=== PATIENT | female | born 1970 | race Caucasian/White ===

== ENCOUNTER 2016-09-02 13:52 | Inpatient (IN) | payer MEDICARE, MEDICAID ==
[~2016-09-02] VITALS: Ht 172.7 cm; Wt 122.4 kg
[2016-09-02] MEDS ORDERED: OMEP40CA2 PO (14:10)
[2016-09-02] MEDS ORDERED: VENL75CA47 PO (14:10)
[2016-09-02] MEDS ORDERED: RISP3TAB3 PO (14:10)
[2016-09-02] MEDS ORDERED: SLEE1TAB PO (14:10)
[2016-09-02] MEDS ORDERED: CLEM2.68 PO (14:10)
[2016-09-02] MEDS ORDERED: QUET1TAB10 PO (14:10)
[2016-09-02] MEDS ORDERED: TRAZ300T2 PO (14:10)
[2016-09-02] MEDS ORDERED: LEVO125T3 PO (14:10)
[2016-09-02] MEDS ORDERED: MIRT15TA3 PO (14:10)
[2016-09-02] MEDS ORDERED: NITR50CA2 PO (14:10)
[2016-09-02] MEDS ORDERED: NORC1TAB4 PO (14:12)
[2016-09-02] MEDS ORDERED: CLON1TAB (14:12)
[2016-09-02] MEDS ORDERED: NS 1,000 ML IV SCH (14:13)
[2016-09-02] MEDS ORDERED: LORazepam 2 MG/ML VIAL (J2060) IV STA ×4 (14:32→16:24)
[2016-09-02 14:53] LABS: ALBUMIN 3.9 GM/DL (3.2-5.2); ALBUMIN/GLOBULIN RATIO 0.91 (1.00-1.93); ALKALINE PHOSPHATASE 149 U/L (45-117); ALT/SGPT 26 U/L (12-78); ANION GAP 12 MEQ/L (8-16); AST/SGOT 37 U/L (15-37); BILIRUBIN,DIRECT 0.1 MG/DL (0.0-0.2); BILIRUBIN,TOTAL 0.4 MG/DL (0.2-1.0); BLOOD UREA NITROGEN 16 MG/DL (7-18); CALCIUM LEVEL 9.9 MG/DL (8.5-10.1); CARBON DIOXIDE LEVEL 26 MEQ/L (21-32); CHLORIDE LEVEL 99 MEQ/L (98-107); CREATININE FOR GFR 2.23 MG/DL (0.55-1.02); GLOMERULAR FILTRATION RATE 25.1 (>58); GLUCOSE, FASTING 158 MG/DL (70-105); POTASSIUM SERUM 4.1 MEQ/L (3.5-5.1); SODIUM LEVEL 137 MEQ/L (136-145); TOTAL PROTEIN 8.2 GM/DL (6.4-8.2)
[2016-09-02 14:55] LABS: MEAN CORPUSCULAR HEMOGLOBIN 30.3 pg (27.0-33.0); MEAN CORPUSCULAR HGB CONC 33.6 g/dl (32.0-36.5); PLATELET COUNT, AUTOMATED 466 k/mm3 (150-450); RED CELL DISTRIBUTION WIDTH 14.9 % (11.5-14.5); WHITE BLOOD COUNT 22.6 K/mm3 (4.0-10.0)
[2016-09-02] MEDS ORDERED: SYMB16INH INH (15:01)
[2016-09-02] MEDS ORDERED: CLON1TAB PO (15:01)
[2016-09-02] MEDS ORDERED: LEVOTAB10 PO (15:01)
[2016-09-02 15:25] LABS: BANDS 1 % (< 11); BASOPHILS 1 % (0-4); EOSINOPHILS 1 % (0-5)
[2016-09-02] MEDS ORDERED: SODIUM CHLORIDE 0.9% 1000 ML IV ONE (15:30)
[2016-09-02 17:05] LABS: MYOGLOBIN > 500 NG/ML (13-71)
[2016-09-02 17:09] LABS: CONTROL LINE HCG INT CTR LINE PRESENT
[2016-09-02 17:12] LABS: METHADONE URINE NEGATIVE (NEGATIVE)
[2016-09-02 17:23] LABS: OSMOLALITY SERUM 297 MOSM/KG (275-295)
[2016-09-02 17:31] LABS: MICROSCOPIC INDICATED? MAN YES (NO)
[2016-09-02 17:38] LABS: BACTERIA, URINE LARGE AMOUNT; RBC, URINE TNTC /hpf (0-3); SQUAMOUS EPITHELIAL CELL URINE SMALL AMOUNT /hpf (SMALL AMT); TRANSITIONAL EPI CELLS, URINE SMALL AMOUNT /hpf
[2016-09-02 17:42] LABS: WAXY CAST, URINE 0-1 /lpf
[2016-09-02 17:43] LABS: MICROSCOPIC EXAM PERFORMED
--- NOTE | 2016-09-02 17:56 | REP ---
CHEST, ONE VIEW: HISTORY: Altered mental status. COMPARISON: 09/25/2014 The technique utilized in obtaining the radiograph has magnified the cardiac silhouette and accentuated the interstitial markings. The patient is tilted and rotated to the right rather excessively. The lung murguia are clear and the heart is not enlarged. The osseous structures are within normal limits. IMPRESSION: No acute cardiopulmonary disease. Technique as described above. Signed by Wander Ramos DO 09/02/2016 06:04 P
[2016-09-02 18:01] LABS: VENOUS BASE EXCESS -1.3 (-2.0-2.0); VENOUS O2 SATURATION 82.4 % (60.0-80.0); VENOUS PARTIAL PRESSURE O2 50.5 mmHg (30.0-50.0); VENOUS TOTAL CO2 24.7 MEQ/L (24.0-28.0)
[2016-09-02] MEDS: NS 1,000 ML IV SCH ×2 (18:17→20:20)
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
[2016-09-02] MEDS: LORazepam 2 MG/ML VIAL (J2060) IV PRN ×2 (19:17→22:02)
[2016-09-02 20:00] VITALS: BP 139/82
[2016-09-02] MEDS: cefTRIAXone SOD 1 GM in D5W MINI-BAG PLUS 50 ML IV SCH (20:20)
--- NOTE | 2016-09-02 20:47 | ECGEPIP ---
Stationary ECG Study [facility] - ED Test Date: 2016-09-02 Pat Name: CAITLIN CONDE Department: Room: - Gender: F [employer]ate Of Chiropractic: jkaila : 1970 Requested By: Liudmila Razo Order Number: [id number] Reading MD: Vinny Camargo Measurements Intervals [place] Rate: 117 P: 52 DE: 123 QRS: 99 QRSD: 98 T: 82 QT: 361 QTc: 505 Interpretive Statements SINUS TACHYCARDIA BORDERLINE RIGHT AXIS DEVIATION POSSIBLE LAE SIMILAR TO 09/25/14 Electronically Signed On 09-02-2016 20:47:33 EDT by Vinny Camargo
[2016-09-02] MEDS: SYMBICORT 160/4.5MCG INHALER 6GM INH SCH (21:00)
[2016-09-02 21:03] VITALS: BP 110/58
[2016-09-02] MEDS: HEPARIN SOD (PORCINE) 5000 UNITS/ML VIAL SQ SCH (22:02)
[2016-09-02 23:18] VITALS: BP 112/70
[2016-09-03] VITALS (8 sets, daily range): BP systolic 95–138; BP diastolic 57–80
[2016-09-03] MEDS: LORazepam 2 MG/ML VIAL (J2060) IV PRN ×7 (00:38→23:06)
[2016-09-03] MEDS ORDERED: NS 1,000 ML IV ONE (01:30)
[2016-09-03] MEDS ORDERED: IPRATROPIUM 0.5MG/ALBUTEROL 2.5MG INH SOL UD 3ML (DUONEB)(J7620) NEB PRN (01:30)
[2016-09-03 02:59] LABS: BASO % 0.3 % (0.0-1.0); EOS # 0.1 K/mm3 (0.0-0.50); EOS % 0.4 % (0.0-3.0); LARGE UNSTAINED CELL # 0.3 K/mm3 (0.0-0.4); LARGE UNSTAINED CELL % 1.3 % (0.0-4.0); LYMPH # 2.6 K/mm3 (1.5-4.5); LYMPH % 12.6 % (24.0-44.0); MEAN CORPUSCULAR HEMOGLOBIN 29.4 pg (27.0-33.0); MEAN CORPUSCULAR HGB CONC 32.9 g/dl (32.0-36.5); MEAN CORPUSCULAR VOLUME 89.3 fl (80.0-96.0); MONO # 1.6 K/mm3 (0.0-0.8); MONO % 8.4 % (0.0-5.0); NEUTROPHILS # 14.5 K/mm3 (1.8-7.7); PLATELET COUNT, AUTOMATED 326 k/mm3 (150-450); RED CELL DISTRIBUTION WIDTH 15.2 % (11.5-14.5); WHITE BLOOD COUNT 18.8 K/mm3 (4.0-10.0)
[2016-09-03 03:25] LABS: ALBUMIN/GLOBULIN RATIO 0.79 (1.00-1.93); ALKALINE PHOSPHATASE 107 U/L (45-117); ALT/SGPT 25 U/L (12-78); ANION GAP 9 MEQ/L (8-16); AST/SGOT 60 U/L (15-37); BILIRUBIN,TOTAL 0.3 MG/DL (0.2-1.0); BLOOD UREA NITROGEN 17 MG/DL (7-18); CALCIUM LEVEL 8.5 MG/DL (8.5-10.1); CARBON DIOXIDE LEVEL 25 MEQ/L (21-32); CHLORIDE LEVEL 110 MEQ/L (98-107); CREATININE FOR GFR 1.57 MG/DL (0.55-1.02); GLOMERULAR FILTRATION RATE 37.6 (>58); GLUCOSE, FASTING 121 MG/DL (70-105); MAGNESIUM LEVEL 1.8 MG/DL (1.8-2.4); SODIUM LEVEL 144 MEQ/L (136-145)
[2016-09-03 04:20] LABS: ALBUMIN 3.1 GM/DL (3.2-5.2)
[2016-09-03] MEDS: NS 1,000 ML IV SCH ×2 (06:31→18:17)
[2016-09-03] MEDS: IPRATROPIUM 0.5MG/ALBUTEROL 2.5MG INH SOL UD 3ML (DUONEB)(J7620) NEB SCH ×4 (08:00→19:37)
[2016-09-03] MEDS: PANTOPRAZOLE 40MG INJ (PROTONIX) (C9113) IV SCH (08:13)
[2016-09-03] MEDS: LEVOTHYROXINE 100 MCG (0.1MG) VIAL IV SCH (08:13)
[2016-09-03] MEDS: HEPARIN SOD (PORCINE) 5000 UNITS/ML VIAL SQ SCH ×2 (08:14→20:53)
[2016-09-03] MEDS: NYSTATIN 100,000 UNITS/GM TOPICAL PWD 15 GM TOP SCH ×2 (08:14→20:54)
[2016-09-03] MEDS: SYMBICORT 160/4.5MCG INHALER 6GM INH SCH ×2 (09:00→21:00)
--- NOTE | 2016-09-03 10:33 | IPNPDOC ---
Subjective Date Seen The patient was seen on 09/03/16. Subjective Chief Complaint/HPI The patient is a 46-year-old female admitted with a reason for visit of Overdose. Events since last encounter patient remains confused and agitated, still encephalopathic, no fever or chills , no vomiting or diarrhea. Objective Physical Examination General Exam: Positive: No Acute Distress Eye Exam: Positive: PERRLA, Conjunctiva & lids normal ENT Exam: Positive: Atraumatic, Mucous membr. moist/pink, Pharynx Normal Neck Exam: Positive: Supple Chest Exam: Positive: Clear to auscultation, Normal air movement Heart Exam: Positive: Tachycardic, Regular Rhythm, Normal S1, Normal S2 Telemetry: Positive: No significant arrhythmia Abdomen Exam: Positive: Normal bowel sounds, Soft Extremity Exam: Positive: Normal pulses, Negative: Clubbing, Cyanosis, Edema Skin Exam: Positive: Other skin issue (tinea under the arms and groin and abdomnal folds. ) Assessment /Plan Problems (1) Toxic metabolic encephalopathy Problem Text: due to benadryl overdose. will give ativan prn as required to control agitation. (2) Traumatic rhabdomyolysis Problem Text: patient was down on floor for unknown duration continue IVF. (3) Acute renal failure Problem Text: due to acute rhabdomyolysis will continue with ivf. (4) Overdose Status: Acute Problem Text: with benadryl 50 tabs of 25 mg (5) Morbid obesity Problem Text: complicating treatment (6) Lactic acidosis Problem Text: continue ivf. (7) UTI (urinary tract infection) Problem Text: continue ceftriaxone. (8) Psychiatric disorder Problem Text: has h/o bipolar disorder, panic disorder in the medical records. (9) Hypothyroid (10) COPD (chronic obstructive pulmonary disease) Plan/VTE VTE Prophylaxis Ordered?: Yes Plan/Urinary Catheter Reason for insertion/continuin: Critical Pt monitoring VS, I&O, 24H, Fishbone Vital Signs/I&O Vital Signs Date Time Temp Pulse Resp B/P (MAP) Pulse Ox O2 Delivery O2 Flow Rate FiO2 09/03/16 08:00 Nasal Cannula 3.0 09/03/16 08:00 98.3 114 28 109/78 (88) 96 I&O- Last 24 Hours up to 6 AM 09/03/16 05:59 Intake Total 3800 ml Output Total 305 ml Balance 3495 ml Laboratory Data 24H LABS Laboratory Tests 2 09/02/16 14:10: Neutrophils 70, Band Neutrophils 1, Lymphocytes (Manual) 17, Monocytes (Manual) 9H, Eosinophils (Manual) 1, Basophils (Manual) 1, Atypical Lymphocytes 1, Platelet Estimate NORMAL, Anion Gap 12, Glomerular Filtration Rate 25.1L, Osmolality 297H, Calcium Level 9.9, Aspartate Amino Transf (AST/SGOT) 37, Alanine Aminotransferase (ALT/SGPT) 26, Alkaline Phosphatase 149H, Total Bilirubin 0.4, Direct Bilirubin 0.1, Total Creatine Kinase 1012H, Myoglobin > 500H, Total Protein 8.2, Albumin 3.9, Albumin/Globulin Ratio 0.91L, Thyroid Stimulating Hormone (TSH) 2.260, Human Chorionic Gonadotropin, Qual NEGATIVE, Salicylates Level 4.8L, Acetaminophen Level < 2.0L, Ethyl Alcohol Level < 0.003 09/02/16 16:22: Lactic Acid Level 8.3*H 09/02/16 16:43: Bedside Urine Color (LAB) DK YELLOW, Bedside Urine Appearance (LAB) CLOUDYH, Bedside Urine pH (LAB) 5.0, Bedside Urine Specific [place] (LAB 1.030, Bedside Urine Protein (LAB) 2+H, Bedside Urine Glucose (UA) T, Bedside Urine Ketones ( LAB) 1+H, Bedside Urine Blood POSITIVEH, Bedside Urine Nitrite (LAB) POSITIVEH, Bedside Urine Bilirubin (LAB) NEGATIVE, Bedside Urine Urobilinogen (LAB) NORMAL , Bedside Urine Leukocyte Esterase (L POSITIVEH, Urine WBC 10-15H, Urine RBC TNTCH, Urine Squamous Epithelial Cells SMALL AMOUNT, Urine Transitional Epithelial Cells SMALL AMOUNTH, Urine Bacteria LARGE AMOUNTH, Urine Hyaline Casts 7-10H, Urine Waxy Casts 0-1, Urine Mucus SMALL AMOUNTH, Urine Amorphous Sediment SMALL AMOUNTH, Urine Sediment Examination PERFORMED, Urine Granular Casts 5-7H, Urine Myoglobin POSITIVEH, Urine Amphetamines Screen NEGATIVE, Urine Benzodiazepines Screen POSITIVEH, Urine Opiates Screen NEGATIVE, Urine Methadone Screen NEGATIVE, Urine Barbiturates Screen NEGATIVE, Urine Phencyclidine Screen NEGATIVE, Urine Cocaine Metabolite Screen NEGATIVE, Urine Cannabinoids Screen NEGATIVE 09/02/16 17:46: Blood Gas Bicarbonate Standard 23.0, Venous Blood pH 7.387, Venous Blood Partial Pressure CO2 40.0, Venous Blood Partial Pressure O2 50.5H, Venous Blood Total Carbon Dioxide 24.7, Venous Blood HCO3 23.5, Venous Blood Oxygen Saturation 82.4H, Venous Blood Base Excess -1.3 09/02/16 22:05: Lactic Acid Level 3.6*H, Free Thyroxine 1.02 09/03/16 02:40: White Blood Count 18.8H, Red Blood Count 4.84, Hemoglobin 14.2#, Hematocrit 43.2 , Mean Corpuscular Volume 89.3, Mean Corpuscular Hemoglobin 29.4, Mean Corpuscular Hemoglobin Concent 32.9, Red Cell Distribution Width 15.2H, Platelet Count 326#, Neutrophils (%) (Auto) 77.0H, Lymphocytes (%) (Auto) 12.6L , Monocytes (%) (Auto) 8.4H, Eosinophils (%) (Auto) 0.4, Basophils (%) (Auto) 0.3, Neutrophils # (Auto) 14.5H, Lymphocytes # (Auto) 2.6, Monocytes # (Auto) 1.6H, Eosinophils # (Auto) 0.1, Basophils # (Auto) 0.0, Large Unclassified Cells % 1.3, Large Unclassified Cells # 0.3, Anion Gap 9, Glomerular Filtration Rate 37.6L, Lactic Acid Followup at 4 Hours 1.7, Blood Urea Nitrogen 17, Creatinine 1.57H, Sodium Level 144#, Potassium Level 4.0, Chloride Level 110H, Carbon Dioxide Level 25, Calcium Level 8.5, Aspartate Amino Transf (AST/SGOT) 60H, Alanine Aminotransferase (ALT/SGPT) 25, Total Creatine Kinase , Alkaline Phosphatase 107, Total Bilirubin 0.3, Total Protein 7.0, Albumin 3.1#L, Magnesium Level 1.8, Albumin/Globulin Ratio 0.79L 09/03/16 04:46: Total Creatine Kinase 5068#H 09/03/16 08:41: CBC/BMP Laboratory Tests 09/02/16 14:10 Red Blood Count 5.48 H, Mean Corpuscular Volume 90.0, Mean Corpuscular Hemoglobin 30.3, Mean Corpuscular Hemoglobin Concent 33.6, Red Cell Distribution Width 14.9 H 09/03/16 02:40 Red Blood Count 4.84, Mean Corpuscular Volume 89.3, Mean Corpuscular Hemoglobin 29.4, Mean Corpuscular Hemoglobin Concent 32.9, Red Cell Distribution Width 15.2 H, Neutrophils (%) (Auto) 77.0 H, Lymphocytes (%) (Auto) 12.6 L, Monocytes (%) (Auto) 8.4 H, Eosinophils (%) (Auto) 0.4, Basophils (%) (Auto) 0.3, Neutrophils # (Auto) 14.5 H, Lymphocytes # (Auto) 2.6, Monocytes # (Auto) 1.6 H , Eosinophils # (Auto) 0.1, Basophils # (Auto) 0.0, Calcium Level 8.5, Aspartate Amino Transf (AST/SGOT) 60 H, Alanine Aminotransferase (ALT/SGPT) 25, Total Creatine Kinase , Alkaline Phosphatase 107, Total Bilirubin 0.3, Total Protein 7.0, Albumin 3.1 #L Microbiology Microbiology 09/02/16 Blood Culture, Received Pending 09/02/16 Blood Culture, Received Pending 09/02/16 Urine Culture, Received Pending ELPIDIO DAMON MD September 03, 2016 10:33
[2016-09-03] MEDS ORDERED: HALOPERIDOL 5 MG/ML VIAL (J1630) IV STA (12:08)
[2016-09-03] MEDS ORDERED: HALOPERIDOL 5 MG/ML VIAL (J1630) As Ordered ONE (12:12)
[2016-09-03] MEDS ORDERED: ATROPINE SULF 1MG/10ML SYRINGE (J0461) IV PRN (12:45)
[2016-09-03] MEDS ORDERED: PHYSOSTIGMINE SALICYLATE 2 MG/2 ML AMP IV ONE ×2 (12:45→13:00)
[2016-09-03] MEDS ORDERED: [UNRECOGNIZED DRUG - OTHER] IV ONE (13:30)
[2016-09-03] MEDS ORDERED: SODIUM CHLORIDE IV ONE (13:30)
[2016-09-03 14:39] LABS: ABG BASE EXCESS -4.8 (-2.0-2.0); ABG HCO3 22.4 MEQ/L (22.0-26.0); ABG PARTIAL PRESSURE CO2 49.7 mmHg (35.0-45.0); ABG PARTIAL PRESSURE O2 335.4 mmHg (75.0-100.0); ABG STANDARD HCO3 20.6 MEQ/L (22.0-26.0); ABG TOTAL CO2 23.9 MEQ/L (22.0-29.0); ABG pH (ARTERIAL) 7.272 UNITS (7.350-7.450)
[2016-09-03] MEDS: cefTRIAXone SOD 1 GM in D5W MINI-BAG PLUS 50 ML IV SCH (20:12)
[2016-09-03 21:06] LABS: ABG BASE EXCESS -4.4 (-2.0-2.0); ABG HCO3 22.3 MEQ/L (22.0-26.0); ABG PARTIAL PRESSURE CO2 47.1 mmHg (35.0-45.0); ABG PARTIAL PRESSURE O2 103.7 mmHg (75.0-100.0); ABG STANDARD HCO3 20.9 MEQ/L (22.0-26.0); ABG TOTAL CO2 23.7 MEQ/L (22.0-29.0); ABG pH (ARTERIAL) 7.293 UNITS (7.350-7.450)
[2016-09-04] VITALS (7 sets, daily range): BP systolic 100–148; BP diastolic 48–84
[2016-09-04] MEDS: NS 1,000 ML IV SCH ×3 (02:29→18:30)
[2016-09-04 04:45] LABS: BASO % 0.3 % (0.0-1.0); EOS % 0.3 % (0.0-3.0); LARGE UNSTAINED CELL # 0.2 K/mm3 (0.0-0.4); LARGE UNSTAINED CELL % 1.6 % (0.0-4.0); LYMPH # 2.5 K/mm3 (1.5-4.5); LYMPH % 19.7 % (24.0-44.0); MEAN CORPUSCULAR HEMOGLOBIN 30.9 pg (27.0-33.0); MEAN CORPUSCULAR HGB CONC 33.4 g/dl (32.0-36.5); MEAN CORPUSCULAR VOLUME 92.4 fl (80.0-96.0); MONO # 0.9 K/mm3 (0.0-0.8); MONO % 7.2 % (0.0-5.0); NEUTROPHILS # 8.9 K/mm3 (1.8-7.7); NEUTROPHILS % 70.9 % (36.0-66.0); PLATELET COUNT, AUTOMATED 300 k/mm3 (150-450); RED CELL DISTRIBUTION WIDTH 14.9 % (11.5-14.5); WHITE BLOOD COUNT 12.6 K/mm3 (4.0-10.0)
[2016-09-04 05:24] LABS: ALBUMIN 2.9 GM/DL (3.2-5.2); ALBUMIN/GLOBULIN RATIO 0.76 (1.00-1.93); ALKALINE PHOSPHATASE 98 U/L (45-117); ALT/SGPT 43 U/L (12-78); ANION GAP 10 MEQ/L (8-16); AST/SGOT 173 U/L (15-37); BILIRUBIN,TOTAL 0.3 MG/DL (0.2-1.0); BLOOD UREA NITROGEN 11 MG/DL (7-18); CARBON DIOXIDE LEVEL 25 MEQ/L (21-32); CHLORIDE LEVEL 111 MEQ/L (98-107); CREATININE FOR GFR 0.82 MG/DL (0.55-1.02); GLOMERULAR FILTRATION RATE > 60.0 (>58); GLUCOSE, FASTING 101 MG/DL (70-105); POTASSIUM SERUM 3.9 MEQ/L (3.5-5.1); SODIUM LEVEL 146 MEQ/L (136-145); TOTAL PROTEIN 6.7 GM/DL (6.4-8.2)
[2016-09-04] MEDS: IPRATROPIUM 0.5MG/ALBUTEROL 2.5MG INH SOL UD 3ML (DUONEB)(J7620) NEB SCH ×4 (08:28→19:28)
[2016-09-04] MEDS: SYMBICORT 160/4.5MCG INHALER 6GM INH SCH ×2 (08:29→21:00)
[2016-09-04] MEDS: PANTOPRAZOLE 40MG INJ (PROTONIX) (C9113) IV SCH (08:46)
[2016-09-04] MEDS: HEPARIN SOD (PORCINE) 5000 UNITS/ML VIAL SQ SCH ×2 (08:47→21:09)
[2016-09-04] MEDS: LEVOTHYROXINE 100 MCG (0.1MG) VIAL IV SCH (08:47)
[2016-09-04] MEDS: NYSTATIN 100,000 UNITS/GM TOPICAL PWD 15 GM TOP SCH ×2 (08:49→21:10)
[2016-09-04] MEDS: ACETAMINOPHEN 650 MG SUPP PR PRN (08:57)
--- NOTE | 2016-09-04 11:55 | IPNPDOC ---
Subjective Date Seen The patient was seen on 09/04/16. Subjective Chief Complaint/HPI The patient is a 46-year-old female admitted with a reason for visit of Overdose. Events since last encounter still remains confused and easily getting agitated. patient having recurrent severe apneic episodes when ever she is falling asleep with sats dropping down to 70%. Seems to have undiagnosed SIRIA. Objective Physical Examination General Exam: Positive: No Acute Distress, Other (confused agitated.) Eye Exam: Positive: PERRLA, Conjunctiva & lids normal ENT Exam: Positive: Atraumatic, Mucous membr. moist/pink, Pharynx Normal Neck Exam: Positive: Supple Chest Exam: Positive: Clear to auscultation, Normal air movement Heart Exam: Positive: Tachycardic, Regular Rhythm, Normal S1, Normal S2 Telemetry: Positive: No significant arrhythmia Abdomen Exam: Positive: Normal bowel sounds, Soft Extremity Exam: Positive: Normal pulses, Negative: Clubbing, Cyanosis, Edema Skin Exam: Positive: Other skin issue (tinea under the arms and groin and abdomnal folds. ) Assessment /Plan Problems (1) Toxic metabolic encephalopathy Problem Text: due to benadryl overdose. will give ativan prn as required to control agitation. (2) Traumatic rhabdomyolysis Problem Text: cpk seems to be plateauing. patient was down on floor for unknown duration continue IVF. (3) Acute renal failure Status: Resolved Problem Text: due to acute rhabdomyolysis and dehydration will continue with ivf. (4) Overdose Status: Acute Problem Text: with benadryl 50 tabs of 25 mg (5) Morbid obesity Problem Text: complicating treatment (6) Lactic acidosis Problem Text: continue ivf. (7) UTI (urinary tract infection) Problem Text: continue ceftriaxone. (8) Psychiatric disorder Problem Text: has h/o bipolar disorder, panic disorder in the medical records. (9) Hypothyroid (10) COPD (chronic obstructive pulmonary disease) (11) Hypoxia Status: Acute Problem Text: recurrent apneic spells with hypoxic episodes . pateint has underlying SIRIA never diagnosed. will continue with oxygen supplementation. ABG reviewed. Plan/VTE VTE Prophylaxis Ordered?: Yes Plan/Urinary Catheter Reason for insertion/continuin: Critical Pt monitoring VS, I&O, 24H, Fishbone Vital Signs/I&O Vital Signs Date Time Temp Pulse Resp B/P (MAP) Pulse Ox O2 Delivery O2 Flow Rate FiO2 09/04/16 08:00 99.8 100 25 118/59 (78) 92 Nasal Cannula 3.0 I&O- Last 24 Hours up to 6 AM 09/04/16 06:00 Intake Total 1000 ml Output Total 1475 ml Balance -475 ml Laboratory Data 24H LABS Laboratory Tests 2 09/03/16 12:13: 09/03/16 12:23: Bedside Glucose (Misc Panel) 119H 09/03/16 12:51: Total Creatine Kinase 6961H 09/03/16 14:28: Blood Gas Bicarbonate Standard 20.6L, Arterial Blood pH 7.272L, Arterial Blood Partial Pressure CO2 49.7H, Arterial Blood Partial Pressure O2 335.4H, Arterial Blood Total CO2 23.9, Arterial Blood HCO3 22.4, Arterial Blood Base Excess -4.8L , Arterial Blood Oxygen Saturation 99.9H 09/03/16 18:06: Bedside Glucose (Misc Panel) 103 09/03/16 20:58: Blood Gas Bicarbonate Standard 20.9L, Arterial Blood pH 7.293L, Arterial Blood Partial Pressure CO2 47.1H, Arterial Blood Partial Pressure O2 103.7H, Arterial Blood Total CO2 23.7, Arterial Blood HCO3 22.3, Arterial Blood Base Excess -4.4L , Arterial Blood Oxygen Saturation 97.7 09/03/16 21:44: Total Creatine Kinase 9456H 09/04/16 04:18: Total Creatine Kinase 9408H, White Blood Count 12.6H, Red Blood Count 4.51, Hemoglobin 13.9, Hematocrit 41.6, Mean Corpuscular Volume 92.4, Mean Corpuscular Hemoglobin 30.9, Mean Corpuscular Hemoglobin Concent 33.4, Red Cell Distribution Width 14.9H, Platelet Count 300, Neutrophils (%) (Auto) 70.9H, Lymphocytes (%) (Auto) 19.7L, Monocytes (%) (Auto) 7.2H, Eosinophils (%) (Auto) 0.3, Basophils (%) (Auto) 0.3, Neutrophils # (Auto) 8.9H, Lymphocytes # (Auto) 2.5, Monocytes # (Auto) 0.9H, Eosinophils # (Auto) 0.0, Basophils # (Auto) 0.0, Large Unclassified Cells % 1.6, Large Unclassified Cells # 0.2, Anion Gap 10, Glomerular Filtration Rate > 60.0, Blood Urea Nitrogen 11, Creatinine 0.82, Sodium Level 146H, Potassium Level 3.9, Chloride Level 111H, Carbon Dioxide Level 25, Calcium Level 8.0L, Aspartate Amino Transf (AST/SGOT) 173H, Alanine Aminotransferase (ALT/SGPT) 43, Alkaline Phosphatase 98, Total Bilirubin 0.3, Total Protein 6.7, Albumin 2.9L, Magnesium Level 2.0, Albumin/Globulin Ratio 0.76L CBC/BMP Laboratory Tests 09/04/16 04:18 Red Blood Count 4.51, Mean Corpuscular Volume 92.4, Mean Corpuscular Hemoglobin 30.9, Mean Corpuscular Hemoglobin Concent 33.4, Red Cell Distribution Width 14.9 H, Neutrophils (%) (Auto) 70.9 H, Lymphocytes (%) (Auto) 19.7 L, Monocytes (%) (Auto) 7.2 H, Eosinophils (%) (Auto) 0.3, Basophils (%) (Auto) 0.3, Neutrophils # (Auto) 8.9 H, Lymphocytes # (Auto) 2.5, Monocytes # (Auto) 0.9 H, Eosinophils # (Auto) 0.0, Basophils # (Auto) 0.0, Calcium Level 8.0 L, Aspartate Amino Transf (AST/SGOT) 173 H, Alanine Aminotransferase (ALT/SGPT) 43 , Total Creatine Kinase 9408 H, Alkaline Phosphatase 98, Total Bilirubin 0.3, Total Protein 6.7, Albumin 2.9 L Microbiology Microbiology 09/02/16 Blood Culture - Preliminary, Resulted No growth after 24 hours . All specim... 09/02/16 Blood Culture - Preliminary, Resulted No growth after 24 hours . All specim... 09/02/16 Urine Culture - Final, Complete Serratia ELPIDIO Oseguera MD Sep 04, 2016 11:55
[2016-09-04] MEDS ORDERED: PHYSOSTIGMINE SALICYLATE 2 MG/2 ML AMP IV ONE ×2 (12:45→15:00)
[2016-09-04] MEDS ORDERED: SODIUM CHLORIDE IV ONE ×2 (14:00→15:30)
[2016-09-04] MEDS ORDERED: [UNRECOGNIZED DRUG - OTHER] IV ONE ×2 (14:00→15:30)
[2016-09-04] MEDS: NICOTINE 14 MG/24 HR TRANSDERMAL TD SCH (16:34)
--- NOTE | 2016-09-04 20:56 | ECGEPIP ---
Stationary ECG Study [facility] Test Date: 2016-09-04 Pat Name: CAITLIN CONDE Department: Room: [place] [address] Gender: F Firer Automatic Stoker: ASHLEY : 1970 Requested By: ELPIDIO DAMON Order Number: [id number] Reading MD: Myles Elaine Measurements Intervals [place] Rate: 102 P: 75 [place]: 129 QRS: 90 QRSD: 109 T: 69 QT: 366 QTc: 478 Interpretive Statements SINUS TACHYCARDIA ABNORMAL RHYTHM ECG INTERPRETATION BASED ON A DEFAULT AGE OF 40 YEARS Electronically Signed On 09-04-2016 20:56:12 EDT by Myles Elaine
[2016-09-04] MEDS: cefTRIAXone SOD 1 GM in D5W MINI-BAG PLUS 50 ML IV SCH (21:08)
[2016-09-05] VITALS (94 sets, daily range): BP systolic 69–173; BP diastolic 43–100; O2SAT 97
[2016-09-05] MEDS: NS 1,000 ML IV SCH ×2 (03:41→08:25)
[2016-09-05 05:13] LABS: BASO % 0.3 % (0.0-1.0); EOS # 0.1 K/mm3 (0.0-0.50); EOS % 0.9 % (0.0-3.0); LARGE UNSTAINED CELL # 0.3 K/mm3 (0.0-0.4); LARGE UNSTAINED CELL % 2.2 % (0.0-4.0); LYMPH % 23.4 % (24.0-44.0); MEAN CORPUSCULAR HEMOGLOBIN 30.1 pg (27.0-33.0); MEAN CORPUSCULAR HGB CONC 32.4 g/dl (32.0-36.5); MEAN CORPUSCULAR VOLUME 92.9 fl (80.0-96.0); MONO % 8.7 % (0.0-5.0); NEUTROPHILS # 7.6 K/mm3 (1.8-7.7); NEUTROPHILS % 64.4 % (36.0-66.0); PLATELET COUNT, AUTOMATED 304 k/mm3 (150-450); WHITE BLOOD COUNT 11.8 K/mm3 (4.0-10.0)
[2016-09-05 05:58] LABS: ALBUMIN 2.7 GM/DL (3.2-5.2); ALBUMIN/GLOBULIN RATIO 0.73 (1.00-1.93); ALKALINE PHOSPHATASE 82 U/L (45-117); ALT/SGPT 50 U/L (12-78); ANION GAP 8 MEQ/L (8-16); AST/SGOT 183 U/L (15-37); BILIRUBIN,TOTAL 0.3 MG/DL (0.2-1.0); BLOOD UREA NITROGEN 6 MG/DL (7-18); CALCIUM LEVEL 8.2 MG/DL (8.5-10.1); CARBON DIOXIDE LEVEL 28 MEQ/L (21-32); CHLORIDE LEVEL 110 MEQ/L (98-107); CREATININE FOR GFR 0.58 MG/DL (0.55-1.02); GLOMERULAR FILTRATION RATE > 60.0 (>58); GLUCOSE, FASTING 76 MG/DL (70-105); MAGNESIUM LEVEL 1.8 MG/DL (1.8-2.4); POTASSIUM SERUM 3.6 MEQ/L (3.5-5.1); SODIUM LEVEL 146 MEQ/L (136-145); TOTAL PROTEIN 6.4 GM/DL (6.4-8.2)
[2016-09-05 08:11] LABS: ABG BASE EXCESS -1.3 (-2.0-2.0); ABG HCO3 24.1 MEQ/L (22.0-26.0); ABG PARTIAL PRESSURE CO2 43.3 mmHg (35.0-45.0); ABG PARTIAL PRESSURE O2 278.8 mmHg (75.0-100.0); ABG STANDARD HCO3 23.4 MEQ/L (22.0-26.0); ABG TOTAL CO2 25.5 MEQ/L (22.0-29.0); ABG pH (ARTERIAL) 7.364 UNITS (7.350-7.450)
[2016-09-05] MEDS: HEPARIN SOD (PORCINE) 5000 UNITS/ML VIAL SQ SCH ×2 (08:24→20:17)
[2016-09-05] MEDS: PANTOPRAZOLE 40MG INJ (PROTONIX) (C9113) IV SCH (08:24)
[2016-09-05] MEDS: LEVOTHYROXINE 100 MCG (0.1MG) VIAL IV SCH (08:24)
[2016-09-05] MEDS: NYSTATIN 100,000 UNITS/GM TOPICAL PWD 15 GM TOP SCH ×2 (08:24→20:18)
[2016-09-05] MEDS: NICOTINE 14 MG/24 HR TRANSDERMAL TD SCH (08:25)
[2016-09-05] MEDS: SYMBICORT 160/4.5MCG INHALER 6GM INH SCH ×2 (08:57→20:10)
[2016-09-05] MEDS: IPRATROPIUM 0.5MG/ALBUTEROL 2.5MG INH SOL UD 3ML (DUONEB)(J7620) NEB SCH ×4 (08:57→20:00)
[2016-09-05] MEDS: CHLORHEXIDINE GLUCONATE 0.12 % 15ML UDC (PERIDEX ORAL RINSE) MT SCH ×2 (09:00→20:17)
[2016-09-05] MEDS ORDERED: SUCCINYLCHOLINE INJ 200 MG/10 ML VIAL (J0330) As Ordered ONE ×3 (10:06→23:08)
[2016-09-05] MEDS ORDERED: ETOMIDATE INJ 20MG/10ML VIAL As Ordered ONE (10:06)
[2016-09-05] MEDS ORDERED: MIDAZOLAM INJ 2 MG/2 ML VIAL (J2250) As Ordered ONE ×3 (10:13→10:32)
[2016-09-05] MEDS ORDERED: PROPOFOL 1,000 MG/100 ML VIAL As Ordered ONE (10:33)
[2016-09-05] MEDS ORDERED: ROCURONIUM BROMIDE 50 MG/5 ML VIAL As Ordered ONE (10:34)
--- NOTE | 2016-09-05 10:37 | IPNPDOC ---
Subjective Date Seen The patient was seen on 09/05/16. Subjective Chief Complaint/HPI The patient is a 46-year-old female admitted with a reason for visit of Overdose. Events since last encounter continues to be confused agitated , has been having frequent episodes of apneas with desaturation and bradycardia lasting up to a minute if not forcefully woken up sometimes requiring sternal rub even to wake her up. Objective Physical Examination General Exam: Positive: No Acute Distress, Other (confused agitated.) Eye Exam: Positive: PERRLA (4 mm reacting to light eqaul ), Conjunctiva & lids normal ENT Exam: Positive: Atraumatic, Mucous membr. moist/pink, Pharynx Normal Neck Exam: Positive: Supple Chest Exam: Positive: Clear to auscultation, Normal air movement Heart Exam: Positive: Tachycardic, Regular Rhythm, Normal S1, Normal S2 Telemetry: Positive: No significant arrhythmia Abdomen Exam: Positive: BS Hypoactive, Soft Extremity Exam: Positive: Normal pulses, Negative: Clubbing, Cyanosis, Edema Skin Exam: Positive: Lesion, Other skin issue (tinea under the arms and groin and abdomnal folds. ) Assessment /Plan Problems (1) Hypoxia Status: Acute Problem Text: recurrent apneic spells with hypoxic episodes with bradycardia. pateint has underlying SIRIA never diagnosed. will start BIPAP , consult technology advisor. . ABG reviewed. (2) Toxic metabolic encephalopathy Problem Text: due to benadryl overdose. will give ativan prn as required to control agitation. given physostigmine 2 doses of 1 mg each on 09/04/16 (3) Traumatic rhabdomyolysis Problem Text: cpk seems to be plateauing. patient was down on floor for unknown duration continue IVF. (4) Acute renal failure Status: Resolved Problem Text: due to acute rhabdomyolysis and dehydration will continue with ivf. (5) Overdose Status: Acute Problem Text: with benadryl 50 tabs of 25 mg (6) Morbid obesity Problem Text: complicating treatment (7) Lactic acidosis Problem Text: continue ivf. (8) UTI (urinary tract infection) Problem Text: continue ceftriaxone. (9) Psychiatric disorder Problem Text: has h/o bipolar disorder, panic disorder in the medical records. (10) Hypothyroid (11) COPD (chronic obstructive pulmonary disease) Status: Chronic Plan/VTE VTE Prophylaxis Ordered?: Yes Plan/Urinary Catheter Reason for insertion/continuin: Critical Pt monitoring VS, I&O, [facility] Vital Signs/I&O Vital Signs Date Time Temp Pulse Resp B/P (MAP) Pulse Ox O2 Delivery O2 Flow Rate FiO2 09/05/16 08:58 107 09/05/16 08:58 19 09/05/16 08:53 97 BIPAP/CPAP 30 09/05/16 06:19 134/62 (86) 3.0 09/05/16 04:30 97.9 I&O- Last 24 Hours up to 6 AM 09/05/16 06:00 Intake Total 2625 ml Output Total 1135 ml Balance 1490 ml Laboratory Data 24H LABS Laboratory Tests 2 09/05/16 04:54: White Blood Count 11.8H, Red Blood Count 4.09, Hemoglobin 12.3, Hematocrit 38.0 , Mean Corpuscular Volume 92.9, Mean Corpuscular Hemoglobin 30.1, Mean Corpuscular Hemoglobin Concent 32.4, Red Cell Distribution Width 15.0H, Platelet Count 304, Neutrophils (%) (Auto) 64.4, Lymphocytes (%) (Auto) 23.4L, Monocytes (%) (Auto) 8.7H, Eosinophils (%) (Auto) 0.9, Basophils (%) (Auto) 0.3 , Neutrophils # (Auto) 7.6, Lymphocytes # (Auto) 3.0, Monocytes # (Auto) 1.0H, Eosinophils # (Auto) 0.1, Basophils # (Auto) 0.0, Large Unclassified Cells % 2.2 , Large Unclassified Cells # 0.3, Anion Gap 8, Glomerular Filtration Rate > 60.0 , Blood Urea Nitrogen 6L, Creatinine 0.58, Sodium Level 146H, Potassium Level 3.6, Chloride Level 110H, Carbon Dioxide Level 28, Calcium Level 8.2L, Aspartate Amino Transf (AST/SGOT) 183H, Alanine Aminotransferase (ALT/SGPT) 50, Total Creatine Kinase 7525H, Alkaline Phosphatase 82, Total Bilirubin 0.3, Total Protein 6.4, Albumin 2.7L, Magnesium Level 1.8, Albumin/Globulin Ratio 0.73L 09/05/16 07:58: Blood Gas Bicarbonate Standard 23.4, Arterial Blood pH 7.364, Arterial Blood Partial Pressure CO2 43.3, Arterial Blood Partial Pressure O2 278.8H, Arterial Blood Total CO2 25.5, Arterial Blood HCO3 24.1, Arterial Blood Base Excess -1.3 , Arterial Blood Oxygen Saturation 99.7H, Arterial Blood Gas Puncture Site RT BRACHIAL CBC/BMP Laboratory Tests 09/05/16 04:54 Red Blood Count 4.09, Mean Corpuscular Volume 92.9, Mean Corpuscular Hemoglobin 30.1, Mean Corpuscular Hemoglobin Concent 32.4, Red Cell Distribution Width 15.0 H, Neutrophils (%) (Auto) 64.4, Lymphocytes (%) (Auto) 23.4 L, Monocytes (% ) (Auto) 8.7 H, Eosinophils (%) (Auto) 0.9, Basophils (%) (Auto) 0.3, Neutrophils # (Auto) 7.6, Lymphocytes # (Auto) 3.0, Monocytes # (Auto) 1.0 H, Eosinophils # (Auto) 0.1, Basophils # (Auto) 0.0, Calcium Level 8.2 L, Aspartate Amino Transf (AST/SGOT) 183 H, Alanine Aminotransferase (ALT/SGPT) 50 , Total Creatine Kinase 7525 H, Alkaline Phosphatase 82, Total Bilirubin 0.3, Total Protein 6.4, Albumin 2.7 L Microbiology Microbiology 09/02/16 Blood Culture - Preliminary, Resulted No Growth after 48 hours. All Specime... 09/02/16 Blood Culture - Preliminary, Resulted No Growth after 48 hours. All Specime... 09/02/16 Urine Culture - Final, Complete Serratia ELPIDIO Oseguera MD Sep 05, 2016 10:37
[2016-09-05] MEDS ORDERED: ETOMIDATE INJ 20MG/10ML VIAL IV STA (10:48)
[2016-09-05] MEDS ORDERED: SUCCINYLCHOLINE INJ 200 MG/10 ML VIAL (J0330) IV STA (10:48)
[2016-09-05] MEDS ORDERED: MIDAZOLAM INJ 2 MG/2 ML VIAL (J2250) IV ONE (11:15)
[2016-09-05] MEDS ORDERED: ROCURONIUM BROMIDE 50 MG/5 ML VIAL IV ONE (11:15)
--- NOTE | 2016-09-05 11:33 | REP ---
CHEST, PORTABLE: AP spine portable view of the chest is performed and compared to prior study of 09/02/2016. The cardiomediastinal silhouette appears magnified. There are scattered fibroatelectatic changes bilaterally. Somewhat confluent atelectasis or infiltrate is seen in the left lung base. Endotracheal tube is seen with the tip about 2.6 cm above the tanya. Nasogastric tube traverses into the stomach. Signed by Mt Berg MD 09/05/2016 01:41 P
--- NOTE | 2016-09-05 11:42 | RO ---
DATE OF PROCEDURE: 09/05/2016 PREPROCEDURE DIAGNOSIS: Hypoxia, apnea. POSTPROCEDURE DIAGNOSIS: Hypoxia, apnea. PROCEDURE: Intubation SURGEON: Dr. Pablito Villa MODELING TEACHER: None. ANESTHESIA: Sedation included Versed, etomidate and succinylcholine. DESCRIPTION OF PROCEDURE: The patient was placed in the supine position. Her head was elevated into the sniffing position. She was preoxygenated with 100% oxygen. It was deemed urgent intubation as she could not protect her airway and she was having significant apneic spells associated with bradycardia. She would become hypoxic and bradycardic. Although she did have periods of lucidity, there were other periods where she was completely unconscious and unable to breathe. It was determined best the safest route was to perform intubation with mechanical ventilation. She had no family members arriving to her the bedside during her hospitalization. After the patient was placed in the supine sniffing position and after preoxygenation, it was noted that she had a short de dios and small mouth opening. Rapid sequence induction was performed. She was easily bagged. She had a large amount of secretions in her posterior pharynx which were suctioned. On view with GlideScope initially, it was difficult to view the cords. I could not get the endotracheal tube in through her small mouth opening at the same time and therefore I removed the blade. I bagged the patient and had additional suctioning in her posterior pharynx. There was a grade 4 view. After bagging, the patient did have some return of sensorium and was no longer paralyzed. Oxygen saturation never got below 86%. The patient was oxygenated to 97%. I switched to an intubation bronch. I was unable to view any of the posterior pharynx with the bronch. Additional sedation paralysis was given. A nasal trumpet was placed in order to be able to bag and oxygenate the patient during intubation. I then switched to a Poon blade, again, having a very poor view. I did attempt an intubation at this point in time; however, quickly found that it was an esophageal intubation and removed the endotracheal tube. Again, oxygen saturations at this point in time did not fall below 95%. After this attempt, I repositioned the patient, added more towels under her head for increased sniffing position, and returned to the GlideScope as this was the best view I had obtained out of all the views. She was given Versed to help with sedation and then this was followed by rocuronium. After adequate sedation paralysis, I was able to view the posterior pharynx to a grade 3 view with repositioning. The endotracheal tube was switched from an 8.0 to a 7.5 endotracheal tube and this was advanced through the vocal cords with direct vision as it was passing through the vocal cords. The stylus was removed and tidal CO2 monitoring confirmed adequate placement along with auscultation. Chest x-ray confirms adequate placement of endotracheal tube. There were no observed complications other than some bleeding from where the nasopharyngeal airway was placed. The patient remained well oxygenated during the entire procedure. There were no arrhythmias. Will continue mechanical ventilation until her sensorium improves and she is able to protect her airways without periods of apnea. GENIE
[2016-09-05] MEDS: LORazepam 2 MG/ML VIAL (J2060) IV PRN (11:48)
[2016-09-05] MEDS: PROPOFOL 1,000 MG in APPROPRIATE DILUENT 1 EA IV SCH ×5 (11:50→21:09)
[2016-09-05] MEDS ORDERED: IPRATROPIUM 0.5MG/ALBUTEROL 2.5MG INH SOL UD 3ML (DUONEB)(J7620) NEB SCH (12:00)
[2016-09-05 12:05] LABS: ABG BASE EXCESS -3.7 (-2.0-2.0); ABG HCO3 21.3 MEQ/L (22.0-26.0); ABG PARTIAL PRESSURE CO2 38.7 mmHg (35.0-45.0); ABG PARTIAL PRESSURE O2 63.3 mmHg (75.0-100.0); ABG STANDARD HCO3 21.3 MEQ/L (22.0-26.0); ABG TOTAL CO2 22.5 MEQ/L (22.0-29.0); ABG pH (ARTERIAL) 7.359 UNITS (7.350-7.450)
[2016-09-05] MEDS: D5W/0.45% SODIUM CHLORIDE 1,000 ML IV SCH ×2 (12:20→20:19)
[2016-09-05] MEDS: MIDAZOLAM INJ 2 MG/2 ML VIAL (J2250) IV PRN ×16 (12:58→23:30)
[2016-09-05] MEDS ORDERED: MIDAZOLAM HCL 100 MG in D5W 80 ML IV SCH (13:00)
[2016-09-05] MEDS ORDERED: REFRIGERATOR IV KEYS XX PRN (13:00)
--- NOTE | 2016-09-05 13:02 | CCN ---
DATE: 09/05/2016 I was urgently called to the patient's bedside for apnea associated with bradycardia. The patient when aroused is combative and encephalopathic. She was initiated on bilevel this morning by her primary physician due to her persistent apneas. Apparently, she was admitted on 09/02/2016 for a drug overdose. She has a history of mental impairment, bipolar disease by record. There is no one available to give me any history other than what is obtained in the chart. There is a report that it is thought that maybe Benadryl is the culprit as far as her drug overdose. Her toxicology screen was positive for benzodiazepines. During her hospital stay, she remained encephalopathic, having periods of at least obstructive events. This morning and through the night she was having periods of apnea and bradycardia. On my arrival to the room, she is not responsive and hypoventilating despite the bilevel therapy. At that point in time, I urgently intubated the patient as it was deemed necessary due to her inability to protect her airway, recurrent apneic episodes associated with bradycardia, and concern for further respiratory failure. She was a very difficult intubation with initially a grade 4 view. She has a short thyromental distance, small mouth opening, with a large amount of tissue in the posterior pharynx. She did not have any episodes of hypoxia during the intubation however. PHYSICAL EXAMINATION: Temperature is 97.9, pulse is 107, respiratory rate is 20, blood pressure is 134/62, oxygen saturation is 97% on 0.30 FIO2. General: The patient is sedated on mechanical ventilation and occasionally will have purposeful movement. There is no evidence of seizure activity. HEENT: Sclerae clear, anicteric. Pupils equal and reactive to light. Mucous membranes are moist, without lesions. Tongue is midline. Neck is supple. No tracheal deviation, thick circumference, short thyromental distance. Lymph Nodes: No cervical, supraclavicular or axillary adenopathy. Pulmonary: Clear to auscultation without rales, rhonchi or wheezes. No dullness to percussion. Cardiac: Regular. S1, S2. Without audible murmur or gallop. No elevated jugular venous pulse (JVP). No systemic edema. Abdomen is obese, soft, nontender, nondistended. No hepatosplenomegaly. No masses or hernia. Extremities: Some small ulcerated lesions on her left upper arm. No other rash, jaundice or bruising. Skin is pale. Neurologic: No unilateral weakness. No evidence of seizure activity. Pupils are reactive to light. Musculoskeletal: Normal muscle tone for stated age. No evidence of joint effusion or recent fracture. LABORATORY EVALUATION: Shows sodium of 146, potassium of 3.6, chloride of 110, bicarb of 28, anion gap of 8, BUN of 6, creatinine of 0.58, calcium 8.2. No ALT is 183, but ALT is down to 50. Tylenol level on admission was unremarkable. CK is down to 7.25. Albumin is 2.7. Arterial blood gas this morning shows a pH of 7.36, pCO2 43, and a pAO2 of 278. White blood cell count is 11.8 which is down from 22.6. The patient has been on ceftriaxone. There is no significant neutrophilia or bandemia. Hemoglobin is 12.3, hematocrit of 38.0 and platelet count is 304. Chest x-ray shows some right upper lobe infiltrate; however, I believe this is likely secondary to the intubation process. Will repeat a chest x-ray to ensure resolution. Endotracheal tube is in good position approximately 3 cm above the tanya. No other significant abnormalities. No evidence of pneumothorax. IMPRESSION: 1. Acute hypoxic respiratory failure with associated bradycardia in the setting of drug overdose and encephalopathy. It is now day four since her large consumption of medications. If she does not have any improvement in her mentation, would recommend imaging of her brain. It is quite possible she had an initial anoxic injury that we are not aware. 2. Obesity with likelihood of obstructive sleep apnea. Will require treatment as an outpatient. The patient remains critically ill, especially due to the severity of her encephalopathy and periods of apnea associated with bradycardia. She will remain on mechanical ventilation until encephalopathy improves and she is able to protect her airway without periods of apnea. Critical care time was 1 hour, this excludes all procedures.
--- NOTE | 2016-09-05 15:00 | REP ---
CT Head without contrast HISTORY: Encephalopathy COMPARISON: 04/24/2015 There is no intraparenchymal hemorrhage, acute infarct, mass or midline shift. The ventricular system is normal in appearance. There is no extra cerebral collection. There is no fracture. Mucosal thickening is present in the ethmoid , maxillary and sphenoid sinuses. IMPRESSION: There is no intracranial lesion. Signed by Thierno Paul MD 09/05/2016 02:52 P
[2016-09-05] MEDS: MORPHINE 2 MG/ML 1ML SYRINGE IV PRN ×2 (17:36→21:23)
[2016-09-05] MEDS: cefTRIAXone SOD 1 GM in D5W MINI-BAG PLUS 50 ML IV SCH (20:17)
[2016-09-05] MEDS ORDERED: SUCCINYLCHOLINE INJ 200 MG/10 ML VIAL (J0330) IV ONE ×3 (22:55→23:08)
[2016-09-05] MEDS ORDERED: AMIODARONE HCL 360 MG in APPROPRIATE DILUENT 1 EA IV SCH (23:30)
[2016-09-06] VITALS (70 sets, daily range): BP systolic 77–145; BP diastolic 38–77; O2SAT 94–95
[2016-09-06] MEDS: MIDAZOLAM INJ 2 MG/2 ML VIAL (J2250) IV PRN ×14 (00:11→23:20)
[2016-09-06] MEDS: PROPOFOL 1,000 MG in APPROPRIATE DILUENT 1 EA IV SCH ×9 (00:12→22:48)
[2016-09-06 05:55] LABS: BASO # 0.1 K/mm3 (0.0-0.2); BASO % 0.5 % (0.0-1.0); EOS # 0.6 K/mm3 (0.0-0.50); EOS % 3.6 % (0.0-3.0); LARGE UNSTAINED CELL # 0.2 K/mm3 (0.0-0.4); LARGE UNSTAINED CELL % 1.4 % (0.0-4.0); LYMPH # 2.9 K/mm3 (1.5-4.5); LYMPH % 16.3 % (24.0-44.0); MEAN CORPUSCULAR HGB CONC 33.2 g/dl (32.0-36.5); MEAN CORPUSCULAR VOLUME 90.4 fl (80.0-96.0); MONO # 1.2 K/mm3 (0.0-0.8); MONO % 7.6 % (0.0-5.0); NEUTROPHILS # 11.5 K/mm3 (1.8-7.7); NEUTROPHILS % 70.6 % (36.0-66.0); PLATELET COUNT, AUTOMATED 330 k/mm3 (150-450); WHITE BLOOD COUNT 16.3 K/mm3 (4.0-10.0)
[2016-09-06 06:00] LABS: ABG BASE EXCESS 1.7 (-2.0-2.0); ABG HCO3 25.3 MEQ/L (22.0-26.0); ABG PARTIAL PRESSURE CO2 36.4 mmHg (35.0-45.0); ABG PARTIAL PRESSURE O2 70.6 mmHg (75.0-100.0); ABG TOTAL CO2 26.4 MEQ/L (22.0-29.0)
[2016-09-06 07:03] LABS: ALBUMIN 2.8 GM/DL (3.2-5.2); ALBUMIN/GLOBULIN RATIO 0.93 (1.00-1.93); ALKALINE PHOSPHATASE 79 U/L (45-117); ALT/SGPT 44 U/L (12-78); AST/SGOT 98 U/L (15-37); BILIRUBIN,TOTAL 0.3 MG/DL (0.2-1.0); BLOOD UREA NITROGEN 5 MG/DL (7-18); CALCIUM LEVEL 8.5 MG/DL (8.5-10.1); CARBON DIOXIDE LEVEL 28 MEQ/L (21-32); CHLORIDE LEVEL 108 MEQ/L (98-107); CREATININE FOR GFR 0.55 MG/DL (0.55-1.02); GLOMERULAR FILTRATION RATE > 60.0 (>58); GLUCOSE, FASTING 115 MG/DL (70-105); MAGNESIUM LEVEL 1.5 MG/DL (1.8-2.4); TOTAL PROTEIN 5.8 GM/DL (6.4-8.2)
[2016-09-06 07:11] LABS: ANION GAP 8 MEQ/L (8-16); SODIUM LEVEL 144 MEQ/L (136-145)
[2016-09-06 07:25] LABS: POTASSIUM SERUM 2.8 MEQ/L (3.5-5.1)
[2016-09-06] MEDS ORDERED: POTASSIUM CHLORIDE 10% LIQ 20 MEQ/15 ML UDC PO ONE ×3 (08:00→18:00)
[2016-09-06] MEDS: KCL 40MEQ IN D5/0.45NS 1000ML 1,000 ML IV SCH ×2 (08:10→21:35)
[2016-09-06] MEDS: MAG SULF 1GM/100ML (MAG RUN) 1 GM in APPROPRIATE DILUENT 1 EA IV SCH ×2 (08:10→09:30)
[2016-09-06] MEDS: IPRATROPIUM 0.5MG/ALBUTEROL 2.5MG INH SOL UD 3ML (DUONEB)(J7620) NEB SCH ×4 (08:14→20:52)
[2016-09-06] MEDS: SYMBICORT 160/4.5MCG INHALER 6GM INH SCH ×2 (08:14→21:00)
--- NOTE | 2016-09-06 08:17 | REP ---
PORTABLE CHEST, ONE VIEW: HISTORY: Line placement. COMPARISON: 09/05/2016 Patchy density is present in the left lower lobe, consistent with atelectasis or infiltrate. The right lung is clear. The heart is upper limits of normal in size. The pulmonary vasculature is normal in appearance. An ET tube, NG tube, and central line are present. The central line is present in the right atrium. There is no pneumothorax. IMPRESSION: 1. Left lower lobe atelectasis or infiltrate. 2. The patient is status post central line placement. There is no pneumothorax. Signed by Thierno Paul MD 09/06/2016 09:02 A
--- NOTE | 2016-09-06 08:26 | REP ---
PORTABLE CHEST, ONE VIEW: HISTORY: Respiratory failure. COMPARISON: 09/05/2016 Patchy density is present in the left lower lobe consistent with atelectasis or infiltrate that appears slightly decreased compared to the previous study. The right lung is clear. The heart is normal in size. The pulmonary vasculature is normal in appearance. An ET tube, NG tube, and central line are present. IMPRESSION: Left lower lobe atelectasis or infiltrate, decreased compared to the previous study. Signed by Thierno Paul MD 09/06/2016 09:02 A
[2016-09-06] MEDS: HEPARIN SOD (PORCINE) 5000 UNITS/ML VIAL SQ SCH ×2 (08:36→21:36)
[2016-09-06] MEDS: CHLORHEXIDINE GLUCONATE 0.12 % 15ML UDC (PERIDEX ORAL RINSE) MT SCH ×2 (08:36→21:36)
[2016-09-06] MEDS: LEVOTHYROXINE 100 MCG (0.1MG) VIAL IV SCH (08:37)
[2016-09-06] MEDS: PANTOPRAZOLE 40MG INJ (PROTONIX) (C9113) IV SCH (08:37)
[2016-09-06] MEDS: NICOTINE 14 MG/24 HR TRANSDERMAL TD SCH (08:38)
[2016-09-06] MEDS: NYSTATIN 100,000 UNITS/GM TOPICAL PWD 15 GM TOP SCH ×2 (08:39→21:36)
--- NOTE | 2016-09-06 10:51 | IPNPDOC ---
Subjective Date Seen The patient was seen on 09/06/16. Subjective Chief Complaint/HPI The patient is a 46-year-old female admitted with a reason for visit of Overdose. Events since last encounter patient had to be intubated yesterday as she could not maintain her airway becoming frequently apneic, hypoxic and bradycardic. It was an extremely difficult intubation. pateint continues to be encephalopathic , agitated requiring high doses of sedation. Nurses have also noticed some tremulousness on the right upper extremity and right leg after sedation. Objective Physical Examination General Exam: Positive: No Acute Distress, Other (confused agitated. Now intubated and sedated. ) Eye Exam: Positive: PERRLA (4 mm reacting to light eqaul ), Conjunctiva & lids normal ENT Exam: Positive: Atraumatic, Mucous membr. moist/pink, Pharynx Normal Neck Exam: Positive: Supple Chest Exam: Positive: Clear to auscultation, Normal air movement Heart Exam: Positive: Rate Normal, Regular Rhythm, Normal S1, Normal S2 Telemetry: Positive: No significant arrhythmia Abdomen Exam: Positive: BS Hypoactive, Soft Extremity Exam: Positive: Normal pulses, Negative: Clubbing, Cyanosis, Edema Skin Exam: Positive: Lesion, Other skin issue (tinea under the arms and groin and abdomnal folds. ) Assessment /Plan Problems (1) Respiratory arrest Status: Acute Problem Text: patient was having recurrent prolonged apneic spells with severe hypoxia to 40s and bradycardia and was unable to maintain her airway due to her mental status and possible underlying SIRIA so was intubated for acute respiratory failure. Patient has a very small oral opening and high up airway and lots of tissues in the hypopharynx . It was a very difficult intubation. (2) Toxic metabolic encephalopathy Problem Text: Benadryl overdose. Unknown if there was other substance intake or not. Possible anoxic brain injury Patient was found down on the floor in her house for unknown duration . In view of her recurrent prolonged apneic episodes noted in the hospital patient may have suffered unwitnessed prolonged apneic event also at home which may have caused anoxic brain injury which will be able to explain the prolonged encephalopathic state that the patient is still in CT head negative will consult neurology (3) Traumatic rhabdomyolysis Problem Text: cpk improving patient was down on floor for unknown duration continue IVF. (4) Acute renal failure Status: Resolved Problem Text: due to acute rhabdomyolysis and dehydration will continue with ivf. (5) Overdose Status: Acute Problem Text: with benadryl 50 tabs of 25 mg urine tox negative except for benzo. (6) Morbid obesity Problem Text: Also has underlying undiagnosed SIRIA. complicating treatment (7) Lactic acidosis Status: Resolved Problem Text: continue ivf. (8) UTI (urinary tract infection) Status: Acute Problem Text: continue ceftriaxone. (9) Psychiatric disorder Status: Chronic Problem Text: has h/o bipolar disorder, panic disorder in the medical records. (10) Hypothyroid Status: Chronic (11) COPD (chronic obstructive pulmonary disease) Status: Chronic Plan/VTE VTE Prophylaxis Ordered?: Yes Plan/Urinary Catheter Reason for insertion/continuin: Critical Pt monitoring VS, I&O, 24H, Fishbone Vital Signs/I&O Vital Signs Date Time Temp Pulse Resp B/P (MAP) Pulse Ox O2 Delivery O2 Flow Rate FiO2 09/06/16 08:17 77 09/06/16 08:17 94 Ventilator 35 09/06/16 08:17 20 09/06/16 08:11 99/57 09/06/16 04:08 97.9 09/05/16 08:00 3.0 I&O- Last 24 Hours up to 6 AM 09/06/16 06:00 Intake Total 2449.9 ml Output Total 1100 ml Balance 1349.9 ml Laboratory Data 24H LABS Laboratory Tests 2 09/05/16 11:59: Blood Gas Bicarbonate Standard 21.3L, Arterial Blood pH 7.359, Arterial Blood Partial Pressure CO2 38.7, Arterial Blood Partial Pressure O2 63.3L, Arterial Blood Total CO2 22.5, Arterial Blood HCO3 21.3L, Arterial Blood Base Excess - 3.7L, Arterial Blood Oxygen Saturation 92.6L 09/06/16 05:36: White Blood Count 16.3H, Red Blood Count 4.26, Hemoglobin 12.8, Hematocrit 38.5 , Mean Corpuscular Volume 90.4, Mean Corpuscular Hemoglobin 30.0, Mean Corpuscular Hemoglobin Concent 33.2, Red Cell Distribution Width 15.0H, Platelet Count 330, Neutrophils (%) (Auto) 70.6H, Lymphocytes (%) (Auto) 16.3L, Monocytes (%) (Auto) 7.6H, Eosinophils (%) (Auto) 3.6H, Basophils (%) (Auto) 0.5 , Neutrophils # (Auto) 11.5H, Lymphocytes # (Auto) 2.9, Monocytes # (Auto) 1.2H , Eosinophils # (Auto) 0.6H, Basophils # (Auto) 0.1, Large Unclassified Cells % 1.4, Large Unclassified Cells # 0.2, Anion Gap 8, Glomerular Filtration Rate > 60.0, Blood Urea Nitrogen 5L, Creatinine 0.55, Sodium Level 144, Potassium Level 2.8#*L, Chloride Level 108H, Carbon Dioxide Level 28, Calcium Level 8.5, Aspartate Amino Transf (AST/SGOT) 98H, Alanine Aminotransferase (ALT/SGPT) 44, Total Creatine Kinase 3288H, Alkaline Phosphatase 79, Total Bilirubin 0.3, Total Protein 5.8L, Albumin 2.8L, Magnesium Level 1.5L, Albumin/Globulin Ratio 0.93L 09/06/16 06:00: Blood Gas Bicarbonate Standard 26.0, Arterial Blood pH 7.460H, Arterial Blood Partial Pressure CO2 36.4, Arterial Blood Partial Pressure O2 70.6L, Arterial Blood Total CO2 26.4, Arterial Blood HCO3 25.3, Arterial Blood Base Excess 1.7, Arterial Blood Oxygen Saturation 95.5 CBC/BMP Laboratory Tests 09/06/16 05:36 Red Blood Count 4.26, Mean Corpuscular Volume 90.4, Mean Corpuscular Hemoglobin 30.0, Mean Corpuscular Hemoglobin Concent 33.2, Red Cell Distribution Width 15.0 H, Neutrophils (%) (Auto) 70.6 H, Lymphocytes (%) (Auto) 16.3 L, Monocytes (%) (Auto) 7.6 H, Eosinophils (%) (Auto) 3.6 H, Basophils (%) (Auto) 0.5, Neutrophils # (Auto) 11.5 H, Lymphocytes # (Auto) 2.9, Monocytes # (Auto) 1.2 H , Eosinophils # (Auto) 0.6 H, Basophils # (Auto) 0.1, Calcium Level 8.5, Aspartate Amino Transf (AST/SGOT) 98 H, Alanine Aminotransferase (ALT/SGPT) 44, Total Creatine Kinase 3288 H, Alkaline Phosphatase 79, Total Bilirubin 0.3, Total Protein 5.8 L, Albumin 2.8 L Microbiology Microbiology 5/30/17 Blood Culture - Preliminary, Resulted No Growth after 72 hours. All specime... 09/02/16 Blood Culture - Preliminary, Resulted No Growth after 72 hours. All specime... 09/02/16 Urine Culture - Final, Complete ELPIDIO Pereira MD Sep 06, 2016 10:51
--- NOTE | 2016-09-06 11:03 | CCN ---
DATE: 09/06/2016 START TIME: 0854 hours STOP TIME: 0936 hours I attended Luis Hooper here in the intensive care unit (ICU) this morning. The patient has been examined. Available records and radiograph studies have been reviewed. I have spoken at length with Dr. Gonzalez regarding her status this morning. Maximum temperature (t-max) overnight 97.9, blood pressure 90 to 130s. Heart rate 70 to 90s in general with a sinus mechanism. Respiratory rate 19 to 30 without obvious accessory muscle use. Input and output from midnight to midnight: 2374 mL in with 750 mL out. Most recent laboratories show a white blood cell count of 16.3, hemoglobin 12.8, platelet count of 330,000. 70% segmented neutrophils. No bands. Sodium 144, potassium 2.8, chloride 182, CO2 of 28, BUN 5, creatinine 0.55, glucose 115. Magnesium a little low at 1.5. CPK continues to decline at 3288 mL today. Arterial blood gas done on assist control, rate of 20, tidal volume of 360, PEEP of 5, FiO2 of 35% has a pH of 7.460, PCO2 of 36.4, PO2 of 70.6, saturation 95.5%. Chest x-ray shows lines and tubes in good position. PHYSICAL EXAMINATION Currently she is in the midst of a sedation vacation. She is markedly agitated. Eyes are open but there is no significant meaningful interaction. Sedation was then immediately reinstituted. Reportedly, she is a difficult intubation. Pupils do react, sclerae clear. Trachea is in the midline. Chest is quite clear anteriorly. There are minimal crackles at the bases posteriorly. Expansion is symmetric. Oroendotracheal, nasogastric, as well as a right subclavian line are noted. Cardiac examination is regular to mildly tachycardic, without any gallop or murmur. Peripheral pulses are palpable. No edema. Abdomen is obese, soft, and nontender with active bowel sounds. No convincing organomegaly or masses. Extremities show no cyanosis or clubbing. Neurologically, as outlined above. She does move all extremities, but does not follow commands or having meaningful interaction. The most pressing problems requiring my presence at the bedside are: 1. Respiratory failure requiring mechanical ventilation. 2. Intermittent apneic spells with associated bradycardia and hypoxemia. 3. Drug overdose, reportedly as Benadryl. 4. Preexisting mental illness. At this point, my concern is that she may have had a significant anoxic injury prior to her presentation. Just the Benadryl alone would not, at least at this point in my opinion, be giving us the picture that we are currently seeing. We will continue current level of ventilator support. Ulcer and deep vein thrombosis (DVT) prophylaxis are per the primary service. I would begin enteral feeds today. I have suggested a formal neurology evaluation with consideration of electroencephalogram (EEG) to make sure that we are not missing subclinical seizures. At this point, we will proceed as outlined above. She remains critically ill. I left the bedside at 0936 hours. 42 minutes of critical care time delivered at the bedside, not including procedures.
--- NOTE | 2016-09-06 12:13 | RO ---
DATE OF PROCEDURE: 09/05/2016 PREPROCEDURE DIAGNOSES: Hypotension, need for vascular access and possible pressor therapy. POSTPROCEDURE DIAGNOSES: Hypotension, need for vascular access and possible pressor therapy. SURGEON: Jas Sal MD CEMENT TRUCK DRIVER: ANESTHESIA: PROCEDURE: Insertion of right subclavian central line. FINDING: The left subclavian vein was first attempted to be wired. Excellent blood flow was obtained but I could not pass the wire. Therefore, I changed the site to the right side. DESCRIPTION OF PROCEDURE: The patient is intubated and sedated and no consent could be obtained. This is an urgent procedure. The patient's left infraclavicular fossa was prepped and draped in the usual sterile fashion. The fossa was infiltrated with 1% Xylocaine. Because the patient was continuing to move and she is ventilated, she was given 100 mg of succinylcholine. I could find the vein on the first pass with excellent blood return; however, I could not wire it after multiple attempts and repositioning the needle. Therefore, the site was abandoned and the right infraclavicular fossa was prepped and draped in the usual sterile fashion. The subclavian vein was found on the second pass, and the wire was placed without difficulty with production of PVCs. Tract was dilated and the triple lumen catheter was placed by Seldinger technique. The ports were aspirated and flushed without difficulty. The catheter was secured to the chest wall with two #3-0 silk sutures. The patient tolerated the procedure well. Chest x-ray is pending.
[2016-09-06] MEDS: SODIUM CHLORIDE 0.9% INJ 10 ML SYR IV SCH ×2 (14:00→21:37)
[2016-09-06] MEDS: SLF 3 ML SYR IV SCH ×2 (14:00→21:36)
[2016-09-06] MEDS ORDERED: SLF 3 ML SYR IV PRN (14:30)
[2016-09-06] MEDS ORDERED: SODIUM CHLORIDE 0.9% INJ 10 ML SYR IV PRN (14:30)
[2016-09-06 15:25] LABS: ANION GAP 6 MEQ/L (8-16); BLOOD UREA NITROGEN 4 MG/DL (7-18); CALCIUM LEVEL 8.4 MG/DL (8.5-10.1); CARBON DIOXIDE LEVEL 29 MEQ/L (21-32); CHLORIDE LEVEL 107 MEQ/L (98-107); CREATININE FOR GFR 0.62 MG/DL (0.55-1.02); GLOMERULAR FILTRATION RATE > 60.0 (>58); GLUCOSE, FASTING 134 MG/DL (70-105); SODIUM LEVEL 142 MEQ/L (136-145)
[2016-09-06] MEDS: KCL 10MEQ IN 100ML SWI (KRUN) 10 MEQ in APPROPRIATE DILUENT 1 EA IV SCH ×8 (17:51→22:20)
[2016-09-06] MEDS: cefTRIAXone SOD 1 GM in D5W MINI-BAG PLUS 50 ML IV SCH (21:35)
[2016-09-07] VITALS (28 sets, daily range): BP systolic 89–109; BP diastolic 50–70; O2SAT 94–99
[2016-09-07] MEDS: PROPOFOL 1,000 MG in APPROPRIATE DILUENT 1 EA IV SCH ×9 (00:57→23:21)
[2016-09-07 05:19] LABS: BASO % 0.3 % (0.0-1.0); EOS # 0.8 K/mm3 (0.0-0.50); EOS % 4.7 % (0.0-3.0); LARGE UNSTAINED CELL # 0.2 K/mm3 (0.0-0.4); LARGE UNSTAINED CELL % 1.3 % (0.0-4.0); LYMPH # 2.7 K/mm3 (1.5-4.5); MEAN CORPUSCULAR HEMOGLOBIN 30.5 pg (27.0-33.0); MEAN CORPUSCULAR VOLUME 89.8 fl (80.0-96.0); MONO # 0.9 K/mm3 (0.0-0.8); MONO % 5.8 % (0.0-5.0); NEUTROPHILS # 11.4 K/mm3 (1.8-7.7); NEUTROPHILS % 71.9 % (36.0-66.0); PLATELET COUNT, AUTOMATED 332 k/mm3 (150-450); RED CELL DISTRIBUTION WIDTH 15.3 % (11.5-14.5); WHITE BLOOD COUNT 15.9 K/mm3 (4.0-10.0)
[2016-09-07] MEDS: SODIUM CHLORIDE 0.9% INJ 10 ML SYR IV SCH ×3 (05:29→21:08)
[2016-09-07] MEDS: SLF 3 ML SYR IV SCH ×3 (05:29→21:08)
[2016-09-07 05:33] LABS: ALBUMIN 2.4 GM/DL (3.2-5.2); ALBUMIN/GLOBULIN RATIO 0.63 (1.00-1.93); ALKALINE PHOSPHATASE 81 U/L (45-117); ALT/SGPT 33 U/L (12-78); ANION GAP 6 MEQ/L (8-16); AST/SGOT 42 U/L (15-37); BILIRUBIN,TOTAL 0.3 MG/DL (0.2-1.0); BLOOD UREA NITROGEN 2 MG/DL (7-18); CALCIUM LEVEL 8.1 MG/DL (8.5-10.1); CARBON DIOXIDE LEVEL 29 MEQ/L (21-32); CHLORIDE LEVEL 108 MEQ/L (98-107); CREATININE FOR GFR 0.52 MG/DL (0.55-1.02); GLOMERULAR FILTRATION RATE > 60.0 (>58); GLUCOSE, FASTING 139 MG/DL (70-105); MAGNESIUM LEVEL 1.7 MG/DL (1.8-2.4); POTASSIUM SERUM 3.3 MEQ/L (3.5-5.1); SODIUM LEVEL 143 MEQ/L (136-145); TOTAL PROTEIN 6.2 GM/DL (6.4-8.2)
[2016-09-07 06:23] LABS: ABG HCO3 21.7 MEQ/L (22.0-26.0); ABG PARTIAL PRESSURE CO2 33.9 mmHg (35.0-45.0); ABG STANDARD HCO3 22.8 MEQ/L (22.0-26.0); ABG TOTAL CO2 22.7 MEQ/L (22.0-29.0); ABG pH (ARTERIAL) 7.424 UNITS (7.350-7.450)
[2016-09-07] MEDS ORDERED: POTASSIUM CHLORIDE 10% LIQ 20 MEQ/15 ML UDC PO ONE (07:15)
[2016-09-07] MEDS: MAG SULF 1GM/100ML (MAG RUN) 1 GM in APPROPRIATE DILUENT 1 EA IV SCH ×2 (07:49→09:16)
[2016-09-07] MEDS: IPRATROPIUM 0.5MG/ALBUTEROL 2.5MG INH SOL UD 3ML (DUONEB)(J7620) NEB SCH ×4 (08:00→20:38)
[2016-09-07] MEDS: SYMBICORT 160/4.5MCG INHALER 6GM INH SCH ×2 (08:31→20:40)
[2016-09-07] MEDS: CHLORHEXIDINE GLUCONATE 0.12 % 15ML UDC (PERIDEX ORAL RINSE) MT SCH ×2 (09:05→21:07)
[2016-09-07] MEDS: POTASSIUM CHLORIDE 10% LIQ 20 MEQ/15 ML UDC PO SCH ×2 (09:05→21:07)
[2016-09-07] MEDS: PANTOPRAZOLE 40MG INJ (PROTONIX) (C9113) IV SCH (09:05)
[2016-09-07] MEDS: LEVOTHYROXINE 100 MCG (0.1MG) VIAL IV SCH (09:11)
[2016-09-07] MEDS: HEPARIN SOD (PORCINE) 5000 UNITS/ML VIAL SQ SCH ×2 (09:15→21:08)
[2016-09-07] MEDS: NYSTATIN 100,000 UNITS/GM TOPICAL PWD 15 GM TOP SCH ×2 (09:18→21:08)
[2016-09-07] MEDS: NICOTINE 14 MG/24 HR TRANSDERMAL TD SCH (09:18)
[2016-09-07] MEDS: KCL 40MEQ IN D5/0.45NS 1000ML 1,000 ML IV SCH (09:18)
--- NOTE | 2016-09-07 09:18 | CR ---
DATE OF CONSULTATION: 09/07/2016 REFERRING PHYSICIAN: Dr. Emily Gonzalez REASON FOR CONSULTATION: Altered mental status. HISTORY OF PRESENT ILLNESS: Luis Hooper is a 46-year-old woman with extensive psychiatric history who was admitted at [facility] due to possible drug overdose with Benadryl. She was found by her family and she was combative, confused. When they counted her pills, she was significantly short on Benadryl. It was presumed that she overdosed on Benadryl and probably on something else that they did not know about. Poison Control was contacted and recommended monitoring her QRS and giving her benzodiazepine. Patient remains confused. During her drowsy states, she was found to have oxygen saturations as low as in 40s. She was intubated, which was a difficult intubation. It is also thought that she may have severe obstructive sleep apnea syndrome and obesity hypoventilation. Patient is currently intubated and on mechanical ventilator. Whenever her sedation in decreased, she becomes agitated and moves around in bed. The nurses noted one or two episodes of right arm and leg fine tremor like movement, which lasted for 5 minutes. PAST MEDICAL HISTORY: Hypothyroidism, mood disorder, possible psychosis or bipolar disorder. CURRENT MEDICATIONS. At home: - Klonopin 1 mg by mouth three times a day - levocetirizine 5 mg by mouth daily - levothyroxine 125 mcg by mouth daily - Remeron 15 mg by mouth nightly - Prilosec 40 mg by mouth daily - quetiapine 3 mg by mouth twice a day - trazodone 300 mg by mouth nightly - Effexor 75 mg by mouth daily - risperidone 6 mg by mouth twice a day In hospital, she is on: - Versed - propofol - morphine - nicotine patch - albuterol and Atrovent nebulization every 4-6 hours as needed - ceftriaxone FAMILY HISTORY AND SOCIAL HISTORY: Are unknown. ALLERGIES: NO KNOWN DRUG ALLERGIES. REVIEW OF SYSTEMS: Review of systems could not be obtained. PHYSICAL EXAMINATION: Blood pressure 86/54, pulse 78, respiratory rate 20. Heart: Regular rate and rhythm. Lungs: Clear to auscultation. Abdomen: Soft, nontender, nondistended. No pedal edema. No gross musculoskeletal abnormalities. Ear, nose, throat examination is within normal limits. Pupils are 6 mm bilaterally, reactive to light. She is intubated on mechanical ventilator. When her sedation is decreased, she responds to painful stimuli. She moves all four extremities. On further decrease on her sedation she becomes restless, agitated and moves around in bed. She has pulled out her Mcdaniel catheter a few times. She moves all four extremities equally. Plantars are mute. Gait, sensory and cerebellar exams could not be performed. DIAGNOSTIC STUDIES: CT scan of her head was within normal limits. X-ray chest showed possible left lobe lower lobe of lung infiltrate. ASSESSMENT: 1. Delirium and encephalopathy, possibly due to drug overdose. 2. There is concern for hypoxic encephalopathy. 3. Right arm and leg possible focal motor seizure, although tremor is in differential diagnosis. PLAN: 1. MRI brain. 2. EEG. 3. Dilantin 100 mg IV four times a day or oral four times a day if she had a recurrence of her right arm and leg tremor and shaking. 4. Consider restarting her psychiatric medications to decrease agitation. They can be given through nasogastric (NG) tube. 5. Continue supportive care and it is likely that her delirium will improve with more time.
--- NOTE | 2016-09-07 09:41 | CCN ---
DATE OF VISIT: 09/07/2016 START TIME: 0836 hours. STOP TIME: 0913 hours. I again attended Luis Hooper here in the intensive care unit. She intubated, sedated and mechanically ventilated. With an increase in propofol, we have been able to achieve reasonable level of sedation. Maximum temperature (Tmax) overnight 98.2. Blood pressure 90-107 sytolic, heart rate 70-80s with a sinus mechanism. Currently, she does not over breathe the ventilator unless agitated. Intake and output midnight to midnight: 3600 mL in with 1480 mL out. Most recent laboratories show a white blood cell count of 15.9, hemoglobin 13.3, platelet count 332,000. Differential with 71.9% segmented neutrophils, no bands. Sodium 143, potassium of 3.3, chloride 108, CO2 of 29, BUN 2, creatinine 0.52, glucose 139. Magnesium mildly low at 1.7. Phosphorus is pending. CK markedly diminished from yesterday, this morning at 862. Albumin 2.4. Blood gas done this morning on an assist control of 20, tidal volume 360, PEEP of 5, FiO2 of 40% has a pH 7.424, pCO2 33.9 and pO2 of 85, saturation 97%. Chest x-ray is quite clear. Lines and tubes in good position. No new findings. On exam, currently she is sedate. She does move extremities when stimulated. Pupils are small. Sclerae are clear. Trachea is in the midline. Membranes are moist. Lungs are clear to both auscultation and percussion, expansion symmetric and no significant focal adventitious breath sounds are identified currently. Cardiac examination is regular with no murmur or gallop. Peripheral pulses palpable. No obvious edema. Abdomen obese, soft, with active bowel sounds. No convincing organomegaly or masses. Extremities: No cyanosis or clubbing. Neurologically, as outlined above. The most pressing problems requiring my presence at the bedside: 1. Respiratory failure requiring mechanical ventilatory support secondary to altered mental status and drug overdose. 2. Drug overdose. At this point, we await the formal neurology evaluation. She was seen yesterday. Family now reports to the nursing staff that the patient chronically uses large amounts of sleep aids on a daily basis and by their report often wanders around the house confused. Certainly this hampers her respiratory status and the main impediment to weaning will be her altered mental status and ability to protect her airway. It is strongly felt that she underlying obstructive sleep apnea syndrome given her airway and difficulties with intubation. At this point, we will increase her tube feeds to goal. Electrolytes are being addressed by the primary service. She is on ulcerative and deep venous thrombosis (DVT) prophylaxis. Hopefully in the next 24-48 hours we can re-attempt a weaning process, but again, her mental status presents a significant issue. Overall, she remains critically ill. I left the bedside at 0913 hours. 37 minutes of critical care time delivered at the bedside, not including procedures.
[2016-09-07 09:56] LABS: PHOSPHORUS LEVEL 2.3 MG/DL (2.5-4.9)
--- NOTE | 2016-09-07 10:35 | REP ---
PORTABLE CHEST, ONE VIEW: HISTORY: Respiratory failure. COMPARISON: 09/06/2016 Left lower lobe atelectasis or infiltrate is present, unchanged compared to the previous study. The right lung is clear. The heart is normal in size. The pulmonary vasculature is normal in appearance. An ET tube, NG tube, and central line are present. IMPRESSION: Left lower lobe atelectasis or infiltrate, unchanged compared to the previous study. Signed by Thierno Paul MD 09/07/2016 10:40 A
--- NOTE | 2016-09-07 11:14 | IPNPDOC ---
Subjective Date Seen The patient was seen on 09/07/16. Subjective Chief Complaint/HPI The patient is a 46-year-old female admitted with a reason for visit of Overdose. Events since last encounter remains intubated and sedated, no tremors have been noted overnight or this am . Family now reports to the nursing staff that the patient chronically uses large amounts of sleep aids on a daily basis and by their report often wanders around the house confused. Often does not know the day or time forgets her meds some days and may tke double or tripple dosage a day as cannot remember if she took it or not. So her baseline mental status is abnormal. Objective Physical Examination General Exam: Positive: No Acute Distress, Other ( Now intubated and sedated. ) Eye Exam: Positive: PERRLA (3 mm reacting to light eqaul ), Conjunctiva & lids normal ENT Exam: Positive: Atraumatic, Mucous membr. moist/pink, Pharynx Normal Neck Exam: Positive: Supple Chest Exam: Positive: Clear to auscultation, Normal air movement Heart Exam: Positive: Rate Normal, Regular Rhythm, Normal S1, Normal S2 Telemetry: Positive: No significant arrhythmia Abdomen Exam: Positive: Normal bowel sounds, Soft Extremity Exam: Positive: Normal pulses, Negative: Clubbing, Cyanosis, Edema Skin Exam: Positive: Lesion, Other skin issue (tinea under the arms and groin and abdomnal folds. ) Neuro Exam: Positive: Strength at 5/5 X4 ext, Normal Tone Assessment /Plan Problems (1) Acute respiratory failure Status: Acute Problem Text: due to drug overdose and altered mental status. patient was having recurrent prolonged apneic spells with severe hypoxia to 40s and bradycardia and was unable to maintain her airway due to her mental status and possible underlying SIRIA so was intubated for acute respiratory failure. Patient has a very small oral opening and high up airway and lots of tissues in the hypopharynx . It was a very difficult intubation. (2) Toxic metabolic encephalopathy Problem Text: Benadryl overdose. Unknown if there was other substance intake or not. Pateint does take lots of over the counter sleep aids. Possible anoxic brain injury Patient was found down on the floor in her house for unknown duration . In view of her recurrent prolonged apneic episodes noted in the hospital patient may have suffered unwitnessed prolonged apneic event also at home which may have caused anoxic brain injury which will be able to explain the prolonged encephalopathic state that the patient is still in CT head negative neurology recommended EEG and MRi , Will hold off MRI at present as patient intubated and often wakes up even being on sedation and thrashes around which may displace the ET tube . Patient was a very difficult intubation. (3) Traumatic rhabdomyolysis Problem Text: cpk improving patient was down on floor for unknown duration continue IVF. (4) Acute renal failure Status: Resolved Problem Text: due to acute rhabdomyolysis and dehydration will continue with ivf. (5) Overdose Status: Acute Problem Text: with benadryl 50 tabs of 25 mg urine tox negative except for benzo. (6) Morbid obesity Problem Text: Also has underlying undiagnosed SIRIA. complicating treatment (7) Lactic acidosis Status: Resolved Problem Text: continue ivf. (8) UTI (urinary tract infection) Status: Acute Problem Text: continue ceftriaxone. (9) Psychiatric disorder Status: Chronic Problem Text: has h/o bipolar disorder, panic disorder in the medical records. will consider restarting her psych meds when being weaned from sedation. (10) Hypothyroid Status: Chronic (11) COPD (chronic obstructive pulmonary disease) Status: Chronic Plan/VTE VTE Prophylaxis Ordered?: Yes Plan/Urinary Catheter Reason for insertion/continuin: Critical Pt monitoring VS, I&O, 24H, Fishbone Vital Signs/I&O Vital Signs Date Time Temp Pulse Resp B/P (MAP) Pulse Ox O2 Delivery O2 Flow Rate FiO2 09/07/16 10:13 101/63 09/07/16 08:32 20 94 35 09/07/16 06:06 75 Ventilator 09/07/16 04:06 97.6 09/05/16 08:00 3.0 I&O- Last 24 Hours up to 6 AM 09/07/16 06:00 Intake Total 3936 ml Output Total 1655 ml Balance 2281 ml Laboratory Data 24H LABS Laboratory Tests 2 09/06/16 14:59: Anion Gap 6L, Glomerular Filtration Rate > 60.0, Blood Urea Nitrogen 4L, Creatinine 0.62, Sodium Level 142, Potassium Level 3.0L, Chloride Level 107, Carbon Dioxide Level 29, Calcium Level 8.4L 09/07/16 05:00: Anion Gap 6L, Glomerular Filtration Rate > 60.0, Blood Urea Nitrogen 2L, Creatinine 0.52L, Sodium Level 143, Potassium Level 3.3L, Chloride Level 108H, Carbon Dioxide Level 29, Calcium Level 8.1L, White Blood Count 15.9H, Red Blood Count 4.37, Hemoglobin 13.3, Hematocrit 39.3, Mean Corpuscular Volume 89.8, Mean Corpuscular Hemoglobin 30.5, Mean Corpuscular Hemoglobin Concent 34.0, Red Cell Distribution Width 15.3H, Platelet Count 332, Neutrophils (%) (Auto) 71.9H , Lymphocytes (%) (Auto) 16.0L, Monocytes (%) (Auto) 5.8H, Eosinophils (%) (Auto ) 4.7H, Basophils (%) (Auto) 0.3, Neutrophils # (Auto) 11.4H, Lymphocytes # ( Auto) 2.7, Monocytes # (Auto) 0.9H, Eosinophils # (Auto) 0.8H, Basophils # (Auto ) 0.0, Large Unclassified Cells % 1.3, Large Unclassified Cells # 0.2, Phosphorus Level 2.3L, Aspartate Amino Transf (AST/SGOT) 42H, Alanine Aminotransferase (ALT/SGPT) 33, Total Creatine Kinase 862H, Alkaline Phosphatase 81, Total Bilirubin 0.3, Total Protein 6.2L, Albumin 2.4L, Magnesium Level 1.7L, Albumin/Globulin Ratio 0.63L 09/07/16 05:52: Blood Gas Bicarbonate Standard 22.8, Arterial Blood pH 7.424, Arterial Blood Partial Pressure CO2 33.9L, Arterial Blood Partial Pressure O2 85.0, Arterial Blood Total CO2 22.7, Arterial Blood HCO3 21.7L, Arterial Blood Base Excess -2.0 , Arterial Blood Oxygen Saturation 97.1 CBC/BMP Laboratory Tests 09/06/16 14:59 Calcium Level 8.4 L 09/07/16 05:00 Calcium Level 8.1 L, Red Blood Count 4.37, Mean Corpuscular Volume 89.8, Mean Corpuscular Hemoglobin 30.5, Mean Corpuscular Hemoglobin Concent 34.0, Red Cell Distribution Width 15.3 H, Neutrophils (%) (Auto) 71.9 H, Lymphocytes (%) (Auto ) 16.0 L, Monocytes (%) (Auto) 5.8 H, Eosinophils (%) (Auto) 4.7 H, Basophils (% ) (Auto) 0.3, Neutrophils # (Auto) 11.4 H, Lymphocytes # (Auto) 2.7, Monocytes # (Auto) 0.9 H, Eosinophils # (Auto) 0.8 H, Basophils # (Auto) 0.0, Phosphorus Level 2.3 L, Aspartate Amino Transf (AST/SGOT) 42 H, Alanine Aminotransferase ( ALT/SGPT) 33, Total Creatine Kinase 862 H, Alkaline Phosphatase 81, Total Bilirubin 0.3, Total Protein 6.2 L, Albumin 2.4 L Microbiology Microbiology 09/02/16 Blood Culture - Preliminary, Resulted No Growth after 72 hours. All specime... 09/02/16 Blood Culture - Preliminary, Resulted No Growth after 72 hours. All specime... 09/02/16 Urine Culture - Final, Complete ELPIDIO Pereira MD Sep 07, 2016 11:14
[2016-09-07] MEDS: MIDAZOLAM INJ 2 MG/2 ML VIAL (J2250) IV PRN (19:16)
[2016-09-07] MEDS: cefTRIAXone SOD 1 GM in D5W MINI-BAG PLUS 50 ML IV SCH (20:05)
[2016-09-08] VITALS (35 sets, daily range): BP systolic 92–126; BP diastolic 50–84; O2SAT 96–98
[2016-09-08] MEDS: MIDAZOLAM INJ 2 MG/2 ML VIAL (J2250) IV PRN ×7 (01:12→17:12)
[2016-09-08] MEDS: PROPOFOL 1,000 MG in APPROPRIATE DILUENT 1 EA IV SCH ×11 (03:32→22:10)
[2016-09-08 05:09] LABS: BASO # 0.1 K/mm3 (0.0-0.2); BASO % 0.6 % (0.0-1.0); EOS # 0.8 K/mm3 (0.0-0.50); EOS % 6.5 % (0.0-3.0); LARGE UNSTAINED CELL # 0.2 K/mm3 (0.0-0.4); LARGE UNSTAINED CELL % 1.4 % (0.0-4.0); LYMPH # 2.6 K/mm3 (1.5-4.5); LYMPH % 18.7 % (24.0-44.0); MEAN CORPUSCULAR HEMOGLOBIN 29.6 pg (27.0-33.0); MEAN CORPUSCULAR HGB CONC 32.8 g/dl (32.0-36.5); MEAN CORPUSCULAR VOLUME 90.3 fl (80.0-96.0); MONO # 0.9 K/mm3 (0.0-0.8); MONO % 6.5 % (0.0-5.0); NEUTROPHILS # 8.6 K/mm3 (1.8-7.7); NEUTROPHILS % 66.3 % (36.0-66.0); PLATELET COUNT, AUTOMATED 330 k/mm3 (150-450); RED CELL DISTRIBUTION WIDTH 15.5 % (11.5-14.5)
[2016-09-08 05:31] LABS: ALBUMIN 2.4 GM/DL (3.2-5.2); ALBUMIN/GLOBULIN RATIO 0.63 (1.00-1.93); ALKALINE PHOSPHATASE 83 U/L (45-117); ALT/SGPT 32 U/L (12-78); ANION GAP 5 MEQ/L (8-16); AST/SGOT 32 U/L (15-37); BILIRUBIN,TOTAL 0.2 MG/DL (0.2-1.0); BLOOD UREA NITROGEN 3 MG/DL (7-18); CALCIUM LEVEL 8.1 MG/DL (8.5-10.1); CARBON DIOXIDE LEVEL 29 MEQ/L (21-32); CHLORIDE LEVEL 109 MEQ/L (98-107); CREATININE FOR GFR 0.59 MG/DL (0.55-1.02); GLOMERULAR FILTRATION RATE > 60.0 (>58); GLUCOSE, FASTING 134 MG/DL (70-105); MAGNESIUM LEVEL 1.8 MG/DL (1.8-2.4); SODIUM LEVEL 143 MEQ/L (136-145); TOTAL PROTEIN 6.2 GM/DL (6.4-8.2)
[2016-09-08] MEDS: SODIUM CHLORIDE 0.9% INJ 10 ML SYR IV SCH ×3 (05:36→19:49)
[2016-09-08] MEDS: SLF 3 ML SYR IV SCH ×3 (05:36→19:49)
[2016-09-08 06:15] LABS: ABG BASE EXCESS 0.5 (-2.0-2.0); ABG HCO3 24.5 MEQ/L (22.0-26.0); ABG PARTIAL PRESSURE CO2 37.2 mmHg (35.0-45.0); ABG PARTIAL PRESSURE O2 69.3 mmHg (75.0-100.0); ABG STANDARD HCO3 24.9 MEQ/L (22.0-26.0); ABG TOTAL CO2 25.6 MEQ/L (22.0-29.0); ABG pH (ARTERIAL) 7.436 UNITS (7.350-7.450)
[2016-09-08] MEDS: IPRATROPIUM 0.5MG/ALBUTEROL 2.5MG INH SOL UD 3ML (DUONEB)(J7620) NEB SCH ×4 (07:56→20:00)
--- NOTE | 2016-09-08 08:28 | REP ---
Portable chest, 09/08/2016, single, 06:00 a.m., single AP view, the patient semi upright: Comparison 09/07/2016. The endotracheal tube and nasogastric tube remain in satisfactory locations, unchanged. The left lower lobe infiltrate is unchanged. Right lung remains clear, unchanged. Cardiac size is borderline, unchanged. There is a right subclavian central venous catheter with the tip in the right atrium, unchanged. Impression: No interval change. Signed by Mt Waggoner MD 09/08/2016 08:19 A
[2016-09-08] MEDS: NYSTATIN 100,000 UNITS/GM TOPICAL PWD 15 GM TOP SCH ×2 (08:40→19:48)
[2016-09-08] MEDS: CHLORHEXIDINE GLUCONATE 0.12 % 15ML UDC (PERIDEX ORAL RINSE) MT SCH ×2 (08:41→19:47)
[2016-09-08] MEDS: POTASSIUM CHLORIDE 10% LIQ 20 MEQ/15 ML UDC PO SCH ×2 (08:41→19:47)
[2016-09-08] MEDS: PANTOPRAZOLE 40MG INJ (PROTONIX) (C9113) IV SCH (08:41)
[2016-09-08] MEDS: NICOTINE 14 MG/24 HR TRANSDERMAL TD SCH (08:42)
[2016-09-08] MEDS: HEPARIN SOD (PORCINE) 5000 UNITS/ML VIAL SQ SCH ×2 (08:42→19:47)
[2016-09-08] MEDS: LEVOTHYROXINE 100 MCG (0.1MG) VIAL IV SCH (08:59)
--- NOTE | 2016-09-08 11:16 | CCN ---
DATE: 09/08/216 Critical care time was 1 hour. This excludes all procedures. I was called to the patient's bedside during sedation vacation on morning rounds. The patient moves extremities, has no purposeful movement. Her eyes are continuously rolling back and continuously rolling in a vertical movement. She is unresponsive to voice. She is passing flatus and has been on tube feeds. EEG is scheduled for today. I have elected to perform the MRI even though there is some risk with her difficult airway and moving. I believe this information is necessary to help make clinical decisions as I highly suspicious of anoxic brain injury. There has been no significant fluctuations in blood pressure. Urine output is adequate. She is on ceftriaxone day seven however, has a mild leukocytosis. PHYSICAL EXAMINATION: Temperature is 97.8, pulse is 84, respiratory rate is 26, blood pressure is 108/74, oxygen saturations 95% on 0.35 FiO2, 3645 in and 1925 out, positive 1.72 liters. GENERAL: Patient is unable to follow commands. No evidence of focal seizure activity on sedation vacation currently. She does have continuous rolling my movements but is moving extremities. HEENT: Pupils are approximately 4 mm but reactive to light and accommodation. Sclera is clear. Mucous membranes are moist. Endotracheal tube is in place. NECK: Circumference is large no tracheal deviation. No mass. LYMPH: No cervical supraclavicular or axillary adenopathy. CARDIAC: Distant S1-S2 without audible murmur, rub or gallop. No elevated JVP. No significant edema. PULMONARY: Clear to auscultation without rales, rhonchi, wheezes. No dullness to percussion. ABDOMEN: Obese, soft, nontender with hypoactive bowel sounds. EXTREMITIES: No cyanosis, clubbing or edema. No evidence of myoclonus. NEUROLOGIC EXAMINATION: Slow rolling eye movements. Pupils as mentioned above. Moving extremities without purposes. No evidence of posturing. No tremor at this point in time. Fairly good strength in the upper extremities. Laboratory evaluation shows a sodium 143, potassium 4.0, chloride 109, bicarb of 29, BUN of 3, creatinine 0.59 with a calcium of 8.1, albumin of 2.4, glucose 134, hemoglobin full 12.8, hematocrit of 39.1 with a platelet count of 330. White blood cell count is 13 with 66% neutrophilia. Head CT from 09/05/2016 is unremarkable. Awaiting EEG and MRI to be performed. Chest x-ray this morning shows adequate endotracheal tube placement, subclavian line in place with the tip in the superior vena cava (SVC). There is some persistent left sided infiltrate which is not increased. No evidence of pneumothorax. IMPRESSION 1. Respiratory failure secondary to severe encephalopathy. I believe that the patient has significant anoxic brain injury. Will discuss with family today and obtain additional information from with MRI and EEG. 2. Encephalopathy as mentioned above believe there is significant anoxic brain injury. However, there could still be some residual drug effect as it is not entirely known what the patient was actually consuming. My overall concern is that of severe anoxic injury. 3. Leukocytosis. Will continue to monitor for infection. I have obtained sputum cultures and blood cultures. The patient has been on 7 days of ceftriaxone, which should be more than adequate just treat the serratia that was found in her urine. 4. Deep vein thrombosis (DVT) prophylaxis. The patient is on heparin twice a day. 5. Gastrointestinal (GI) prophylaxis. The patient is on Protonix. Critical care time, as mentioned above. Overall poor prognosis.
--- NOTE | 2016-09-08 12:52 | IPNPDOC ---
Subjective Date Seen The patient was seen on 09/08/16. Subjective Chief Complaint/HPI The patient is a 46-year-old female admitted with a reason for visit of Overdose. General: Reports: ROS Unobtainable Objective Physical Examination General Exam: Positive: No Acute Distress, Other ( Now intubated and sedated. ) Eye Exam: Positive: PERRLA (3 mm reacting to light eqaul ), Conjunctiva & lids normal ENT Exam: Positive: Atraumatic, Mucous membr. moist/pink, Pharynx Normal Neck Exam: Positive: Supple Chest Exam: Positive: Clear to auscultation, Normal air movement Heart Exam: Positive: Rate Normal, Regular Rhythm, Normal S1, Normal S2 Telemetry: Positive: No significant arrhythmia Abdomen Exam: Positive: Normal bowel sounds, Soft Extremity Exam: Negative: Clubbing, Cyanosis, Edema Skin Exam: Positive: Lesion, Other skin issue (tinea under the arms and groin and abdomnal folds. ) Assessment /Plan Problems (1) Acute respiratory failure Status: Acute Problem Text: due to drug overdose and altered mental status. patient was having recurrent prolonged apneic spells with severe hypoxia to 40s and bradycardia and was unable to maintain her airway due to her mental status and possible underlying SIRIA so was intubated for acute respiratory failure. Patient has a very small oral opening and high up airway and lots of tissues in the hypopharynx . It was a very difficult intubation. Pt is still on the ventilator, managed by Dr Villa there are concerns about anoxic brain injury poor prognosis (2) Toxic metabolic encephalopathy Problem Text: Benadryl overdose. Unknown if there was other substance intake or not. Pateint does take lots of over the counter sleep aids. Possible anoxic brain injury Patient was found down on the floor in her house for unknown duration . In view of her recurrent prolonged apneic episodes noted in the hospital patient may have suffered unwitnessed prolonged apneic event also at home which may have caused anoxic brain injury which will be able to explain the prolonged encephalopathic state that the patient is still in CT head negative neurology recommended EEG and MRi (3) Traumatic rhabdomyolysis Response to Treatment: Improving Problem Text: cpk improving patient was down on floor for unknown duration (4) Acute renal failure Status: Resolved Problem Text: due to acute rhabdomyolysis and dehydration (5) Overdose Status: Acute Problem Text: with benadryl 50 tabs of 25 mg urine tox negative except for benzo. (6) Morbid obesity Problem Text: Also has underlying undiagnosed SIRIA. complicating treatment (7) Lactic acidosis Status: Resolved (8) UTI (urinary tract infection) Status: Acute Problem Text: continue ceftriaxone. (9) Psychiatric disorder Status: Chronic Problem Text: has h/o bipolar disorder, panic disorder in the medical records. (10) Hypothyroid Status: Chronic (11) COPD (chronic obstructive pulmonary disease) Status: Chronic Plan/VTE VTE Prophylaxis Ordered?: Yes Plan/Urinary Catheter Reason for insertion/continuin: Critical Pt monitoring VS, I&O, 24H, Fishbone Vital Signs/I&O Vital Signs Date Time Temp Pulse Resp B/P (MAP) Pulse Ox O2 Delivery O2 Flow Rate FiO2 09/08/16 11:15 92 26 92 09/08/16 11:00 122/83 (96) 09/08/16 10:00 35 09/08/16 08:00 Ventilator 09/08/16 08:00 97.8 09/05/16 08:00 3.0 I&O- Last 24 Hours up to 6 AM 09/08/16 06:00 Intake Total 3079 ml Output Total 2050 ml Balance 1029 ml Laboratory Data 24H LABS Laboratory Tests 2 09/08/16 04:56: White Blood Count 13.0H, Red Blood Count 4.33, Hemoglobin 12.8, Hematocrit 39.1 , Mean Corpuscular Volume 90.3, Mean Corpuscular Hemoglobin 29.6, Mean Corpuscular Hemoglobin Concent 32.8, Red Cell Distribution Width 15.5H, Platelet Count 330, Neutrophils (%) (Auto) 66.3H, Lymphocytes (%) (Auto) 18.7L, Monocytes (%) (Auto) 6.5H, Eosinophils (%) (Auto) 6.5H, Basophils (%) (Auto) 0.6 , Neutrophils # (Auto) 8.6H, Lymphocytes # (Auto) 2.6, Monocytes # (Auto) 0.9H, Eosinophils # (Auto) 0.8H, Basophils # (Auto) 0.1, Large Unclassified Cells % 1.4, Large Unclassified Cells # 0.2, Anion Gap 5L, Glomerular Filtration Rate > 60.0, Blood Urea Nitrogen 3L, Creatinine 0.59, Sodium Level 143, Potassium Level 4.0#, Chloride Level 109H, Carbon Dioxide Level 29, Calcium Level 8.1L, Aspartate Amino Transf (AST/SGOT) 32, Alanine Aminotransferase (ALT/SGPT) 32, Total Creatine Kinase 290H, Alkaline Phosphatase 83, Total Bilirubin 0.2, Total Protein 6.2L, Albumin 2.4L, Magnesium Level 1.8, Albumin/Globulin Ratio 0.63L 09/08/16 05:59: Blood Gas Bicarbonate Standard 24.9, Arterial Blood pH 7.436, Arterial Blood Partial Pressure CO2 37.2, Arterial Blood Partial Pressure O2 69.3L, Arterial Blood Total CO2 25.6, Arterial Blood HCO3 24.5, Arterial Blood Base Excess 0.5, Arterial Blood Oxygen Saturation 94.4L CBC/BMP Laboratory Tests 09/08/16 04:56 Red Blood Count 4.33, Mean Corpuscular Volume 90.3, Mean Corpuscular Hemoglobin 29.6, Mean Corpuscular Hemoglobin Concent 32.8, Red Cell Distribution Width 15.5 H, Neutrophils (%) (Auto) 66.3 H, Lymphocytes (%) (Auto) 18.7 L, Monocytes (%) (Auto) 6.5 H, Eosinophils (%) (Auto) 6.5 H, Basophils (%) (Auto) 0.6, Neutrophils # (Auto) 8.6 H, Lymphocytes # (Auto) 2.6, Monocytes # (Auto) 0.9 H, Eosinophils # (Auto) 0.8 H, Basophils # (Auto) 0.1, Calcium Level 8.1 L, Aspartate Amino Transf (AST/SGOT) 32, Alanine Aminotransferase (ALT/SGPT) 32, Total Creatine Kinase 290 H, Alkaline Phosphatase 83, Total Bilirubin 0.2, Total Protein 6.2 L, Albumin 2.4 L Microbiology Microbiology 09/08/16 Blood Culture, Received Pending 09/02/16 Blood Culture - Final, Complete NO GROWTH AFTER 5 DAYS 09/02/16 Blood Culture - Final, Complete NO GROWTH AFTER 5 DAYS 09/02/16 Urine Culture - Final, Complete KAYLA Macario DO Sep 08, 2016 12:52
[2016-09-08 14:11] LABS: Phencyclidine Negative (Cutoff=20)
--- NOTE | 2016-09-08 14:20 | REP ---
MR BRAIN WITHOUT CONTRAST: HISTORY: Encephalomyopathy. COMPARISON: CT 09/05/2016. The examination is incomplete as only diffusion , FLAIR and T2-weighted images were obtained. The examination is limited secondary to motion. There are no areas of abnormal signal intensity in the brain. There is intraparenchymal hemorrhage, infarct, mass, or midline shift. The ventricular system is normal in appearance. There is no extracerebral collection. Mucosal thickening is present in the ethmoid, maxillary, and sphenoid sinuses and mastoid air cells. IMPRESSION: Limited examination demonstrating no intracranial lesion. Signed by Thierno Paul MD 09/08/2016 02:24 P
[2016-09-08] MEDS: cefTRIAXone SOD 1 GM in D5W MINI-BAG PLUS 50 ML IV SCH (19:48)
[2016-09-09] VITALS (27 sets, daily range): BP systolic 92–161; BP diastolic 55–100
[2016-09-09] MEDS: PROPOFOL 1,000 MG in APPROPRIATE DILUENT 1 EA IV SCH ×14 (00:10→23:10)
[2016-09-09] MEDS: SLF 3 ML SYR IV SCH ×3 (05:27→20:54)
[2016-09-09] MEDS: SODIUM CHLORIDE 0.9% INJ 10 ML SYR IV SCH ×3 (05:28→20:54)
[2016-09-09 05:46] LABS: BASO # 0.1 K/mm3 (0.0-0.2); BASO % 0.5 % (0.0-1.0); EOS # 0.7 K/mm3 (0.0-0.50); EOS % 5.3 % (0.0-3.0); LARGE UNSTAINED CELL # 0.3 K/mm3 (0.0-0.4); LARGE UNSTAINED CELL % 1.9 % (0.0-4.0); LYMPH # 2.7 K/mm3 (1.5-4.5); LYMPH % 18.1 % (24.0-44.0); MEAN CORPUSCULAR HEMOGLOBIN 30.1 pg (27.0-33.0); MEAN CORPUSCULAR HGB CONC 32.9 g/dl (32.0-36.5); MEAN CORPUSCULAR VOLUME 91.3 fl (80.0-96.0); MONO # 1.1 K/mm3 (0.0-0.8); MONO % 8.1 % (0.0-5.0); PLATELET COUNT, AUTOMATED 335 k/mm3 (150-450); RED CELL DISTRIBUTION WIDTH 15.7 % (11.5-14.5); WHITE BLOOD COUNT 13.6 K/mm3 (4.0-10.0)
[2016-09-09 06:05] LABS: ALBUMIN 2.5 GM/DL (3.2-5.2); ALBUMIN/GLOBULIN RATIO 0.83 (1.00-1.93); ALKALINE PHOSPHATASE 85 U/L (45-117); ALT/SGPT 37 U/L (12-78); ANION GAP 3 MEQ/L (8-16); AST/SGOT 39 U/L (15-37); BILIRUBIN,TOTAL 0.2 MG/DL (0.2-1.0); BLOOD UREA NITROGEN 7 MG/DL (7-18); CALCIUM LEVEL 8.7 MG/DL (8.5-10.1); CARBON DIOXIDE LEVEL 32 MEQ/L (21-32); CHLORIDE LEVEL 106 MEQ/L (98-107); CREATININE FOR GFR 0.55 MG/DL (0.55-1.02); GLOMERULAR FILTRATION RATE > 60.0 (>58); GLUCOSE, FASTING 129 MG/DL (70-105); MAGNESIUM LEVEL 1.8 MG/DL (1.8-2.4); SODIUM LEVEL 141 MEQ/L (136-145); TOTAL PROTEIN 5.5 GM/DL (6.4-8.2)
[2016-09-09 06:07] LABS: ABG BASE EXCESS 3.8 (-2.0-2.0); ABG PARTIAL PRESSURE CO2 45.8 mmHg (35.0-45.0); ABG PARTIAL PRESSURE O2 68.8 mmHg (75.0-100.0); ABG STANDARD HCO3 27.8 MEQ/L (22.0-26.0); ABG TOTAL CO2 30.4 MEQ/L (22.0-29.0); ABG pH (ARTERIAL) 7.419 UNITS (7.350-7.450)
[2016-09-09] MEDS: PANTOPRAZOLE 40MG INJ (PROTONIX) (C9113) IV SCH (07:57)
[2016-09-09] MEDS: LEVOTHYROXINE 100 MCG (0.1MG) VIAL IV SCH (07:58)
[2016-09-09] MEDS: POTASSIUM CHLORIDE 10% LIQ 20 MEQ/15 ML UDC PO SCH ×2 (07:58→20:54)
[2016-09-09] MEDS: HEPARIN SOD (PORCINE) 5000 UNITS/ML VIAL SQ SCH ×2 (07:58→20:54)
[2016-09-09] MEDS: CHLORHEXIDINE GLUCONATE 0.12 % 15ML UDC (PERIDEX ORAL RINSE) MT SCH ×2 (07:58→20:53)
[2016-09-09] MEDS: NYSTATIN 100,000 UNITS/GM TOPICAL PWD 15 GM TOP SCH ×2 (07:59→21:00)
[2016-09-09] MEDS: IPRATROPIUM 0.5MG/ALBUTEROL 2.5MG INH SOL UD 3ML (DUONEB)(J7620) NEB SCH ×4 (08:04→19:43)
--- NOTE | 2016-09-09 08:47 | REP ---
PORTABLE CHEST X-RAY: Single view. HISTORY: Respiratory failure. Comparison chest x-ray September 08, 2016. FINDINGS: Endotracheal tube remains in good position at the level of proximal clavicles. Nasogastric tube is seen entering the left upper quadrant. EKG monitoring electrodes are noted. A right subclavian catheter is seen in the expected location of the superior vena cava. There is plate-like atelectasis and some increased density in the left lower lobe as on the earlier film. The right lung remains clear. No new infiltrate is seen. Signed by Ozzie Crawford MD 09/09/2016 02:49 P
[2016-09-09] MEDS: MIDAZOLAM INJ 2 MG/2 ML VIAL (J2250) IV PRN ×6 (10:03→23:44)
[2016-09-09] MEDS ORDERED: VECURONIUM BROMIDE 10 MG VIAL IV ONE (10:15)
--- NOTE | 2016-09-09 11:32 | CCN ---
DATE: 09/09/2016 The patient remains uncooperative on mechanical ventilation, rolling eye movements and nonpurposeful arm and extremity movements, and no obvious seizure activity. EEG read is pending. MRI was full of motion artifact and not very diagnostic yesterday. No contrast was able to be administered. We will paralyze the patient to obtain a good MRI today. The patient has been on tube feeds. Has normal bowel movements. Mild leukocytosis of 13.6 this morning with a chronic left pleural effusion. She is on ceftriaxone for the possibility of urinary tract infection; however, this will likely cover any pulmonary pathogens. PHYSICAL EXAMINATION: Temperature is 97.3, pulse is 88, respiratory rate is 29, blood pressure is 112/69 with a mean arterial pressure of 83, oxygen saturations 91% on 0.35 FIO2. GENERAL: The patient is a moving extremities, opening eyes and is not tracking. Has no purposeful eye contact. Is unable to follow commands. Has rolling eye movements. HEENT: Pupils are approximately 4 mm but reactive to light. Again, rolling eye movements without any fast nystagmus. Sclerae clear. Mucous membranes are moist. Tongue is midline. Endotracheal tube is in place. Neck is supple. No tracheal deviation. No mass. LYMPHATICS: No supraclavicular, cervical, or axillary adenopathy. CARDIAC: Regular S1, S2 without audible murmur, rub or gallop. No elevated jugular venous pressure. Minimal systemic edema. PULMONARY: Clear to auscultation without rales, rhonchi or wheezes. No dullness to percussion. No accessory muscle use. Abdomen is obese, soft, nontender, nondistended. No hepatosplenomegaly. No masses or hernia. EXTREMITIES: No cyanosis, clubbing or edema. TEDs are in place. SKIN: No rashes, jaundice or bruising. MUSCULOSKELETAL: Normal development without a joint effusion. Laboratory evaluation shows a sodium 141, potassium 4.0, chloride 106, bicarbonate of 32, BUN of 7, creatinine 0.55 with a glucose of 129. Arterial blood gas shows a pH 7.42, pCO2 of 46, pO2 of 69. Chest x-ray shows adequate position of the endotracheal tube with a small left pleural effusion. Albumin is 2.5. White blood cell count is 13.6. Glucose is 129, hemoglobin is 12.9, hematocrit of 39.1 with a platelet count of 325. IMPRESSION: 1. Respiratory failure secondary to encephalopathy. We will continue mechanical ventilation. I did discuss at length the need for tracheostomy if we are going to proceed with aggressive care. This was reviewed with the son today. He states he would like to review the results of the EEG and MRI prior to making this decision. I felt this was reasonable, therefore we will wait this testing results. 2. Encephalopathy, possibly drug induced; however, it has been quite some time since her "ingestion," I highly suspect anoxic brain injury. 3. Leukocytosis, mild. We will continue to monitor for signs and symptoms of infection. No evidence of hypotension or septic shock at this point in time. She remains on ceftriaxone. 4. Neuro prophylaxis. MPO boots 5. Gastrointestinal prophylaxis. Protonix. 6. Deep vein thrombosis (DVT) prophylaxis. Aspirin, TEDs and sequential compression device (SCD). Critical care time as mentioned above. I also spent approximately 30 minutes discussing her prognosis and potential therapies with her son. We will continue family discussions. GENIE
--- NOTE | 2016-09-09 12:07 | IPNPDOC ---
Subjective Date Seen The patient was seen on 09/09/16. Subjective Chief Complaint/HPI The patient is a 46-year-old female admitted with a reason for visit of Overdose. Events since last encounter pt seen and examined, still on the vent General: Reports: ROS Unobtainable Objective Physical Examination General Exam: Positive: No Acute Distress, Other ( Now intubated and sedated. ) Eye Exam: Positive: PERRLA (3 mm reacting to light eqaul ), Conjunctiva & lids normal ENT Exam: Positive: Atraumatic, Mucous membr. moist/pink, Pharynx Normal Neck Exam: Positive: Supple Chest Exam: Positive: Clear to auscultation, Normal air movement Heart Exam: Positive: Rate Normal, Regular Rhythm, Normal S1, Normal S2 Telemetry: Positive: No significant arrhythmia Abdomen Exam: Positive: Normal bowel sounds, Soft Extremity Exam: Negative: Clubbing, Cyanosis, Edema Skin Exam: Positive: Lesion, Other skin issue (tinea under the arms and groin and abdomnal folds. ) Assessment /Plan Problems (1) Acute respiratory failure Status: Acute Problem Text: due to drug overdose and altered mental status. patient was having recurrent prolonged apneic spells with severe hypoxia to 40s and bradycardia and was unable to maintain her airway due to her mental status and possible underlying SIRIA so was intubated for acute respiratory failure. Patient has a very small oral opening and high up airway and lots of tissues in the hypopharynx . It was a very difficult intubation. Pt is still on the ventilator, managed by Dr Villa there are concerns about anoxic brain injury poor prognosis (2) Toxic metabolic encephalopathy Problem Text: Benadryl overdose. Unknown if there was other substance intake or not. Pateint does take lots of over the counter sleep aids. Possible anoxic brain injury Patient was found down on the floor in her house for unknown duration . In view of her recurrent prolonged apneic episodes noted in the hospital patient may have suffered unwitnessed prolonged apneic event also at home which may have caused anoxic brain injury which will be able to explain the prolonged encephalopathic state that the patient is still in CT head negative neurology recommended EEG and MRi, MRI showed limited pictures with no obvious lesions, EEG results pending (3) Traumatic rhabdomyolysis Response to Treatment: Improving Problem Text: cpk improving patient was down on floor for unknown duration (4) Acute renal failure Status: Resolved Problem Text: due to acute rhabdomyolysis and dehydration (5) Overdose Status: Acute Problem Text: with benadryl 50 tabs of 25 mg urine tox negative except for benzo. (6) Morbid obesity Problem Text: Also has underlying undiagnosed SIRIA. complicating treatment (7) Lactic acidosis Status: Resolved (8) UTI (urinary tract infection) Status: Acute Problem Text: continue ceftriaxone today is day 8 will d/c today (9) Psychiatric disorder Status: Chronic Problem Text: has h/o bipolar disorder, panic disorder in the medical records. (10) Hypothyroid Status: Chronic (11) COPD (chronic obstructive pulmonary disease) Status: Chronic Plan/VTE VTE Prophylaxis Ordered?: Yes Plan/Urinary Catheter Reason for insertion/continuin: Critical Pt monitoring VS, I&O, 24H, Fishbone Vital Signs/I&O Vital Signs Date Time Temp Pulse Resp B/P (MAP) Pulse Ox O2 Delivery O2 Flow Rate FiO2 09/09/16 10:00 26 35 09/09/16 09:46 88 92 09/09/16 08:00 Ventilator 09/09/16 08:00 97.3 112/69 (83) 09/05/16 08:00 3.0 I&O- Last 24 Hours up to 6 AM 09/09/16 06:00 Intake Total 3349.9 ml Output Total 1790 ml Balance 1559.9 ml Laboratory Data 24H LABS Laboratory Tests 2 09/09/16 05:37: White Blood Count 13.6H, Red Blood Count 4.28, Hemoglobin 12.9, Hematocrit 39.1 , Mean Corpuscular Volume 91.3, Mean Corpuscular Hemoglobin 30.1, Mean Corpuscular Hemoglobin Concent 32.9, Red Cell Distribution Width 15.7H, Platelet Count 335, Neutrophils (%) (Auto) 66.0, Lymphocytes (%) (Auto) 18.1L, Monocytes (%) (Auto) 8.1H, Eosinophils (%) (Auto) 5.3H, Basophils (%) (Auto) 0.5 , Neutrophils # (Auto) 9.0H, Lymphocytes # (Auto) 2.7, Monocytes # (Auto) 1.1H, Eosinophils # (Auto) 0.7H, Basophils # (Auto) 0.1, Large Unclassified Cells % 1.9, Large Unclassified Cells # 0.3, Anion Gap 3L, Glomerular Filtration Rate > 60.0, Blood Urea Nitrogen 7#, Creatinine 0.55, Sodium Level 141, Potassium Level 4.0, Chloride Level 106, Carbon Dioxide Level 32, Calcium Level 8.7, Aspartate Amino Transf (AST/SGOT) 39H, Alanine Aminotransferase (ALT/SGPT) 37, Total Creatine Kinase 374H, Alkaline Phosphatase 85, Total Bilirubin 0.2, Total Protein 5.5L, Albumin 2.5L, Magnesium Level 1.8, Albumin/Globulin Ratio 0.83L 09/09/16 05:48: Blood Gas Bicarbonate Standard 27.8H, Arterial Blood pH 7.419, Arterial Blood Partial Pressure CO2 45.8H, Arterial Blood Partial Pressure O2 68.8L, Arterial Blood Total CO2 30.4H, Arterial Blood HCO3 29.0H, Arterial Blood Base Excess 3.8H, Arterial Blood Oxygen Saturation 93.8L CBC/BMP Laboratory Tests 09/09/16 05:37 Red Blood Count 4.28, Mean Corpuscular Volume 91.3, Mean Corpuscular Hemoglobin 30.1, Mean Corpuscular Hemoglobin Concent 32.9, Red Cell Distribution Width 15.7 H, Neutrophils (%) (Auto) 66.0, Lymphocytes (%) (Auto) 18.1 L, Monocytes (% ) (Auto) 8.1 H, Eosinophils (%) (Auto) 5.3 H, Basophils (%) (Auto) 0.5, Neutrophils # (Auto) 9.0 H, Lymphocytes # (Auto) 2.7, Monocytes # (Auto) 1.1 H, Eosinophils # (Auto) 0.7 H, Basophils # (Auto) 0.1, Calcium Level 8.7, Aspartate Amino Transf (AST/SGOT) 39 H, Alanine Aminotransferase (ALT/SGPT) 37, Total Creatine Kinase 374 H, Alkaline Phosphatase 85, Total Bilirubin 0.2, Total Protein 5.5 L, Albumin 2.5 L Microbiology Microbiology 09/08/16 Blood Culture, Received Pending 09/02/16 Blood Culture - Final, Complete NO GROWTH AFTER 5 DAYS 09/02/16 Blood Culture - Final, Complete NO GROWTH AFTER 5 DAYS 09/02/16 Urine Culture - Final, Complete KAYLA Macario DO Sep 09, 2016 12:07
--- NOTE | 2016-09-09 13:33 | REP ---
MR BRAIN WITHOUT AND WITH CONTRAST: HISTORY: Encephalopathy. CONTRAST: ProHance 24 mL. COMPARISON: 09/08/2016. A single punctate focus of increased signal intensity on T2-weighted images is present in the subcortical white matter of the right parietal lobe. There is no intraparenchymal hemorrhage, infarct, mass, or midline shift. The sella turcica is partially empty. The ventricular system is normal in appearance. There is no extracerebral collection. Mucosal thickening is present in the ethmoid, maxillary, and sphenoid sinuses. IMPRESSION: There is a single punctate focus of increased signal intensity in the subcortical white matter of the right parietal lobe. This is a nonspecific finding. Signed by Thierno Paul MD 09/09/2016 01:38 P
--- NOTE | 2016-09-09 20:34 | EEG ---
DATE OF PROCEDURE: 09/08/2016 REFERRING PHYSICIAN: Emily Gonzalez MD DIAGNOSIS: Seizures. [id number] CLINICAL HISTORY: The patient is a 46-year-old woman who was admitted at [facility] due to altered mental status. She is intubated and sedated. She becomes combative and agitated whenever her sedation is decreased. This EEG was done to rule out epileptic potential and assess degree of encephalopathy. She is currently on ceftriaxone, levothyroxine, Protonix, Ativan, etc. Her propofol was withheld for short period of time before her EEG. TECHNICAL DESCRIPTION: This digital EEG was recorded by 21 scalp, ear and two EKG electrodes and was reviewed in bipolar and referential montages following reformatting in 10-20 international electrode placement system. INTERPRETATION: The patient is intubated on mechanical ventilation during this EEG. Background rhythm consisted of 3 - 4 Hz delta activity measuring 15 - 50 microvolts in amplitude. Hyperventilation could not be performed. No sleep was recorded. Photic stimulation remained unremarkable. Intermittent bilateral frontal triphasic waves were noted with anterior/posterior gradient. EKG revealed normal sinus rhythm. No focal, lateralizing or epileptiform abnormalities were seen. No clinical or electrographic seizures were recorded. CONCLUSION: This EEG in a mechanically ventilated, intubated patient is abnormal due to presence of generalized slowing and disorganization of background with bilateral frontally predominant triphasic waves consistent with nonspecific diffuse cerebral dysfunction such as seen in encephalopathy due to multiple potential causes including toxic, metabolic, medication related, infectious, autoimmune, or multifocal structural abnormalities of brain. No epileptiform abnormalities were seen. Clinical correlation is recommended.
[2016-09-09] MEDS: ACETAMINOPHEN 650 MG SUPP PR PRN (21:32)
[2016-09-10] VITALS (22 sets, daily range): BP systolic 92–152; BP diastolic 52–93; O2SAT 94
[2016-09-10] MEDS: MIDAZOLAM INJ 2 MG/2 ML VIAL (J2250) IV PRN ×3 (00:28→04:24)
[2016-09-10] MEDS: PROPOFOL 1,000 MG in APPROPRIATE DILUENT 1 EA IV SCH ×5 (00:54→07:28)
[2016-09-10 05:30] LABS: ABG BASE EXCESS 3.8 (-2.0-2.0); ABG HCO3 28.9 MEQ/L (22.0-26.0); ABG PARTIAL PRESSURE CO2 45.5 mmHg (35.0-45.0); ABG PARTIAL PRESSURE O2 77.2 mmHg (75.0-100.0); ABG STANDARD HCO3 27.8 MEQ/L (22.0-26.0); ABG TOTAL CO2 30.3 MEQ/L (22.0-29.0); ABG pH (ARTERIAL) 7.421 UNITS (7.350-7.450)
[2016-09-10] MEDS: SLF 3 ML SYR IV SCH ×3 (05:52→22:00)
[2016-09-10] MEDS: SODIUM CHLORIDE 0.9% INJ 10 ML SYR IV SCH ×3 (05:52→22:00)
[2016-09-10 06:21] LABS: MEAN CORPUSCULAR HGB CONC 33.1 g/dl (32.0-36.5); MEAN CORPUSCULAR VOLUME 90.8 fl (80.0-96.0); RED CELL DISTRIBUTION WIDTH 15.5 % (11.5-14.5); WHITE BLOOD COUNT 16.6 K/mm3 (4.0-10.0)
[2016-09-10 06:48] LABS: ALBUMIN 2.5 GM/DL (3.2-5.2); ALBUMIN/GLOBULIN RATIO 0.78 (1.00-1.93); ALKALINE PHOSPHATASE 87 U/L (45-117); ALT/SGPT 36 U/L (12-78); ANION GAP 7 MEQ/L (8-16); AST/SGOT 34 U/L (15-37); BILIRUBIN,TOTAL 0.3 MG/DL (0.2-1.0); BLOOD UREA NITROGEN 9 MG/DL (7-18); CALCIUM LEVEL 8.5 MG/DL (8.5-10.1); CARBON DIOXIDE LEVEL 31 MEQ/L (21-32); CHLORIDE LEVEL 103 MEQ/L (98-107); CREATININE FOR GFR 0.52 MG/DL (0.55-1.02); GLOMERULAR FILTRATION RATE > 60.0 (>58); GLUCOSE, FASTING 109 MG/DL (70-105); POTASSIUM SERUM 4.1 MEQ/L (3.5-5.1); SODIUM LEVEL 141 MEQ/L (136-145); TOTAL PROTEIN 5.7 GM/DL (6.4-8.2)
[2016-09-10] MEDS: IPRATROPIUM 0.5MG/ALBUTEROL 2.5MG INH SOL UD 3ML (DUONEB)(J7620) NEB SCH ×4 (07:26→20:05)
[2016-09-10] MEDS: POTASSIUM CHLORIDE 10% LIQ 20 MEQ/15 ML UDC PO SCH ×3 (08:29→21:59)
[2016-09-10] MEDS: PANTOPRAZOLE 40MG INJ (PROTONIX) (C9113) IV SCH (08:29)
[2016-09-10] MEDS: CHLORHEXIDINE GLUCONATE 0.12 % 15ML UDC (PERIDEX ORAL RINSE) MT SCH ×2 (08:29→21:00)
[2016-09-10] MEDS: LEVOTHYROXINE 100 MCG (0.1MG) VIAL IV SCH (08:29)
[2016-09-10] MEDS: NYSTATIN 100,000 UNITS/GM TOPICAL PWD 15 GM TOP SCH ×2 (08:30→22:00)
[2016-09-10] MEDS: HEPARIN SOD (PORCINE) 5000 UNITS/ML VIAL SQ SCH ×2 (08:30→22:00)
--- NOTE | 2016-09-10 09:41 | IPNPDOC ---
Subjective Date Seen The patient was seen on 09/10/16. Subjective Chief Complaint/HPI The patient is a 46-year-old female admitted with a reason for visit of Overdose. Events since last encounter pt seen and examined, still on the vent, will start to wean sedation for sedation vacation Objective Physical Examination General Exam: Positive: No Acute Distress, Other ( Now intubated and sedated. ) Eye Exam: Positive: PERRLA (3 mm reacting to light eqaul ), Conjunctiva & lids normal ENT Exam: Positive: Atraumatic, Mucous membr. moist/pink, Pharynx Normal Neck Exam: Positive: Supple Chest Exam: Positive: Clear to auscultation, Normal air movement Heart Exam: Positive: Rate Normal, Regular Rhythm, Normal S1, Normal S2 Telemetry: Positive: No significant arrhythmia Abdomen Exam: Positive: Normal bowel sounds, Soft Extremity Exam: Negative: Clubbing, Cyanosis, Edema Skin Exam: Positive: Lesion, Other skin issue (tinea under the arms and groin and abdomnal folds. ) Assessment /Plan Problems (1) Acute respiratory failure Status: Acute Problem Text: * due to drug overdose and altered mental status, and likely some anoxic brain injury * patient was having recurrent prolonged apneic spells with severe hypoxia to 40s and bradycardia and was unable to maintain her airway due to her mental status and possible underlying SIRIA so was intubated for acute respiratory failure. * Patient has a very small oral opening and high up airway and lots of tissues in the hypopharynx . It was a very difficult intubation. * Pt is still on the ventilator, managed by Dr Villa, will attempt sedation vacation today * there are concerns about anoxic brain injury, EEG showed diffuse slowing * guarded prognosis * Spoke with pt's sister yesterday and arranged for a family meeting today to discuss possible options at this point, options include trach if we were unable to extubate pt vs [employer] (2) Toxic metabolic encephalopathy Problem Text: Benadryl overdose. Unknown if there was other substance intake or not. Pateint does take lots of over the counter sleep aids. Possible anoxic brain injury Patient was found down on the floor in her house for unknown duration . In view of her recurrent prolonged apneic episodes noted in the hospital patient may have suffered unwitnessed prolonged apneic event also at home which may have caused anoxic brain injury which will be able to explain the prolonged encephalopathic state that the patient is still in CT head negative neurology recommended EEG and MRi, MRI showed limited pictures with no obvious lesions, EEG results pending (3) Traumatic rhabdomyolysis Status: Acute Problem Text: * patient was down on floor for unknown duration (4) Acute renal failure Status: Resolved Problem Text: due to acute rhabdomyolysis and dehydration (5) Overdose Status: Acute Problem Text: with benadryl 50 tabs of 25 mg urine tox negative except for benzo. (6) Morbid obesity Problem Text: Also has underlying undiagnosed SIRIA. complicating treatment (7) Lactic acidosis Status: Resolved (8) UTI (urinary tract infection) Status: Acute Problem Text: continue ceftriaxone today is day 8 will d/c today (9) Psychiatric disorder Status: Chronic Problem Text: has h/o bipolar disorder, panic disorder in the medical records. (10) Hypothyroid Status: Chronic (11) COPD (chronic obstructive pulmonary disease) Status: Chronic Plan/VTE VTE Prophylaxis Ordered?: Yes Plan/Urinary Catheter Reason for insertion/continuin: Critical Pt monitoring VS, I&O, 24H, [facility] Vital Signs/I&O Vital Signs Date Time Temp Pulse Resp B/P (MAP) Pulse Ox O2 Delivery O2 Flow Rate FiO2 09/10/16 08:43 36 09/10/16 08:00 97.4 89 126/69 (88) 93 09/10/16 08:00 35 09/10/16 08:00 Ventilator 09/05/16 08:00 3.0 I&O- Last 24 Hours up to 6 AM 09/10/16 06:00 Intake Total 2996.6 ml Output Total 2635 ml Balance 361.6 ml Laboratory Data 24H LABS Laboratory Tests 2 09/10/16 05:14: Blood Gas Bicarbonate Standard 27.8H, Arterial Blood pH 7.421, Arterial Blood Partial Pressure CO2 45.5H, Arterial Blood Partial Pressure O2 77.2, Arterial Blood Total CO2 30.3H, Arterial Blood HCO3 28.9H, Arterial Blood Base Excess 3.8H, Arterial Blood Oxygen Saturation 95.5 09/10/16 06:14: Anion Gap 7L, Glomerular Filtration Rate > 60.0, Blood Urea Nitrogen 9, Creatinine 0.52L, Sodium Level 141, Potassium Level 4.1, Chloride Level 103, Carbon Dioxide Level 31, Calcium Level 8.5, Aspartate Amino Transf (AST/SGOT) 34 , Alanine Aminotransferase (ALT/SGPT) 36, Alkaline Phosphatase 87, Total Bilirubin 0.3, Total Protein 5.7L, Albumin 2.5L, Albumin/Globulin Ratio 0.78L CBC/BMP Laboratory Tests 09/10/16 06:14 Red Blood Count 4.17, Mean Corpuscular Volume 90.8, Mean Corpuscular Hemoglobin 30.0, Mean Corpuscular Hemoglobin Concent 33.1, Red Cell Distribution Width 15.5 H, Calcium Level 8.5, Aspartate Amino Transf (AST/SGOT) 34, Alanine Aminotransferase (ALT/SGPT) 36, Alkaline Phosphatase 87, Total Bilirubin 0.3, Total Protein 5.7 L, Albumin 2.5 L Microbiology Microbiology 09/08/16 Blood Culture - Preliminary, Resulted No growth after 24 hours . All specim... 09/02/16 Blood Culture - Final, Complete NO GROWTH AFTER 5 DAYS 09/02/16 Blood Culture - Final, Complete NO GROWTH AFTER 5 DAYS 09/09/16 Gram Stain - Final, Resulted 09/09/16 Sputum Culture, Resulted Pending 09/02/16 Urine Culture - Final, Complete Serratia Kaea KAYLA JANSEN DO Sep 10, 2016 09:41
--- NOTE | 2016-09-10 09:58 | REP ---
Portable chest x-ray: Single AP view. History: Respiratory failure. Comparison study September 09, 2016. Findings: EKG monitoring electrodes overlie the chest. Endotracheal tube is again seen in good position at the level of proximal clavicles. An NG tube enters the left upper quadrant. A right subclavian line is again seen with its tip in the expected location of the superior vena cava. There are air bronchograms in the left lower lobe again noted. No new infiltrate is seen. Signed by Ozzie Crawford MD 09/10/2016 01:32 P
--- NOTE | 2016-09-10 11:10 | CCN ---
DATE OF SERVICE: 09/10/2016 This morning at bedside during sedation vacation, the patient now is opening eyes to her name being called. She is starting to track. She has movement of her upper extremities. She is attempting to pull out her tube. She still cannot follow commands. However, she has had some improvement since yesterday. Electroencephalogram (EEG) shows generalized slowing with diffuse cerebral dysfunction. MRI showed a single punctate lesion in the right parietal lobe. Otherwise, no significant changes. A family meeting is being conducted this morning with the primary physician as to what options they have as far as cover measures and progression to tracheostomy for a safer airway. The nurse did report thick blevins sputum being suctioned from her endotracheal tube. PHYSICAL EXAMINATION: Temperature is 98.8, pulse is 78, blood pressure is 101/65 with mean arterial pressure of 77, oxygen saturation 95% on 0.[address] the patient on pressure support this morning. General: Not yet responding to commands. She does open her eyes when calling her name. She will change the direction of her vision. She is starting to track. She is having less rolling eye movements. No evidence of seizure activity or tremor. HEENT: Sclerae clear and anicteric. Pupils equal and reactive to light. Mucous membranes are moist without lesions. Tongue is midline. Mallampati 4 with small mouth opening and short thyromental distance. Lymphatics: No cervical, supraclavicular, or axillary adenopathy. Cardiac: Regular S1, S2 without audible murmur, rub, or gallop. No elevated jugular venous distention (JVD). Pulmonary: Clear to auscultation without rales, rhonchi, or wheezes. No dullness to percussion. Abdomen: Soft, nontender, nondistended. No hepatosplenomegaly. No masses or hernia. Extremities: No cyanosis, clubbing, or edema. Skin: No rashes, jaundice, or bruising. Chest x-ray shows adequate position of the endotracheal tube, adequate position of the right subclavian line, some nonspecific increased interstitial markings without dense infiltrate, some blunting of the left costophrenic angle which has been present since admission. LABORATORY EVALUATION: Shows sodium 141, potassium 4.1, chloride of 103, bicarbonate of 31, BUN of 9, creatinine of 0.52, with a glucose of 109. CBC shows a white blood cell count of 16.6, hemoglobin 12.5, hematocrit of 37.9, platelet count of 353. Arterial blood gas shows a pH of 7.42, pCO2 of 46, pAO2 of 77. MRI and EEG are reviewed, as mentioned above. IMPRESSION: 1. Respiratory failure secondary to encephalopathy. The patient has a crowded airway. Recommend continuing mechanical ventilation until the patient is neurologically aware enough to maintain her airway. 2. Encephalopathy with recent drug overdose and a question of anoxic brain injury with some minimal improvement this morning. Will continue to watch for neurologic response. I have asked that she remain off sedation today despite her agitation so that we can closely monitor for neurologic recovery. 3. Leukocytosis. I will start meropenem today due to the change in her sputum and the increase in white blood cell count. At this point in time, I have no other sources of infection. Family disposition. A family meeting this morning with primary care. Will touch base with the primary care to see what was discussed and what decisions were made at this point in time. Critical care time, as mentioned above. This excludes all procedures.
[2016-09-10] MEDS: PIPERACILLIN/TAZOBACTAM SOD 4.5 GM in D5W MINI-BAG PLUS 100 ML IV SCH ×3 (13:42→23:47)
[2016-09-10] MEDS: QUEtiapine FUMARATE 200 MG TAB PO SCH (22:00)
[2016-09-10] MEDS: risperiDONE 2 MG TAB PO SCH (22:00)
[2016-09-11] VITALS (7 sets, daily range): BP systolic 110–123; BP diastolic 64–76
[2016-09-11] MEDS: SODIUM CHLORIDE 0.9% INJ 10 ML SYR IV SCH ×3 (05:36→23:37)
[2016-09-11] MEDS: PIPERACILLIN/TAZOBACTAM SOD 4.5 GM in D5W MINI-BAG PLUS 100 ML IV SCH ×4 (05:36→23:37)
[2016-09-11 05:50] LABS: MEAN CORPUSCULAR HGB CONC 33.4 g/dl (32.0-36.5); MEAN CORPUSCULAR VOLUME 90.1 fl (80.0-96.0); RED CELL DISTRIBUTION WIDTH 15.4 % (11.5-14.5); WHITE BLOOD COUNT 14.8 K/mm3 (4.0-10.0)
[2016-09-11 06:12] LABS: ANION GAP 9 MEQ/L (8-16); BLOOD UREA NITROGEN 9 MG/DL (7-18); CALCIUM LEVEL 8.5 MG/DL (8.5-10.1); CARBON DIOXIDE LEVEL 30 MEQ/L (21-32); CHLORIDE LEVEL 103 MEQ/L (98-107); CREATININE FOR GFR 0.59 MG/DL (0.55-1.02); GLOMERULAR FILTRATION RATE > 60.0 (>58); GLUCOSE, FASTING 114 MG/DL (70-105); POTASSIUM SERUM 3.5 MEQ/L (3.5-5.1); SODIUM LEVEL 142 MEQ/L (136-145)
[2016-09-11 06:16] LABS: ABG BASE EXCESS 2.7 (-2.0-2.0); ABG HCO3 27.1 MEQ/L (22.0-26.0); ABG PARTIAL PRESSURE O2 66.3 mmHg (75.0-100.0); ABG STANDARD HCO3 26.8 MEQ/L (22.0-26.0); ABG TOTAL CO2 28.4 MEQ/L (22.0-29.0); ABG pH (ARTERIAL) 7.438 UNITS (7.350-7.450)
[2016-09-11] MEDS: IPRATROPIUM 0.5MG/ALBUTEROL 2.5MG INH SOL UD 3ML (DUONEB)(J7620) NEB SCH ×4 (07:53→19:44)
[2016-09-11] MEDS: LEVOTHYROXINE 100 MCG (0.1MG) VIAL IV SCH (08:38)
[2016-09-11] MEDS: CHLORHEXIDINE GLUCONATE 0.12 % 15ML UDC (PERIDEX ORAL RINSE) MT SCH ×2 (08:38→20:11)
[2016-09-11] MEDS: HEPARIN SOD (PORCINE) 5000 UNITS/ML VIAL SQ SCH ×2 (08:39→20:11)
[2016-09-11] MEDS: PANTOPRAZOLE 40MG INJ (PROTONIX) (C9113) IV SCH (08:39)
[2016-09-11] MEDS: POTASSIUM CHLORIDE 10% LIQ 20 MEQ/15 ML UDC PO SCH ×2 (08:39→20:10)
[2016-09-11] MEDS: NYSTATIN 100,000 UNITS/GM TOPICAL PWD 15 GM TOP SCH ×2 (08:40→20:11)
[2016-09-11] MEDS: risperiDONE 2 MG TAB PO SCH ×2 (08:40→20:11)
[2016-09-11] MEDS: QUEtiapine FUMARATE 200 MG TAB PO SCH ×2 (08:40→20:11)
--- NOTE | 2016-09-11 09:08 | REP ---
Portable chest x-ray: Single view. History: Respiratory failure. Comparison study: September 10, 2016. Findings: EKG monitoring electrodes are seen. There is a right subclavian line with its catheter tip in the expected location of the superior vena cava. There is discoid atelectasis in the left lung base. Cardiomediastinal silhouette is unremarkable. Pulmonary vasculature is cephalized unchanged. Impression: Plate-like atelectasis left base. Cephalization of the pulmonary vasculature. Signed by Ozzie Crawford MD 09/11/2016 10:18 A
--- NOTE | 2016-09-11 09:34 | IPNPDOC ---
Subjective Date Seen The patient was seen on 09/11/16. Subjective Chief Complaint/HPI The patient is a 46-year-old female admitted with a reason for visit of Overdose. Events since last encounter pt is awake and oriented, she denies any chest pain or shortness of breath, she only complains of cough worse with diet Eyes: Denies: Pain, Vision change Pulmonary: Reports: Cough, Denies: Dyspnea, Pleuritic Chest Pain, Other Symptoms Cardiovascular: Denies: Chest Pain, Palpitations, Orthopnea, Paroxysmal Noc. Dyspnea, Lt Headedness Objective Physical Examination General Exam: Positive: Alert, No Acute Distress, Other ( Now intubated and sedated. ) Eye Exam: Positive: PERRLA (3 mm reacting to light eqaul ), Conjunctiva & lids normal ENT Exam: Positive: Atraumatic, Mucous membr. moist/pink, Pharynx Normal Neck Exam: Positive: Supple Chest Exam: Positive: Clear to auscultation, Normal air movement Heart Exam: Positive: Rate Normal, Regular Rhythm, Normal S1, Normal S2 Telemetry: Positive: No significant arrhythmia Abdomen Exam: Positive: Normal bowel sounds, Soft Extremity Exam: Negative: Clubbing, Cyanosis, Edema Skin Exam: Positive: Lesion, Other skin issue (tinea under the arms and groin and abdomnal folds. ) Assessment /Plan Problems (1) Acute respiratory failure Status: Resolved Problem Text: * due to drug overdose and altered mental status, and likely some anoxic brain injury * patient was having recurrent prolonged apneic spells with severe hypoxia to 40s and bradycardia and was unable to maintain her airway due to her mental status and possible underlying SIRIA so was intubated for acute respiratory failure. * Patient has a very small oral opening and high up airway and lots of tissues in the hypopharynx . It was a very difficult intubation. * pt was successfully extubated on 09/09 (2) Toxic metabolic encephalopathy Status: Resolved Problem Text: Benadryl overdose. Unknown if there was other substance intake or not. Pateint does take lots of over the counter sleep aids. CT head negative (3) Traumatic rhabdomyolysis Status: Acute Problem Text: * patient was down on floor for unknown duration (4) Acute renal failure Status: Resolved Problem Text: due to acute rhabdomyolysis and dehydration (5) Overdose Status: Acute Problem Text: with benadryl 50 tabs of 25 mg urine tox negative except for benzo. (6) Morbid obesity Problem Text: Also has underlying undiagnosed SIRIA. complicating treatment (7) Lactic acidosis Status: Resolved (8) UTI (urinary tract infection) Status: Acute Problem Text: completed a course of ceftriaxone (9) Psychiatric disorder Status: Chronic Problem Text: has h/o bipolar disorder, panic disorder in the medical records. (10) Hypothyroid Status: Chronic (11) COPD (chronic obstructive pulmonary disease) Status: Chronic Plan/VTE VTE Prophylaxis Ordered?: Yes Plan/Urinary Catheter Reason for insertion/continuin: Critical Pt monitoring VS, I&O, 24H, Fishbone Vital Signs/I&O Vital Signs Date Time Temp Pulse Resp B/P (MAP) Pulse Ox O2 Delivery O2 Flow Rate FiO2 09/11/16 07:50 98.0 82 18 118/76 (90) 98 Nasal Cannula 2.0 09/10/16 16:00 35 I&O- Last 24 Hours up to 6 AM 09/11/16 06:00 Intake Total 492 ml Output Total 475 ml Balance 17 ml Laboratory Data 24H LABS Laboratory Tests 2 09/11/16 05:36: Blood Gas Bicarbonate Standard 26.8H, Arterial Blood pH 7.438, Arterial Blood Partial Pressure CO2 41.0, Arterial Blood Partial Pressure O2 66.3L, Arterial Blood Total CO2 28.4, Arterial Blood HCO3 27.1H, Arterial Blood Base Excess 2.7H , Arterial Blood Oxygen Saturation 93.2L, Anion Gap 9, Glomerular Filtration Rate > 60.0, Blood Urea Nitrogen 9, Creatinine 0.59, Sodium Level 142, Potassium Level 3.5, Chloride Level 103, Carbon Dioxide Level 30, Calcium Level 8.5 CBC/BMP Laboratory Tests 09/11/16 05:36 Red Blood Count 4.03, Mean Corpuscular Volume 90.1, Mean Corpuscular Hemoglobin 30.0, Mean Corpuscular Hemoglobin Concent 33.4, Red Cell Distribution Width 15.4 H, Calcium Level 8.5 Microbiology Microbiology 09/08/16 Blood Culture - Preliminary, Resulted No Growth after 48 hours. All Specime... 09/02/16 Blood Culture - Final, Complete NO GROWTH AFTER 5 DAYS 09/02/16 Blood Culture - Final, Complete NO GROWTH AFTER 5 DAYS 09/09/16 Gram Stain - Final, Resulted 09/09/16 Sputum Culture, Resulted Pending 09/02/16 Urine Culture - Final, Complete KAYLA Macario DO Sep 11, 2016 09:34
[2016-09-12] MEDS: PIPERACILLIN/TAZOBACTAM SOD 4.5 GM in D5W MINI-BAG PLUS 100 ML IV SCH ×3 (05:24→18:23)
[2016-09-12 06:00] VITALS: BP 135/64
[2016-09-12 07:06] LABS: MEAN CORPUSCULAR HEMOGLOBIN 30.1 pg (27.0-33.0); MEAN CORPUSCULAR VOLUME 91.4 fl (80.0-96.0); RED CELL DISTRIBUTION WIDTH 15.1 % (11.5-14.5); WHITE BLOOD COUNT 14.5 K/mm3 (4.0-10.0)
[2016-09-12 07:14] LABS: ANION GAP 8 MEQ/L (8-16); BLOOD UREA NITROGEN 5 MG/DL (7-18); CALCIUM LEVEL 8.7 MG/DL (8.5-10.1); CARBON DIOXIDE LEVEL 26 MEQ/L (21-32); CHLORIDE LEVEL 105 MEQ/L (98-107); CREATININE FOR GFR 0.67 MG/DL (0.55-1.02); GLOMERULAR FILTRATION RATE > 60.0 (>58); GLUCOSE, FASTING 116 MG/DL (70-105); POTASSIUM SERUM 4.1 MEQ/L (3.5-5.1); SODIUM LEVEL 139 MEQ/L (136-145)
[2016-09-12] MEDS: IPRATROPIUM 0.5MG/ALBUTEROL 2.5MG INH SOL UD 3ML (DUONEB)(J7620) NEB SCH ×4 (07:18→20:00)
--- NOTE | 2016-09-12 07:57 | IPNPDOC ---
Subjective Date Seen The patient was seen on 09/12/16. Subjective Chief Complaint/HPI The patient is a 46-year-old female admitted with a reason for visit of Overdose. Events since last encounter pt seen and examined doing well, no overnight events, she states she is still coughing worse with food, no fevers or chills, no shortness of breath or chest pain Objective Physical Examination General Exam: Positive: Alert, No Acute Distress, Other ( Now intubated and sedated. ) Eye Exam: Positive: PERRLA (3 mm reacting to light eqaul ), Conjunctiva & lids normal ENT Exam: Positive: Atraumatic, Mucous membr. moist/pink, Pharynx Normal Neck Exam: Positive: Supple Chest Exam: Positive: Clear to auscultation, Normal air movement Heart Exam: Positive: Rate Normal, Regular Rhythm, Normal S1, Normal S2 Telemetry: Positive: No significant arrhythmia Abdomen Exam: Positive: Normal bowel sounds, Soft Extremity Exam: Negative: Clubbing, Cyanosis, Edema Skin Exam: Positive: Lesion, Other skin issue (tinea under the arms and groin and abdomnal folds. ) Assessment /Plan Problems (1) Impaired vocal quality Status: Acute Problem Text: * s/p extubation, pt was on the vent since 09/02 till 09/09 for a total of 7 days * she was extubated on 09/09 and was started on a clear liquid diet but she started coughing with diet * Speech therapy evaluated pt and recommended pureed diet with pudding thick liquids as well as an ENT consult for vocal quality impairment post extubation * will speak to ENT today regarding consult (2) Overdose Status: Acute Problem Text: * with benadryl 50 tabs of 25 mg * urine tox negative except for benzo. * we will consult Psych today * pt denied any thoughts of hurting herself, she states she doesn't remember taking the pills or the events leading up to her hospitalization * she states she follows up with outpt psychiatrist (3) Gait instability Status: Acute Problem Text: * post extubation, PT/OT worked with pt and recommended further therapy to return to her baseline * home with services vs rehab (4) Acute respiratory failure Status: Resolved Problem Text: * due to drug overdose and altered mental status, and likely some anoxic brain injury * patient was having recurrent prolonged apneic spells with severe hypoxia to 40s and bradycardia and was unable to maintain her airway due to her mental status and possible underlying SIRIA so was intubated for acute respiratory failure. * Patient has a very small oral opening and high up airway and lots of tissues in the hypopharynx . It was a very difficult intubation. * pt was successfully extubated on 09/09 afternoon * currently she has good oxygen saturation on nasal canula (5) Toxic metabolic encephalopathy Status: Resolved Problem Text: * Benadryl overdose. Unknown if there was other substance intake or not. Patient does take lots of over the counter sleep aids. * Patient was found down on the floor in her house for unknown duration . (6) Traumatic rhabdomyolysis Status: Acute Response to Treatment: Improving Problem Text: * patient was down on floor for unknown duration (7) Acute renal failure Status: Resolved Problem Text: due to acute rhabdomyolysis and dehydration (8) Morbid obesity Problem Text: Also has underlying undiagnosed SIRIA. complicating treatment (9) Lactic acidosis Status: Resolved (10) UTI (urinary tract infection) Status: Acute Problem Text: * pt finished 8 day course of ceftriaxone (11) Psychiatric disorder Status: Chronic Problem Text: has h/o bipolar disorder, panic disorder in the medical records. (12) Hypothyroid Status: Chronic (13) COPD (chronic obstructive pulmonary disease) Status: Chronic Plan/VTE VTE Prophylaxis Ordered?: Yes Plan/Urinary Catheter Reason for insertion/continuin: Critical Pt monitoring VS, I&O, 24H, Fishbone Vital Signs/I&O Vital Signs Date Time Temp Pulse Resp B/P (MAP) Pulse Ox O2 Delivery O2 Flow Rate FiO2 09/12/16 06:00 98.1 97 14 135/64 (87) 94 Nasal Cannula 2.0 09/10/16 16:00 35 I&O- Last 24 Hours up to 6 AM 09/12/16 06:00 Intake Total 2320 ml Output Total 850 ml Balance 1470 ml Laboratory Data 24H LABS Laboratory Tests 2 09/12/16 06:45: Anion Gap 8, Glomerular Filtration Rate > 60.0, Blood Urea Nitrogen 5L, Creatinine 0.67, Sodium Level 139, Potassium Level 4.1, Chloride Level 105, Carbon Dioxide Level 26, Calcium Level 8.7 CBC/BMP Laboratory Tests 09/12/16 06:45 Red Blood Count 4.29, Mean Corpuscular Volume 91.4, Mean Corpuscular Hemoglobin 30.1, Mean Corpuscular Hemoglobin Concent 33.0, Red Cell Distribution Width 15.1 H, Calcium Level 8.7 Microbiology Microbiology 09/08/16 Blood Culture - Preliminary, Resulted No Growth after 72 hours. All specime... 09/02/16 Blood Culture - Final, Complete NO GROWTH AFTER 5 DAYS 09/02/16 Blood Culture - Final, Complete NO GROWTH AFTER 5 DAYS 09/09/16 Gram Stain - Final, Complete 09/09/16 Sputum Culture - Final, Complete 09/02/16 Urine Culture - Final, Complete SerrKAYLA Mir DO Sep 12, 2016 07:57
[2016-09-12] MEDS: POTASSIUM CHLORIDE 10% LIQ 20 MEQ/15 ML UDC PO SCH ×2 (10:06→21:25)
[2016-09-12] MEDS: CHLORHEXIDINE GLUCONATE 0.12 % 15ML UDC (PERIDEX ORAL RINSE) MT SCH ×2 (10:06→22:46)
[2016-09-12] MEDS: SODIUM CHLORIDE 0.9% INJ 10 ML SYR IV SCH ×3 (10:06→21:27)
[2016-09-12] MEDS: LEVOTHYROXINE 100 MCG (0.1MG) VIAL IV SCH (10:07)
[2016-09-12] MEDS: PANTOPRAZOLE 40MG INJ (PROTONIX) (C9113) IV SCH (10:07)
[2016-09-12] MEDS: NYSTATIN 100,000 UNITS/GM TOPICAL PWD 15 GM TOP SCH ×2 (10:07→21:27)
[2016-09-12] MEDS: HEPARIN SOD (PORCINE) 5000 UNITS/ML VIAL SQ SCH ×2 (10:08→21:25)
[2016-09-12] MEDS: risperiDONE 2 MG TAB PO SCH ×2 (10:08→21:26)
[2016-09-12] MEDS: QUEtiapine FUMARATE 200 MG TAB PO SCH ×2 (10:08→21:25)
--- NOTE | 2016-09-12 11:44 | REP ---
PORTABLE CHEST: AP portable view of the chest is performed. COMPARISON: 09/11/2016 There is linear bibasilar fibroatelectatic change. There is no infiltrate identified. The heart is normal in size. The mediastinal silhouette is unchanged. Right central venous catheter is seen with the tip in the right atrium. Signed by Mt Berg MD 09/12/2016 04:51 P
[2016-09-12 16:00] VITALS: BP 128/75
[2016-09-12 22:00] VITALS: BP 126/70
[2016-09-13] MEDS: PIPERACILLIN/TAZOBACTAM SOD 4.5 GM in D5W MINI-BAG PLUS 100 ML IV SCH ×3 (00:17→13:04)
[2016-09-13] MEDS: SODIUM CHLORIDE 0.9% INJ 10 ML SYR IV SCH ×3 (05:18→22:14)
[2016-09-13 06:00] VITALS: BP 130/85
[2016-09-13 07:02] LABS: MEAN CORPUSCULAR HEMOGLOBIN 30.1 pg (27.0-33.0); MEAN CORPUSCULAR HGB CONC 32.8 g/dl (32.0-36.5); MEAN CORPUSCULAR VOLUME 91.9 fl (80.0-96.0); RED CELL DISTRIBUTION WIDTH 15.2 % (11.5-14.5); WHITE BLOOD COUNT 14.5 K/mm3 (4.0-10.0)
[2016-09-13 07:08] LABS: ANION GAP 7 MEQ/L (8-16); BLOOD UREA NITROGEN 5 MG/DL (7-18); CALCIUM LEVEL 9.2 MG/DL (8.5-10.1); CARBON DIOXIDE LEVEL 30 MEQ/L (21-32); CHLORIDE LEVEL 103 MEQ/L (98-107); CREATININE FOR GFR 0.75 MG/DL (0.55-1.02); GLOMERULAR FILTRATION RATE > 60.0 (>58); GLUCOSE, FASTING 119 MG/DL (70-105); SODIUM LEVEL 140 MEQ/L (136-145)
[2016-09-13] MEDS: IPRATROPIUM 0.5MG/ALBUTEROL 2.5MG INH SOL UD 3ML (DUONEB)(J7620) NEB SCH ×4 (08:00→20:33)
[2016-09-13] MEDS: risperiDONE 2 MG TAB PO SCH ×2 (08:39→22:15)
[2016-09-13] MEDS: PANTOPRAZOLE 40MG INJ (PROTONIX) (C9113) IV SCH (08:39)
[2016-09-13] MEDS: HEPARIN SOD (PORCINE) 5000 UNITS/ML VIAL SQ SCH ×2 (08:39→22:14)
[2016-09-13] MEDS: POTASSIUM CHLORIDE 10% LIQ 20 MEQ/15 ML UDC PO SCH ×2 (08:39→22:13)
[2016-09-13] MEDS: LEVOTHYROXINE 100 MCG (0.1MG) VIAL IV SCH (08:39)
[2016-09-13] MEDS: CHLORHEXIDINE GLUCONATE 0.12 % 15ML UDC (PERIDEX ORAL RINSE) MT SCH ×2 (08:40→21:00)
[2016-09-13] MEDS: QUEtiapine FUMARATE 200 MG TAB PO SCH ×2 (08:40→22:15)
[2016-09-13] MEDS: NYSTATIN 100,000 UNITS/GM TOPICAL PWD 15 GM TOP SCH ×2 (08:40→22:15)
--- NOTE | 2016-09-13 09:23 | REP ---
Portable chest, 09/13/2016, 09:18 a.m., single AP view the patient semi upright: Comparison is 09/12/2016. The patient is rotated. Lung murguia are clear. Cardiac size is normal. There is a right subclavian central venous catheter with the tip in the right atrium in satisfactory location, unchanged. No significant interval change. Signed by Mt Waggoner MD 09/13/2016 09:15 A
--- NOTE | 2016-09-13 13:52 | IPNPDOC ---
Subjective Date Seen The patient was seen on 09/13/16. Subjective Chief Complaint/HPI The patient is a 46-year-old female admitted with a reason for visit of Overdose. Objective Physical Examination General Exam: Positive: Alert, No Acute Distress, Other ( Now intubated and sedated. ) Eye Exam: Positive: PERRLA (3 mm reacting to light eqaul ), Conjunctiva & lids normal ENT Exam: Positive: Atraumatic, Mucous membr. moist/pink, Pharynx Normal Neck Exam: Positive: Supple Chest Exam: Positive: Clear to auscultation, Normal air movement Heart Exam: Positive: Rate Normal, Regular Rhythm, Normal S1, Normal S2 Telemetry: Positive: No significant arrhythmia Abdomen Exam: Positive: Normal bowel sounds, Soft Extremity Exam: Negative: Clubbing, Cyanosis, Edema Skin Exam: Positive: Lesion, Other skin issue (tinea under the arms and groin and abdomnal folds. ) Assessment /Plan Problems (1) Acute respiratory failure Status: Resolved Problem Text: * due to drug overdose and altered mental status, and likely some anoxic brain injury * patient was having recurrent prolonged apneic spells with severe hypoxia to 40s and bradycardia and was unable to maintain her airway due to her mental status and possible underlying SIRIA so was intubated for acute respiratory failure. * Patient has a very small oral opening and high up airway and lots of tissues in the hypopharynx . It was a very difficult intubation. * pt was successfully extubated on 09/09 (2) Toxic metabolic encephalopathy Status: Resolved Problem Text: Benadryl overdose. Unknown if there was other substance intake or not. Pateint does take lots of over the counter sleep aids. CT head negative (3) Traumatic rhabdomyolysis Status: Acute Problem Text: * patient was down on floor for unknown duration (4) Acute renal failure Status: Resolved Problem Text: due to acute rhabdomyolysis and dehydration (5) Overdose Status: Acute Problem Text: with benadryl 50 tabs of 25 mg urine tox negative except for benzo. (6) Morbid obesity Problem Text: Also has underlying undiagnosed SIRIA. complicating treatment (7) Lactic acidosis Status: Resolved (8) UTI (urinary tract infection) Status: Acute Problem Text: completed a course of ceftriaxone (9) Psychiatric disorder Status: Chronic Problem Text: has h/o bipolar disorder, panic disorder in the medical records. (10) Hypothyroid Status: Chronic (11) COPD (chronic obstructive pulmonary disease) Status: Chronic Plan/VTE VTE Prophylaxis Ordered?: Yes Plan/Urinary Catheter Reason for insertion/continuin: Critical Pt monitoring VS, I&O, 24H, Fishbone Vital Signs/I&O Vital Signs Date Time Temp Pulse Resp B/P (MAP) Pulse Ox O2 Delivery O2 Flow Rate FiO2 09/13/16 06:00 98.0 106 22 130/85 (100) 96 Nasal Cannula 2.0 09/10/16 16:00 35 I&O- Last 24 Hours up to 6 AM 09/13/16 06:00 Intake Total 1000 ml Output Total 0 ml Balance 1000 ml Laboratory Data 24H LABS Laboratory Tests 2 09/13/16 06:37: Anion Gap 7L, Glomerular Filtration Rate > 60.0, Blood Urea Nitrogen 5L, Creatinine 0.75, Sodium Level 140, Potassium Level 4.0, Chloride Level 103, Carbon Dioxide Level 30, Calcium Level 9.2 CBC/BMP Laboratory Tests 09/13/16 06:37 Red Blood Count 4.57, Mean Corpuscular Volume 91.9, Mean Corpuscular Hemoglobin 30.1, Mean Corpuscular Hemoglobin Concent 32.8, Red Cell Distribution Width 15.2 H, Calcium Level 9.2 Microbiology Microbiology 09/08/16 Blood Culture - Final, Complete NO GROWTH AFTER 5 DAYS 09/09/16 Gram Stain - Final, Complete 09/09/16 Sputum Culture - Final, Complete KAYLA JANSEN DO Sep 13, 2016 13:52
[2016-09-13 14:00] VITALS: BP 109/62
[2016-09-13] MEDS: NICOTINE 14 MG/24 HR TRANSDERMAL TD SCH (14:30)
--- NOTE | 2016-09-13 20:17 | CR ---
DATE OF CONSULTATION: 09/13/2016 CHIEF COMPLAINT: She says she feels better. SUBJECTIVE: She is 46 years old. She is , has three children, one of the daughters, Rohini, was at the bedside. I saw the patient alone, and then obtained collateral information from her daughter, with the patient's permission, separately. The chart is reviewed as well. I have been asked to see this patient by the hospitalist, Dr. Gant, as she is recovering after an overdose, she almost , has been stabilized in the intensive care unit (ICU), was intubated, and one point was apparently not expected to survive, has been extubated, and is conscious and is recovering now. She has a longstanding history of bipolar disorder apparently, and has been seen by psychiatry as an outpatient for the last 20 years or so. Says used to attend [facility] and now attends the [facility], says sees Dr. Liang there, once every couple of months or so, and a therapist about once a month. She says she goes regularly, but I am not quite sure how accurate that is. She stays on her own in [place], [place], has family in the same town who see her periodically, but the impression is they do not see her that regularly. She had been found obtunded by a friend who had just happened to come in, and she says the door is generally unlocked, he had come in "for some cigarettes" and found her, the ambulance was called, she was brought here, and was treated in the ICU, was intubated, was seen by Dr. Diggs and Dr. Villa, and at one point neurology, Dr. Chicas, had also seen, this was about six days ago, and there were concerns that she may have hypoxic encephalopathy. CT scan of the head was done, which was within normal limits, and electroencephalogram (EEG) was done that was in keeping with the possibility of metabolic encephalopathy or at least encephalopathy which may have been multifactorial. Family have been involved, and I understand from the hospitalist that there were grave concerns for the patient. She was extubated two days ago and has been transferred to [address] [place] [address], where I saw her. She says she remembers being home, going to bed. The next she remembers is waking up in the ICU. Says has been feeling depressed, possibly for the last few weeks, possibly longer, and that sleep was erratic, and that she tends to take medicines to help with sleep, and it is thought that she had overdosed on Benadryl, she was apparently significantly short on Benadryl on pill count. Poison control was contacted, they had recommended treating her with benzodiazepine in addition to the mechanical ventilator. There is some concern that she has severe obstructive sleep apnea. She has not been diagnosed with that, however. Medications she uses at home include: - Klonopin 1 mg three times a day - levocetirizine 5 mg daily - levothyroxine 125 mcg daily - Remeron 15 mg at night - quetiapine 300 mg twice a day - trazodone 300 mg at night - Effexor 75 mg daily - risperidone 6 mg twice a day Since extubation, she has been resumed on Seroquel 200 twice a day, risperidone 4 mg twice a day. There have been times when she has had periods of what appears to be hypomania with an elated mood, increased energy, increased desire to do things, for example clean, diminished need for sleep, these tend to last for 3-4 days, possibly a little longer, followed by a crash when she sleeps more, feels depressed, is more tired, only for the cycle to repeat itself. She says she does not remember the last time she had a hypomanic or manic episode. Does say when she is depressed, she also hears her sister's voice on occasion, but that she cannot make out what she says. Denies any command hallucinations. Says this only happens when depressed and not when elated in mood, no perceptual disturbances in that time. Suggests that she takes [id number]-[id number] sleeping pills, including NyQuil, when she is unable to sleep, and she uses them excessively. She acknowledges that, says in an attempt to go to sleep. Denies that she had felt suicidal, or that this was a suicide attempt. She also indicates she has never attempted taking her life. She has a history of misusing, overly using, sedatives and hypnotics, and was seen in the emergency room a couple of years ago for similar reasons. Collateral information from the daughter indicated those periods when she overused the medications are frequent, including recently, to the point where attempts have been made to monitor her, without much success. Daughter suggests that this has led to difficulties with her relationship with her children, who have tended to keep their distance. The daughter says she anticipates things will change now, and that her mother with come to live with her. She is quite ready for that. Says her mother has tended to use medications, which she is prescribed regularly, but that in addition to them will use [id number] pills. She does not think that her mother's psychiatrist or clinicians are aware of this, says she has asked to speak with them, but that her mother has declined permission for her to do so. Daughter says mother has friends in the area, some of whom come to see her. Further complication is the fact that the patient's had left the patient for her sister a couple of years ago. Says she feels that they get along well. PAST PSYCHIATRIC HISTORY: As indicated above. No known periods of inpatient hospitalization. No suicide attempts. FAMILY PSYCHIATRIC HISTORY: The patient suggests her father had difficulties with moods, and that he used to medicate them with alcohol. Says both her parents had troubles with alcohol. ALLERGIES: No known drug allergies. PAST MEDICAL HISTORY: Hypothyroidism. SOCIAL HISTORY: She is local, suggests a reasonable childhood, though acknowledges had difficulties as parents misused alcohol. She has a younger sister, older brother, says she generally gets along with them. Has three children, says gets along with them for the lost part, but that they do not tend to see her with any regularity, particularly latterly. SUBSTANCE ABUSE HISTORY: None significantly. MENTAL STATUS EXAMINATION: She is in hospital clothes. She is fairly neat. She is obese. She is sitting up in bed. She is cooperative. There is some latency of response. No agitation. Good eye contact. No abnormal movement noted. Answers questions logically, coherently. No formal thought disorder, however. Affect is restricted in range, but shows reactivity. She denies any suicidal thoughts or intents. No evidence of any homicidal ideas or intents, and does not appear to be internally preoccupied. Denies any auditory or visual hallucinations. No delusional ideations are elicited. She is alert, but at times has a bit of difficulty maintaining attention, generally is able to do so, however. She is oriented to time, place and person, can spell the house forwards but not backwards. Could to three-digit span forward but not backwards. Can recall two out of three objects after five minutes, and three out of three objects after 10 minutes, with prompting. Intellect is average. Judgment is quite questionable, as is insight. VITAL SIGNS: Blood pressure 109/62, pulse 101, temperature 97.6. INVESTIGATIONS: Complete blood count shows white cell count of 14.5 today. The rest of the parameters are essentially within normal limits. Metabolic profile done today showed a BUN of 5. The rest all within normal limits. Toxicology when she had come in was positive for benzodiazepines. ASSESSMENT: 1. Delirium, secondary to overdose, multifactorial. 2. Bipolar disorder, most recent episode depressed, possibly with psychotic features. 3. Status post overdose. 4. Sedative hypnotic use disorder. She has been depressed, the last several months, with possibly some perceptual disturbances, and has been attempting to go to sleep, over-using sedatives, including yyli-hsv-ljqfbud ones, and has taken a very significant overdose, she almost . She denies it was a suicide attempt. She has had a history of overly using sedatives, with a cycle of confusion, which then tends to exacerbate further use of sedatives, coupled with the psychotropics she takes. The rather high doses of the psychotropics, including the clonazepam, the risperidone, the Seroquel, in addition to the pwet-eza-hrhmxyc hypnotics, may well contribute to the periods of confusion. RECOMMENDATIONS: 1. Decrease Seroquel to 200 mg at night. 2. Decrease risperidone to 2 mg at night. Would suggest reintroducing the antipsychotics, use as mood stabilizers, more slowly, particularly given the recent events and the overdose. Avoid using benzodiazepines. Optimize medical and rehabilitative care. When she is fully stabilized medically and ready to go home from medicine standpoint, with optimized care through physical therapy, occupational therapy as well as needed, we will need to consider inpatient psychiatric hospitalization for further stabilization. The patient is aware of this. Thank you for the consult. If there are any questions, please call. We will follow with you. The assessment took 60 minutes.
[2016-09-13 22:00] VITALS: BP 127/82
[2016-09-14 06:00] VITALS: BP 132/83
[2016-09-14] MEDS: LEVOTHYROXINE 125MCG TABLET (0.125MG) PO SCH (06:01)
[2016-09-14] MEDS: SODIUM CHLORIDE 0.9% INJ 10 ML SYR IV SCH ×3 (06:01→20:36)
[2016-09-14] MEDS: IPRATROPIUM 0.5MG/ALBUTEROL 2.5MG INH SOL UD 3ML (DUONEB)(J7620) NEB SCH ×3 (06:08→22:20)
[2016-09-14 07:08] LABS: ANION GAP 7 MEQ/L (8-16); BLOOD UREA NITROGEN 7 MG/DL (7-18); CALCIUM LEVEL 8.6 MG/DL (8.5-10.1); CARBON DIOXIDE LEVEL 29 MEQ/L (21-32); CHLORIDE LEVEL 104 MEQ/L (98-107); CREATININE FOR GFR 0.72 MG/DL (0.55-1.02); GLOMERULAR FILTRATION RATE > 60.0 (>58); GLUCOSE, FASTING 116 MG/DL (70-105); SODIUM LEVEL 140 MEQ/L (136-145)
[2016-09-14 07:16] LABS: MEAN CORPUSCULAR HEMOGLOBIN 30.6 pg (27.0-33.0); MEAN CORPUSCULAR HGB CONC 33.8 g/dl (32.0-36.5); MEAN CORPUSCULAR VOLUME 90.6 fl (80.0-96.0); RED CELL DISTRIBUTION WIDTH 15.1 % (11.5-14.5); WHITE BLOOD COUNT 14.8 K/mm3 (4.0-10.0)
[2016-09-14] MEDS: CHLORHEXIDINE GLUCONATE 0.12 % 15ML UDC (PERIDEX ORAL RINSE) MT SCH ×2 (09:00→21:25)
[2016-09-14] MEDS: NICOTINE 14 MG/24 HR TRANSDERMAL TD SCH (09:27)
[2016-09-14] MEDS: HEPARIN SOD (PORCINE) 5000 UNITS/ML VIAL SQ SCH ×2 (09:27→20:35)
[2016-09-14] MEDS: PANTOPRAZOLE 40MG TAB (PROTONIX) PO SCH (09:27)
[2016-09-14] MEDS: NYSTATIN 100,000 UNITS/GM TOPICAL PWD 15 GM TOP SCH ×2 (09:28→20:36)
[2016-09-14] MEDS: POTASSIUM CHLORIDE 10% LIQ 20 MEQ/15 ML UDC PO SCH ×2 (09:28→20:36)
[2016-09-14] MEDS: risperiDONE 2 MG TAB PO SCH (20:35)
[2016-09-14] MEDS: QUEtiapine FUMARATE 200 MG TAB PO SCH (20:35)
--- NOTE | 2016-09-14 20:35 | IPNPDOC ---
Subjective Date Seen The patient was seen on 09/14/16. Subjective Chief Complaint/HPI The patient is a 46-year-old female admitted with a reason for visit of Overdose. Events since last encounter pt seen and examined, doing well, no overnight events Objective Physical Examination General Exam: Positive: Alert, No Acute Distress, Other ( Now intubated and sedated. ) Eye Exam: Positive: PERRLA (3 mm reacting to light eqaul ), Conjunctiva & lids normal ENT Exam: Positive: Atraumatic, Mucous membr. moist/pink, Pharynx Normal Neck Exam: Positive: Supple Chest Exam: Positive: Clear to auscultation, Normal air movement Heart Exam: Positive: Rate Normal, Regular Rhythm, Normal S1, Normal S2 Telemetry: Positive: No significant arrhythmia Abdomen Exam: Positive: Normal bowel sounds, Soft Extremity Exam: Negative: Clubbing, Cyanosis, Edema Skin Exam: Positive: Lesion, Other skin issue (tinea under the arms and groin and abdomnal folds. ) Assessment /Plan Problems (1) Overdose Status: Acute Problem Text: with benadryl 50 tabs of 25 mg urine tox negative except for benzo. pt was evaluated by dr charleen logan and he feels pt would benefit from IMHU once medically cleared and cleared by PT (2) Vocal cord dysfunction Problem Text: * secondary to intubation * spoke with ENT on thursday who recommend to wait till thursday since it was only 48 hours post extubation * will repeat speech eval in am * pt has been feeling better * continue pureed diet and pudding thick liquids (3) Acute respiratory failure Status: Resolved Problem Text: * due to drug overdose and altered mental status, and likely some anoxic brain injury * patient was having recurrent prolonged apneic spells with severe hypoxia to 40s and bradycardia and was unable to maintain her airway due to her mental status and possible underlying SIRIA so was intubated for acute respiratory failure. * Patient has a very small oral opening and high up airway and lots of tissues in the hypopharynx . It was a very difficult intubation. * pt was successfully extubated on 09/09 (4) Toxic metabolic encephalopathy Status: Resolved Problem Text: Benadryl overdose. Unknown if there was other substance intake or not. Pateint does take lots of over the counter sleep aids. CT head negative (5) Traumatic rhabdomyolysis Status: Acute Problem Text: * patient was down on floor for unknown duration (6) Acute renal failure Status: Resolved Problem Text: due to acute rhabdomyolysis and dehydration (7) Morbid obesity Problem Text: Also has underlying undiagnosed SIRIA. complicating treatment (8) Lactic acidosis Status: Resolved (9) UTI (urinary tract infection) Status: Acute Problem Text: completed a course of ceftriaxone (10) Psychiatric disorder Status: Chronic Problem Text: has h/o bipolar disorder, panic disorder in the medical records. (11) Hypothyroid Status: Chronic (12) COPD (chronic obstructive pulmonary disease) Status: Chronic Plan/VTE VTE Prophylaxis Ordered?: Yes Plan/Urinary Catheter Reason for insertion/continuin: Critical Pt monitoring VS, I&O, 24H, Fishbone Vital Signs/I&O Vital Signs Date Time Temp Pulse Resp B/P (MAP) Pulse Ox O2 Delivery O2 Flow Rate FiO2 09/14/16 11:44 Room Air 09/14/16 06:00 97.0 114 20 132/83 (99) 96 09/13/16 06:00 2.0 09/10/16 16:00 35 I&O- Last 24 Hours up to 6 AM 09/14/16 06:00 Intake Total 2740 ml Output Total 2750 ml Balance -10 ml Laboratory Data 24H LABS Laboratory Tests 2 09/14/16 06:37: Anion Gap 7L, Glomerular Filtration Rate > 60.0, Blood Urea Nitrogen 7, Creatinine 0.72, Sodium Level 140, Potassium Level 4.0, Chloride Level 104, Carbon Dioxide Level 29, Calcium Level 8.6 CBC/BMP Laboratory Tests 09/14/16 06:37 Red Blood Count 4.37, Mean Corpuscular Volume 90.6, Mean Corpuscular Hemoglobin 30.6, Mean Corpuscular Hemoglobin Concent 33.8, Red Cell Distribution Width 15.1 H, Calcium Level 8.6 Microbiology Microbiology 09/08/16 Blood Culture - Final, Complete NO GROWTH AFTER 5 DAYS 09/09/16 Gram Stain - Final, Complete 09/09/16 Sputum Culture - Final, Complete KAYLA JANSEN DO Sep 14, 2016 20:35
[2016-09-14 22:00] VITALS: BP 132/83
[2016-09-14] MEDS ORDERED: diphenhydrAMINE INJ 50MG/ML VIAL (J1200) IV PRN (22:45)
[2016-09-15] MEDS: SODIUM CHLORIDE 0.9% INJ 10 ML SYR IV SCH ×3 (05:29→22:00)
[2016-09-15] MEDS: LEVOTHYROXINE 125MCG TABLET (0.125MG) PO SCH (05:29)
[2016-09-15 06:00] VITALS: BP 115/84
[2016-09-15 06:35] LABS: MEAN CORPUSCULAR HGB CONC 33.5 g/dl (32.0-36.5); MEAN CORPUSCULAR VOLUME 89.5 fl (80.0-96.0); RED CELL DISTRIBUTION WIDTH 15.1 % (11.5-14.5); WHITE BLOOD COUNT 12.8 K/mm3 (4.0-10.0)
[2016-09-15] MEDS ORDERED: diphenhydrAMINE 25 MG CAP PO PRN (06:45)
[2016-09-15 06:51] LABS: ANION GAP 9 MEQ/L (8-16); BLOOD UREA NITROGEN 6 MG/DL (7-18); CALCIUM LEVEL 9.2 MG/DL (8.5-10.1); CARBON DIOXIDE LEVEL 26 MEQ/L (21-32); CHLORIDE LEVEL 104 MEQ/L (98-107); CREATININE FOR GFR 0.72 MG/DL (0.55-1.02); GLOMERULAR FILTRATION RATE > 60.0 (>58); GLUCOSE, FASTING 112 MG/DL (70-105); POTASSIUM SERUM 3.8 MEQ/L (3.5-5.1); SODIUM LEVEL 139 MEQ/L (136-145)
[2016-09-15] MEDS: IPRATROPIUM 0.5MG/ALBUTEROL 2.5MG INH SOL UD 3ML (DUONEB)(J7620) NEB SCH ×4 (07:10→21:58)
[2016-09-15] MEDS: NICOTINE 14 MG/24 HR TRANSDERMAL TD SCH (08:34)
[2016-09-15] MEDS: POTASSIUM CHLORIDE 10% LIQ 20 MEQ/15 ML UDC PO SCH ×2 (08:34→20:20)
[2016-09-15] MEDS: CHLORHEXIDINE GLUCONATE 0.12 % 15ML UDC (PERIDEX ORAL RINSE) MT SCH ×2 (08:35→21:00)
[2016-09-15] MEDS: PANTOPRAZOLE 40MG TAB (PROTONIX) PO SCH (08:35)
[2016-09-15] MEDS: HEPARIN SOD (PORCINE) 5000 UNITS/ML VIAL SQ SCH ×2 (08:35→20:17)
[2016-09-15] MEDS: NYSTATIN 100,000 UNITS/GM TOPICAL PWD 15 GM TOP SCH ×2 (08:36→20:20)
--- NOTE | 2016-09-15 13:53 | IPN ---
DATE OF EXAMINATION: 09/15/2016 SUBJECTIVE: The patient tells me she is feeling better. She wants to eat more regular food. She denies chest pain, shortness of breath, fevers, chills, nausea, vomiting, diarrhea. She tells me that she feels strong and would like to go home. OBJECTIVE: VITAL SIGNS: Temperature 97.8. Pulse 111. Respiratory rate 16. Blood pressure (BP) 115/84. Oxygen (O2) saturation 93% on room air. GENERAL: She is an obese, middle-aged female, with a relatively strange affect, up ambulating around her room with a walker. She does not appear to be in acute distress. HEENT: No elevation in central venous pressure (CVP). She has moist mucous membranes. Cranial nerve II-XII are grossly intact. CARDIOVASCULAR EXAMINATION: S1, S2. She is regular and not tachycardic on my examination. RESPIRATORY EXAMINATION: Is clear. ABDOMINAL EXAMINATION: Is grossly obese. Bowel sounds are present. The abdomen is soft. EXTREMITIES: There is no clubbing, cyanosis, or edema. LABORATORY STUDIES: WBC of 12.8 trending down, hemoglobin 12.8, platelet count 326. Chemistry panel: Sodium 139, potassium 3.8, chloride 104, bicarbonate 26, BUN is 6, creatinine 0.7. MICROBIOLOGY: Urine culture was positive for Serratia plymuthica on 09/02/2016. No new imaging. ASSESSMENT AND PLAN: This is a 46-year-old female, status post acute respiratory failure secondary to toxic metabolic encephalopathy related to drug overdose. PROBLEMS: 1. Drug overdose. The patient reportedly took fifty tablets of 25 mg of Benadryl and was intubated for 7 days. She has subsequently been extubated and appears to be doing quite well. She is being evaluated by Dr. Zelaya for suicidal ideation, who feels as though she may benefit from inpatient mental health and reevaluate her once medically cleared. 2. Vocal cord dysfunction. Dr. Gant did speak with ears, nose, and throat (ENT), who recommended rechecking speech evaluation today. The patient does appear to be feeling better. She is tolerating her pureed diet and pudding thick liquids quite well. I suspect she could likely be advanced. 3. Acute respiratory failure is related to drug overdose. She was intubated for 7 days. She has likely some underlying obstructive sleep apnea (SIRIA) that she would benefit from outpatient followup with pulmonary. She appears to be doing quite well and not requiring any oxygen at this time. The patient was extubated on 09/09/2016. 4. Toxic metabolic encephalopathy, resolved, secondary to Benadryl overdose. 5. Traumatic rhabdomyolysis, resolved with fluid resuscitation. 6. Acute renal failure secondary to rhabdomyolysis and dehydration, resolved with intravenous (IV) fluids. 7. Morbid obesity and also likely undiagnosed obstructive sleep apnea (SIRIA), complicating care. 8. Lactic acidosis, resolved. 9. Urinary tract infection. She completed a course of ceftriaxone during her stay. 10. Bipolar disorder and panic disorder. Dr. Zelaya's (of psychiatry) help is greatly appreciated. She may benefit from inpatient mental health services when medically stable. This may be as early as the next 24-48 hours. The patient is on Seroquel, Risperdal. 11. Hypothyroidism, chronic. She is continued on Synthroid. 12. Chronic obstructive pulmonary disease (COPD). The patient is on DuoNebs. 13. Gastrointestinal (GI) prophylaxis. The patient was critically ill. She has been on Protonix. 14. Deep venous thrombosis (DVT) prophylaxis. The patient has been on heparin. 15. Tobacco use. Cessation counseling offered. She is continued on nicotine patch. DISPOSITION: The patient would likely be medically stable for discharge to inpatient mental health within the next 24-48 hours.
[2016-09-15 14:00] VITALS: BP 121/58
[2016-09-15] MEDS ORDERED: SODIUM CHLORIDE 0.9% INJ 10 ML SYR IV PRN (18:30)
[2016-09-15] MEDS: QUEtiapine FUMARATE 200 MG TAB PO SCH (20:17)
[2016-09-15] MEDS: risperiDONE 2 MG TAB PO SCH (20:17)
[2016-09-15 22:00] VITALS: BP 114/62
[2016-09-15] MEDS ORDERED: SODIUM CHLORIDE 0.9% INJ 10 ML SYR IV SCH (22:00)
[2016-09-16] MEDS: LEVOTHYROXINE 125MCG TABLET (0.125MG) PO SCH (05:51)
[2016-09-16] MEDS: SODIUM CHLORIDE 0.9% INJ 10 ML SYR IV SCH ×2 (05:53→14:00)
[2016-09-16 06:00] VITALS: BP 114/68
[2016-09-16] MEDS: IPRATROPIUM 0.5MG/ALBUTEROL 2.5MG INH SOL UD 3ML (DUONEB)(J7620) NEB SCH (07:11)
[2016-09-16 07:12] LABS: MEAN CORPUSCULAR HEMOGLOBIN 30.4 pg (27.0-33.0); MEAN CORPUSCULAR HGB CONC 33.3 g/dl (32.0-36.5); MEAN CORPUSCULAR VOLUME 91.3 fl (80.0-96.0); RED CELL DISTRIBUTION WIDTH 14.8 % (11.5-14.5); WHITE BLOOD COUNT 13.9 K/mm3 (4.0-10.0)
[2016-09-16 07:27] LABS: ANION GAP 7 MEQ/L (8-16); BLOOD UREA NITROGEN 7 MG/DL (7-18); CALCIUM LEVEL 9.4 MG/DL (8.5-10.1); CARBON DIOXIDE LEVEL 29 MEQ/L (21-32); CHLORIDE LEVEL 100 MEQ/L (98-107); CREATININE FOR GFR 0.73 MG/DL (0.55-1.02); GLOMERULAR FILTRATION RATE > 60.0 (>58); GLUCOSE, FASTING 124 MG/DL (70-105); SODIUM LEVEL 136 MEQ/L (136-145)
[2016-09-16] MEDS ORDERED: CHLORHEXIDINE GLUCONATE 0.12 % 15ML UDC (PERIDEX ORAL RINSE) MT SCH (09:00)
[2016-09-16] MEDS: CHLORHEXIDINE GLUCONATE 0.12 % 15ML UDC (PERIDEX ORAL RINSE) MT SCH (09:00)
[2016-09-16] MEDS: PANTOPRAZOLE 40MG TAB (PROTONIX) PO SCH (11:02)
[2016-09-16] MEDS: POTASSIUM CHLORIDE 10% LIQ 20 MEQ/15 ML UDC PO SCH (11:02)
[2016-09-16] MEDS: NICOTINE 14 MG/24 HR TRANSDERMAL TD SCH (11:03)
[2016-09-16] MEDS: HEPARIN SOD (PORCINE) 5000 UNITS/ML VIAL SQ SCH (11:03)
[2016-09-16] MEDS: NYSTATIN 100,000 UNITS/GM TOPICAL PWD 15 GM TOP SCH (11:04)
[2016-09-16] MEDS ORDERED: QUET1TAB9 PO (11:36)
[2016-09-16] MEDS ORDERED: NICO14PA TD (11:36)
[2016-09-16] MEDS ORDERED: RISP2TAB3 PO (11:36)
[2016-09-16 14:00] VITALS: BP 130/78
[2016-09-16] MEDS ORDERED: SODIUM CHLORIDE 0.9% INJ 10 ML SYR IV PRN (16:00)
[2016-09-16] MEDS ORDERED: SODIUM CHLORIDE 0.9% INJ 10 ML SYR IV SCH (22:00)
--- NOTE | 2016-09-17 05:51 | ECGEPIP ---
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
--- NOTE | 2016-09-22 04:10 | DSES ---
DATE OF ADMISSION: 09/02/2016 DATE OF DISCHARGE: 09/16/2016 CONSULTS: Dr. Chicas, neurology; , psychiatry. PROCEDURES: Intubation 09/05/2016, Dr. Villa, right subclavian central line for hypotension and possible pressor therapy 09/05/2016. DISCHARGE DIAGNOSIS: Acute respiratory failure. SECONDARY DIAGNOSES: 1. Drug overdose. 2. Vocal cord dysfunction. 3. Toxic metabolic encephalopathy. 4. Traumatic rhabdomyolysis. 5. Acute renal failure. 6. Morbid obesity. 7. Lactic acidosis. 8. Urinary tract infection. 9. Bipolar disorder. 10. Hypothyroidism. 11. Chronic obstructive pulmonary disease (COPD). 12. Tobacco abuse. HOSPITAL COURSE: The patient is a 46-year-old female who was admitted on the night of 09/02/2016 with a strong suspicion of a Benadryl overdose. An empty bottle was found nearby her. It was unclear if there were other substances involved or not. She was intubated and remained so for 7 days. Her prognosis was felt to be quite grim and as she was being prepared for tracheostomy the patient did gradually improve to the point that she was extubated. From there the patient did have quite a miraculous quick recovery in terms of her functional status and respiratory status. The patient remained intubated and sedated. She did have acute renal failure that resolved with intravenous (IV) fluids. She did have traumatic rhabdomyolysis, which was also resolved with fluids. She did have toxic metabolic encephalopathy related to Benadryl overdose, which did gradually resolve as well. Following extubation, the patient did have difficulties with swallowing felt to be related to vocal cord dysfunction. It did improve with time. Her diet was advanced as tolerated. There was concern that she did have desaturations at night and that she likely has undiagnosed obstructive sleep apnea and also even possibly obesity hypoventilation syndrome. SUBJECTIVE: At the present time, the patient reports she is feeling well. She has no complaints. She is breathing well. OBJECTIVE: VITAL SIGNS: Temperature 98.1, pulse 97, respiratory rate 14, blood pressure 114/62, oxygen saturation 91% on room air. GENERAL: She is a morbidly obese female up ambulating around her room. She does not appear to be in any acute distress. She has a flat affect. HEENT: Cranial nerves II-XII are grossly intact. She has moist mucous membranes. No elevation of central venous pressure (CVP). CARDIOVASCULAR EXAMINATION: S1, S2. She is mildly tachycardic. RESPIRATORY EXAMINATION: Clear. ABDOMINAL EXAMINATION: Obese. EXTREMITIES: No clubbing, cyanosis or edema. LABORATORY STUDIES: WBC 13.9, hemoglobin 13.8, platelet count 353. Chemistry panel: Sodium 136, potassium 4.0, chloride 100, bicarbonate 29, BUN 7, creatinine 0.7. During her stay she had a TSH within the normal limits. Microbiology: She had a urine catheter culture positive Serratia plymuthica for which she completed a course of antibiotics. She had negative blood cultures from the and the and negative sputum cultures from the . IMAGING: The patient did have a MRI of the brain on the , which revealed a single punctate focus of increased signal intensity, nonspecific finding. ASSESSMENT AND PLAN: This is a 46-year-old female status post acute respiratory failure secondary to toxic metabolic encephalopathy related to Benadryl overdose. 1. Benadryl overdose. The patient reportedly took 50 tablets of 25 mg Benadryl and was intubated for 7 days and was ultimately extubated. She did have vocal cord dysfunction, which resolved. There is concern for suicidal ideation. Dr. Zelaya has informed me that he would like her to be admitted to the inpatient mental health unit, which I strongly agree with. She had been on a one-to-one sitter. At this point, she is medically cleared. 2. Vocal cord dysfunction. Resolved, she is tolerating an advanced diet. 3. Desaturations at night likely related to undiagnosed obstructive sleep apnea. She would benefit from outpatient polysomnography testing. 4. Toxic metabolic encephalopathy, resolved. 5. Traumatic rhabdomyolysis, resolved. 6. Acute renal failure secondary to rhabdomyolysis and dehydration, resolved. 7. Morbid obesity, likely undiagnosed obstructive sleep apnea (SIRIA) and possibly even obesity hypoventilation syndrome (OHS) complicating care. 8. Lactic acidosis, resolved. 9. Urinary tract infection, resolved. She completed a course of ceftriaxone during her stay. 10. Bipolar disorder, panic disorder. As mentioned above, she will be discharged to inpatient mental health. She was continued on Seroquel and risperidone. 11. Hypothyroidism, chronic. She was continued on Synthroid. 12. Chronic obstructive pulmonary disease (COPD). She was on DuoNebs while in the hospital. At this time, she is at her baseline respiratory status and requires no oxygen or steroid therapy. 13. Tobacco use. Cessation counseling was offered. DISPOSITION: The patient is being discharged to [facility]. An EKG today reveals a simple sinus tachycardia, which is likely related to nebulizer treatments. She is to followup with Dr. Zelaya in inpatient mental health unit ([facility]). Her diet and activity are as prior to admission. She should followup with her primary care provider (PCP) in 7 days. MEDICATIONS: At the time of discharge: - Nicoderm 14 mg per 24 hour patch daily - Seroquel 200 mg nightly - Risperdal 2 mg nightly - Symbicort 160/4.5 two puffs twice a day - clemastine 2.68 mg daily - Benadryl 25 mg as needed for sleep - levocetirizine 5 mg daily - Synthroid 125 mcg daily - omeprazole 40 mg daily Greater than 45 minutes spent organizing safe disposition.
== END 2016-09-16 20:40 | DRG 917 ==
LOC: M ED 15:29 → M ED INP 18:17 → M ICU 19:53 → M MS5PR 09-11 14:09
PROVIDERS: ADMIT Hospitalist; ATTEND Internal Medicine
PROC: 5A1955Z Respiratory Ventilation, Greater than 96 Consecutive Hours (ICD-10-PCS; principal; 2016-09-02)
PROC: 05H533Z Insertion of Infusion Device into Right Subclavian Vein, Percutaneous Approach (ICD-10-PCS; 2016-09-05)
DX: T45.0X2A Poisoning by antiallergic and antiemetic drugs, intentional self-harm, initial encounter (principal); G92 Toxic encephalopathy; J96.01 Acute respiratory failure with hypoxia; N39.0 Urinary tract infection, site not specified; N17.9 Acute kidney failure, unspecified; G93.1 Anoxic brain damage, not elsewhere classified; E87.2 Acidosis; T79.6XXA Traumatic ischemia of muscle, initial encounter; E66.01 Morbid (severe) obesity due to excess calories; J44.9 Chronic obstructive pulmonary disease, unspecified; E03.9 Hypothyroidism, unspecified; F17.200 Nicotine dependence, unspecified, uncomplicated; F31.9 Bipolar disorder, unspecified; J38.3 Other diseases of vocal cords; Z79.899 Other long term (current) drug therapy

== ENCOUNTER 2016-09-16 20:01 | Inpatient (IN) | payer MEDICARE, MEDICAID ==
[~2016-09-16] VITALS: Ht 170.2 cm; Wt 116.8 kg
[~2016-09-16 20:01] MED LIST: CLEM2.68 PO; CLON1TAB; CLON1TAB PO; LEVO125T3 PO; LEVOTAB10 PO; MIRT15TA3 PO; NICO14PA TD; NITR50CA2 PO; NORC1TAB4 PO; OMEP40CA2 PO; QUET1TAB10 PO; QUET1TAB9 PO; RISP2TAB3 PO; RISP3TAB3 PO; SLEE1TAB PO; SYMB16INH INH; TRAZ300T2 PO; VENL75CA47 PO
[2016-09-16 20:55] VITALS: BP 141/79
[2016-09-16] MEDS ORDERED: ACETAMINOPHEN TAB 650MG DOSE (2X325MG) PO PRN (23:00)
[2016-09-16] MEDS ORDERED: MAALOX 30 ML SUSP *UDC PO PRN (23:00)
[2016-09-16] MEDS ORDERED: MOM 30ML SUSPENSION UDC PO PRN (23:00)
--- NOTE | 2016-09-16 23:07 | IPN ---
DATE: 09/16/2016 CHIEF COMPLAINT: Feels better. SUBJECTIVE: I had seen her on consultation three days ago. She thinks it was about a weeks ago. Said she feels better, that she is less tired, somewhat more energetic. Sleep remains problematic. Moods are somewhat better. When I had seen her, I had recommended that the patient be hospitalized for inpatient psychiatry once she was medically fully stable. I am told by Dr. Garrett today that she is now stable from their standpoint and ready to be transferred. She is cooperative, coherent. No agitation. Affect is restricted, but a bit more reactive. Denies active suicidal thoughts. No homicidal ideas. No current evidence of psychosis. No fluctuation of consciousness. She is alert, oriented to place and person, not fully to time, but was able to reorient herself. Judgment and insight remain compromised. ASSESSMENT: 1. Delirium secondary to overdose, multifactorial. This is actually resolved. 2. Bipolar disorder, current episode depressed, possibly with psychotic features. 3. Status post overdose. 4. Sedative hypnotic use disorder. She is currently medically cleared and needs inpatient psychiatric hospitalization given the intensity of depressed mood and recent overdose, which has indicated quite poor judgment. There is the issue of misusing sedatives and hypnotics. She almost . I have made the application for involuntary hospitalization, DCS papers. MTDD
[2016-09-16] MEDS: POTASSIUM CHLORIDE 10 MEQ SR TABLET PO SCH (23:45)
[2016-09-16] MEDS: risperiDONE 2 MG TAB PO SCH (23:45)
[2016-09-16] MEDS: NYSTATIN 100,000 UNITS/GM TOPICAL PWD 15 GM TOP SCH (23:45)
[2016-09-16] MEDS: QUEtiapine FUMARATE 200 MG TAB PO SCH (23:45)
[2016-09-16] MEDS: traZODone 50 MG TAB PO PRN (23:46)
[2016-09-17] MEDS: LEVOTHYROXINE 125MCG TABLET (0.125MG) PO SCH (05:55)
[2016-09-17 06:25] VITALS: BP 111/66
[2016-09-17] MEDS: NICOTINE 21MG/24HR 1 EA TRANSDERMAL TD SCH (08:56)
[2016-09-17] MEDS: PANTOPRAZOLE 40MG TAB (PROTONIX) PO SCH (08:56)
[2016-09-17] MEDS: POTASSIUM CHLORIDE 10 MEQ SR TABLET PO SCH ×2 (08:57→20:40)
[2016-09-17] MEDS: NYSTATIN 100,000 UNITS/GM TOPICAL PWD 15 GM TOP SCH ×2 (08:58→20:40)
--- NOTE | 2016-09-17 10:27 | MHHPEPDOC ---
[facility] History & Physical History and Physical DATE OF ADMISSION: Sep 16, 2016 at 20:01 LEGAL STATUS AT ADMISSION: .DCS CHIEF COMPLAINT: "I was having trouble sleeping". HISTORY OF THE PRESENT ILLNESS: Patient is a 46-year-old female, who has a 20 year history of Bipolar disorder. Pt is seen regularly at the [facility], Dr. Liang, and prescribed Klonopin 1 mg tid. She was admitted to a medical floor following a very serious overdose of Benadryl. It nearly cost her her life. In meeting with the pt today she states she wanted to sleep all day and kept taking more and more Benadryl to achieve this. She denies she was trying to kill herself. Pt has no daily activities. Lives alone. She sees her family about once a month. She is bored and likes to sleep. She is taking a look at this after our discussion and knows how important it will be for her to keep busy and awake rather than sleep all day long. Pts of 23 years left her several years ago, and is living with her sister. Pt has 3 children from that marriage and will be living with her daughter upon discharge. Pt states she has increasing depression due to her 's leaving but also she states her mother in April of 2015 and then her father in November. She misses them both. Pt presents as a person with low intellectual functioning. She quit school in the 9th grade but was able to obtain a GED. 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 Pt admits it is hard for her to be on time for appointments. She endorses rapid thoughts and much distraction by her thoughts as the reason for this. On the other hand, she states her medications have been working well for her. Pt was on the following medication regime, per Dr. Barnes's consultation when she was on the medical floor. (09/13/16) : Klonopin 1 mg tid, Remeron 15 mg at hs, quetiapine 300 mg bid, trazodone 300 mg at hs, Effexor 75 mg daily, risperidone 6 mg bid. Since extubation, pt has been taking quetiapine 200 mg bid and risperidone 4 mg bid. Pt reports increasing depression over the last few weeks or longer, erratic sleep, isolating, sometimes she hears her sister's voice. Daughter reported to Dr. Barnes that pt will overuse her medications and when she runs out she will take anything that is available. Mother has not given daughter permission to speak with her outpatient providers about this. PSYCHIATRIC REVIEW OF SYSTEMS: Affective: engaged. Anxiety: mild Trauma: denies Psychosis: likely Personally: cooperative. PAST PSYCHIATRIC HISTORY: Prior Psychiatric Disorder: Bipolar disorder, most recent episode depressed, possibly with psychotic features. Outpatient Treatment: [facility] Suicidal/Self injurious: denies Psychotropic Medication History: quetiapine, risperidone, effexor, mirtazapine ALLERGIES: Please see below. FAMILY PSYCHIATRIC HISTORY: both mother and father had problems with alcohol. She reports erratic moods in her father. No known diagnosis of Mental illness in the family. No family h/o suicide. SOCIAL HISTORY: Early Relations/development: parents were alcoholic Sibling order: she is the middle child of 3. 1 older brother and 1 younger sister. they get along well. Paternal relationships: both abused alcohol Education: GED. 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 Legal: denies. Martial: Economic: SSDI. Supports: children, outpatient providers, friends Abuse/trauma: denies SUBSTANCE ABUSE HISTORY: toxicology + for benzodiazepines for which she has a prescription. Pt abuses sedatives, adding OTC medications to her medication regime without outpatient providers awareness. PAST MEDICAL/SURGICAL HISTORY: 1. hypothyroidism 2. obesity VITAL SIGNS: Temperature , pulse , respiratory rate , blood pressure , pulse oximetry % on room air. MENTAL STATUS EXAMINATION: General appearance: Patient is a 46-year old female, who has long straight dark hair, glasses, medium frame, good eye contact. Speech: spontaneous Thought processes: linear Thought content: poverty of thought. Abstract reasoning and computation: concrete. Description of associations: loose. Description of abnormal or psychotic thoughts: denies suicidal ideation, intent or plan. Judgment: limited Insight: limited. Orientation: oriented x 3 Recent and remote memory: adequate. Attention span and concentration: fair. Fund of knowledge: less than average. Mood: depressed Affect: blunted DIAGNOSES: bipolar II disorder, current episode depressed treatment non-compliance ASSESSMENT: Met with pt for completion of H & P. Pt states she is surprised by what happened to her. She had no insight that if she kept taking Benadryl it would endanger her health. She wanted to sleep around the clock and did not realize that her body requires awake time as well as sleep time. She says that when she is discharge she will not live alone. Her daughter has offered for her to live at her house. She has 3 children. Pt talked about going out for walks "with the grandbabies". Pt also stated that her son removed all excess medication from her house. She says her children and her siblings all live in the town of [place] or the surrounding area. She admits to keeping to herself and realizes now that she needs to get out and see people regularly to help with depression. PROBLEM LIST: 1. depressed mood 2. overuse of OTC medication 3. ineffective coping skills. INITIAL TREATMENT PLAN: 1. Patient was admitted on a DCS. 2. Complete history was obtained. 3. With patients permission, family will be contacted and database will be expanded. 4. Patients medication regimen will be reviewed and changed accordingly. 5. Patient will be provided with protected environment. 6. Patient will be treated with individual, group, and milieu therapies. 7. Patient will receive supportive psych-education. 8. Discharge planning will commence immediately. 9. Outpatient follow-up treatment will be strongly recommended. 10. The initial treatment plan will focus initially on: see problem list. ESTIMATED LENGTH OF STAY: 7-10 DAYS. TIME SPENT COUNSELING AND COORDINATING INITIAL CARE: 50 minutes. Medications Scheduled (Risperidone) 2 Mg Tab, 2 MG PO QHS Budesonide/Formoterol (Symbicort 160-4.5 Mcg/Act) 60 Puff/Inhaler Aers, 2 PUFF INH BID, (Reported) Clemastine Fumarate (Clemastine Fumarate) 2.68 Mg Tab, 2.68 MG PO DAILY, ( Reported) Levocetirizine Hydrochloride (Levocetirizine Dihydrochl) 5 Mg Tab, 5 MG PO DAILY , (Reported) Levothyroxine Sodium (Synthroid) 125 Mcg Tab, 125 MCG PO DAILY, (Reported) Nicotine (Nicotine Transdermal Syst) 14 Mg/24 Hr Dis, 1 PATCH TD DAILY Omeprazole (Omeprazole) 40 Mg Cap, 40 MG PO DAILY, (Reported) Quetiapine Fumerate (Quetiapine Fumarate) 200 Mg Tab, 200 MG PO QHS Scheduled PRN Diphenhydramine HCl (Sleep Aid) 25 Mg Tab, 25 MG PO for SLEEP, (Reported) Allergies Coded Allergies: No Known Drug Allergy (Unverified Allergy, Unknown, 07/12/12) Marisa Gardner Sep 17, 2016 10:27
--- NOTE | 2016-09-17 12:05 | HPEPDOC ---
Medical History and Physical Date of Admission Sep 16, 2016 at 20:01 History and Physical PCP: Marcos HERNANDEZ ATTENDING: Dr. Myles Rodriguez HPI: 46yoF admitted to [facility] for depressive disorder, being medically examined today. Patient was admitted to [facility] from 09/02/16 until related to presumed Benadryl overdose with acute respiratory failure and intubation 7 days. Patient was felt stable to transfer to [facility] 09/16/16. The patient is a limited historian. No acute medical complaints today. Denies any fevers, chills, weakness, fatigue, ELIZABETH, CP, SOB, cough, palpitations, abdominal pain, N/V/D or changes in bowel or bladder habits. PMHx: Anxiety Depression Hypothyroid GERD COPD allergic rhinitis PSHX: Hysterectomy SOCHX: Resides in: [facility]. Patient states she lives with her daughter Marital Status: Kids: 3 Employment: Unemployed Tobacco use: 2 packs per day ETOH: Denies Illicit Drugs: Denies IV Drug Use: Denies Tattoos done unprofessionally: Denies FAMHX: Mother: , cancer Father: , heart disease Siblings: Alive, unknown Children: Alive, well Unexpected deaths due to medical reasons: None. ROS: As noted in HPI, otherwise 11pt ROS of systems reviewed and unremarkable. PE: GEN: 46yoF, appears stated age. Well-nourished, well developed. No acute distress. Alert and oriented x 3. Flat affect. HEENT: Normocephalic, atraumatic. Pupils are equal, round, and reactive to light. Extraocular movements are intact. No nystagmus appreciated. Sclera are nonicteric. Conjunctiva without injection. Nose midline. Nasal turbinates without bogginess. EACs both patent BL. TMs both visualized and evans with good cone of light, no bulging or erythema. No facial asymmetry. Moist mucous membranes. Dentition fair. Pharynx pink and moist, no cobblestoning. Neck supple , trachea midline. No lymphadenopathy or thyromegaly appreciated. CHEST: Regular rate and rhythm, +S1, +S2 LUNGS: Clear to auscultation bilaterally. No wheezes, rales, or rhonchi. Breathing appears symmetric and easy. Patient is speaking in full sentences. No accessory muscle use. ABD: Round, soft, non-tender, non-distended. +Bowel sounds throughout. No rebound or guarding. No costovertebral angle tenderness. EXT: Pulses 2+ bilaterally dorsalis pedis and radial. No lower extremity edema appreciated. SKIN: [place], dry, warm. Capillary refill <2sec. No rashes. NEURO: Alert and oriented x 3. Cranial nerves III-XII are intact. No focal deficits appreciated. EK09/16/16 Sinuus tachycardia Nonspecific T-wave abnormality No significant change since prior tracing of 09/04/2016. CXR 09/13/16 Lung murguia are clear. Cardiac size is normal TSH 2.260 09/02/16. A&P: 46yoF admitted to [facility] for depressive disorder 1. Psych. Plan per Psychiatry. EKG on file. 2. Nicotine dependence. Patch available. 3. Borderline EKG. No cardiac signs or symptoms appreciated on exam, follow with PCP. 4. Follow up with PCP on discharge. 5. GERD. Continue Protonix 40 mg daily. 6. Hypothyroid. Continue supplement. TSH noted within normal limits. 7. Vocal cord dysfunction. ST evaluation as recommended by ENT completed . Recommendation for mechanical soft and regular liquids. 8. Acute respiratory failure secondary to drug overdose with intubation 7 days , extubated 09/09/16. Plan for follow-up with pulmonary as outpatient to assess for possible SIRIA. Oxygen saturation stable on room air. 9. Obesity. BMI noted to be 40.4. Complicates Care. 10. Leukocytosis. Patient is afebrile. Asymptomatic. Recheck CBC in a.m. 11. Hypokalemia. Continue supplementation. Recheck CMP in a.m. 12. COPD. Symbicort BID. Albuterol as needed. 13. Mar PARKS present throughout exam. Vital Signs Vital Signs Date Time Temp Pulse Resp B/P (MAP) Pulse Ox O2 Delivery O2 Flow Rate FiO2 09/17/16 06:25 98.4 96 20 111/66 (81) 09/16/16 20:55 Room Air Laboratory Data Labs 24H Item Value Date Time Salicylates Level 4.8 MG/DL L 09/02/16 1410 Urine Opiates Screen NEGATIVE 09/02/16 1643 Urine Methadone Screen NEGATIVE 09/02/16 1643 Acetaminophen Level < 2.0 UG/ML L 09/02/16 1410 Urine Barbiturates Screen NEGATIVE 09/02/16 1643 Urine Phencyclidine Screen NEGATIVE 09/02/16 1643 Urine Phencyclidine (PCP) Level Negative 09/03/16 1213 Urine Amphetamines Screen NEGATIVE 09/02/16 1643 Urine Benzodiazepines Screen POSITIVE H 09/02/16 1643 Urine Cocaine Metabolite Screen NEGATIVE 09/02/16 1643 Urine Cannabinoids Screen NEGATIVE 09/02/16 1643 Ethyl Alcohol Level < 0.003 % 09/02/16 1410 Item Value Date Time White Blood Count 13.9 K/mm3 H 09/16/16 0701 Red Blood Count 4.54 M/mm3 09/16/16 0701 Hemoglobin 13.8 g/dl 09/16/16 0701 Hematocrit 41.5 % 09/16/16 07 Mean Corpuscular Volume 91.3 fl 09/16/16 07 Mean Corpuscular Hemoglobin 30.4 pg 09/16/16 07 Mean Corpuscular Hemoglobin Concent 33.3 g/dl 09/16/16 0701 Red Cell Distribution Width 14.8 % H 09/16/16 0701 Platelet Count 363 k/mm3 09/16/16 0701 Sodium Level 136 MEQ/L 09/16/16 0701 Potassium Level 4.0 MEQ/L 09/16/16 0701 Chloride Level 100 MEQ/L 09/16/16 0701 Carbon Dioxide Level 29 MEQ/L 09/16/16 0701 Anion Gap 7 MEQ/L L 09/16/16 0701 Blood Urea Nitrogen 7 MG/DL 09/16/16 0701 Creatinine 0.73 MG/DL 09/16/16 0701 Glomerular Filtration Rate > 60.0 09/16/16 0701 Fasting Glucose 124 MG/DL H 09/16/16 0701 Calcium Level 9.4 MG/DL 09/16/16 0701 Home Medications Scheduled (Risperidone) 2 Mg Tab, 2 MG PO QHS Budesonide/Formoterol (Symbicort 160-4.5 Mcg/Act) 60 Puff/Inhaler Aers, 2 PUFF INH BID Clemastine Fumarate (Clemastine Fumarate) 2.68 Mg Tab, 2.68 MG PO DAILY Levocetirizine Hydrochloride (Levocetirizine Dihydrochl) 5 Mg Tab, 5 MG PO DAILY Levothyroxine Sodium (Synthroid) 125 Mcg Tab, 125 MCG PO DAILY Nicotine (Nicotine Transdermal Syst) 14 Mg/24 Hr Dis, 1 PATCH TD DAILY Omeprazole (Omeprazole) 40 Mg Cap, 40 MG PO DAILY Quetiapine Fumerate (Quetiapine Fumarate) 200 Mg Tab, 200 MG PO QHS Scheduled PRN Diphenhydramine HCl (Sleep Aid) 25 Mg Tab, 25 MG PO for SLEEP Allergies Coded Allergies: No Known Drug Allergy (Unverified Allergy, Unknown, 07/12/12) Brenda Mckay Sep 17, 2016 12:05
[2016-09-17] MEDS ORDERED: ALBUTEROL 90 MCG/ACT 8GM HFA INHALER INH PRN (12:15)
[2016-09-17 12:34] VITALS: BP 128/59
[2016-09-17] MEDS: SYMBICORT 160/4.5MCG INHALER 6GM INH SCH ×2 (13:15→20:39)
[2016-09-17] MEDS: VENLAFAXINE **XR** 75MG CAPSULE PO SCH (14:31)
[2016-09-17 18:14] VITALS: BP 129/70
[2016-09-17] MEDS: QUEtiapine FUMARATE 200 MG TAB PO SCH (20:39)
[2016-09-17] MEDS: risperiDONE 2 MG TAB PO SCH (20:40)
[2016-09-17] MEDS: traZODone 50 MG TAB PO PRN (20:40)
[2016-09-17 21:00] VITALS: BP 130/74
[2016-09-18] MEDS: LEVOTHYROXINE 125MCG TABLET (0.125MG) PO SCH (06:06)
[2016-09-18 06:49] VITALS: BP 100/68
[2016-09-18 08:25] LABS: MEAN CORPUSCULAR HEMOGLOBIN 30.1 pg (27.0-33.0); MEAN CORPUSCULAR HGB CONC 33.4 g/dl (32.0-36.5); MEAN CORPUSCULAR VOLUME 90.3 fl (80.0-96.0); RED CELL DISTRIBUTION WIDTH 15.1 % (11.5-14.5); WHITE BLOOD COUNT 10.8 K/mm3 (4.0-10.0)
[2016-09-18 08:50] LABS: ALBUMIN 3.3 GM/DL (3.2-5.2); ALBUMIN/GLOBULIN RATIO 0.89 (1.00-1.93); ALKALINE PHOSPHATASE 80 U/L (45-117); ALT/SGPT 33 U/L (12-78); ANION GAP 7 MEQ/L (8-16); AST/SGOT 26 U/L (15-37); BILIRUBIN,TOTAL 0.3 MG/DL (0.2-1.0); BLOOD UREA NITROGEN 9 MG/DL (7-18); CALCIUM LEVEL 9.1 MG/DL (8.5-10.1); CARBON DIOXIDE LEVEL 28 MEQ/L (21-32); CHLORIDE LEVEL 102 MEQ/L (98-107); CREATININE FOR GFR 0.72 MG/DL (0.55-1.02); GLOMERULAR FILTRATION RATE > 60.0 (>58); GLUCOSE, FASTING 119 MG/DL (70-105); SODIUM LEVEL 137 MEQ/L (136-145)
[2016-09-18] MEDS: PANTOPRAZOLE 40MG TAB (PROTONIX) PO SCH (08:55)
[2016-09-18] MEDS: POTASSIUM CHLORIDE 10 MEQ SR TABLET PO SCH ×2 (08:56→20:36)
[2016-09-18] MEDS: SYMBICORT 160/4.5MCG INHALER 6GM INH SCH ×2 (08:56→20:37)
[2016-09-18] MEDS: VENLAFAXINE **XR** 75MG CAPSULE PO SCH (08:56)
[2016-09-18] MEDS: NICOTINE 21MG/24HR 1 EA TRANSDERMAL TD SCH (08:57)
[2016-09-18] MEDS: NYSTATIN 100,000 UNITS/GM TOPICAL PWD 15 GM TOP SCH ×2 (08:57→20:37)
--- NOTE | 2016-09-18 14:38 | MHIPNPDOC ---
[facility] Progress Note Progress Note DATE OF SERVICE: 09/18/16 HISTORY: day 3 of admission following near lethal overdose of Benadryl. ( unintentional) VITAL SIGNS: See below. NEW TEST RESULTS: na CURRENT MEDICATIONS: See below. MENTAL STATUS EXAMINATION: Patient is a 46-year old female, who appears older than given age, wearing hospital garb, long hair, unkempt, fair eye contact, mostly cooperative. Speech: Is spontaneous with slight delay Language skills are intact Thought processes including:a bit delayed Thought content: discharge. Abstract reasoning, and computation: concrete. Description of associations: fair. Description of abnormal or psychotic thoughts: I never wanted to kill myself. I just wanted to sleep, I have not heard voices since I have been on risperidone. Judgment: poor Insight: limited. Orientation: oriented to person, place, time and situation Recent and remote memory: unreliable Attention span and concentration: poor Fund of knowledge: limited, impaired Mood: euthymic. Affect: blunted. DIAGNOSES: bipolar II disorder, current episode depressed treatment non-compliance ASSESSMENT:pt keeps to room much of the day she feels uncomfortable around other people. she says she does not like to be around strangers. She is attending a few groups and praise given for this. Pt reports sleeping much of the day but denies that her meds are causing her to feel tired. States she is feeling much better than she was on admission. Asking about discharge. Pt is showering and attending to hygiene needs, Po intake is adequate. Pt denies depression today. using phone to contact family. MANAGEMENT PLAN: We will try to plan a family meeting on Thursday next week. Discharge to follow if plans are completed and treatment goals are met. TIME SPENT: 15 minutes. Vital Signs Vital Signs Date Time Temp Pulse Resp B/P (MAP) Pulse Ox O2 Delivery O2 Flow Rate FiO2 09/18/16 06:49 98.8 120 18 100/68 (79) 09/16/16 20:55 Room Air Laboratory Data 24H Labs Laboratory Tests 2 09/18/16 07:57: Anion Gap 7L, Glomerular Filtration Rate > 60.0, Blood Urea Nitrogen 9, Creatinine 0.72, Sodium Level 137, Potassium Level 4.0, Chloride Level 102, Carbon Dioxide Level 28, Calcium Level 9.1, Aspartate Amino Transf (AST/SGOT) 26 , Alanine Aminotransferase (ALT/SGPT) 33, Alkaline Phosphatase 80, Total Bilirubin 0.3, Total Protein 7.0, Albumin 3.3, Albumin/Globulin Ratio 0.89L CBC/BMP Laboratory Tests 09/18/16 07:57 Red Blood Count 4.52, Mean Corpuscular Volume 90.3, Mean Corpuscular Hemoglobin 30.1, Mean Corpuscular Hemoglobin Concent 33.4, Red Cell Distribution Width 15.1 H, Calcium Level 9.1, Aspartate Amino Transf (AST/SGOT) 26, Alanine Aminotransferase (ALT/SGPT) 33, Alkaline Phosphatase 80, Total Bilirubin 0.3, Total Protein 7.0, Albumin 3.3 Current Medications Current Medications Acetaminophen (Tylenol Tab) 650 mg Q6HP PRN PO HEADACHE or DISCOMFORT; Start at 23:00; Stop 10/16/16 at 22:59 Al Hydrox/Mg Hydrox/Simethicone (Mylanta) 30 ml Q4HP PRN PO HEARTBURN/ INDIGESTION; Start 09/16/16 at 23:00; Stop 10/16/16 at 22:59 Albuterol Sulfate (Proventil, Ventolin Hfa) 2 puff Q4HP PRN INH SHORTNESS OF BREATH; Start 09/17/16 at 12:15; Stop 10/17/16 at 12:14 Budesonide/ Formoterol Fumarate (Symbicort 160/ 4.5mcg) 2 puff BID INH Last administered on 09/18/16 08:56; Start 09/17/16 at 09:00; Stop 10/17/16 at 08:59 Levothyroxine Sodium (Synthroid) 125 mcg DAILY@06 PO Last administered on 06:06; Start 09/17/16 at 06:00; Stop 10/17/16 at 05:59 Magnesium Hydroxide (Milk Of Magnesia) 30 ml DAILYPRN PRN PO CONSTIPATION; Start 09/16/16 at 23:00; Stop 10/16/16 at 22:59 Nicotine (Nicoderm Cq 21mg) 1 patch DAILY TD Last administered on 09/18/16 08: 57; Start 09/17/16 at 09:00; Stop 10/17/16 at 08:59 Nystatin (Mycostatin Powder, Nystop) apply under bilate... BID TOP Last administered on 09/18/16 08:57; Start 09/16/16 at 21:00; Stop 10/16/16 at 20:59 Pantoprazole Sodium (Protonix) 40 mg DAILY PO Last administered on 09/18/16 08 :55; Start 09/17/16 at 09:00; Stop 10/17/16 at 08:59 Potassium Chloride (Micro-K Extencaps) 40 meq BID PO Last administered on 08:56; Start 09/16/16 at 21:00; Stop 10/16/16 at 20:59 Quetiapine Fumarate (SEROquel) 200 mg QHS PO Last administered on 09/17/16 20: 39; Start 09/16/16 at 21:00; Stop 10/16/16 at 20:59 Risperidone (RisperDAL) 2 mg QHS PO Last administered on 09/17/16 20:40; Start 09/16/16 at 21:00; Stop 10/16/16 at 20:59 Trazodone HCl (Desyrel) 50 mg QHSP PRN PO INSOMNIA Last administered on 20:40; Start 09/16/16 at 23:00; Stop 10/16/16 at 22:59 Venlafaxine HCl (Effexor Xr) 75 mg QAM PO Last administered on 09/18/16 08 :56; Start 09/17/16 at 09:00; Stop 10/17/16 at 08:59 Allergies Coded Allergies: No Known Drug Allergy (Unverified Allergy, Unknown, 07/12/12) Marisa Gardner Sep 18, 2016 14:38
[2016-09-18 18:00] VITALS: BP 116/62
[2016-09-18] MEDS: QUEtiapine FUMARATE 200 MG TAB PO SCH (20:36)
[2016-09-18] MEDS: risperiDONE 2 MG TAB PO SCH (20:36)
[2016-09-19] MEDS: LEVOTHYROXINE 125MCG TABLET (0.125MG) PO SCH (05:58)
[2016-09-19 06:43] VITALS: BP 115/56
[2016-09-19] MEDS: NYSTATIN 100,000 UNITS/GM TOPICAL PWD 15 GM TOP SCH ×2 (09:00→20:03)
[2016-09-19] MEDS: PANTOPRAZOLE 40MG TAB (PROTONIX) PO SCH (09:32)
[2016-09-19] MEDS: VENLAFAXINE **XR** 75MG CAPSULE PO SCH (09:32)
[2016-09-19] MEDS: SYMBICORT 160/4.5MCG INHALER 6GM INH SCH ×2 (09:32→20:05)
[2016-09-19] MEDS: POTASSIUM CHLORIDE 10 MEQ SR TABLET PO SCH ×2 (09:32→20:05)
[2016-09-19] MEDS: NICOTINE 21MG/24HR 1 EA TRANSDERMAL TD SCH (09:33)
--- NOTE | 2016-09-19 11:47 | MHIPNPDOC ---
[facility] Progress Note Progress Note DATE OF SERVICE: 09/19/16 HISTORY: day 4 of ADMISSION. Pt transferred after she stabilized from a nearly lethal overdose (not intentional) VITAL SIGNS: See below. NEW TEST RESULTS: na. CURRENT MEDICATIONS: See below. MENTAL STATUS EXAMINATION: Patient is a 46-year old female, who is lying in bed, wearing glasses, long dark hair, dressed in hospital attire, good eye contact, pleasant. Speech: Is minimal, spontaneous Language skills are adequate, does not talk much or offer much information Thought processes including: appears goal directed Thought content: appropriate Abstract reasoning, and computation: concrete. Description of associations: loose. Description of abnormal or psychotic thoughts: denies suicidal thoughts or intent, denies psychosis since on Risperidone, no delusions or psychotic symptoms illicited. Judgment: limited Insight: limited. Orientation: oriented to place, person and situation, can reorient self to time. Recent and remote memory: impaired. Attention span and concentration: limited. Fund of knowledge: limited. Mood:dysphoric. Affect: blunted. DIAGNOSES: bipolar II disorder, current episode depressed psychosis by history treatment non-compliance ASSESSMENT: letter from Dr. Liang received. he recommends beginning pt on a PATRICK. Reports pt has appeared "emotionally flat, often tired, poorly groomed and disinterested and doing mostly nothing for 4.5 years. Mood worsened in relation to stressors ( of parents) last year. Addition of Remeron did little to help with sleep or mood. We will begin Invega sustenna as a way to consolidate antipsychotics with the hope it will have less emotional dulling than the use of seroquel and risperidone. Dr. Liang has also been trying to get pt more socially involved without much success. MANAGEMENT PLAN: bid writer talked to Luis at length about the benefits of PATRICK as a way to minimize reliance on po meds. Explained benefits and risks and answered all pts questions but she did not have many. Offered her as much information as possible about the process of getting on Invega and then changing to Trinza in the 4th month. Pt was agreeable to the med change. Will lower risperidone to 1 mg at hs and reduce seroquel 50 mg a day initially ( going from 200 mg to 100 mg). Pt will receive second injection on 09/23 of 156 mg. She would be due for the 3rd injection on Invega Sustenna 156 mg on 10/22/16 at [facility]. facilities planner spoke with cristian who knows a lot about the family history. It appears pts son has been diverting her medication. This may have been the reason she overdosed on benadryl as she tried to get some sleep. By eliminating po medications the risk of this happening again is less. It seems that patient' s daughter will take advantage of [place] food stamps and money using them for her own purposes and payee does not think daughter's home would be a healthy environment for Luis. Apparently the daughter's boyfriend is an active drug abuser. The patient has a reliable sister but she is also the woman that Luis' s former now lives with and they have a young child together. Luis can return to her own apartment and she has agreed to Case Managment services. This would help in getting [facility]. We will also refer her to [facility] for recreation and socialization 2-3 times a week. Discharge meetings to be scheduled next week but will be separate. One for payee and one for family. TIME SPENT: 30 minutes. Vital Signs Vital Signs Date Time Temp Pulse Resp B/P (MAP) Pulse Ox O2 Delivery O2 Flow Rate FiO2 09/19/16 06:43 98.8 95 16 115/56 (75) 09/16/16 20:55 Room Air Current Medications Current Medications Acetaminophen (Tylenol Tab) 650 mg Q6HP PRN PO HEADACHE or DISCOMFORT; Start at 23:00; Stop 10/16/16 at 22:59 Al Hydrox/Mg Hydrox/Simethicone (Mylanta) 30 ml Q4HP PRN PO HEARTBURN/ INDIGESTION; Start 09/16/16 at 23:00; Stop 10/16/16 at 22:59 Albuterol Sulfate (Proventil, Ventolin Hfa) 2 puff Q4HP PRN INH SHORTNESS OF BREATH; Start 09/17/16 at 12:15; Stop 10/17/16 at 12:14 Budesonide/ Formoterol Fumarate (Symbicort 160/ 4.5mcg) 2 puff BID INH Last administered on 09/19/16t 09:32; Start 09/17/16 at 09:00; Stop 10/17/16 at 08:59 Levothyroxine Sodium (Synthroid) 125 mcg DAILY@06 PO Last administered on 05:58; Start 09/17/16 at 06:00; Stop 10/17/16 at 05:59 Magnesium Hydroxide (Milk Of Magnesia) 30 ml DAILYPRN PRN PO CONSTIPATION; Start 09/16/16 at 23:00; Stop 10/16/16 at 22:59 Nicotine (Nicoderm Cq 21mg) 1 patch DAILY TD Last administered on 09/19/16 09: 33; Start 09/17/16 at 09:00; Stop 10/17/16 at 08:59 Nystatin (Mycostatin Powder, Nystop) apply under bilate... BID TOP Last administered on 09/18/16 20:37; Start 09/16/16 at 21:00; Stop 10/16/16 at 20:59 Pantoprazole Sodium (Protonix) 40 mg DAILY PO Last administered on 09/19/16 09 :32; Start 09/17/16 at 09:00; Stop 10/17/16 at 08:59 Potassium Chloride (Micro-K Extencaps) 40 meq BID PO Last administered on 09:32; Start 09/16/16 at 21:00; Stop 10/16/16 at 20:59 Quetiapine Fumarate (SEROquel) 100 mg QHS PO ; Start 09/20/16 at 21:00; Stop at 20:59; Status UNV Quetiapine Fumarate (SEROquel) 150 mg QHS PO ; Start 09/19/16 at 21:00; Stop at 22:00; Status UNV Quetiapine Fumarate (SEROquel) 200 mg QHS PO Last administered on 09/18/16 20: 36; Start 09/16/16 at 21:00; Stop 09/19/16 at 11:38; Status DC Risperidone (RisperDAL) 1 mg QHS PO ; Start 09/19/16 at 21:00; Stop 10/19/16 at 20:59; Status UNV Risperidone (RisperDAL) 2 mg QHS PO Last administered on 09/18/16 20:36; Start 09/16/16 at 21:00; Stop 09/19/16 at 11:38; Status DC Trazodone HCl (Desyrel) 50 mg QHSP PRN PO INSOMNIA Last administered on 20:40; Start 09/16/16 at 23:00; Stop 10/16/16 at 22:59 Venlafaxine HCl (Effexor Xr) 75 mg QAM PO Last administered on 09/19/16 09 :32; Start 09/17/16 at 09:00; Stop 10/17/16 at 08:59 Allergies Coded Allergies: No Known Drug Allergy (Unverified Allergy, Unknown, 07/12/12) Marisa Gardner Sep 19, 2016 11:47
[2016-09-19] MEDS ORDERED: PALIPERIDONE PALMITATE 234 MG/1.5 ML INJ (INVEGA SUSTENNA)(J2426) IM ONE (13:00)
[2016-09-19 18:00] VITALS: BP 115/64
[2016-09-19] MEDS: risperiDONE 1 MG TAB PO SCH (20:05)
[2016-09-19] MEDS ORDERED: QUEtiapine FUMARATE 50 MG TAB PO SCH (21:00)
[2016-09-20] MEDS: LEVOTHYROXINE 125MCG TABLET (0.125MG) PO SCH (06:23)
[2016-09-20] MEDS ORDERED: PROPRANOLOL 20 MG TAB PO PRN (08:00)
[2016-09-20] MEDS: NYSTATIN 100,000 UNITS/GM TOPICAL PWD 15 GM TOP SCH ×2 (09:00→20:11)
[2016-09-20] MEDS: NICOTINE 21MG/24HR 1 EA TRANSDERMAL TD SCH (09:15)
[2016-09-20] MEDS: SYMBICORT 160/4.5MCG INHALER 6GM INH SCH ×2 (09:15→20:09)
[2016-09-20] MEDS: POTASSIUM CHLORIDE 10 MEQ SR TABLET PO SCH ×2 (09:15→20:10)
[2016-09-20] MEDS: PANTOPRAZOLE 40MG TAB (PROTONIX) PO SCH (09:16)
[2016-09-20] MEDS: VENLAFAXINE **XR** 75MG CAPSULE PO SCH (09:16)
[2016-09-20 18:14] VITALS: BP 110/56
[2016-09-20] MEDS: QUEtiapine FUMARATE 100 MG TAB PO SCH (20:09)
[2016-09-20] MEDS: risperiDONE 1 MG TAB PO SCH (20:10)
[2016-09-21] MEDS: LEVOTHYROXINE 125MCG TABLET (0.125MG) PO SCH (06:09)
[2016-09-21 06:15] VITALS: BP 100/52
--- NOTE | 2016-09-21 07:38 | IPN ---
DATE OF SERVICE: 09/20/2016 SUBJECTIVE: "I'm feeling better." OBJECTIVE: Patient is improving slowly. Report some degree of sedation but feels is tolerable since is improving. Patient appears to be motivated for treatment. Patient denies other side effects from the medication. No evidence of psychotic symptoms. No auditory or visual hallucinations. MENTAL STATUS EXAMINATION: Patient is dressed in [facility]. Patient is calm and cooperative. Patient has fair eye contact. Speech is normal in rate, volume and articulation. Mood is depressed and anxious but improving. Affect is restricted. No delusions or hallucinations. Memory, attention and concentration are fair. Patient is able to contract for safety during the hospitalization. Insight and judgment is fair. ASSESSMENT: 1. Depression. 2. Suicidal ideation/overdose. 3. Bipolar II disorder. PLAN: 1. Continue with Invega Sustenna 156 mg intramuscular every 4 weeks. 2. Continue with Seroquel 100 mg by mouth nightly. 3. Continue with Risperdal 1 mg by mouth nightly. 4. Continue with propranolol 20 mg by mouth twice a day. 5. Continue with Effexor XR 75 mg by mouth every morning. 6. Continue with trazodone 50 mg nightly as needed for insomnia. 7. Continue medication management, individual and group therapy.
[2016-09-21] MEDS: NYSTATIN 100,000 UNITS/GM TOPICAL PWD 15 GM TOP SCH ×2 (09:00→20:08)
[2016-09-21] MEDS: SYMBICORT 160/4.5MCG INHALER 6GM INH SCH ×2 (09:24→20:08)
[2016-09-21] MEDS: NICOTINE 21MG/24HR 1 EA TRANSDERMAL TD SCH (09:25)
[2016-09-21] MEDS: VENLAFAXINE **XR** 75MG CAPSULE PO SCH (09:25)
[2016-09-21] MEDS: POTASSIUM CHLORIDE 10 MEQ SR TABLET PO SCH ×2 (09:25→20:08)
[2016-09-21] MEDS: PANTOPRAZOLE 40MG TAB (PROTONIX) PO SCH (09:25)
[2016-09-21 18:00] VITALS: BP 138/70
[2016-09-21] MEDS: QUEtiapine FUMARATE 100 MG TAB PO SCH (20:07)
[2016-09-21] MEDS: risperiDONE 1 MG TAB PO SCH (20:07)
[2016-09-21] MEDS: traZODone 50 MG TAB PO PRN (20:08)
[2016-09-22] MEDS: LEVOTHYROXINE 125MCG TABLET (0.125MG) PO SCH (06:37)
[2016-09-22 07:12] VITALS: BP 166/68
--- NOTE | 2016-09-22 09:41 | IPNPDOC ---
Subjective Date Seen The patient was seen on 09/22/16. Subjective Chief Complaint/HPI The patient is a 46-year-old female admitted with a reason for visit of Bipolar Depression. Events since last encounter Pt reporting erythema at previous Rt subclavian central line site. This was removed [facility]. No fevers/chills. Objective Physical Examination General Exam: Positive: Alert, Other (flat affect. ) ENT Exam: Positive: Atraumatic Chest Exam: Positive: Clear to auscultation Heart Exam: Positive: Rate Normal, Regular Rhythm, Normal S1, Normal S2, Negative: Murmurs, Rubs Skin Exam: Positive: Other skin issue (dressing removed from Rt subclavian site. Yellowish drainage noted. Minimal erythema surrounding, No TTP. No fluctuance. Culture obtained. ) Assessment /Plan Problems (1) IV site infection Problem Text: * Pt with no fever/chills. Tmax 98.8 * Update CBC/CMP. * Culture obtained and pending. * Apply bactroban BID. * PO Clindamycin 300 Q6. * Add Bacid po BID. * Monitor. (2) Elevated blood pressure reading Problem Text: * BP this AM 166/68. * BP trend 100/52-138/70. * Goal <140/90. * Monitor need for antihypertensive. Plan/VTE VTE Prophylaxis Ordered?: No (ambulatory) VS, I&O, 24H, Fishbone Vital Signs/I&O Vital Signs Date Time Temp Pulse Resp B/P (MAP) Pulse Ox O2 Delivery O2 Flow Rate FiO2 09/22/16 07:12 97.2 91 16 166/68 (100) 09/16/16 20:55 Room Air Brenda Mckay Sep 22, 2016 09:41
[2016-09-22 09:48] LABS: MEAN CORPUSCULAR HEMOGLOBIN 30.1 pg (27.0-33.0); MEAN CORPUSCULAR HGB CONC 33.3 g/dl (32.0-36.5); MEAN CORPUSCULAR VOLUME 90.4 fl (80.0-96.0); RED CELL DISTRIBUTION WIDTH 14.8 % (11.5-14.5); WHITE BLOOD COUNT 11.9 K/mm3 (4.0-10.0)
[2016-09-22] MEDS: SYMBICORT 160/4.5MCG INHALER 6GM INH SCH ×2 (09:57→20:11)
[2016-09-22] MEDS: NYSTATIN 100,000 UNITS/GM TOPICAL PWD 15 GM TOP SCH ×2 (09:57→20:11)
[2016-09-22] MEDS: VENLAFAXINE **XR** 75MG CAPSULE PO SCH (09:57)
[2016-09-22] MEDS: PANTOPRAZOLE 40MG TAB (PROTONIX) PO SCH (09:58)
[2016-09-22] MEDS: NICOTINE 21MG/24HR 1 EA TRANSDERMAL TD SCH (09:58)
[2016-09-22] MEDS: CLINDAMYCIN 150 MG CAP PO SCH ×4 (09:58→20:12)
[2016-09-22] MEDS: POTASSIUM CHLORIDE 10 MEQ SR TABLET PO SCH ×2 (09:58→20:13)
[2016-09-22 10:49] LABS: ALBUMIN 3.4 GM/DL (3.2-5.2); ALBUMIN/GLOBULIN RATIO 0.94 (1.00-1.93); ALKALINE PHOSPHATASE 88 U/L (45-117); ALT/SGPT 34 U/L (12-78); ANION GAP 10 MEQ/L (8-16); AST/SGOT 18 U/L (15-37); BILIRUBIN,TOTAL 0.2 MG/DL (0.2-1.0); BLOOD UREA NITROGEN 11 MG/DL (7-18); CALCIUM LEVEL 9.5 MG/DL (8.5-10.1); CARBON DIOXIDE LEVEL 25 MEQ/L (21-32); CHLORIDE LEVEL 105 MEQ/L (98-107); CREATININE FOR GFR 0.83 MG/DL (0.55-1.02); GLOMERULAR FILTRATION RATE > 60.0 (>58); GLUCOSE, FASTING 151 MG/DL (70-105); POTASSIUM SERUM 3.7 MEQ/L (3.5-5.1); SODIUM LEVEL 140 MEQ/L (136-145)
[2016-09-22] MEDS: MUPIROCIN 2% OINT 22 GM TUBE TOP SCH ×3 (11:32→20:12)
[2016-09-22] MEDS: LACTOBACILLUS ACIDOPHILUS CAP (BACID) PO SCH ×2 (11:32→20:12)
--- NOTE | 2016-09-22 13:18 | MHIPNPDOC ---
[facility] Progress Note Progress Note DATE OF SERVICE: 09/22/16 HISTORY: Day 7 of admission/Meeting with Payee VITAL SIGNS: See below. NEW TEST RESULTS: na CURRENT MEDICATIONS: See below. MENTAL STATUS EXAMINATION: Patient is a 46-year old female, who is tall, large frame, long hair, large eyes and wearing glasses with hospital clothing. Speech: Is spontaneous, monosyllables, hesitant. Language skills are brief Thought processes including: pt admits to feeling confused some of the time since her overdose. appears to be listening and following the conversation. Thought content: "I want a cigarette". Abstract reasoning, and computation: concrete. Description of associations: good. Description of abnormal or psychotic thoughts: denies SI, denies voices since starting risperidone, denies voices today, no visions.. Judgment: limited Insight: limited. Orientation: well oriented to date, day, year, place, person and location. Recent and remote memory: admits to confusion with some things. Attention span and concentration: limited- facial expression looks blank during conversation. Fund of knowledge: limited Mood: euthymic. Affect: congruent.. DIAGNOSES: bipolar II disorder, current episode depressed psychosis by history treatment non-compliance nicotine dependence ASSESSMENT:pt admits to preferring to be by herself rather than with a group of people. She attended the meeting today and participated well. She seems comfortable with Beto, her payee. She states she has some anxiety about moving to daughters house as she likes to sleep in in the morning and there they have small children leaving for school. The payee believes the daughter (Luis's daughter) may have a boyfriend who has been stealing pts meds. He says there are surveillance videos from her Apartment bldg showing this. Explained to payee that we have changed pts meds and perhaps she won't need to take po meds after discharge. pt claims she is sleeping well and tolerating the Invega injection well. She is due for shot 2 tomorrow. Pt is requesting discharge and is really craving nicotine. She has no intent to quit despite our efforts to the contrary. Pt denies aud or visual disturbance on Invega Sustenna. Pt was not aware that she still has her apartment and has not been evicted. When we discussed some of the concerns (additional cost, 3 small children, more stress and noise) with pt she thought perhaps she mat be better off returning to her own apartment. There are people her own age there and she is well established at that location. Once she gives up her housing she would be stuck and if daughter moves then what would pt do if she did not want to move with daughter or could not move to the new location? We are concerned for her safety and well-being and want her to make the best possible decision for herself. She has very affordable rent and moving in with daughter will cost her $107 more per month. On an $800 monthly income, that is a large increase. Also the payee has been able to save some money for pt in a savings account and that is the first time in years she has had savings. MANAGEMENT PLAN:pt to receive injection #2 of Invega Sustenna tomorrow. We will try to schedule a meeting between pt and her family and several treatment providers for tomorrow or Thursday to get her discharged. She will follow up for monthly injection at [facility]. It is hoped that in Month 4 she can receive the Trinza. She will follow up at [facility] with Dr. Liang. TIME SPENT: 35 minutes. Vital Signs Vital Signs Date Time Temp Pulse Resp B/P (MAP) Pulse Ox O2 Delivery O2 Flow Rate FiO2 09/22/16 07:12 97.2 91 16 166/68 (100) 09/16/16 20:55 Room Air Laboratory Data 24H Labs Laboratory Tests 2 09/22/16 09:35: Anion Gap 10, Glomerular Filtration Rate > 60.0, Blood Urea Nitrogen 11, Creatinine 0.83, Sodium Level 140, Potassium Level 3.7, Chloride Level 105, Carbon Dioxide Level 25, Calcium Level 9.5, Aspartate Amino Transf (AST/SGOT) 18 , Alanine Aminotransferase (ALT/SGPT) 34, Alkaline Phosphatase 88, Total Bilirubin 0.2, Total Protein 7.0, Albumin 3.4, Albumin/Globulin Ratio 0.94L CBC/BMP Laboratory Tests 09/22/16 09:35 Red Blood Count 4.60, Mean Corpuscular Volume 90.4, Mean Corpuscular Hemoglobin 30.1, Mean Corpuscular Hemoglobin Concent 33.3, Red Cell Distribution Width 14.8 H, Calcium Level 9.5, Aspartate Amino Transf (AST/SGOT) 18, Alanine Aminotransferase (ALT/SGPT) 34, Alkaline Phosphatase 88, Total Bilirubin 0.2, Total Protein 7.0, Albumin 3.4 Current Medications Current Medications Acetaminophen (Tylenol Tab) 650 mg Q6HP PRN PO HEADACHE or DISCOMFORT; Start at 23:00; Stop 10/16/16 at 22:59 Al Hydrox/Mg Hydrox/Simethicone (Mylanta) 30 ml Q4HP PRN PO HEARTBURN/ INDIGESTION; Start 09/16/16 at 23:00; Stop 10/16/16 at 22:59 Albuterol Sulfate (Proventil, Ventolin Hfa) 2 puff Q4HP PRN INH SHORTNESS OF BREATH; Start 09/17/16 at 12:15; Stop 10/17/16 at 12:14 Budesonide/ Formoterol Fumarate (Symbicort 160/ 4.5mcg) 2 puff BID INH Last administered on 09/22/16 09:57; Start 09/17/16 at 09:00; Stop 10/17/16 at 08:59 Clindamycin HCl (Cleocin) 300 mg QID PO Last administered on 09/22/16 09:58; Start 09/22/16 at 09:00; Stop 09/29/16 at 08:59 Lactobacillus Acidophilus (Bacid) 1 ea BID PO Last administered on 09/22/16 11 :32; Start 09/22/16 at 09:00; Stop 10/22/16 at 08:59 Levothyroxine Sodium (Synthroid) 125 mcg DAILY@06 PO Last administered on 06:37; Start 09/17/16 at 06:00; Stop 10/17/16 at 05:59 Magnesium Hydroxide (Milk Of Magnesia) 30 ml DAILYPRN PRN PO CONSTIPATION; Start 09/16/16 at 23:00; Stop 10/16/16 at 22:59 Mupirocin (Bactroban 2% Ointment) 1 dose TID TOP Last administered on 11:32; Start 09/22/16 at 09:00; Stop 10/22/16 at 08:59 Nicotine (Nicoderm Cq 21mg) 1 patch DAILY TD Last administered on 09/22/16 09: 58; Start 09/17/16 at 09:00; Stop 10/17/16 at 08:59 Nystatin (Mycostatin Powder, Nystop) apply under bilate... BID TOP Last administered on 09/22/16 09:57; Start 09/16/16 at 21:00; Stop 10/16/16 at 20:59 Pantoprazole Sodium (Protonix) 40 mg DAILY PO Last administered on 09/22/16 09 :58; Start 09/17/16 at 09:00; Stop 10/17/16 at 08:59 Potassium Chloride (Micro-K Extencaps) 40 meq BID PO Last administered on 09:58; Start 09/16/16 at 21:00; Stop 10/16/16 at 20:59 Propranolol HCl (Inderal) 20 mg BID PRN PO akathesia; Start 09/20/16 at 08:00; Stop 10/20/16 at 07:59 Quetiapine Fumarate (SEROquel) 100 mg QHS PO Last administered on 09/21/16 20: 07; Start 09/20/16 at 21:00; Stop 10/20/16 at 20:59 Quetiapine Fumarate (SEROquel) 150 mg QHS PO Last administered on 09/19/16 20: 05; Start 09/19/16 at 21:00; Stop 09/19/16 at 23:59; Status DC Quetiapine Fumarate (SEROquel) 200 mg QHS PO Last administered on 09/18/16 20: 36; Start 09/16/16 at 21:00; Stop 09/19/16 at 11:38; Status DC Risperidone (RisperDAL) 1 mg QHS PO Last administered on 09/21/16 20:07; Start 09/19/16 at 21:00; Stop 10/19/16 at 20:59 Risperidone (RisperDAL) 2 mg QHS PO Last administered on 09/18/16 20:36; Start 09/16/16 at 21:00; Stop 09/19/16 at 11:38; Status DC Trazodone HCl (Desyrel) 50 mg QHSP PRN PO INSOMNIA Last administered on 20:08; Start 09/16/16 at 23:00; Stop 10/16/16 at 22:59 Venlafaxine HCl (Effexor Xr) 75 mg QAM PO Last administered on 09/22/16t 09 :57; Start 09/17/16 at 09:00; Stop 10/17/16 at 08:59 Allergies Coded Allergies: No Known Drug Allergy (Unverified Allergy, Unknown, 07/12/12) Marisa Gardner Sep 22, 2016 13:18
[2016-09-22 18:00] VITALS: BP 140/60
[2016-09-22] MEDS: QUEtiapine FUMARATE 100 MG TAB PO SCH (20:12)
[2016-09-22] MEDS: risperiDONE 1 MG TAB PO SCH (20:12)
[2016-09-23] MEDS: LEVOTHYROXINE 125MCG TABLET (0.125MG) PO SCH (05:48)
[2016-09-23 06:00] VITALS: BP 118/61
[2016-09-23] MEDS ORDERED: BENZTROPINE 1 MG TAB PO SCH (09:00)
[2016-09-23] MEDS: LACTOBACILLUS ACIDOPHILUS CAP (BACID) PO SCH (09:35)
[2016-09-23] MEDS: MUPIROCIN 2% OINT 22 GM TUBE TOP SCH (09:35)
[2016-09-23] MEDS: NICOTINE 21MG/24HR 1 EA TRANSDERMAL TD SCH (09:35)
[2016-09-23] MEDS: CLINDAMYCIN 150 MG CAP PO SCH ×2 (09:35→12:31)
[2016-09-23] MEDS: SYMBICORT 160/4.5MCG INHALER 6GM INH SCH (09:35)
[2016-09-23] MEDS: NYSTATIN 100,000 UNITS/GM TOPICAL PWD 15 GM TOP SCH (09:36)
[2016-09-23] MEDS: PANTOPRAZOLE 40MG TAB (PROTONIX) PO SCH (09:37)
[2016-09-23] MEDS: VENLAFAXINE **XR** 75MG CAPSULE PO SCH (09:37)
[2016-09-23] MEDS: POTASSIUM CHLORIDE 10 MEQ SR TABLET PO SCH (09:38)
[2016-09-23] MEDS ORDERED: RISP1TAB41 PO (10:51)
[2016-09-23] MEDS ORDERED: INVE156I IM (10:51)
[2016-09-23] MEDS ORDERED: PALIPERIDONE PALMITATE 156 MG/1ML INJ(INVEGA SUSTENNA)(J2426) IM ONE (12:00)
--- NOTE | 2016-09-23 12:55 | MHDSPDOC ---
[facility] Discharge Summary Discharge Summary DATE OF ADMISSION: Sep 16, 2016 at 20:01 DATE OF DISCHARGE: September 23, 2016 DISCHARGE DIAGNOSES: bipolar II disorder, current episode depressed psychosis by history treatment non-compliance nicotine dependence REASON FOR ADMISSION: Patient unintentionally took too many Benadryl tabs in order to get to sleep and overdosed. It was a very serious overdose and she almost did not survive it. It is unclear if there is any residual damage as a result of this incident. CONSULTANTS INVOLVED: na TREATMENT AND PROGRESS ON THE UNIT : pt was ordered the same medications her outpatient provider, Dr. Liang at [facility], had her on. She claimed hte meds worked well. She states she just could not sleep and took too many Benadryl but by no means did she intend to kill herself. After contact was made with Dr. Liang he requested pt be started on a PATRICK which Luis did consent to. We started treatment with Invega Sustenna with the idea if she likes it she can remain on monthly injections or she can try the Trinza injection at month 4. She was maintained on low dose Risperdone and tapered off the Seroquel. The continues to c/o sleep difficulty. She will be discharged on po Risperidone and she will receive the 2nd Sustenna Injection today. Hopefully she will have more success with sleep going forward. HOSPITAL COURSE: Pt tolerated medications without side effects. Denies EPS or akathesia symptoms. Does have a mouth twitch and will be given cogentin 1 mg bid to help with this. Pt finds it very difficult to attend groups and be around people. She did attend programming on occasion but mostly stayed to her room. Dr. Liang's letter points out that Luis has not shown any interest in things over the past 4.5 years. We offered to connect her with Case management services as well as Adult Day Programming through [facility]. Luis refused both referrals. She says she will spend time exercising, walking with the grandchildren and getting outdoors more. She has a sister in the area and a brother. She also has a son and a daughter with grand children. At one point she was going to live at the daughters but there is reason to be concerned that Luis may be in a vulnerable situation there and have her money diverted for purposes other than Luis's care. She has to pay $100 dollars more in rent at the daughters. While she was in the hospital Luis's food stamp card was used and only $28 is left on it. We suspect the family knows what happened to the benefits. Also we talked with the payee who has done very well by Luis and he suspects that the daughter's boyfriend may be diverting Juliet medication which is why Luis is not sleeping. He did not say that but it is typewriters functional tester's conclusion that he has been observed leaving her apartment with medications. Apparently carolina have footage on the surveillance camera's in her apartment complex. We have no proof of this and the BF was not confronted as we did not want to cause an issue between the payee and the daughter. We did strongly recommend that Luis return to her own apartment as it is still available to her and she has a lease. DISCHARGE ASSESSMENT: Bipolar II disorder, current episode mixed, severe with insomnia. MENTAL STATUS EXAMINATION ON DISCHARGE: Patient is a 46 year old female, who is large in size, long straight hair, glasses with good eye contact. Language skills are intact Thought processes including: goal directed Thought content: appropriate Abstract reasoning, and computation: concrete Description of associations: fair Description of abnormal or psychotic thoughts: pt denies SI, HI and psychotic symptoms. states risperidone helped the voice go away and has worked well for years for her. Judgment: limited Insight: limited Orientation to person, place, time and situation. Recent and remote memory: seems intact Attention span and concentration: limited, pt admits to being confused at times when conversing. Fund of knowledge: fair Mood: euthymic Affect: flat, blunted. MEDICATIONS ON DISCHARGE: - Invega Systenna 156 mg IM - for mood- organized thinking due on 10/13/16 - effexor for mood -cogentin for EPS - risperidone for mood PLAN/FOLLOWUP ARRANGEMENTS: [facility] for injection on 10/13/16 of Invega Sustenna 156 mg . Continue Therapy at [facility]. The amount of time spent in the coordination of care for this patient was approximately 30 minutes. Vital Signs/I&Os Vital Signs Date Time Temp Pulse Resp B/P (MAP) Pulse Ox O2 Delivery O2 Flow Rate FiO2 09/23/16 06:00 98.9 85 18 118/61 (80) Laboratory Data Microbiology Microbiology 09/22/16 Wound Culture, Received Pending Medications Scheduled Benztropine Mesylate (Benztropine Mesylate) 1 Mg Tab, 1 MG PO BID for MUSCLE SPASMS for 7 Days, #14 take twice daily for lip movements/EPS Budesonide/Formoterol (Symbicort 160-4.5 Mcg/Act) 60 Puff/Inhaler Aers, 2 PUFF INH BID, (Reported) Clemastine Fumarate (Clemastine Fumarate) 2.68 Mg Tab, 2.68 MG PO DAILY, ( Reported) Levocetirizine Hydrochloride (Levocetirizine Dihydrochl) 5 Mg Tab, 5 MG PO DAILY , (Reported) Levothyroxine Sodium (Synthroid) 125 Mcg Tab, 125 MCG PO DAILY, (Reported) Nicotine (Nicotine Transdermal Syst) 14 Mg/24 Hr Dis, 1 PATCH TD DAILY, #30 Omeprazole (Omeprazole) 40 Mg Cap, 40 MG PO DAILY, (Reported) Paliperidone Palmitate (Invega Sustenna) 156 Mg/Ml Inj, 156 MG IM ONCE for MOOD for 30 Days, #1 Risperidone (Risperdal) 1 Mg Tab, 1 MG PO QHS for MOOD for 7 Days, #7 Allergies Coded Allergies: No Known Drug Allergy (Unverified Allergy, Unknown, 07/12/12) Marisa Gardner Sep 23, 2016 12:55
[2016-09-23] MEDS ORDERED: BENZ1TA PO (13:28)
== END 2016-09-23 13:30 | disposition home or self-care (01) | DRG 885 ==
LOC: M ED INP 20:01 → M PSY 20:55
PROVIDERS: ADMIT Psychiatry & Neurology Psychiatry; ATTEND Psychiatry & Neurology Psychiatry
DX: F31.81 Bipolar II disorder (principal); Z68.41 Body mass index [BMI] 40.0-44.9, adult; Z91.19 Patient's noncompliance with other medical treatment and regimen; F17.200 Nicotine dependence, unspecified, uncomplicated; Z79.899 Other long term (current) drug therapy; K21.9 Gastro-esophageal reflux disease without esophagitis; J44.9 Chronic obstructive pulmonary disease, unspecified; E03.9 Hypothyroidism, unspecified; E66.9 Obesity, unspecified; E87.6 Hypokalemia; G47.33 Obstructive sleep apnea (adult) (pediatric); R03.0 Elevated blood-pressure reading, without diagnosis of hypertension

== ENCOUNTER 2016-10-06 14:56 | Inpatient (IN) | payer MEDICARE, MEDICAID ==
[~2016-10-06] VITALS: Ht 170.2 cm; Wt 117.8 kg
[~2016-10-06 14:56] MED LIST changes: +BENZ-52 PO; +INVE156I IM; -LEVO125T3 PO; +LEVO125T4 PO; +RISP1TAB42 PO
[2016-10-06 16:54] LABS: MEAN CORPUSCULAR HGB CONC 33.2 g/dl (32.0-36.5); MEAN CORPUSCULAR VOLUME 90.3 fl (80.0-96.0); RED CELL DISTRIBUTION WIDTH 14.7 % (11.5-14.5); WHITE BLOOD COUNT 16.8 K/mm3 (4.0-10.0)
[2016-10-06 17:14] LABS: ALBUMIN 3.4 GM/DL (3.2-5.2); ALBUMIN/GLOBULIN RATIO 0.81 (1.00-1.93); ALKALINE PHOSPHATASE 133 U/L (45-117); ALT/SGPT 20 U/L (12-78); ANION GAP 8 MEQ/L (8-16); AST/SGOT 14 U/L (15-37); BILIRUBIN,DIRECT < 0.1 MG/DL (0.0-0.2); BILIRUBIN,TOTAL 0.2 MG/DL (0.2-1.0); BLOOD UREA NITROGEN 5 MG/DL (7-18); CALCIUM LEVEL 9.3 MG/DL (8.5-10.1); CARBON DIOXIDE LEVEL 29 MEQ/L (21-32); CHLORIDE LEVEL 98 MEQ/L (98-107); CREATININE FOR GFR 0.79 MG/DL (0.55-1.02); GLOMERULAR FILTRATION RATE > 60.0 (>58); GLUCOSE, FASTING 100 MG/DL (70-105); POTASSIUM SERUM 3.4 MEQ/L (3.5-5.1); SODIUM LEVEL 135 MEQ/L (136-145); TOTAL PROTEIN 7.6 GM/DL (6.4-8.2)
[2016-10-06 17:23] LABS: METHADONE URINE NEGATIVE (NEGATIVE)
[2016-10-06] MEDS ORDERED: LORazepam 1 MG TAB PO ONE (18:15)
[2016-10-06] MEDS ORDERED: TRAZ300T2 PO (19:16)
[2016-10-06] MEDS ORDERED: RISP3TAB3 PO (19:16)
[2016-10-06] MEDS ORDERED: NORC1TAB4 PO (19:16)
[2016-10-06] MEDS ORDERED: CLON1TAB PO (19:16)
[2016-10-06] MEDS ORDERED: INVE156I IM (19:16)
[2016-10-06] MEDS ORDERED: SERO1TAB2 PO (19:16)
[2016-10-06] MEDS ORDERED: VENL150C43 PO (19:16)
[2016-10-06] MEDS ORDERED: MIRT15TA3 PO (19:16)
[2016-10-06 20:00] VITALS: BP 142/75
[2016-10-06] MEDS ORDERED: clonazePAM 1 MG TAB PO SCH (21:00)
[2016-10-06] MEDS ORDERED: MAALOX 30 ML SUSP *UDC PO PRN (22:30)
[2016-10-06] MEDS ORDERED: MOM 30ML SUSPENSION UDC PO PRN (22:30)
[2016-10-06] MEDS ORDERED: ACETAMINOPHEN TAB 650MG DOSE (2X325MG) PO PRN (22:30)
[2016-10-06] MEDS ORDERED: traZODone 50 MG TAB PO PRN (22:30)
[2016-10-06] MEDS ORDERED: QUEtiapine FUMARATE 100 MG TAB PO ONE (22:45)
[2016-10-06] MEDS: MIRTAZAPINE 15 MG TAB PO SCH (22:55)
[2016-10-06] MEDS: IBUPROFEN 800 MG TAB PO PRN (22:58)
[2016-10-07] MEDS: LEVOTHYROXINE 125MCG TABLET (0.125MG) PO SCH (06:17)
[2016-10-07 06:25] VITALS: BP 114/66
[2016-10-07 07:11] LABS: BASO # 0.2 K/mm3 (0.0-0.2); EOS # 0.4 K/mm3 (0.0-0.50); EOS % 2.5 % (0.0-3.0); LARGE UNSTAINED CELL # 0.6 K/mm3 (0.0-0.4); LARGE UNSTAINED CELL % 3.5 % (0.0-4.0); LYMPH % 23.4 % (24.0-44.0); MEAN CORPUSCULAR HEMOGLOBIN 29.7 pg (27.0-33.0); MEAN CORPUSCULAR HGB CONC 33.2 g/dl (32.0-36.5); MEAN CORPUSCULAR VOLUME 89.6 fl (80.0-96.0); MONO % 5.9 % (0.0-5.0); NEUTROPHILS % 63.7 % (36.0-66.0); PLATELET COUNT, AUTOMATED 403 k/mm3 (150-450); RED CELL DISTRIBUTION WIDTH 14.5 % (11.5-14.5); WHITE BLOOD COUNT 17.2 K/mm3 (4.0-10.0)
[2016-10-07 07:28] LABS: ALBUMIN 3.3 GM/DL (3.2-5.2); ALBUMIN/GLOBULIN RATIO 0.89 (1.00-1.93); ALKALINE PHOSPHATASE 118 U/L (45-117); ALT/SGPT 18 U/L (12-78); ANION GAP 8 MEQ/L (8-16); AST/SGOT 10 U/L (15-37); BILIRUBIN,TOTAL 0.3 MG/DL (0.2-1.0); BLOOD UREA NITROGEN 5 MG/DL (7-18); CALCIUM LEVEL 9.1 MG/DL (8.5-10.1); CARBON DIOXIDE LEVEL 29 MEQ/L (21-32); CHLORIDE LEVEL 95 MEQ/L (98-107); CREATININE FOR GFR 0.81 MG/DL (0.55-1.02); GLOMERULAR FILTRATION RATE > 60.0 (>58); GLUCOSE, FASTING 148 MG/DL (70-105); POTASSIUM SERUM 3.8 MEQ/L (3.5-5.1); SODIUM LEVEL 132 MEQ/L (136-145)
--- NOTE | 2016-10-07 08:15 | MHHPEPDOC ---
[facility] History & Physical History and Physical DATE OF ADMISSION: Oct 06, 2016 at 17:59 LEGAL STATUS AT ADMISSION: 9.39 CHIEF COMPLAINT: "I can't sleep". HISTORY OF THE PRESENT ILLNESS: Patient is a 46-year-old female, who returns with the same complaint she had when she left last month. Pt denies hearing voices but her admission information states she is having command hallucinations that tell her to kill a neighbor. It seems she was trying to sleep one day while he was mowing the lawn. Differential Specialist's concern is that patient is once again sleeping the day away and not spending time out of bed, out of the house and involved with things as we discussed an dpt agreed to do. Pt also states she is sleeping in "Juan Manuel's bed" as her room is being painted. We were told on discharge her room at her daughter's was all ready for her. She has a bed at her apartment in a room that does not require painting for her to use it. Also pt states that she will fall asleep easily but then the noise from the TV wakes her up. We will have to discuss this with Rohini, the patient's daughter who is providing Luis with a home. During admission last month physician underwriter was able to discuss case with the outpatient psychiatrist who has treated Luis for many years. He states she lacks interest in most things and prefers to sleep the day away. He is not aware of any mental incapacities but states she has always presented pretty much as someone would with a low IQ. PSYCHIATRIC REVIEW OF SYSTEMS: Affective: constricted, blunted Anxiety: mild Trauma: denies Psychosis: daily auditory hallucinations, more than once a day, command hallucination telling her to kill the neighbor. Confirmed by patient. Personally: easy to engage PAST PSYCHIATRIC HISTORY:PAST PSYCHIATRIC HISTORY: Prior Psychiatric Disorder: Bipolar disorder, most recent episode depressed, possibly with psychotic features. Outpatient Treatment: Dr. Azul Biswas Suicidal/Self injurious: denies Psychotropic Medication History: quetiapine, risperidone, Effexor, mirtazapine ALLERGIES: Please see below. FAMILY PSYCHIATRIC HISTORY: both mother and father had problems with alcohol. She reports erratic moods in her father. No known diagnosis of Mental illness in the family. No family h/o suicide. SOCIAL HISTORY: Early Relations/development: parents were alcoholic Sibling order: she is the middle child of 3. 1 older brother and 1 younger sister. they get along well. Paternal relationships: both abused alcohol Education: GED. 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 Legal: denies. Martial: Economic: SSDI. Supports: children, outpatient providers, friends Abuse/trauma: denies SUBSTANCE ABUSE HISTORY: toxicology - for benzodiazepines. Pt abuses sedatives , adding OTC medications to her medication regime without outpatient providers awareness. PAST MEDICAL/SURGICAL HISTORY: 1. hypothyroidism 2. obesity PT C/O COUGH WITH GREEN TINGED SPUTUM. WBC'S ELEVATED call placed to hospitalist Dr. Marquez who says he will come and evaluate her. ALLERGIES: NKDA VITAL SIGNS: Temperature 97.7, pulse 116, respiratory rate 18, blood pressure 114/66 pulse oximetry 91% on room air. MENTAL STATUS EXAMINATION: General appearance: Patient is a 46-year old female, who is wearing hospital clothing, long dark straight hair, eye glasses, appears confused and dazed, cooperative and easy to engage. Speech: spontaneous, a bit garbled at times. Thought processes: logical, concrete Thought content: appropriate. Abstract reasoning and computation: concrete. Description of associations: loose. Description of abnormal or psychotic thoughts: one command hallucination to kill neighbor who was mowing when she was trying to sleep. Judgment: very limited Insight: poor. Orientation: oriented to person, place and situation, easily oriented to day of week and time. Recent and remote memory: sparse Attention span and concentration: poor Fund of knowledge:poor. Mood: "I've not had any sleep". Affect: blunted , flat, constricted. DIAGNOSES: bipolar II disorder, current episode depressed, with psychotic features. treatment non-compliance by history. ASSESSMENT: Pt engages easily and is focused on her lack of sleep. She previously had a very serious overdose on Benadryl and was not expected to survive. She has recovered well enough to resume her lifestyle but her life lacks purpose and structure. The daughter she is living with has asked her to pay 1/2 the rent on the house they live in which increased Luis's rent by $ 100. Also, during Juliana's last admission someone used all but $25 of [employer] food stamp benefits, barely leaving her enough food until the end of the month. Pts Payee is very concerned about Luis's finances since she has chosen to live with the daughter who has 3 young children. There is suspicion that the daughter 's BF may be involved with drugs in one form or another. Misappropriating Luis' s medications may have been instrumental in her overdosing on Benadryl if she did not have her Risperidone and Seroquel. PROBLEM LIST: altered perceptions cognitive impairment self-care deficit INITIAL TREATMENT PLAN: 1. Patient was admitted on a 9.39 2. Complete history was obtained. 3. With patients permission, family will be contacted and database will be expanded. 4. Patients medication regimen will be reviewed and changed accordingly. 5. Patient will be provided with protected environment. 6. Patient will be treated with individual, group, and milieu therapies. 7. Patient will receive supportive psych-education. 8. Discharge planning will commence immediately. 9. Outpatient follow-up treatment will be strongly recommended. 10. The initial treatment plan will focus initially on: * see problem list ESTIMATED LENGTH OF STAY: 4-7 DAYS. Call placed and message left for [facility]. No return call. Risperidone 1.5 mg at hs will be started and Seroquel 150 mg will be increased. She was discharged on 100 mg of seroquel and were hoping to stop this medication as an outpatient. . It is possible 156 mg of Sustenna is not holding her. TIME SPENT COUNSELING AND COORDINATING INITIAL CARE: 60 minutes. Laboratory Data 24H Labs Laboratory Tests 2 10/06/16 16:07: Anion Gap 8, Glomerular Filtration Rate > 60.0, Calcium Level 9.3, Aspartate Amino Transf (AST/SGOT) 14L, Alanine Aminotransferase (ALT/SGPT) 20, Alkaline Phosphatase 133H, Total Bilirubin 0.2, Direct Bilirubin < 0.1, Total Protein 7.6 , Albumin 3.4, Albumin/Globulin Ratio 0.81L, Thyroid Stimulating Hormone (TSH) 3.710, Salicylates Level 4.3L, Urine Amphetamines Screen NEGATIVE, Urine Benzodiazepines Screen NEGATIVE, Urine Opiates Screen NEGATIVE, Urine Methadone Screen NEGATIVE, Acetaminophen Level < 2.0L, Urine Barbiturates Screen NEGATIVE , Urine Phencyclidine Screen NEGATIVE, Urine Cocaine Metabolite Screen NEGATIVE , Urine Cannabinoids Screen NEGATIVE, Ethyl Alcohol Level < 0.003 10/06/16 16:30: Bedside Glucose (Misc Panel) 115H 10/07/16 06:43: Anion Gap 8, Glomerular Filtration Rate > 60.0, Calcium Level 9.1, Aspartate Amino Transf (AST/SGOT) 10L, Alanine Aminotransferase (ALT/SGPT) 18, Alkaline Phosphatase 118H, Total Bilirubin 0.3, Total Protein 7.0, Albumin 3.3, Albumin/ Globulin Ratio 0.89L, White Blood Count 17.2H, Red Blood Count 4.43, Hemoglobin 13.2, Hematocrit 39.7, Mean Corpuscular Volume 89.6, Mean Corpuscular Hemoglobin 29.7, Mean Corpuscular Hemoglobin Concent 33.2, Red Cell Distribution Width 14.5, Platelet Count 403, Neutrophils (%) (Auto) 63.7, Lymphocytes (%) (Auto) 23.4L, Monocytes (%) (Auto) 5.9H, Eosinophils (%) (Auto) 2.5, Basophils (%) (Auto) 1.0, Neutrophils # (Auto) 11.0H, Lymphocytes # (Auto) 4.0, Monocytes # (Auto) 1.0H, Eosinophils # (Auto) 0.4, Basophils # (Auto) 0.2, Large Unclassified Cells % 3.5, Large Unclassified Cells # 0.6H, Blood Urea Nitrogen 5L, Creatinine 0.81, Sodium Level 132L, Potassium Level 3.8, Chloride Level 95L, Carbon Dioxide Level 29 CBC/BMP Laboratory Tests 10/06/16 16:07 Red Blood Count 4.81, Mean Corpuscular Volume 90.3, Mean Corpuscular Hemoglobin 30.0, Mean Corpuscular Hemoglobin Concent 33.2, Red Cell Distribution Width 14.7 H 10/07/16 06:43 Red Blood Count 4.43, Mean Corpuscular Volume 89.6, Mean Corpuscular Hemoglobin 29.7, Mean Corpuscular Hemoglobin Concent 33.2, Red Cell Distribution Width 14.5 , Neutrophils (%) (Auto) 63.7, Lymphocytes (%) (Auto) 23.4 L, Monocytes (%) ( Auto) 5.9 H, Eosinophils (%) (Auto) 2.5, Basophils (%) (Auto) 1.0, Neutrophils # (Auto) 11.0 H, Lymphocytes # (Auto) 4.0, Monocytes # (Auto) 1.0 H, Eosinophils # (Auto) 0.4, Basophils # (Auto) 0.2, Calcium Level 9.1, Aspartate Amino Transf (AST/SGOT) 10 L, Alanine Aminotransferase (ALT/SGPT) 18, Alkaline Phosphatase 118 H, Total Bilirubin 0.3, Total Protein 7.0, Albumin 3.3 FSBS Laboratory Tests Test 10/06/16 16:30 Range/Units Bedside Glucose (Misc Panel) 115 70-105 MG/DL Medications Scheduled (Risperidone) 3 Mg Tab, 3 MG PO QID, (Reported) PT DIDNT KNOW MEDS NEXT OF KIN NO ANSWER OBTAINED FROM EXTERNAL MED HISTORY Budesonide/Formoterol (Symbicort 160-4.5 Mcg/Act) 60 Puff/Inhaler Aers, 2 PUFF INH BID, (Reported) PT DIDNT KNOW MEDS NEXT OF KIN NO ANSWER OBTAINED FROM EXTERNAL MED HISTORY Clemastine Fumarate (Clemastine Fumarate) 2.68 Mg Tab, 2.68 MG PO DAILY, ( Reported) Clonazepam (Clonazepam) 1 Mg Tab, 1 MG PO TID, (Reported) PT DIDNT KNOW MEDS NEXT OF KIN NO ANSWER OBTAINED FROM EXTERNAL MED HISTORY Levothyroxine Sodium (Synthroid) 125 Mcg Tab, 125 MCG PO DAILY, (Reported) Mirtazapine (Mirtazapine) 15 Mg Tab, 15 MG PO QHS, (Reported) PT DIDNT KNOW MEDS NEXT OF KIN NO ANSWER OBTAINED FROM EXTERNAL MED HISTORY Omeprazole (Omeprazole) 40 Mg Cap, 40 MG PO DAILY, (Reported) Paliperidone Palmitate (Invega Sustenna) 156 Mg/Ml Inj, 156 MG IM QMONTH, ( Reported) PT DIDNT KNOW MEDS NEXT OF KIN NO ANSWER OBTAINED FROM EXTERNAL MED HISTORY Quetiapine Fumarate (Seroquel) 300 Mg Tab, 300 MG PO BID, (Reported) PT DIDNT KNOW MEDS NEXT OF KIN NO ANSWER OBTAINED FROM EXTERNAL MED HISTORY Trazodone HCl (Trazodone HCl) 300 Mg Tab, 300 MG PO QHS, (Reported) PT DIDNT KNOW MEDS NEXT OF KIN NO ANSWER OBTAINED FROM EXTERNAL MED HISTORY Venlafaxine Hydrochloride (Venlafaxine HCl ER) 150 Mg Cap, 150 MG PO DAILY, ( Reported) PT DIDNT KNOW MEDS NEXT OF KIN NO ANSWER OBTAINED FROM EXTERNAL MED HISTORY Scheduled PRN Acetaminophen/Hydrocodone (Round O 5-325 mg) 1 Tab Tab, 1 TAB PO Q6H PRN for PAIN, (Reported) PT DIDNT KNOW MEDS NEXT OF KIN NO ANSWER OBTAINED FROM EXTERNAL MED HISTORY Allergies Coded Allergies: No Known Drug Allergy (Unverified Allergy, Unknown, 07/12/12) Marisa Gardner Oct 07, 2016 08:14
--- NOTE | 2016-10-07 08:22 | HPE ---
DATE OF ADMISSION: 10/06/2016 HISTORY OF THE PRESENT ILLNESS: Please refer to psychiatric history and evaluation for further details on this admission. This examination and history is intended for medical issues history, which may need treatment, followup or consultation of this 46-year-old female. PRIMARY CARE PROVIDER: MARY Sawyer, [facility]. ALLERGIES: No known drug allergies. SOCIAL HISTORY: She is . She resides in [place], [place]. She states she lives with her daughter. Smokes 1-2 packs of cigarettes per day. FAMILY HISTORY: Mother with cancer. Father heart disease. LABORATORY STUDIES: WBC 16.8, hemoglobin 14.4, hematocrit 43.4, platelets 499, sodium 135, potassium 3.4, chloride 98, CO2 29, BUN and creatinine 5 and 0.79. Toxicology screen negative. TSH 3.71. EKG on file. HOME MEDICATIONS: - Tylenol with hydrocodone one by mouth every 6 hours as needed for pain - Symbicort 160/4.5 two puffs by mouth twice a day - clonazepam 1 mg by mouth three times a day - levothyroxine 125 mcg by mouth daily - mirtazapine 15 mg by mouth at bedtime - omeprazole 40 mg by mouth daily - paliperidone palmitate, which is Invega Sustenna, 156 mg/mL, 156 mg IM every month - Seroquel 300 mg by mouth twice a day - risperidone 3 mg by mouth four times a day - trazodone 300 mg by mouth at bedtime - venlafaxine 150 mg by mouth daily - clemastine fumarate 2.6 mg by mouth daily REVIEW OF SYSTEMS: 10-systems review was done. The patient had no complaints of headaches, no blurred or double vision, no fever, no chills, no tinnitus, no hoarseness, no difficulty swallowing, no lightheadedness, no vertigo. BREASTS: No masses. CARDIOVASCULAR: No complaints of chest pain, shortness of breath, palpitations or edema. RESPIRATORY: No chronic cough. No sputum production. No hemoptysis. No orthopnea. No wheeze. GI: No nausea or vomiting. No hematochezia. No melena. No rectal bleeding. States that she will have a normal stool and then 3-4 watery stools. This has been ongoing for over a year. No constipation. Will do a stool GI panel. No abdominal pain. : She has frequency. Will order a urine for culture and sensitivity. MUSCULOSKELETAL: No joint redness or swelling. ENDOCRINE: History of hypothyroidism. TSH is therapeutic. HEMATOLOGIC: No history of anemia. NEUROLOGIC: History of migraines. No paresthesias or paralysis. No history of seizures. PSYCHOLOGIC: History of depression. Has had suicide attempts in the past. See psychiatric history and physical. Complaint of index finger left being swollen since she slammed it in the door earlier. She has full range of motion. Capillary refill less than 2 seconds. Hand grasps equal. IMPRESSION/PLAN: 1. Psychiatric plan per psychiatry. 2. Swollen left finger. Ice. Motrin 400 mg by mouth every 6 hours as needed for pain or swelling. Get an x-ray. 3. Frequent urination. Get urine for culture and sensitivity. 4. Repeat CBC and CMP in the morning. 5. No other acute medical issues.
[2016-10-07] MEDS: NICOTINE 21MG/24HR 1 EA TRANSDERMAL TD SCH (08:29)
[2016-10-07] MEDS: SYMBICORT 160/4.5MCG INHALER 6GM INH SCH ×2 (08:29→20:16)
[2016-10-07] MEDS: OMEPRAZOLE 20 MG CAP PO SCH (08:30)
[2016-10-07] MEDS: clonazePAM 0.5 MG TAB PO SCH ×2 (08:30→20:20)
[2016-10-07] MEDS: VENLAFAXINE **XR** 75MG CAPSULE PO SCH (08:30)
[2016-10-07] MEDS ORDERED: NON-FORMULARY 1 EA EA PO SCH (09:00)
[2016-10-07] MEDS: AUGMENTIN 875 MG TAB PO SCH ×2 (09:21→20:15)
--- NOTE | 2016-10-07 10:29 | REP ---
Clinical: Chest pain. Rule out infiltrate . Comparison: 09/13/2016 . Technique: PA. Findings: The mediastinum and cardiac silhouette are normal. The lung murguia are clear and without acute consolidation, effusion, or pneumothorax. The skeletal structures are intact and normal. Impression: 1. No acute cardiopulmonary process. Signed by Lacho Batista MD 10/07/2016 10:21 A
--- NOTE | 2016-10-07 10:30 | REP ---
Clinical: Trauma. Technique: AP, lateral, bilateral oblique views left second digit . Findings: The osseous structures and joint spaces are intact and normal. There is no evidence for acute fracture or dislocation. Surrounding soft tissues are unremarkable. No subcutaneous emphysema or radiodense foreign body. Impression: Age appropriate examination. No acute fracture or dislocation. Signed by Lacho Batista MD 10/07/2016 10:21 A
--- NOTE | 2016-10-07 15:34 | ECGEPIP ---
Stationary ECG Study [facility] Test Date: 2016-10-07 Pat Name: CAITLIN CONDE Department: Room: [place] [address] Gender: F Bleach Analyst: : 1970 Requested By: KAE ELIAS Order Number: [id number] Reading MD: Gloria Lorenz Measurements Intervals Aragon Rate: 107 P: 57 VA: 140 QRS: 78 QRSD: 103 T: 65 QT: 360 QTc: 481 Interpretive Statements SINUS TACHYCARDIA ABNORMAL RHYTHM ECG similar TO 09/16/16 Electronically Signed On 10-07-2016 15:34:22 EDT by Gloria Lorenz
[2016-10-07 18:00] VITALS: BP 125/64
[2016-10-07] MEDS: MIRTAZAPINE 15 MG TAB PO SCH (20:16)
[2016-10-07] MEDS: risperiDONE 1 MG M-TAB PO SCH (20:19)
[2016-10-07] MEDS: traZODone 100 MG TAB PO SCH (20:19)
[2016-10-07] MEDS: QUEtiapine FUMARATE 50 MG TAB PO SCH (20:19)
[2016-10-07] MEDS: IBUPROFEN 800 MG TAB PO PRN (20:21)
[2016-10-08] MEDS: LEVOTHYROXINE 125MCG TABLET (0.125MG) PO SCH (06:13)
[2016-10-08 07:03] VITALS: BP 129/70
[2016-10-08 07:32] LABS: BASO # 0.1 K/mm3 (0.0-0.2); BASO % 0.8 % (0.0-1.0); EOS # 0.3 K/mm3 (0.0-0.50); EOS % 2.4 % (0.0-3.0); LARGE UNSTAINED CELL # 0.5 K/mm3 (0.0-0.4); LARGE UNSTAINED CELL % 4.2 % (0.0-4.0); LYMPH # 2.8 K/mm3 (1.5-4.5); LYMPH % 23.7 % (24.0-44.0); MEAN CORPUSCULAR HEMOGLOBIN 29.8 pg (27.0-33.0); MEAN CORPUSCULAR VOLUME 90.4 fl (80.0-96.0); MONO # 0.8 K/mm3 (0.0-0.8); MONO % 6.9 % (0.0-5.0); NEUTROPHILS # 7.5 K/mm3 (1.8-7.7); NEUTROPHILS % 62.1 % (36.0-66.0); PLATELET COUNT, AUTOMATED 438 k/mm3 (150-450); RED CELL DISTRIBUTION WIDTH 14.7 % (11.5-14.5)
[2016-10-08] MEDS: OMEPRAZOLE 20 MG CAP PO SCH (08:59)
[2016-10-08] MEDS: AUGMENTIN 875 MG TAB PO SCH ×2 (08:59→20:55)
[2016-10-08] MEDS: VENLAFAXINE **XR** 75MG CAPSULE PO SCH (08:59)
[2016-10-08] MEDS: clonazePAM 0.5 MG TAB PO SCH (08:59)
[2016-10-08] MEDS: SYMBICORT 160/4.5MCG INHALER 6GM INH SCH ×2 (08:59→20:54)
[2016-10-08] MEDS: NICOTINE 21MG/24HR 1 EA TRANSDERMAL TD SCH (09:00)
[2016-10-08] MEDS ORDERED: clonazePAM 0.5 MG TAB PO PRN (11:30)
--- NOTE | 2016-10-08 14:21 | MHIPNPDOC ---
[facility] Progress Note Progress Note DATE OF SERVICE: 10/08/16 HISTORY: day 3 of admission for HI and auditory hallucinations. VITAL SIGNS: See below. NEW TEST RESULTS: CURRENT MEDICATIONS: See below. MENTAL STATUS EXAMINATION: Patient is a 46-year old female, who is dressed in hospital attire, wearing glasses, long hair, large size, fair eye contact and pleasant.. Speech: Is spontaneous and clear Language skills are intact Thought processes including: goal directed Thought content: appropriate. Abstract reasoning, and computation: concrete. Description of associations:good. Description of abnormal or psychotic thoughts: denies having auditory hallucinations since medication changes last night, Denies SI and HI.. Judgment: limited Insight: poor. Orientation: well oriented to person, place, situation and date. Recent and remote memory: impaired following overdose last month. Attention span and concentration: varies. Fund of knowledge: limited. Mood: euthymic. Affect: blunted. DIAGNOSES: bipolar II disorder, current episode depressed, with psychotic features. treatment non-compliance by history. ASSESSMENT: met with Luis for 1:1. She says she slept very well last night with the addition of Risperdol 1.5 mg and Seroquel 150 mg. She also denies hearing voices at all today. She is asking for discharge. She states she and her daughter have been exercising and walking and she feels comfortable in her home. She says she has her medications available to her without any problems. MANAGEMENT PLAN: maintain current meds, contact daughter to confirm things are going well having Luis in her home. maintain observation. Prepare for discharge by end of week if possible. TIME SPENT: 15 minutes. Vital Signs Vital Signs Date Time Temp Pulse Resp B/P (MAP) Pulse Ox O2 Delivery O2 Flow Rate FiO2 10/08/16 07:03 97.4 100 18 129/70 (89) Room Air 10/07/16 06:25 91 Laboratory Data 24H Labs Laboratory Tests 2 10/08/16 07:04: White Blood Count 12.0H, Red Blood Count 4.51, Hemoglobin 13.4, Hematocrit 40.8 , Mean Corpuscular Volume 90.4, Mean Corpuscular Hemoglobin 29.8, Mean Corpuscular Hemoglobin Concent 33.0, Red Cell Distribution Width 14.7H, Platelet Count 438, Neutrophils (%) (Auto) 62.1, Lymphocytes (%) (Auto) 23.7L, Monocytes (%) (Auto) 6.9H, Eosinophils (%) (Auto) 2.4, Basophils (%) (Auto) 0.8 , Neutrophils # (Auto) 7.5, Lymphocytes # (Auto) 2.8, Monocytes # (Auto) 0.8, Eosinophils # (Auto) 0.3, Basophils # (Auto) 0.1, Large Unclassified Cells % 4.2H, Large Unclassified Cells # 0.5H, C-Reactive Protein, Quantitative 1.24H CBC/BMP Laboratory Tests 10/08/16 07:04 Red Blood Count 4.51, Mean Corpuscular Volume 90.4, Mean Corpuscular Hemoglobin 29.8, Mean Corpuscular Hemoglobin Concent 33.0, Red Cell Distribution Width 14.7 H, Neutrophils (%) (Auto) 62.1, Lymphocytes (%) (Auto) 23.7 L, Monocytes (% ) (Auto) 6.9 H, Eosinophils (%) (Auto) 2.4, Basophils (%) (Auto) 0.8, Neutrophils # (Auto) 7.5, Lymphocytes # (Auto) 2.8, Monocytes # (Auto) 0.8, Eosinophils # (Auto) 0.3, Basophils # (Auto) 0.1 Current Medications Current Medications Acetaminophen (Tylenol Tab) 650 mg Q6HP PRN PO HEADACHE or DISCOMFORT; Start at 22:30; Stop 11/05/16 at 22:29 Al Hydrox/Mg Hydrox/Simethicone (Mylanta) 30 ml Q4HP PRN PO HEARTBURN/ INDIGESTION; Start 10/06/16 at 22:30; Stop 11/05/16 at 22:29 Amoxicillin/ Clavulanate Potassium (Augmentin) 875 mg BID PO Last administered on 10/08/16 08:59; Start 10/07/16 at 09:00; Stop 10/14/16 at 08:59 Budesonide/ Formoterol Fumarate (Symbicort 160/ 4.5mcg) 2 puff BID INH Last administered on 10/08/16 08:59; Start 10/07/16 at 09:00; Stop 11/06/16 at 08:59 Clonazepam (KlonoPIN) 0.5 mg BID PO Last administered on 10/08/16 08:59; Start 10/07/16 at 09:00; Stop 10/08/16 at 11:25; Status DC Clonazepam (KlonoPIN) 0.5 mg QAMP PRN PO ANXIETY; Start 10/08/16 at 11:30; Stop 10/15/16 at 11:29 Clonazepam (KlonoPIN) 1 mg TID PO Last administered on 10/06/16 22:55; Start at 21:00; Stop 10/07/16 at 08:03; Status DC Home Med (Med Rec Complete!) ASDIRECTED XX ; Start 10/06/16 at 19:30; Stop at 19:30; Status DC Ibuprofen (Advil) 800 mg Q8H PRN PO PAIN SCALE 1-5 Last administered on 20:21; Start 10/06/16 at 23:00; Stop 11/05/16 at 22:59 Levothyroxine Sodium (Synthroid) 125 mcg DAILY@0600 PO Last administered on 10/08 06:13; Start 10/07/16 at 06:00; Stop 11/06/16 at 05:59 Magnesium Hydroxide (Milk Of Magnesia) 30 ml DAILYPRN PRN PO CONSTIPATION; Start 10/06/16 at 22:30; Stop 11/05/16 at 22:29 Mirtazapine (Remeron) 15 mg QHS PO Last administered on 10/07/16 20:16; Start 10/06/16 at 21:00; Stop 11/05/16 at 20:59 Miscellaneous (Unresolved Patient Own Med Order) SEE LABEL COMMENTS UNRESOLVED XX ; Start 10/08/16 at 00:01; Stop 11/07/16 at 00:00 Nicotine (Nicoderm Cq 21mg) 1 patch DAILY TD Last administered on 10/08/16 09: 00; Start 10/07/16 at 09:00; Stop 11/06/16 at 08:59 Non-Formulary Medication 1 ea DAILY PO ; Start 10/07/16 at 09:00; Stop 11/06/16 at 08:59; Status UNV Omeprazole (PriLOSEC) 40 mg DAILY PO Last administered on 10/08/16 08:59; Start 10/07/16 at 09:00; Stop 11/06/16 at 08:59 Quetiapine Fumarate (SEROquel) 150 mg QHS PO Last administered on 10/07/16 20: 19; Start 10/07/16 at 21:00; Stop 11/06/16 at 20:59 Risperidone (RisperDAL M-TAB) 1.5 mg QHS PO Last administered on 10/07/16 20:19 ; Start 10/07/16 at 21:00; Stop 11/06/16 at 20:59 Trazodone HCl (Desyrel) 300 mg QHS PO Last administered on 10/07/16 20:19; Start 10/07/16 at 21:00; Stop 11/06/16 at 20:59 Trazodone HCl (Desyrel) 300 mg QHSP PRN PO INSOMNIA; Start 10/06/16 at 22:30; Stop 10/06/16 at 22:57; Status DC Venlafaxine HCl (Effexor Xr) 150 mg DAILY PO Last administered on 10/08/16 08:59; Start 10/07/16 at 09:00; Stop 11/06/16 at 08:59 Allergies Coded Allergies: No Known Drug Allergy (Unverified Allergy, Unknown, 07/12/12) Marisa Gardner Oct 08, 2016 14:21
[2016-10-08 18:00] VITALS: BP 101/52
[2016-10-08] MEDS: QUEtiapine FUMARATE 50 MG TAB PO SCH (20:54)
[2016-10-08] MEDS: traZODone 100 MG TAB PO SCH (20:54)
[2016-10-08] MEDS: MIRTAZAPINE 15 MG TAB PO SCH (20:54)
[2016-10-08] MEDS: risperiDONE 1 MG M-TAB PO SCH (20:54)
[2016-10-09] MEDS: LEVOTHYROXINE 125MCG TABLET (0.125MG) PO SCH (06:19)
[2016-10-09 06:29] VITALS: BP 90/55
[2016-10-09] MEDS: SYMBICORT 160/4.5MCG INHALER 6GM INH SCH (09:11)
[2016-10-09] MEDS: OMEPRAZOLE 20 MG CAP PO SCH (09:11)
[2016-10-09] MEDS: VENLAFAXINE **XR** 75MG CAPSULE PO SCH (09:11)
[2016-10-09] MEDS: NICOTINE 21MG/24HR 1 EA TRANSDERMAL TD SCH (09:11)
[2016-10-09] MEDS: AUGMENTIN 875 MG TAB PO SCH (09:11)
[2016-10-09] MEDS ORDERED: RISP-4 PO (09:43)
[2016-10-09] MEDS ORDERED: MIRT15TA3 PO (09:43)
[2016-10-09] MEDS ORDERED: TRAZ10TA PO (09:43)
[2016-10-09] MEDS ORDERED: QUET5TAB PO ×2 (09:43→11:04)
[2016-10-09] MEDS ORDERED: VENL75CA2 PO (09:43)
[2016-10-09] MEDS ORDERED: QUET1TAB8 PO (10:19)
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
[2017-01-29] MEDS ORDERED: SERO1TAB2 PO (14:14)
[2017-01-29] MEDS ORDERED: REME15TA PO (14:14)
[2017-01-29] MEDS ORDERED: EFFE75CA75 PO (14:14)
[2017-01-29] MEDS ORDERED: METF500T13 PO (19:21)
[2017-02-09] MEDS ORDERED: ARIP10TAB PO (12:09)
[2017-02-09] MEDS ORDERED: SULF1TAB23 PO (12:09)
[2017-02-09] MEDS ORDERED: INVE234I IM (12:09)
[2017-02-09] MEDS ORDERED: QUET1TAB9 PO (12:09)
[2017-02-09] MEDS ORDERED: VENL37TA PO (12:09)
[2017-02-09] MEDS ORDERED: NICO21PAT TD (12:09)
== END 2016-10-09 14:05 | disposition home or self-care (01) | DRG 885 ==
LOC: M ED 14:56 → M ED INP 17:59 → M PSY 20:00
PROVIDERS: ADMIT Psychiatry & Neurology Psychiatry; ATTEND Psychiatry & Neurology Psychiatry
DX: F31.81 Bipolar II disorder (principal); F31.5 Bipolar disorder, current episode depressed, severe, with psychotic features; Z91.19 Patient's noncompliance with other medical treatment and regimen; R45.850 Homicidal ideations; F17.210 Nicotine dependence, cigarettes, uncomplicated; Z80.9 Family history of malignant neoplasm, unspecified; Z82.49 Family history of ischemic heart disease and other diseases of the circulatory system; Z79.899 Other long term (current) drug therapy; R35.0 Frequency of micturition; M79.89 Other specified soft tissue disorders

== ENCOUNTER 2016-12-18 16:42 | Inpatient (IN) | payer MEDICARE, MEDICAID ==
[~2016-12-18] VITALS: Ht 170.2 cm; Wt 123.6 kg
[~2016-12-18 16:42] MED LIST changes: +QUET1TAB8 PO; +QUET5TAB PO; +RISP-4 PO; +SERO1TAB2 PO; +TRAZ10TA PO; +VENL150C43 PO; +VENL75CA2 PO
[2016-12-18 17:57] LABS: MEAN CORPUSCULAR HEMOGLOBIN 26.3 pg (27.0-33.0); MEAN CORPUSCULAR HGB CONC 33.1 g/dl (32.0-36.5); MEAN CORPUSCULAR VOLUME 79.4 fl (80.0-96.0); WHITE BLOOD COUNT 21.4 K/mm3 (4.0-10.0)
[2016-12-18 18:24] LABS: ALBUMIN 2.7 GM/DL (3.2-5.2); ALBUMIN/GLOBULIN RATIO 0.75 (1.00-1.93); ALKALINE PHOSPHATASE 116 U/L (45-117); ALT/SGPT 14 U/L (12-78); ANION GAP 11 MEQ/L (8-16); AST/SGOT 10 U/L (15-37); BILIRUBIN,DIRECT < 0.1 MG/DL (0.0-0.2); BILIRUBIN,TOTAL 0.3 MG/DL (0.2-1.0); BLOOD UREA NITROGEN 4 MG/DL (7-18); CALCIUM LEVEL 8.2 MG/DL (8.5-10.1); CARBON DIOXIDE LEVEL 28 MEQ/L (21-32); CHLORIDE LEVEL 88 MEQ/L (98-107); CREATININE FOR GFR 0.54 MG/DL (0.55-1.02); GLOMERULAR FILTRATION RATE > 60.0 (>58); GLUCOSE, FASTING 179 MG/DL (70-105); POTASSIUM SERUM 3.6 MEQ/L (3.5-5.1); SODIUM LEVEL 127 MEQ/L (136-145); TOTAL PROTEIN 6.3 GM/DL (6.4-8.2)
[2016-12-18] MEDS ORDERED: VENL75CA2 PO (18:30)
[2016-12-18] MEDS ORDERED: QUET5TAB PO (18:30)
[2016-12-18] MEDS ORDERED: SYMB16INH INH (18:30)
[2016-12-18] MEDS ORDERED: TRAZ-136 PO (18:30)
[2016-12-18] MEDS ORDERED: OMEP40CA2 PO (18:30)
[2016-12-18] MEDS ORDERED: LEVO125T4 PO (18:30)
[2016-12-18] MEDS ORDERED: MIRT15TA3 PO (18:30)
[2016-12-18] MEDS ORDERED: CLEM2.68 PO (18:30)
[2016-12-18] MEDS ORDERED: INVE234I IM (18:30)
--- NOTE | 2016-12-18 19:09 | REP ---
Clinical: Dyspnea. Findings: Moderate bronchitis and right middle lobe atelectasis is appreciated along with trace lingular atelectasis. No further consolidation, effusion, or pneumothorax. Tracheobronchial tree is patent. Mediastinum demonstrates normal thoracic aorta and heart/pericardium. Mild reactive adenopathy cannot be excluded. No axillary adenopathy. Surrounding musculoskeletal structures are intact. Limited upper abdomen demonstrates normal bilateral adrenal glands and evidence for prior cholecystectomy. Impression: Moderate bronchitis with right middle lobe and minimal lingular atelectasis. Signed by Lacho Batista MD 12/18/2016 06:59 P
[2016-12-18] MEDS ORDERED: NS 1,000 ML IV ONE (19:15)
[2016-12-18] MEDS ORDERED: MOXIFLOXACIN HCL 400 MG in APPROPRIATE DILUENT 1 EA IV ONE (19:15)
--- NOTE | 2016-12-18 19:30 | REP ---
Clinical: Shortness of breath. Comparison: 10/07/2016. Technique: PA and lateral. Findings: Mediastinum and cardiac silhouette are normal. Increased perihilar and lower lobe markings suggest the possibility of pulmonary vascular congestion/interstitial edema versus bronchitis and possible medial right lower lobe atelectasis. Impression: Findings suggest pulmonary vascular congestion/interstitial edema versus bronchitis and basilar atelectasis. Signed by Lacho Batista MD 12/18/2016 07:19 P
[2016-12-18] MEDS ORDERED: ACETAMINOPHEN TAB 650MG DOSE (2X325MG) PO PRN (19:45)
[2016-12-18] MEDS ORDERED: NICOTINE 21MG/24HR 1 EA TRANSDERMAL TD ONE (20:00)
[2016-12-18] MEDS ORDERED: ALBUTEROL SULFATE 2.5 MG/0.5 ML INH NEB SOLN NEB PRN (20:00)
[2016-12-18 20:14] LABS: METHADONE URINE NEGATIVE (NEGATIVE)
--- NOTE | 2016-12-18 20:44 | HPE ---
DATE OF ADMISSION: 12/18/2016 PRIMARY CARE PROVIDER: Carla. HISTORY OF PRESENT ILLNESS: Patient is a 46-year-old female with a medical history significant for multiple psychiatric conditions, chronic obstructive pulmonary disease (COPD), hypothyroidism, reflux disease who presented to [facility] on 12/18/2016 for generalized discomfort. Per patient, patient stated she was "not feeling well" for the past 7 days. Patient complained about increased fatigue, complained of subjective fever. Patient does have baseline COPD. She has noticed she has a cough with whitish sputum. This is not unusual for her. Denies any chest pain. Denied any associated symptoms. ALLERGIES: No known drug allergies. HOME MEDICATIONS: - Symbicort two puff inhalation twice a day - Synthroid 125 mcg by mouth daily - mirtazapine 15 mg by mouth at bedtime - omeprazole 40 mg by mouth daily - quetiapine 150 mg by mouth at bedtime - trazodone 100 mg by mouth at bedtime - venlafaxine 150 mg by mouth daily - Invega Sustenna 234 mg intramuscular (IM) monthly PAST MEDICAL HISTORY: 1. Anxiety/depression. 2. Hypothyroidism. 3. Gastroesophageal reflux disease (GERD). 4. COPD. 5. Allergic rhinitis. PAST SURGICAL HISTORY: Hysterectomy. SOCIAL HISTORY: Patient recently . Smoked three packs of cigarettes daily for more than 7 years. Denied alcohol use. Denied recreational drug use. REVIEW OF SYSTEMS: GENERAL: Subjective fever. No chills. HEENT: No vision change. No auditory changes. CARDIOVASCULAR: No chest pain. No palpitations. RESPIRATORY: Complained of a cough with whitish sputum. Patient has history of COPD. Not on home oxygen. GASTROINTESTINAL: No nausea. No vomiting. No abdominal pain. No diarrhea. MUSCULOSKELETAL: Denies any muscle pain or joint pain. NEUROLOGIC: Denied any numbness or tingling. OBJECTIVE: VITAL SIGNS: Temperature is 97.3, pulse is 18, respirations 117, blood pressure is 142/64, pulse oximetry 92% in room air. GENERAL: Fatigued. No sign of acute distress. Alert and oriented times three. HEENT: Normocephalic, atraumatic. Extraocular motor grossly intact. CARDIOVASCULAR: Sinus tachycardia. Positive S1, S2. LUNGS: Positive wheezes throughout. Minor mendy crackles. ABDOMEN: Morbidly obese, soft, nontender, nondistended. Bowel sounds present. EXTREMITIES: No edema. No sign of cyanosis. NEUROLOGIC: Sensation to fine touch grossly intact. Muscle strength 5/5. IMAGING STUDY: CT of the chest without contrast showed moderate bronchitis in right middle lobe and minimal lingular atelectasis. LABORATORY DATA: WBC 21.4, hemoglobin 12.6, hematocrit 38.1, platelet count is 478. Sodium is 127, potassium 3.6, chloride 88, carbon dioxide 28, BUN 4, creatinine 0.54, GFR greater than 60, fasting glucose 179, lactic acid 1.7, calcium 8.2. Total bilirubin 0.3, direct bilirubin less than 0.1, AST 10, ALT 14, alkaline phosphatase is 116. Total CK 151. Troponin I is less than 0.02. BNP is 66.3. Total protein 6.3, albumin 2.7. TSH is 2.13. ASSESSMENT AND PLAN: 1. Bronchitis. Followup with respiratory panel to rule out any viral causes. Empirically patient is placed on Levaquin. Will follow with cultures. 2. Chronic obstructive pulmonary disease (COPD). Patient will continue on her Symbicort. Patient has nebulizer as needed twice a day scheduled. 3. Psychiatric conditions. As per record, patient has anxiety and depression. Continue patient's home medication. Patient does have a history of frequent inpatient mental health unit admissions this year. 4. Tobacco abuse. Patient has been smoking three packs on a daily basis. Patient will be on nicotine patch. 5. History of esophageal reflux disease. Patient will be on Protonix. 6. Hypothyroidism. Normal thyroid-stimulating hormone (TSH). Continue Synthroid. 7. History of drug overdose. Patient was admitted recently for Benadryl overdose. 8. Deep vein thrombosis (DVT) prophylaxis. Patient is on heparin.
[2016-12-18 21:50] VITALS: BP 108/61
[2016-12-18] MEDS: traZODone 100 MG TAB PO SCH (22:22)
[2016-12-18] MEDS: HEPARIN SOD (PORCINE) 5000 UNITS/ML VIAL SC SCH (22:22)
[2016-12-18] MEDS: QUEtiapine FUMARATE 50 MG TAB PO SCH (22:22)
[2016-12-18] MEDS: MIRTAZAPINE 15 MG TAB PO SCH (22:22)
[2016-12-19] MEDS: ALBUTEROL SULFATE 2.5 MG/0.5 ML INH NEB SOLN NEB SCH ×3 (02:28→20:00)
[2016-12-19] MEDS: SYMBICORT 160/4.5MCG INHALER 6GM INH SCH ×3 (02:28→20:56)
[2016-12-19 03:50] VITALS: O2SAT 87
[2016-12-19] MEDS: LEVOTHYROXINE 125MCG TABLET (0.125MG) PO SCH (05:33)
[2016-12-19] MEDS: HEPARIN SOD (PORCINE) 5000 UNITS/ML VIAL SC SCH (05:33)
[2016-12-19 05:34] LABS: ABG BASE EXCESS 7.5 (-2.0-2.0); ABG HCO3 32.1 MEQ/L (22.0-26.0); ABG PARTIAL PRESSURE CO2 44.9 mmHg (35.0-45.0); ABG PARTIAL PRESSURE O2 52.2 mmHg (75.0-100.0); ABG STANDARD HCO3 31.2 MEQ/L (22.0-26.0); ABG TOTAL CO2 33.5 MEQ/L (22.0-29.0); ABG pH (ARTERIAL) 7.472 UNITS (7.350-7.450)
[2016-12-19 06:00] VITALS: BP 102/55
[2016-12-19 07:07] LABS: MEAN CORPUSCULAR HEMOGLOBIN 26.3 pg (27.0-33.0); MEAN CORPUSCULAR HGB CONC 32.5 g/dl (32.0-36.5); MEAN CORPUSCULAR VOLUME 80.9 fl (80.0-96.0); RED CELL DISTRIBUTION WIDTH 15.9 % (11.5-14.5)
[2016-12-19 07:22] LABS: ANION GAP 8 MEQ/L (8-16); BLOOD UREA NITROGEN 4 MG/DL (7-18); CALCIUM LEVEL 8.1 MG/DL (8.5-10.1); CARBON DIOXIDE LEVEL 32 MEQ/L (21-32); CHLORIDE LEVEL 97 MEQ/L (98-107); GLOMERULAR FILTRATION RATE > 60.0 (>58); GLUCOSE, FASTING 154 MG/DL (70-105); MAGNESIUM LEVEL 1.9 MG/DL (1.8-2.4); POTASSIUM SERUM 3.1 MEQ/L (3.5-5.1); SODIUM LEVEL 137 MEQ/L (136-145)
[2016-12-19] MEDS ORDERED: NICOTINE 21MG/24HR 1 EA TRANSDERMAL TD SCH (09:00)
[2016-12-19] MEDS ORDERED: PANTOPRAZOLE 40MG TAB (PROTONIX) PO SCH (09:00)
[2016-12-19] MEDS ORDERED: ISOVUE-370 76% 100ML VIAL (Q9967) As Ordered ONE (09:14)
[2016-12-19] MEDS: POTASSIUM CHLORIDE 10 MEQ SR TABLET PO SCH ×2 (10:04→20:37)
[2016-12-19] MEDS: OMEPRAZOLE 20 MG CAP PO SCH (10:05)
[2016-12-19] MEDS: VENLAFAXINE **XR** 75MG CAPSULE PO SCH (10:05)
--- NOTE | 2016-12-19 10:20 | REP ---
Clinical: Dyspnea . Technique: Axial contrast enhanced images from the thoracic inlet to the upper abdomen using 100 ml Isovue 370 intravenous contrast material with multiplanar re-formations. Findings: Satisfactory enhancement of the pulmonary vasculature is achieved and no filling defects are identified to suggest pulmonary embolus. Further evaluation of the mediastinum demonstrates normal thoracic aorta, heart and pericardium. The bilateral lung murguia demonstrate minimal scattered atelectasis in the right middle lobe and right lower lobe as well as mild bilateral peribronchial thickening suggesting associated bronchitis. No effusion. No pneumothorax. Tracheobronchial tree is patent. No nodule or mass lesion is identified. No adenopathy noted. Surrounding musculoskeletal structures intact Impression: No evidence for pulmonary embolus. Findings suggest bronchitis and minimal scattered atelectasis (right greater than left). Signed by Lacho Batista MD 12/19/2016 10:11 A
--- NOTE | 2016-12-19 11:06 | IPNPDOC ---
Text Note Date of Service The patient was seen on 12/19/16. NOTE Subjective: Patient is a 46 year old female with a PMHx of COPD, Hypothyroidism, Allergic Rhinitis, Anxiety / Depression and GERD who presented to the ER with complaints of generalized malaise, fatigue and subjective fever. She notes that she is a cough, but appears to be at baseline. Upon arrival patient was found to have an elevated WBC count and imaging consistent with bronchitis. She was admitted to the hospitalist service. Patient was seen and examined at the bedside. She notes that she is generally felling better. She denies any acute problems. Nursing staff has reported that she has been agitated at night, removed her IV line access and nasal canula for oxygen. Objective: Vitals (See below) General: Lying in bed, no acute distress, comfortable, flat affect, AAOx3 HEENT: NC, AT CVS: RRR, +S1S2 Lungs: Poor inspiratory effort, no definitive wheezing appreciated Abdomen: Soft, ND, NT Extremities: - Edema, - Calf tenderness Assessment and plan: Fatigue / Malaise - possibly 2/2 bronchitis - Presented with subjective fevers - Physical reveals poor inspiratory effort; saturation has been low - Elevated WBC, trending down; No lactic acidosis - Respiratory panel: negative - Blood and urine cultures pending - CTA Chest: negative for pulmonary embolism, bronchitis and minimal scattered atelectasis - c/w Levaquin (Day #2) - Will check noctural pulse oximetry - Will start Solumedrol and Incentive spirometry s/p Hyponatremia Hypokalemia - will supplement COPD - c/w Symbicort - c/w inhaled therapy Tobacco / Nicotine dependence - c/w nicotine patch Hypothyroidism - c/w Levothyroxine Anxiety / Depression - History of frequent inpatient mental health admissions - History of overdose with Benadryl GERD - c/w pantoprazole DVT prophylaxis - d/c heparin - will start lovenox VS,Fishbone, I+O VS, Fishbone, I+O Laboratory Tests 12/18/16 17:26 Red Blood Count 4.80, Mean Corpuscular Volume 79.4 L, Mean Corpuscular Hemoglobin 26.3 L, Mean Corpuscular Hemoglobin Concent 33.1, Red Cell Distribution Width 16.0 H 12/19/16 06:34 Red Blood Count 4.70, Mean Corpuscular Volume 80.9, Mean Corpuscular Hemoglobin 26.3 L, Mean Corpuscular Hemoglobin Concent 32.5, Red Cell Distribution Width 15.9 H, Calcium Level 8.1 L Vital Signs Date Time Temp Pulse Resp B/P (MAP) Pulse Ox O2 Delivery O2 Flow Rate FiO2 12/19/16 06:00 98.0 111 18 102/55 (71) 96 Venturi Mask 15.0 40 I&O- Last 24 Hours up to 6 AM 12/19/16 06:00 Intake Total 1260 ml Output Total 1100 ml Balance 160 ml KAE ELIAS MD Dec 19, 2016 11:06
[2016-12-19] MEDS: methylPREDNISolone INJ 125 MG/2 ML VIAL (J2930) IV SCH ×2 (11:41→18:17)
[2016-12-19 14:00] VITALS: BP 101/56
[2016-12-19] MEDS: LevoFLOXacin IV 750 MG in APPROPRIATE DILUENT 1 EA IV SCH (18:17)
[2016-12-19] MEDS: QUEtiapine FUMARATE 50 MG TAB PO SCH (20:37)
[2016-12-19] MEDS: ENOXAPARIN 40 MG/0.4 ML SYRINGE (J1650) SC SCH (20:38)
[2016-12-19] MEDS: MIRTAZAPINE 15 MG TAB PO SCH (20:38)
[2016-12-19] MEDS: traZODone 100 MG TAB PO SCH (20:38)
[2016-12-19] MEDS: NICOTINE 21MG/24HR 1 EA TRANSDERMAL TD SCH (20:38)
[2016-12-19 22:00] VITALS: BP 139/63
[2016-12-20] MEDS: methylPREDNISolone INJ 125 MG/2 ML VIAL (J2930) IV SCH ×3 (03:06→18:33)
[2016-12-20] MEDS: LEVOTHYROXINE 125MCG TABLET (0.125MG) PO SCH (05:41)
[2016-12-20 06:00] VITALS: BP 103/59
[2016-12-20 06:32] LABS: MEAN CORPUSCULAR HEMOGLOBIN 26.6 pg (27.0-33.0); MEAN CORPUSCULAR HGB CONC 32.3 g/dl (32.0-36.5); MEAN CORPUSCULAR VOLUME 82.5 fl (80.0-96.0); WHITE BLOOD COUNT 16.9 K/mm3 (4.0-10.0)
[2016-12-20 06:46] LABS: ANION GAP 8 MEQ/L (8-16); BLOOD UREA NITROGEN 8 MG/DL (7-18); CALCIUM LEVEL 7.9 MG/DL (8.5-10.1); CARBON DIOXIDE LEVEL 31 MEQ/L (21-32); CHLORIDE LEVEL 98 MEQ/L (98-107); CREATININE FOR GFR 0.47 MG/DL (0.55-1.02); GLOMERULAR FILTRATION RATE > 60.0 (>58); GLUCOSE, FASTING 195 MG/DL (70-105); MAGNESIUM LEVEL 2.2 MG/DL (1.8-2.4); POTASSIUM SERUM 4.1 MEQ/L (3.5-5.1); SODIUM LEVEL 137 MEQ/L (136-145)
[2016-12-20] MEDS: SYMBICORT 160/4.5MCG INHALER 6GM INH SCH ×2 (07:57→21:18)
[2016-12-20] MEDS: ALBUTEROL SULFATE 2.5 MG/0.5 ML INH NEB SOLN NEB SCH ×2 (08:00→20:00)
[2016-12-20] MEDS: VENLAFAXINE **XR** 75MG CAPSULE PO SCH (09:00)
[2016-12-20] MEDS ORDERED: INFLUENZA QUADRIVALENT PF VACCINE 0.5ML SYRINGE (90686) IM ONE (09:00)
[2016-12-20] MEDS: OMEPRAZOLE 20 MG CAP PO SCH (09:00)
--- NOTE | 2016-12-20 09:12 | NOCOX ---
DATE OF PROCEDURE: 12/20/2016 The test was initially performed on room air. Within 20 minutes of the test, the patient was placed on 40% FIO2. The patient's heart rate ranged from 71-129. Resting heart rate while awake was 110. Oxygen saturation ranged from 75%-100%. The longest continuous time with an oxygen saturation less than 88% was 15 minutes. The total time with an oxygen saturation less than 88% was 2 hours and 22 minutes. There were variable desaturations with prolonged periods of hypoxia throughout the night despite being on 40% Venturi mask. IMPRESSION: Variable desaturations with prolonged hypoxia and heart rate variability. Recommend in-lab sleep study due to severity of hypoxia despite 40% Venturi mask.
--- NOTE | 2016-12-20 12:31 | IPNPDOC ---
Text Note Date of Service The patient was seen on 12/20/16. NOTE Subjective: Patient is a 46 year old female with a PMHx of COPD, Hypothyroidism, Allergic Rhinitis, Anxiety / Depression and GERD who presented to the ER with complaints of generalized malaise, fatigue and subjective fever. She notes that she is a cough, but appears to be at baseline. Upon arrival patient was found to have an elevated WBC count and imaging consistent with bronchitis. She was admitted to the hospitalist service. Patient was seen and examined at the bedside. She appears to be drowsy and lethargic this morning. She is able to respond to her name and light stimulus. She appears to be oriented to person and place. She is aware of the year and season, but not month. Objective: Vitals (See below) General: Lying in bed, no acute distress, comfortable, flat affect, AAOx2 HEENT: NC, AT CVS: RRR, +S1S2 Lungs: Poor inspiratory effort, no definitive wheezing appreciated Abdomen: Soft, ND, NT Extremities: - Edema, - Calf tenderness Assessment and plan: Fatigue / Malaise - possibly 2/2 bronchitis and COPD exacerbation - Presented with subjective fevers - Physical reveals poor inspiratory effort; saturation has been low - Elevated WBC, trending down; No lactic acidosis - Respiratory panel: negative - Urine cultures negative; Blood cultures negative at 24 hours - CTA Chest: negative for pulmonary embolism, bronchitis and minimal scattered atelectasis - c/w Levaquin (Day #3) - c/w Solumedrol; will begin to taper dose - c/w Incentive spirometry Acute metabolic encephalopathy - likely 2/2 CO2 retention compounded by excessive sedative type medications (Seroquel and Trazodone) - Found to be more lethargic this morning - Oriented x2, able to respond - Saturation is able to be maintained with nasal cannula oxygen - Discussed with Dr. Zelaya (Psychiatry) will evaluate and adjust dose of psychiatric medications Hypoxia - likely 2/2 obstructive sleep apnea - Positive nocturnal pulse oximetry study - Failed to follow up as an outpatient with Dr. Villa for a sleep study - Will need to have home oxygen established for night time desaturation prior to departure s/p Hyponatremia s/p Hypokalemia COPD - c/w Symbicort - c/w inhaled therapy Tobacco / Nicotine dependence - c/w nicotine patch Hypothyroidism - c/w Levothyroxine Anxiety / Depression - History of frequent inpatient mental health admissions - History of overdose with Benadryl - Currently on Mirtazapine, Quetiapine, Trazodone and Venlafaxine - Will be evaluate by Psychiatry; dosing of medications to be adjusted GERD - c/w pantoprazole DVT prophylaxis - c/w Lovenox VS,Fishbone, I+O VS, Fishbone, I+O Laboratory Tests 12/20/16 06:15 Red Blood Count 4.69, Mean Corpuscular Volume 82.5, Mean Corpuscular Hemoglobin 26.6 L, Mean Corpuscular Hemoglobin Concent 32.3, Red Cell Distribution Width 16.0 H, Calcium Level 7.9 L Vital Signs Date Time Temp Pulse Resp B/P (MAP) Pulse Ox O2 Delivery O2 Flow Rate FiO2 12/20/16 06:00 96.2 101 24 103/59 (74) 93 Nasal Cannula 4.0 12/20/16 03:26 40 I&O- Last 24 Hours up to 6 AM 12/20/16 05:59 Intake Total 3480 ml Output Total 1275 ml Balance 2205 ml KAE ELIAS MD Dec 20, 2016 12:31
[2016-12-20 14:00] VITALS: BP 109/67
[2016-12-20 15:54] LABS: ABG BASE EXCESS 6.2 (-2.0-2.0); ABG HCO3 31.6 MEQ/L (22.0-26.0); ABG PARTIAL PRESSURE CO2 48.6 mmHg (35.0-45.0); ABG TOTAL CO2 33.1 MEQ/L (22.0-29.0); ABG pH (ARTERIAL) 7.431 UNITS (7.350-7.450)
[2016-12-20] MEDS: LevoFLOXacin IV 750 MG in APPROPRIATE DILUENT 1 EA IV SCH (17:01)
[2016-12-20] MEDS: ENOXAPARIN 40 MG/0.4 ML SYRINGE (J1650) SC SCH (20:33)
[2016-12-20] MEDS: NICOTINE 21MG/24HR 1 EA TRANSDERMAL TD SCH (20:34)
--- NOTE | 2016-12-20 21:05 | CR ---
DATE OF CONSULTATION: 12/20/2016 CHIEF COMPLAINT: Feels tired. SUBJECTIVE: She is 46 years old. She has a long history of psychiatric difficulties, has diagnosis of bipolar disorder, has had several inpatient hospitalizations, most recently early in the summer, in October, and this was after the one in September, when I had seen her on consultation, 10/13/2016. Please refer to that note for details related to the reasons for the consultation at that time. I have been asked to see her now by the hospitalist, Dr. Marquez, as the patient has been noted to be lethargic, tired, groggy, and it thought the psychotropic medication she is on may contribute to this. Chart is reviewed. The patient is interviewed. She was admitted as she had felt generally unwell, she came in two days ago, and had not been well for about seven days or so prior to admission. [place] increasingly fatigued, felt feverish. She has baseline chronic obstructive pulmonary disease (COPD), and had apparently recently noticed a cough with whitish sputum. Has been seen by Dr. Villa, has been treated by the hospitalist as well, and they noticed she was lethargic, sedated, and there have been intermittent periods of confusion as well. The patient says she has felt tired, but does not say much in addition to that. Says lives at home, it is not quite clear if there is anybody else there or not. Says is in an apartment complex, does not know the name of the complex in [place]. She initially thought she was in [place] here, then indicated was [place], did not know the name of the hospital, but knew she was in one. She did not know the date, thought it was February, and that it was 1996. Denied any thoughts of hurting herself. Denies hearing any voices. MEDICATIONS: These include: - Symbicort - Synthroid - mirtazapine 15 mg at bedtime - omeprazole 40 mg daily - quetiapine 150 mg at bedtime - trazodone 100 mg at bedtime - venlafaxine 150 mg daily She is also on Invega Sustenna 234 mg intramuscular every month. PAST PSYCHIATRIC HISTORY: Please refer to previous summaries. Has had inpatient hospitalizations, most recent one was a couple this summer. She was last here in October. She attends the psychiatric clinic at [facility] sees Dr. Liang. PAST MEDICAL HISTORY: Has COPD, currently bronchitis. Has a history of hypothyroidism, as well as esophageal reflux disease. MENTAL STATUS EXAMINATION: She is lying in bed. She is neat. She is cooperative, displays no agitation. Has delayed responses of sort or latency in responding, mostly gives one-word answers, and often shakes her head implying "no" when asked various things. Affect is of restricted range. She denies any suicidal thoughts or intents. Does not appear to be internally preoccupied. She tends to have a stare. She at times has difficulty maintaining attention. She is oriented to person, not to time, and not fully to place. She knew it was a hospital in [place]. Does not appear to be internally preoccupied. No delusional ideations are elicited. Cognition at this point is somewhat compromised. Judgment and insight are poor. INVESTIGATIONS: These show urine toxicology essentially negative. Chemistries today, metabolic profile essentially within normal limits except for creatinine slightly below normal at 0.47. Fasting glucose is 195. Calcium is 7.9 (8.5 - 10.1). Complete blood count shows white cell count of 16.9. VITAL SIGNS: Blood pressure 109/67, temperature 97.4, pulse 96. ASSESSMENT: 1. Delirium. It is quite possibly multifactorial, but she is at risk given the various ailments. 2. Bipolar disorder by history. It is quite possible that the psychotropics contribute to her lethargy, the trazodone and the Seroquel, and she has been drowsy, in addition to other factors. She answers questions very briefly, has a poverty of speech, a flat affect with little range, and is not oriented to time, knows it is a hospital in [place], but cannot name it. Appears some drowsy at times as well. RECOMMENDATIONS: 1. Discontinue trazodone. 2. Decrease Seroquel to 50 mg at night, and hold if the patient is sedated. 3. Decrease mirtazapine to 7.5 mg at night. 4. The decreases in the medication may help assist with the drowsiness. Optimize the rest of her care. Thank you for the consult. If any questions, please call. The assessment took 30 minutes.
[2016-12-20 22:00] VITALS: BP_SYST 105; BP_SYST 116; BP_DIAS 60; BP_DIAS 64
[2016-12-21] MEDS: methylPREDNISolone INJ 125 MG/2 ML VIAL (J2930) IV SCH ×2 (03:00→15:20)
[2016-12-21] MEDS: LEVOTHYROXINE 125MCG TABLET (0.125MG) PO SCH (05:22)
[2016-12-21 06:00] VITALS: BP 120/52
[2016-12-21 06:20] LABS: MEAN CORPUSCULAR HEMOGLOBIN 26.5 pg (27.0-33.0); MEAN CORPUSCULAR HGB CONC 33.3 g/dl (32.0-36.5); MEAN CORPUSCULAR VOLUME 79.7 fl (80.0-96.0); RED CELL DISTRIBUTION WIDTH 15.9 % (11.5-14.5); WHITE BLOOD COUNT 16.6 K/mm3 (4.0-10.0)
[2016-12-21 06:33] LABS: ANION GAP 7 MEQ/L (8-16); BLOOD UREA NITROGEN 14 MG/DL (7-18); CALCIUM LEVEL 8.4 MG/DL (8.5-10.1); CARBON DIOXIDE LEVEL 28 MEQ/L (21-32); CHLORIDE LEVEL 100 MEQ/L (98-107); CREATININE FOR GFR 0.52 MG/DL (0.55-1.02); GLOMERULAR FILTRATION RATE > 60.0 (>58); GLUCOSE, FASTING 183 MG/DL (70-105); MAGNESIUM LEVEL 2.1 MG/DL (1.8-2.4); POTASSIUM SERUM 3.7 MEQ/L (3.5-5.1); SODIUM LEVEL 135 MEQ/L (136-145)
[2016-12-21] MEDS ORDERED: NYSTATIN 100,000 UNITS/GM TOPICAL PWD 15 GM TOP PRN (06:45)
[2016-12-21] MEDS: ALBUTEROL SULFATE 2.5 MG/0.5 ML INH NEB SOLN NEB SCH ×2 (08:00→20:00)
[2016-12-21] MEDS ORDERED: VENLAFAXINE **XR** 75MG CAPSULE PO SCH (09:00)
[2016-12-21] MEDS: SYMBICORT 160/4.5MCG INHALER 6GM INH SCH ×2 (09:00→20:02)
[2016-12-21] MEDS: OMEPRAZOLE 20 MG CAP PO SCH (10:13)
[2016-12-21] MEDS: VENLAFAXINE **XR** 75MG CAPSULE PO SCH (10:13)
--- NOTE | 2016-12-21 11:43 | IPNPDOC ---
Text Note Date of Service The patient was seen on 12/21/16. NOTE Subjective: Patient is a 46 year old female with a PMHx of COPD, Hypothyroidism, Allergic Rhinitis, Anxiety / Depression and GERD who presented to the ER with complaints of generalized malaise, fatigue and subjective fever. She notes that she is a cough, but appears to be at baseline. Upon arrival patient was found to have an elevated WBC count and imaging consistent with bronchitis. She was admitted to the hospitalist service. Patient was seen and examined at the bedside. Patient is no longer lethargic this morning. She is awake and oriented and appears a little disheveled and agitated. She reports her breathing is unchanged, however her saturations have improved significantly. She denies cough or chest pain. Objective: Vitals (See below) General: Lying in bed, no acute distress, comfortable, flat affect, AAOx3 HEENT: NC, AT CVS: RRR, +S1S2 Lungs: Poor inspiratory effort, no wheezing / rales / rhonchi Abdomen: Soft, ND, NT Extremities: - Edema, - Calf tenderness Assessment and plan: Fatigue / Malaise - possibly 2/2 bronchitis and possible acute COPD exacerbation - Presented with subjective fevers - Physical without wheezing, improvement in saturation noted - WBC remains elevated, No lactic acidosis, CRP trending down - Respiratory panel: negative; Sputum Cx: pending - Urine cultures negative; Blood cultures negative at 48 hours - CTA Chest: negative for pulmonary embolism, bronchitis and minimal scattered atelectasis - c/w Levaquin (Day #4) - c/w Solumedrol; reduced dose today - c/w Incentive spirometry Acute metabolic encephalopathy - likely 2/2 excessive sedative type medications (Seroquel and Trazodone) - Resolution of lethargy after holding sedative medications last night - Oriented x3, able to respond - Saturation improved, currently on NC at 2 liters - Dr. Zelaya (Psychiatry) has evaluated patient and adjustments to medications have been made Hypoxia - likely 2/2 obstructive sleep apnea - Positive nocturnal pulse oximetry study - Failed to follow up as an outpatient with Dr. Villa for a sleep study - Will need to have home oxygen established for night time desaturation prior to departure s/p Hyponatremia s/p Hypokalemia COPD - c/w Symbicort - c/w inhaled therapy Tobacco / Nicotine dependence - c/w nicotine patch Hypothyroidism - c/w Levothyroxine Anxiety / Depression - History of frequent inpatient mental health admissions - History of overdose with Benadryl - Currently on Mirtazapine, Quetiapine, Trazodone and Venlafaxine - c/w Adjusted Mirtazapine, Quetiapine, Same dose of Venlafaxine and Discontinue Trazodone GERD - c/w pantoprazole DVT prophylaxis - c/w Lovenox VS,Fishbone, I+O VS, Fishbone, I+O Laboratory Tests 12/21/16 06:03 Red Blood Count 4.59, Mean Corpuscular Volume 79.7 L, Mean Corpuscular Hemoglobin 26.5 L, Mean Corpuscular Hemoglobin Concent 33.3, Red Cell Distribution Width 15.9 H, Calcium Level 8.4 L Vital Signs Date Time Temp Pulse Resp B/P (MAP) Pulse Ox O2 Delivery O2 Flow Rate FiO2 12/21/16 06:00 97.3 70 22 120/52 (74) 91 Nasal Cannula 2.0 12/20/16 03:26 40 I&O- Last 24 Hours up to 6 AM 12/21/16 06:00 Intake Total 2610 ml Output Total 650 ml Balance 1960 ml KAE ELIAS MD Dec 21, 2016 11:43
[2016-12-21 14:00] VITALS: BP 126/78
[2016-12-21] MEDS: LevoFLOXacin 750 MG TABLET PO SCH (17:56)
[2016-12-21] MEDS: MIRTAZAPINE 15 MG TAB PO SCH (20:12)
[2016-12-21] MEDS: NICOTINE 21MG/24HR 1 EA TRANSDERMAL TD SCH (20:12)
[2016-12-21] MEDS: ENOXAPARIN 40 MG/0.4 ML SYRINGE (J1650) SC SCH (20:13)
[2016-12-21] MEDS: QUEtiapine FUMARATE 50 MG TAB PO SCH (20:13)
[2016-12-21 22:00] VITALS: BP 121/59
[2016-12-22] MEDS: methylPREDNISolone INJ 125 MG/2 ML VIAL (J2930) IV SCH (02:34)
[2016-12-22] MEDS: LEVOTHYROXINE 125MCG TABLET (0.125MG) PO SCH (05:36)
[2016-12-22 06:00] VITALS: BP 125/70
[2016-12-22 06:06] LABS: MEAN CORPUSCULAR HEMOGLOBIN 26.4 pg (27.0-33.0); MEAN CORPUSCULAR HGB CONC 32.6 g/dl (32.0-36.5); MEAN CORPUSCULAR VOLUME 81.1 fl (80.0-96.0); RED CELL DISTRIBUTION WIDTH 15.9 % (11.5-14.5); WHITE BLOOD COUNT 12.5 K/mm3 (4.0-10.0)
[2016-12-22 06:23] LABS: ANION GAP 4 MEQ/L (8-16); BLOOD UREA NITROGEN 14 MG/DL (7-18); CALCIUM LEVEL 8.5 MG/DL (8.5-10.1); CARBON DIOXIDE LEVEL 32 MEQ/L (21-32); CHLORIDE LEVEL 99 MEQ/L (98-107); GLOMERULAR FILTRATION RATE > 60.0 (>58); GLUCOSE, FASTING 183 MG/DL (70-105); MAGNESIUM LEVEL 2.2 MG/DL (1.8-2.4); POTASSIUM SERUM 4.1 MEQ/L (3.5-5.1); SODIUM LEVEL 135 MEQ/L (136-145)
[2016-12-22] MEDS: SYMBICORT 160/4.5MCG INHALER 6GM INH SCH ×2 (07:44→20:08)
[2016-12-22] MEDS: ALBUTEROL SULFATE 2.5 MG/0.5 ML INH NEB SOLN NEB SCH ×2 (07:45→20:00)
[2016-12-22] MEDS: predniSONE 20 MG TAB PO SCH ×2 (10:00→20:22)
[2016-12-22] MEDS: OMEPRAZOLE 20 MG CAP PO SCH (10:01)
[2016-12-22] MEDS: VENLAFAXINE **XR** 75MG CAPSULE PO SCH (10:01)
--- NOTE | 2016-12-22 11:18 | IPNPDOC ---
Text Note Date of Service The patient was seen on 12/22/16. NOTE Subjective: Patient is a 46 year old female with a PMHx of COPD, Hypothyroidism, Allergic Rhinitis, Anxiety / Depression and GERD who presented to the ER with complaints of generalized malaise, fatigue and subjective fever. She notes that she is a cough, but appears to be at baseline. Upon arrival patient was found to have an elevated WBC count and imaging consistent with bronchitis. She was admitted to the hospitalist service. Patient was seen and examined at the bedside. Patient is oriented this morning is conversive. She notes that her breathing is improved from admission. She denies a cough, chest pain or palpitations. Objective: Vitals (See below) General: Lying in bed, no acute distress, comfortable, flat affect, AAOx3 HEENT: NC, AT CVS: RRR, +S1S2 Lungs: Poor inspiratory effort, no wheezing / rales / rhonchi Abdomen: Soft, ND, NT Extremities: - Edema, - Calf tenderness Assessment and plan: Fatigue / Malaise - possibly 2/2 bronchitis and possible acute COPD exacerbation - Presented with subjective fevers and weakness - Physical still without wheezing, there has been improvement in her oxygen saturation - Leukocytosis improved, No lactic acidosis, CRP trending down - Respiratory panel: negative; Sputum Cx: Yeast like organisms - Urine cultures negative; Blood cultures negative at 72 hours - CTA Chest: negative for pulmonary embolism, bronchitis and minimal scattered atelectasis - c/w Levaquin (Day #5) - Started Prednisone PO today (12/22) - will taper on discharge ; s/p Solumedrol - c/w Incentive spirometry Nocturnal Hypoxia - likely 2/2 obstructive sleep apnea - Positive nocturnal pulse oximetry study - Failed to follow up as an outpatient with Dr. Villa for a sleep study - Will need to have home oxygen established for night time desaturation prior to departure - Possibly repeat nocturnal pulse oximetry study given poor quality initially s/p Acute metabolic encephalopathy - likely 2/2 excessive sedative type medications (Seroquel and Trazodone) - Resolution of lethargy after holding sedative medications last night - Oriented x3, able to respond - Saturation improved, currently on NC at 2 liters - ABG repeated did not reveal any significant worsening of CO2 retention - Dr. Zelaya (Psychiatry) has evaluated patient and adjustments to medications have been made s/p Hyponatremia s/p Hypokalemia COPD - c/w Symbicort - c/w inhaled therapy Tobacco / Nicotine dependence - c/w nicotine patch Hypothyroidism - c/w Levothyroxine Anxiety / Depression - History of frequent inpatient mental health admissions - History of overdose with Benadryl - Outpatient regimen of Mirtazapine, Quetiapine, Trazodone and Venlafaxine - c/w Reduced Mirtazapine and Quetiapine, Same dose of Venlafaxine; Stopped Trazodone GERD - c/w pantoprazole DVT prophylaxis - c/w Lovenox Disposition: - Awaiting saturation to improve; does not use home oxygen at baseline - Physical therapy - Safe for DC home (previous situation) VS,Wilfredbone, I+O VS, Fishbone, I+O Laboratory Tests 12/22/16 05:51 Red Blood Count 4.95, Mean Corpuscular Volume 81.1, Mean Corpuscular Hemoglobin 26.4 L, Mean Corpuscular Hemoglobin Concent 32.6, Red Cell Distribution Width 15.9 H, Calcium Level 8.5 Vital Signs Date Time Temp Pulse Resp B/P (MAP) Pulse Ox O2 Delivery O2 Flow Rate FiO2 12/22/16 06:00 96.7 100 20 125/70 (88) 88 Nasal Cannula 2.0 12/20/16 03:26 40 I&O- Last 24 Hours up to 6 AM 12/22/16 06:00 Intake Total 720 ml Output Total 500 ml Balance 220 ml KAE ELIAS MD Dec 22, 2016 11:18
[2016-12-22 14:00] VITALS: BP 115/56
[2016-12-22] MEDS: LevoFLOXacin 750 MG TABLET PO SCH (19:34)
[2016-12-22 20:09] VITALS: O2SAT 98
[2016-12-22] MEDS: NICOTINE 21MG/24HR 1 EA TRANSDERMAL TD SCH (20:21)
[2016-12-22] MEDS: MIRTAZAPINE 15 MG TAB PO SCH (20:21)
[2016-12-22] MEDS: QUEtiapine FUMARATE 50 MG TAB PO SCH (20:22)
[2016-12-22] MEDS: ENOXAPARIN 40 MG/0.4 ML SYRINGE (J1650) SC SCH (20:22)
[2016-12-22 22:00] VITALS: BP 117/60
[2016-12-23 06:00] VITALS: BP 115/67
[2016-12-23] MEDS: LEVOTHYROXINE 125MCG TABLET (0.125MG) PO SCH (06:17)
[2016-12-23 06:38] LABS: MEAN CORPUSCULAR HEMOGLOBIN 26.5 pg (27.0-33.0); MEAN CORPUSCULAR HGB CONC 32.7 g/dl (32.0-36.5); MEAN CORPUSCULAR VOLUME 81.1 fl (80.0-96.0); RED CELL DISTRIBUTION WIDTH 15.7 % (11.5-14.5)
[2016-12-23 06:55] LABS: ANION GAP 8 MEQ/L (8-16); BLOOD UREA NITROGEN 16 MG/DL (7-18); CARBON DIOXIDE LEVEL 28 MEQ/L (21-32); CHLORIDE LEVEL 100 MEQ/L (98-107); CREATININE FOR GFR 0.58 MG/DL (0.55-1.02); GLOMERULAR FILTRATION RATE > 60.0 (>58); GLUCOSE, FASTING 166 MG/DL (70-105); MAGNESIUM LEVEL 2.3 MG/DL (1.8-2.4); POTASSIUM SERUM 4.1 MEQ/L (3.5-5.1); SODIUM LEVEL 136 MEQ/L (136-145)
[2016-12-23] MEDS: SYMBICORT 160/4.5MCG INHALER 6GM INH SCH ×2 (07:51→21:15)
[2016-12-23] MEDS: ALBUTEROL SULFATE 2.5 MG/0.5 ML INH NEB SOLN NEB SCH ×2 (07:51→20:00)
[2016-12-23] MEDS: predniSONE 20 MG TAB PO SCH (08:07)
[2016-12-23] MEDS: VENLAFAXINE **XR** 75MG CAPSULE PO SCH (08:07)
[2016-12-23] MEDS: OMEPRAZOLE 20 MG CAP PO SCH (08:08)
[2016-12-23 08:20] VITALS: BP 104/57
[2016-12-23 14:00] VITALS: BP 118/58
[2016-12-23 14:40] VITALS: BP 128/68
--- NOTE | 2016-12-23 16:31 | IPNPDOC ---
Text Note Date of Service The patient was seen on 12/23/16. NOTE Subjective: Patient states that her respiratory status is much improved. Denies chest pain. Objective: Vitals: (see below) General: No acute distress, laying comfortably in bed. HEENT: Moist mucous membranes. Neck: No JVD or lymphadenopathy Cardiac: RRR, No murmurs Pulm: Diminished breath sounds at the bases b/l. No wheezing, rhonchi, crackles Abd: NT/ND + BS. Obese Ext: No edema or cyanosis Labs (see below) Images: Assessment/Plan 1. Acute COPD exacerbation- improved on steroids, nebs. Had been treated with Levaquin. 2. Status post metabolic encephalopathy likely secondary to excessive sedation from her psychiatric medications. Psychiatry had been consulted and the patient' s Seroquel and trazodone doses were adjusted. 3. Nocturnal hypoxia- patient likely has obstructive sleep apnea will need outpatient sleep study. We'll repeat her nocturnal pulse ox tonight as her respiratory status is much improved. 4. Hypokalemia/hyponatremia- resolved 5. Tobacco abuse- cessation counseling, nicotine patch 6. Hypothyroidism- continue Synthroid 7. Anxiety/depression- continue home meds, dosages have been adjusted 8. GERD- on PPI DVT prophy: Lovenox Continue to work with physical therapy. VS,Fishbone, I+O VS, Fishbone, I+O Laboratory Tests 12/23/16 06:04 Red Blood Count 5.26, Mean Corpuscular Volume 81.1, Mean Corpuscular Hemoglobin 26.5 L, Mean Corpuscular Hemoglobin Concent 32.7, Red Cell Distribution Width 15.7 H, Calcium Level 8.0 L Vital Signs Date Time Temp Pulse Resp B/P (MAP) Pulse Ox O2 Delivery O2 Flow Rate FiO2 12/23/16 14:40 97.4 82 18 128/68 (88) 97 Nasal Cannula 2.0 12/20/16 03:26 40 I&O- Last 24 Hours up to 6 AM 12/23/16 06:00 Intake Total 2040 ml Output Total 650 ml Balance 1390 ml JORDAN MAYS MD Dec 23, 2016 16:31
[2016-12-23] MEDS: LevoFLOXacin 750 MG TABLET PO SCH (17:24)
[2016-12-23] MEDS: NICOTINE 21MG/24HR 1 EA TRANSDERMAL TD SCH (20:17)
[2016-12-23] MEDS: QUEtiapine FUMARATE 50 MG TAB PO SCH (20:17)
[2016-12-23] MEDS: MIRTAZAPINE 15 MG TAB PO SCH (20:17)
[2016-12-23] MEDS: ENOXAPARIN 40 MG/0.4 ML SYRINGE (J1650) SC SCH (20:18)
--- NOTE | 2016-12-23 21:08 | NOCOX ---
DATE OF PROCEDURE: 12/22/2016 Total recording time was 8 minutes and 53 seconds. This study was performed on room air. Resting oxygen saturation was 98%, heart rate was 96. There were variable desaturations throughout the evening with prolonged episodes of hypoxia. The longest continuous time with an oxygen saturation less than 80% was 34 minutes 42 seconds. The total time with an oxygen saturation less than 88% was 5 hours and 18 minutes. Oxygen saturation ranged from 76-100% with a heart rate ranging from 58-132. Oxygen saturations were variable in nature and associated with heart rate variability. IMPRESSION: Significant variable desaturations with significant hypoxia and heart rate variability suggestive of possible underlying obstructive sleep apnea. Recommend in lab diagnostic sleep study. MTDD
[2016-12-23 22:00] VITALS: BP 116/71
[2016-12-24] MEDS: LEVOTHYROXINE 125MCG TABLET (0.125MG) PO SCH (05:35)
[2016-12-24 06:00] VITALS: BP 116/71
[2016-12-24 06:59] LABS: MEAN CORPUSCULAR HEMOGLOBIN 25.9 pg (27.0-33.0); MEAN CORPUSCULAR HGB CONC 32.4 g/dl (32.0-36.5); RED CELL DISTRIBUTION WIDTH 15.7 % (11.5-14.5); WHITE BLOOD COUNT 16.2 K/mm3 (4.0-10.0)
[2016-12-24 07:09] LABS: ANION GAP 4 MEQ/L (8-16); BLOOD UREA NITROGEN 19 MG/DL (7-18); CALCIUM LEVEL 8.4 MG/DL (8.5-10.1); CARBON DIOXIDE LEVEL 31 MEQ/L (21-32); CHLORIDE LEVEL 100 MEQ/L (98-107); CREATININE FOR GFR 0.62 MG/DL (0.55-1.02); GLOMERULAR FILTRATION RATE > 60.0 (>58); GLUCOSE, FASTING 151 MG/DL (70-105); POTASSIUM SERUM 3.8 MEQ/L (3.5-5.1); SODIUM LEVEL 135 MEQ/L (136-145)
[2016-12-24] MEDS: SYMBICORT 160/4.5MCG INHALER 6GM INH SCH ×2 (07:16→20:16)
[2016-12-24] MEDS: ALBUTEROL SULFATE 2.5 MG/0.5 ML INH NEB SOLN NEB SCH ×2 (07:17→20:00)
[2016-12-24 08:00] VITALS: BP 122/79
[2016-12-24] MEDS: VENLAFAXINE **XR** 75MG CAPSULE PO SCH (08:10)
[2016-12-24] MEDS: OMEPRAZOLE 20 MG CAP PO SCH (08:10)
[2016-12-24] MEDS ORDERED: GLUCAGON FOR INJ 1 MG VIAL (J1610) SC PRN (08:45)
[2016-12-24] MEDS ORDERED: GLUCOSE 4 GM CHEW TABLET PO PRN (08:45)
[2016-12-24] MEDS ORDERED: DEXTROSE 50% 50 ML SYRINGE IV PRN (08:45)
[2016-12-24] MEDS ORDERED: predniSONE 20 MG TAB PO SCH (09:00)
[2016-12-24] MEDS: HumaLOG INSULIN (NovoLOG) PER UNIT SC SCH ×3 (10:23→17:54)
[2016-12-24] MEDS ORDERED: FUROSEMIDE 40 MG/4 ML VIAL (J1940) IV ONE (12:15)
[2016-12-24 13:45] VITALS: BP 105/52
--- NOTE | 2016-12-24 14:12 | IPNPDOC ---
Text Note Date of Service The patient was seen on 12/24/16. NOTE Subjective: Denies chest pain/ palpitations. No overnight changes. Objective: Vitals: (see below) General: No acute distress, laying comfortably in bed. HEENT: Moist mucous membranes. Neck: No JVD or lymphadenopathy Cardiac: RRR, No murmurs Pulm: Diminished breath sounds at the bases b/l. No wheezing, rhonchi, crackles Abd: NT/ND + BS. Obese Ext: Trace edema BLE. No cyanosis Labs (see below) Images: Assessment/Plan 1. Acute COPD exacerbation- improved on steroids, nebs. Had been treated with Levaquin. 2. Status post metabolic encephalopathy likely secondary to excessive sedation from her psychiatric medications. Psychiatry had been consulted and the patient' s Seroquel and trazodone doses were adjusted. 3. Nocturnal hypoxia- patient likely has obstructive sleep apnea will need outpatient sleep study. Spoke with Dr. Villa with with recommendations to d/c pt on 2LO2, and follow up outpt for SIRIA workup. 4. Hypokalemia/hyponatremia- resolved 5. Tobacco abuse- cessation counseling, nicotine patch 6. Hypothyroidism- continue Synthroid 7. Anxiety/depression- continue home meds, dosages have been adjusted 8. GERD- on PPI 9. + Fluid balance - started on lasix. DVT prophy: Lovenox VS,Fishbone, I+O VS, Fishbone, I+O Laboratory Tests 12/24/16 06:33 Red Blood Count 5.43 H, Mean Corpuscular Volume 80.0, Mean Corpuscular Hemoglobin 25.9 L, Mean Corpuscular Hemoglobin Concent 32.4, Red Cell Distribution Width 15.7 H, Calcium Level 8.4 L Vital Signs Date Time Temp Pulse Resp B/P (MAP) Pulse Ox O2 Delivery O2 Flow Rate FiO2 12/24/16 13:45 97.6 97 18 105/52 (69) 97 Room Air 1.0 12/20/16 03:26 40 I&O- Last 24 Hours up to 6 AM 12/25/16 05:59 Intake Total 1380 ml Output Total 1200 ml Balance 180 ml JORDAN MAYS MD Dec 24, 2016 14:12
[2016-12-24] MEDS: LevoFLOXacin 750 MG TABLET PO SCH (17:50)
[2016-12-24] MEDS: FUROSEMIDE 40 MG/4 ML VIAL (J1940) IV SCH (17:51)
[2016-12-24] MEDS: NICOTINE 21MG/24HR 1 EA TRANSDERMAL TD SCH (20:52)
[2016-12-24] MEDS: ENOXAPARIN 40 MG/0.4 ML SYRINGE (J1650) SC SCH (20:52)
[2016-12-24] MEDS: MIRTAZAPINE 15 MG TAB PO SCH (20:52)
[2016-12-24] MEDS: QUEtiapine FUMARATE 50 MG TAB PO SCH (20:53)
[2016-12-24] MEDS ORDERED: HumaLOG INSULIN (NovoLOG) PER UNIT SC SCH (21:00)
[2016-12-24 22:00] VITALS: BP 105/59
[2016-12-25] MEDS: LEVOTHYROXINE 125MCG TABLET (0.125MG) PO SCH (05:32)
[2016-12-25 06:00] VITALS: BP 133/83
[2016-12-25 06:17] LABS: MEAN CORPUSCULAR HEMOGLOBIN 26.9 pg (27.0-33.0); MEAN CORPUSCULAR HGB CONC 33.4 g/dl (32.0-36.5); MEAN CORPUSCULAR VOLUME 80.4 fl (80.0-96.0); RED CELL DISTRIBUTION WIDTH 15.8 % (11.5-14.5); WHITE BLOOD COUNT 18.6 K/mm3 (4.0-10.0)
[2016-12-25 06:30] LABS: ANION GAP 9 MEQ/L (8-16); BLOOD UREA NITROGEN 23 MG/DL (7-18); CALCIUM LEVEL 8.9 MG/DL (8.5-10.1); CARBON DIOXIDE LEVEL 30 MEQ/L (21-32); CHLORIDE LEVEL 99 MEQ/L (98-107); GLOMERULAR FILTRATION RATE > 60.0 (>58); GLUCOSE, FASTING 153 MG/DL (70-105); MAGNESIUM LEVEL 1.9 MG/DL (1.8-2.4); POTASSIUM SERUM 3.4 MEQ/L (3.5-5.1); SODIUM LEVEL 138 MEQ/L (136-145)
[2016-12-25] MEDS: ALBUTEROL SULFATE 2.5 MG/0.5 ML INH NEB SOLN NEB SCH (08:00)
[2016-12-25] MEDS: SYMBICORT 160/4.5MCG INHALER 6GM INH SCH (08:01)
[2016-12-25] MEDS: FUROSEMIDE 40 MG/4 ML VIAL (J1940) IV SCH (08:25)
[2016-12-25] MEDS: HumaLOG INSULIN (NovoLOG) PER UNIT SC SCH ×2 (08:26→12:32)
[2016-12-25] MEDS: VENLAFAXINE **XR** 75MG CAPSULE PO SCH (08:27)
[2016-12-25] MEDS: OMEPRAZOLE 20 MG CAP PO SCH (08:27)
[2016-12-25] MEDS ORDERED: predniSONE 10 MG TAB PO SCH (09:00)
[2016-12-25] MEDS ORDERED: PRED10TA2 PO (11:44)
[2016-12-25] MEDS ORDERED: MIRT15TA3 PO (11:44)
[2016-12-25] MEDS ORDERED: QUET5TAB PO (11:44)
[2016-12-25] MEDS ORDERED: VENL75CA2 PO (11:44)
[2016-12-25] MEDS ORDERED: LASI40TA PO (11:44)
--- NOTE | 2016-12-25 15:33 | DS.PDOC ---
Discharge Summary General Date of Admission Dec 18, 2016 at 19:36 Date of Discharge 12/25/16 Attending Physician: JORDAN MAYS MD Specialist/Consultants Involve: Rachel Zelaya MD Discharge Summary PROCEDURES PERFORMED DURING STAY: None. ADMITTING/DISCHARGE DIAGNOSES: 1. Acute COPD exacerbation 2. Metabolic encephalopathy resolved 3. Nocturnal hypoxia, requiring 1-2 L oxygen at night. Will need outpatient follow-up with Dr. Villa soon. 4. Tobacco abuse 5. Hypokalemia/hyponatremia resolved 6. Hypothyroidism 7. Anxiety/depression 8. GERD COMPLICATIONS/CHIEF COMPLAINT: HISTORY OF PRESENT ILLNESS/HOSPITAL COURSE: This is a 46-year-old female past medical history of anxiety/depression, COPD, hypothyroidism who presents complaining of dyspnea. Patient was found to be in acute COPD exacerbation for which she was started on steroids, nebulizers, antibiotics and this significantly improved. Over the course of hospitalization patient was also noted to have metabolic encephalopathy with excessive sedation secondary to his psychiatric medications. Psychiatric was consulted with reduction of her psychiatric medication dosages. Since then the patient's mentation significantly improved. The patient was also noted to have nocturnal hypoxia with likely obstructive sleep apnea however will need outpatient sleep study. I have discussed the case with Dr. Villa with recommendations for 2 L O2 at night. Patient was ambulated on room air today and did not desaturate and therefore will not require oxygen during the day. The patient is now hemodynamically stable and ready to be discharged home with outpatient follow-up. Patient is return to the ED if symptoms worse. DISCHARGE MEDICATIONS: Please see below. ALLERGIES: Please see below. PHYSICAL EXAMINATION ON DISCHARGE: Vitals: (see below) General: No acute distress, laying comfortably in bed. HEENT: Moist mucous membranes. Neck: No JVD or lymphadenopathy Cardiac: RRR, No murmurs Pulm: Diminished breath sounds at the bases b/l. No wheezing, rhonchi, crackles Abd: NT/ND + BS. Obese Ext: Trace edema BLE. No cyanosis LABORATORY DATA: Please see below. IMAGING: PROGNOSIS: Fair ACTIVITY: As tolerated. DIET: Low-sodium DISCHARGE PLAN/DISPOSITION: DISCHARGE INSTRUCTIONS: 1. Follow-up with PCP, Dr. Villa, psychiatry in 1-2 weeks. DISCHARGE CONDITION: Stable. TIME SPENT ON DISCHARGE: Greater than 30 minutes. Vital Signs/I&Os Vital Signs Date Time Temp Pulse Resp B/P (MAP) Pulse Ox O2 Delivery O2 Flow Rate FiO2 12/25/16 09:00 Nasal Cannula 1.0 12/25/16 06:00 96.4 84 17 133/83 (100) 95 12/20/16 03:26 40 I&O- Last 24 Hours up to 6 AM 12/26/16 06:00 Intake Total 720 ml Balance 720 ml Laboratory Data Labs 24H Laboratory Tests 2 12/24/16 16:47: Bedside Glucose (Misc Panel) 190H 12/24/16 20:44: Bedside Glucose (Misc Panel) 260H 12/25/16 05:47: Anion Gap 9, Glomerular Filtration Rate > 60.0, Blood Urea Nitrogen 23H, Creatinine 0.70, Sodium Level 138, Potassium Level 3.4L, Chloride Level 99, Carbon Dioxide Level 30, Calcium Level 8.9, Magnesium Level 1.9 12/25/16 12:10: Bedside Glucose (Misc Panel) 242H CBC/BMP Laboratory Tests 12/25/16 05:47 Red Blood Count 5.63 H, Mean Corpuscular Volume 80.4, Mean Corpuscular Hemoglobin 26.9 L, Mean Corpuscular Hemoglobin Concent 33.4, Red Cell Distribution Width 15.8 H, Calcium Level 8.9 FSBS Laboratory Tests Test 12/24/16 16:47 12/24/16 20:44 12/25/16 12:10 Range/Units Bedside Glucose (Misc Panel) 190 260 242 70-105 MG/DL Microbiology Microbiology 12/18/16 Blood Culture - Final, Complete NO GROWTH AFTER 5 DAYS 12/18/16 Blood Culture - Final, Complete NO GROWTH AFTER 5 DAYS 12/20/16 Gram Stain - Final, Complete 12/20/16 Sputum Culture - Final, Complete Yeast Like Organism 12/18/16 Respiratory Virus Panel (PCR) (RADHA) - Final, Complete 12/18/16 Urine Culture - Final, Complete Discharge Medications Scheduled Budesonide/Formoterol (Symbicort 160-4.5 Mcg/Act) 60 Puff/Inhaler Aers, 2 PUFF INH BID, (Reported) Clemastine Fumarate (Clemastine Fumarate) 2.68 Mg Tab, 2.68 MG PO DAILY, ( Reported) Levothyroxine Sodium (Synthroid) 125 Mcg Tab, 125 MCG PO DAILY, (Reported) Mirtazapine (Mirtazapine) 15 Mg Tab, 7.5 MG PO QHS Omeprazole (Omeprazole) 40 Mg Cap, 40 MG PO DAILY, (Reported) Paliperidone Palmitate (Invega Sustenna) 234 Mg/1.5 Ml Inj, 234 MG IM QMONTH, ( Reported) Prednisone (Prednisone) 10 Mg Tab, 10 MG PO TAPER Take 2 tabs daily x3 days, then 1 tabs daily x 3 days stop Quetiapine Fumerate (Quetiapine Fumarate) 50 Mg Tab, 50 MG PO QHS Venlafaxine HCl (Venlafaxine HCl ER) 75 Mg Cap, 150 MG PO DAILY Allergies Coded Allergies: No Known Drug Allergy (Unverified Allergy, Unknown, 07/12/12) JORDAN MAYS MD Dec 25, 2016 15:33
[2017-01-29] MEDS ORDERED: SERO1TAB2 PO (14:14)
[2017-01-29] MEDS ORDERED: EFFE75CA75 PO (14:14)
[2017-01-29] MEDS ORDERED: REME15TA PO (14:14)
[2017-01-29] MEDS ORDERED: METF500T13 PO (19:21)
[2017-02-09] MEDS ORDERED: SULF1TAB23 PO (12:09)
[2017-02-09] MEDS ORDERED: VENL37TA PO (12:09)
[2017-02-09] MEDS ORDERED: ARIP10TAB PO (12:09)
[2017-02-09] MEDS ORDERED: NICO21PAT TD (12:09)
[2017-02-09] MEDS ORDERED: QUET1TAB9 PO (12:09)
[2017-02-09] MEDS ORDERED: INVE234I IM (12:09)
== END 2016-12-25 14:23 | disposition home or self-care (01) | DRG 190 ==
LOC: M ED 16:42 → M ED INP 19:36 → M MSPAV 21:53
PROVIDERS: ADMIT Internal Medicine; ATTEND Internal Medicine
DX: J44.0 Chronic obstructive pulmonary disease with (acute) lower respiratory infection (principal); G93.41 Metabolic encephalopathy; E87.1 Hypo-osmolality and hyponatremia; F17.200 Nicotine dependence, unspecified, uncomplicated; K21.9 Gastro-esophageal reflux disease without esophagitis; F41.9 Anxiety disorder, unspecified; F32.9 Major depressive disorder, single episode, unspecified; E03.9 Hypothyroidism, unspecified; E87.6 Hypokalemia; Z79.899 Other long term (current) drug therapy; G47.33 Obstructive sleep apnea (adult) (pediatric); R41.0 Disorientation, unspecified; R09.02 Hypoxemia

== ENCOUNTER 2016-12-29 18:59 | Emergency (ER) | payer MEDICARE, MEDICAID ==
[~2016-12-29] VITALS: Ht 170.2 cm; Wt 114.0 kg
[~2016-12-29 18:59] MED LIST changes: +INVE234I IM; +LASI40TA PO; +PRED10TA2 PO; +TRAZ-136 PO
[2016-12-29 19:34] LABS: MEAN CORPUSCULAR HEMOGLOBIN 25.3 pg (27.0-33.0); MEAN CORPUSCULAR HGB CONC 31.6 g/dl (32.0-36.5); PLATELET COUNT, AUTOMATED 373 10^3/uL (150-450)
[2016-12-29 19:41] LABS: ADD MANUAL DIFFER YES; DIFF SLIDE NUMBER 329; WHITE BLOOD COUNT 18.9 10^3/uL (4.0-10.0)
--- NOTE | 2016-12-29 20:03 | REP ---
Chest one-view HISTORY: Chest pain Comparison: 12/18/2016 The lungs are clear. The heart is normal in size. The pulmonary vasculature is normal in appearance. Impression: No acute disease. Signed by Thierno Paul MD 12/29/2016 07:55 P
[2016-12-29 20:31] LABS: EOSINOPHILS 2 % (0-5)
[2016-12-29 21:03] LABS: ALBUMIN 2.8 GM/DL (3.2-5.2); ALKALINE PHOSPHATASE 94 U/L (45-117); ALT/SGPT 28 U/L (12-78); ANION GAP 8 MEQ/L (8-16); AST/SGOT 10 U/L (15-37); BILIRUBIN,DIRECT < 0.1 MG/DL (0.0-0.2); BILIRUBIN,TOTAL 0.2 MG/DL (0.2-1.0); BLOOD UREA NITROGEN 10 MG/DL (7-18); CALCIUM LEVEL 8.6 MG/DL (8.5-10.1); CARBON DIOXIDE LEVEL 31 MEQ/L (21-32); CHLORIDE LEVEL 98 MEQ/L (98-107); CREATININE FOR GFR 0.56 MG/DL (0.55-1.02); GLOMERULAR FILTRATION RATE > 60.0 (>58); GLUCOSE, FASTING 125 MG/DL (70-105); POTASSIUM SERUM 3.6 MEQ/L (3.5-5.1); SODIUM LEVEL 137 MEQ/L (136-145)
[2016-12-29 21:09] LABS: ALBUMIN/GLOBULIN RATIO 0.78 (1.00-1.93); TOTAL PROTEIN 6.4 GM/DL (6.4-8.2)
[2016-12-29 23:05] VITALS: BP 129/77
--- NOTE | 2016-12-30 08:12 | ECGEPIP ---
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
[2017-01-29] MEDS ORDERED: SERO1TAB2 PO (14:14)
[2017-01-29] MEDS ORDERED: REME15TA PO (14:14)
[2017-01-29] MEDS ORDERED: EFFE75CA75 PO (14:14)
[2017-01-29] MEDS ORDERED: METF500T13 PO (19:21)
[2017-02-09] MEDS ORDERED: QUET1TAB9 PO (12:09)
[2017-02-09] MEDS ORDERED: VENL37TA PO (12:09)
[2017-02-09] MEDS ORDERED: SULF1TAB23 PO (12:09)
[2017-02-09] MEDS ORDERED: INVE234I IM (12:09)
[2017-02-09] MEDS ORDERED: NICO21PAT TD (12:09)
[2017-02-09] MEDS ORDERED: ARIP10TAB PO (12:09)
== END 2016-12-29 23:08 | disposition home or self-care (01) ==
LOC: EDBD 18:59 → M ED 18:59
DX: R07.89 Other chest pain (principal); F17.200 Nicotine dependence, unspecified, uncomplicated; Z82.49 Family history of ischemic heart disease and other diseases of the circulatory system; Z79.84 Long term (current) use of oral hypoglycemic drugs; Z79.899 Other long term (current) drug therapy

== ENCOUNTER 2017-01-06 22:25 | Emergency (ER) | payer MEDICARE, MEDICAID ==
[~2017-01-06] VITALS: Ht 170.2 cm; Wt 250.0 kg
[2017-01-06] MEDS ORDERED: methylPREDNISolone INJ 40 MG/1 ML VIAL (J2920) IV ONE (23:15)
[2017-01-06] MEDS ORDERED: IPRATROPIUM 0.5MG/ALBUTEROL 2.5MG INH SOL UD 3ML (DUONEB)(J7620) NEB ONE (23:15)
[2017-01-06 23:56] VITALS: O2SAT 91
[2017-01-06 23:57] LABS: METHADONE URINE NEGATIVE (NEGATIVE)
[2017-01-07 00:47] LABS: MEAN CORPUSCULAR HEMOGLOBIN 25.3 pg (27.0-33.0); MEAN CORPUSCULAR HGB CONC 31.6 g/dl (32.0-36.5); MEAN CORPUSCULAR VOLUME 80.1 fl (80.0-96.0); RED CELL DISTRIBUTION WIDTH 17.1 % (11.5-14.5); WHITE BLOOD COUNT 16.1 10^3/uL (4.0-10.0)
[2017-01-07 01:27] LABS: ALBUMIN 2.6 GM/DL (3.2-5.2); ALBUMIN/GLOBULIN RATIO 0.68 (1.00-1.93); ALKALINE PHOSPHATASE 156 U/L (45-117); ALT/SGPT 38 U/L (12-78); ANION GAP 4 MEQ/L (8-16); AST/SGOT 19 U/L (15-37); BILIRUBIN,DIRECT < 0.1 MG/DL (0.0-0.2); BILIRUBIN,TOTAL 0.2 MG/DL (0.2-1.0); BLOOD UREA NITROGEN 3 MG/DL (7-18); CALCIUM LEVEL 8.9 MG/DL (8.5-10.1); CARBON DIOXIDE LEVEL 39 MEQ/L (21-32); CHLORIDE LEVEL 93 MEQ/L (98-107); GLOMERULAR FILTRATION RATE > 60.0 (>58); GLUCOSE, FASTING 219 MG/DL (70-105); POTASSIUM SERUM 3.5 MEQ/L (3.5-5.1); SODIUM LEVEL 136 MEQ/L (136-145); TOTAL PROTEIN 6.4 GM/DL (6.4-8.2)
[2017-01-07 02:09] LABS: VENOUS BASE EXCESS 9.3 (-2.0-2.0); VENOUS O2 SATURATION 91.4 % (60.0-80.0); VENOUS PARTIAL PRESSURE CO2 58.4 mmHg (38.0-50.0); VENOUS PARTIAL PRESSURE O2 57.6 mmHg (30.0-50.0); VENOUS STANDARD HCO3 32.9 MEQ/L; VENOUS TOTAL CO2 37.9 MEQ/L (24.0-28.0)
[2017-01-07 02:34] VITALS: BP 117/58
--- NOTE | 2017-01-07 07:56 | REP ---
PA and lateral chest: Comparison is the portable chest dated 12/29/2016. The lung murguia are clear. The cardiac size is normal The ileana, mediastinum, and bony thorax are unremarkable. Impression: Negative PA and lateral chest. There is no interval change. Signed by Mt Waggoner MD 01/07/2017 07:47 A
[2017-01-07] MEDS ORDERED: QUET5TAB PO (21:07)
[2017-01-07] MEDS ORDERED: MIRT15TA3 PO (21:07)
[2017-01-07] MEDS ORDERED: VENL75CA47 PO (21:07)
[2017-01-07] MEDS ORDERED: OMEP20CA3 PO (21:08)
[2017-01-29] MEDS ORDERED: REME15TA PO (14:14)
[2017-01-29] MEDS ORDERED: SERO1TAB2 PO (14:14)
[2017-01-29] MEDS ORDERED: EFFE75CA75 PO (14:14)
[2017-01-29] MEDS ORDERED: METF500T13 PO (19:21)
[2017-02-09] MEDS ORDERED: QUET1TAB9 PO (12:09)
[2017-02-09] MEDS ORDERED: ARIP10TAB PO (12:09)
[2017-02-09] MEDS ORDERED: INVE234I IM (12:09)
[2017-02-09] MEDS ORDERED: VENL37TA PO (12:09)
[2017-02-09] MEDS ORDERED: SULF1TAB23 PO (12:09)
[2017-02-09] MEDS ORDERED: NICO21PAT TD (12:09)
== END 2017-01-07 04:49 | disposition home or self-care (01) ==
LOC: M ED 22:25
DX: R06.02 Shortness of breath (principal); R44.3 Hallucinations, unspecified; R41.0 Disorientation, unspecified; E03.9 Hypothyroidism, unspecified; F31.9 Bipolar disorder, unspecified; F41.9 Anxiety disorder, unspecified; F17.210 Nicotine dependence, cigarettes, uncomplicated; Z79.899 Other long term (current) drug therapy; Z79.52 Long term (current) use of systemic steroids

== ENCOUNTER 2017-01-07 12:17 | Inpatient (IN) | payer MEDICARE, MEDICAID ==
[~2017-01-07] VITALS: Ht 170.2 cm; Wt 114.0 kg
[2017-01-07] MEDS: NS 1,000 ML IV SCH ×2 (13:04→19:44)
[2017-01-07 14:03] LABS: BASO % 0.1 % (0.0-1.0); IMMATURE GRANULOCYTE % 1.2 % (0-0); LYMPH # 1.3 10^3/uL (1.5-4.5); LYMPH % 7.5 % (24.0-44.0); MEAN CORPUSCULAR HEMOGLOBIN 25.1 pg (27.0-33.0); MEAN CORPUSCULAR HGB CONC 31.4 g/dl (32.0-36.5); MEAN CORPUSCULAR VOLUME 80.1 fl (80.0-96.0); MONO # 0.2 10^3/uL (0.0-0.8); MONO % 1.3 % (0.0-5.0); NEUTROPHILS # 15.6 10^3/uL (1.8-7.7); NEUTROPHILS % 89.9 % (36.0-66.0); PLATELET COUNT, AUTOMATED 306 10^3/uL (150-450); RED CELL DISTRIBUTION WIDTH 17.3 % (11.5-14.5); WHITE BLOOD COUNT 17.3 10^3/uL (4.0-10.0)
[2017-01-07 14:03] LABS: CONTROL LINE HCG INT CTR LINE PRESENT
[2017-01-07 14:08] LABS: ADD MANUAL DIFFER NO; DIFF SLIDE NUMBER 245
--- NOTE | 2017-01-07 14:32 | REP ---
The PA and lateral chest: Comparisons 01/06/2017. There is focal discoid atelectasis superimposed over the right hilus as an interval change. The lung murguia otherwise clear and unchanged. Cardiac size is normal. The ileana, mediastinum, bony thorax are unremarkable. Impression: Focal discoid atelectasis superimposed over the right hilus. Otherwise, negative PA and chest. Signed by Mt Waggoner MD 01/07/2017 02:25 P
[2017-01-07 14:33] LABS: METHADONE URINE NEGATIVE (NEGATIVE)
[2017-01-07 15:43] LABS: ALBUMIN 2.7 GM/DL (3.2-5.2); ALBUMIN/GLOBULIN RATIO 0.73 (1.00-1.93); ALKALINE PHOSPHATASE 159 U/L (45-117); ALT/SGPT 39 U/L (12-78); ANION GAP 16 MEQ/L (8-16); AST/SGOT 16 U/L (15-37); BILIRUBIN,DIRECT < 0.1 MG/DL (0.0-0.2); BILIRUBIN,TOTAL 0.2 MG/DL (0.2-1.0); BLOOD UREA NITROGEN 7 MG/DL (7-18); CALCIUM LEVEL 8.7 MG/DL (8.5-10.1); CARBON DIOXIDE LEVEL 22 MEQ/L (21-32); CHLORIDE LEVEL 93 MEQ/L (98-107); CREATININE FOR GFR 1.03 MG/DL (0.55-1.02); POTASSIUM SERUM 3.9 MEQ/L (3.5-5.1); SODIUM LEVEL 131 MEQ/L (136-145); TOTAL PROTEIN 6.4 GM/DL (6.4-8.2)
[2017-01-07 15:44] LABS: GLOMERULAR FILTRATION RATE > 60.0 (>58); GLUCOSE, FASTING 471 MG/DL (70-105)
[2017-01-07] MEDS ORDERED: HumuLIN R (REGULAR) INSULIN (NovoLIN R) **100U/ML** PER UNIT IV ONE (16:15)
[2017-01-07] MEDS ORDERED: IPRATROPIUM 0.5MG/ALBUTEROL 2.5MG INH SOL UD 3ML (DUONEB)(J7620) NEB ONE (20:30)
[2017-01-07] MEDS ORDERED: methylPREDNISolone INJ 125 MG/2 ML VIAL (J2930) IV ONE (20:30)
[2017-01-07] MEDS ORDERED: VENL75CA47 PO (21:07)
[2017-01-07] MEDS ORDERED: QUET5TAB PO (21:07)
[2017-01-07] MEDS ORDERED: MIRT15TA3 PO (21:07)
[2017-01-07] MEDS ORDERED: OMEP20CA3 PO (21:08)
[2017-01-07] MEDS ORDERED: LevoFLOXacin IV 500 MG in APPROPRIATE DILUENT 1 EA IV ONE (21:45)
[2017-01-07] MEDS ORDERED: GLUCAGON FOR INJ 1 MG VIAL (J1610) SC PRN (21:45)
[2017-01-07] MEDS ORDERED: DEXTROSE 50% 50 ML SYRINGE IV PRN (21:45)
[2017-01-07] MEDS ORDERED: GLUCOSE 4 GM CHEW TABLET PO PRN (21:45)
[2017-01-07] MEDS: QUEtiapine FUMARATE 50 MG TAB PO SCH (22:44)
[2017-01-07] MEDS: LEVEMIR (INSULIN DETEMIR) 1 UNITS/0.01ML SC SCH (22:45)
[2017-01-07] MEDS: MIRTAZAPINE 15 MG TAB PO SCH (22:45)
[2017-01-08] VITALS: BP 111/56
[2017-01-08] MEDS: NS 1,000 ML IV SCH ×3 (01:34→17:20)
[2017-01-08] MEDS ORDERED: methylPREDNISolone INJ 40 MG/1 ML VIAL (J2920) IV SCH (03:00)
[2017-01-08] MEDS: HEPARIN SOD (PORCINE) 5000 UNITS/ML VIAL SC SCH ×3 (05:35→22:22)
[2017-01-08] MEDS: LEVOTHYROXINE 125MCG TABLET (0.125MG) PO SCH (05:35)
[2017-01-08 06:00] VITALS: BP 116/78
[2017-01-08 07:27] LABS: BASO % 0.2 % (0.0-1.0); IMMATURE GRANULOCYTE % 2.1 % (0-0); LYMPH # 1.5 10^3/uL (1.5-4.5); LYMPH % 8.1 % (24.0-44.0); MEAN CORPUSCULAR HEMOGLOBIN 25.3 pg (27.0-33.0); MEAN CORPUSCULAR HGB CONC 31.8 g/dl (32.0-36.5); MEAN CORPUSCULAR VOLUME 79.6 fl (80.0-96.0); MONO # 0.3 10^3/uL (0.0-0.8); MONO % 1.7 % (0.0-5.0); NEUTROPHILS # 16.2 10^3/uL (1.8-7.7); NEUTROPHILS % 87.9 % (36.0-66.0); PLATELET COUNT, AUTOMATED 343 10^3/uL (150-450); RED CELL DISTRIBUTION WIDTH 17.6 % (11.5-14.5); WHITE BLOOD COUNT 18.4 10^3/uL (4.0-10.0)
--- NOTE | 2017-01-08 07:33 | HPEPDOC ---
General Date of Admission Jan 07, 2017 at 21:20 Other Providers No PCP Attending Physician: RAMONA CHANEY MD Chief Complaint The patient is a 46-year-old female admitted with a reason for visit of Copd Exacerbation;Hyperglycemia. Source: Patient Exam Limitations: No limitations Timing/Duration: 24 hours Severity: Moderate History of Present Illness 46-year-old female, current smoker, history of diabetes mellitus type 2, COPD on 2 L home oxygen, presented with night sweats, fever, chills. Denies any chest pain, recent travel, sick contact. There is also associated dyspnea on exertion. On arrival to the emergency room patient was found to be 86% on room air, blood glucose was 471 with no anion gap., And no acetone. Home Medications Scheduled Budesonide/Formoterol (Symbicort 160-4.5 Mcg/Act) 60 Puff/Inhaler Aers, 2 PUFF INH BID, (Reported) Clemastine Fumarate (Clemastine Fumarate) 2.68 Mg Tab, 2.68 MG PO DAILY, ( Reported) Levothyroxine Sodium (Synthroid) 125 Mcg Tab, 125 MCG PO DAILY, (Reported) Mirtazapine (Mirtazapine) 15 Mg Tab, 7.5 MG PO QHS, (Reported) Omeprazole (Omeprazole) 20 Mg Cap, 40 MG PO DAILY, (Reported) Paliperidone Palmitate (Invega Sustenna) 234 Mg/1.5 Ml Inj, 234 MG IM ASDIRECTED , (Reported) TAKES ONCE A MONTH, TOOK AT END OF Quetiapine Fumerate (Quetiapine Fumarate) 50 Mg Tab, 50 MG PO QHS, (Reported) Venlafaxine HCl (Venlafaxine HCl ER) 75 Mg Capcr, 150 MG PO DAILY, (Reported) Allergies Coded Allergies: No Known Drug Allergy (Verified Allergy, Unknown, 01/06/17) Past Medical History Medical History COPD, diabetes mellitus type 2, hypothyroid Surgical History Hysterectomy, cholecystectomy Family History Significant Family History: No pertinent family hx Social History * Smoker: current smoker Alcohol: Denies Drugs: denies Recent Travel/Sick Contacts: Denies: Recent travel, Recent sick contacts Psychosocial History: Schizophrenia Review of Symptoms Constitutional: Reports: Chills, Fever, Night Sweats Eyes: Denies: Pain, Vision change ENT: Denies: Head Aches, Ear Pain, Dysphagia Skin: Denies: Rash, Lesions, Breakdown Pulmonary: Reports: Dyspnea, Cough Cardiovascular: Reports: Palpitations, Denies: Chest Pain, Orthopnea, Paroxysmal Noc. Dyspnea, Lt Headedness Gastrointestinal: Denies: Nausea, Vomiting, Abdominal Pain, Diarrhea Genitourinary: Denies: Dysuria, Frequency, Incontinence, Retention Hematologic: Denies: Bruising, Bleeding Excessively Musculoskeletal: Denies: Neck Pain, Back Pain, Joint Pain, Muscle Pain, Spasms Neurological: Denies: Weakness, Numbness, Change in speech, Confusion Psych: Reports: Mood Normal, Denies: Depression, Memory Issues Physical Examination General Exam: Positive: Alert, Severe Distress Eye Exam: Positive: PERRLA, Conjunctiva & lids normal, EOMI, Negative: Sclera icteric ENT Exam: Positive: Atraumatic, Mucous membr. moist/pink, Pharynx Normal Neck Exam: Positive: Supple, Negative: JVD, thyromegaly Chest Exam: Positive: Rales, Rhonchi, Wheezing, Diminished Heart Exam: Positive: Tachycardic, Normal S1, Normal S2, Negative: Murmurs, Rubs Telemetry: Positive: No significant arrhythmia Abdomen Exam: Positive: Normal bowel sounds, Soft, Negative: Tenderness, Hepatospenomegaly Extremity Exam: Positive: Normal pulses, Negative: Clubbing, Cyanosis, Edema Skin Exam: Positive: Nl turgor and temperature, Negative: Breakdown, Lesion Neuro Exam: Positive: Normal Gait, Normal Speech, Cranial Nerves 3-12 NL, Reflexes 2+ Psych Exam: Positive: Mental status NL, Mood NL, Oriented x 3 Vital Signs Vital Signs Date Time Temp Pulse Resp B/P (MAP) Pulse Ox O2 Delivery O2 Flow Rate FiO2 01/08/17 06:00 97.4 120 18 116/78 (91) 91 Nasal Cannula 2.0 Laboratory Data Labs 24H Laboratory Tests 2 01/07/17 12:39: Immature Granulocyte % (Auto) 1.2H, White Blood Count 17.3H, Red Blood Count 5.33, Hemoglobin 13.4, Hematocrit 42.7, Mean Corpuscular Volume 80.1, Mean Corpuscular Hemoglobin 25.1L, Mean Corpuscular Hemoglobin Concent 31.4L, Red Cell Distribution Width 17.3H, Platelet Count 306, Neutrophils (%) (Auto) 89.9H , Lymphocytes (%) (Auto) 7.5L, Monocytes (%) (Auto) 1.3, Eosinophils (%) (Auto) 0.0, Basophils (%) (Auto) 0.1, Neutrophils # (Auto) 15.6H, Lymphocytes # (Auto) 1.3L, Monocytes # (Auto) 0.2, Eosinophils # (Auto) 0.0, Basophils # (Auto) 0.0, Immature Granulocyte # (Auto) 0.2H, Nucleated Red Blood Cells % (auto) 0.0, Total Creatine Kinase 37, Creatine Kinase MB 1.0, Creatine Kinase MB Relative Index 2.70, Troponin I < 0.02, Lipase 58L 01/07/17 13:03: Anion Gap 16, Glomerular Filtration Rate > 60.0, Calcium Level 8.7, Aspartate Amino Transf (AST/SGOT) 16, Alanine Aminotransferase (ALT/SGPT) 39, Alkaline Phosphatase 159H, Total Bilirubin 0.2, Direct Bilirubin < 0.1, Total Protein 6.4 , Albumin 2.7L, Albumin/Globulin Ratio 0.73L, Thyroid Stimulating Hormone (TSH) 0.599, Human Chorionic Gonadotropin, Qual NEGATIVE, Salicylates Level 5.9, Acetaminophen Level < 2.0L, Ethyl Alcohol Level 0.003 01/07/17 13:53: Urine Appearance CLEAR, Urine Color YELLOW, Urine pH 6.0, Urine Specific [place] 1.026, Urine Protein NEGATIVE, Urine Glucose (UA) 3+H, Urine Ketones NEGATIVE, Urine Urobilinogen 0.2, Urine Bilirubin NEGATIVE, Urine Leukocyte Esterase NEGATIVE, Urine Blood 2+H, Urine Nitrite NEGATIVE, Urine WBC (Auto) 8H , Urine RBC (Auto) 4H, Urine Hyaline Casts (Auto) 0, Urine Bacteria (Auto) NEGATIVE, Urine Squamous Epithelial Cells 1, Urine Sperm (Auto) , Urine Amphetamines Screen NEGATIVE, Urine Benzodiazepines Screen NEGATIVE, Urine Opiates Screen NEGATIVE, Urine Methadone Screen NEGATIVE, Urine Barbiturates Screen NEGATIVE, Urine Phencyclidine Screen NEGATIVE, Urine Cocaine Metabolite Screen NEGATIVE, Urine Cannabinoids Screen NEGATIVE 01/07/17 17:13: Bedside Glucose (Misc Panel) 293H 01/07/17 22:31: Bedside Glucose (Misc Panel) 312H 01/07/17 22:36: Estimated Mean Plasma Glucose 194H, Hemoglobin A1c 8.4H 01/07/17 23:47: Troponin I < 0.02 CBC/BMP Laboratory Tests 01/07/17 12:39 Red Blood Count 5.33, Mean Corpuscular Volume 80.1, Mean Corpuscular Hemoglobin 25.1 L, Mean Corpuscular Hemoglobin Concent 31.4 L, Red Cell Distribution Width 17.3 H, Neutrophils (%) (Auto) 89.9 H, Lymphocytes (%) (Auto) 7.5 L, Monocytes ( %) (Auto) 1.3, Eosinophils (%) (Auto) 0.0, Basophils (%) (Auto) 0.1, Neutrophils # (Auto) 15.6 H, Lymphocytes # (Auto) 1.3 L, Monocytes # (Auto) 0.2 , Eosinophils # (Auto) 0.0, Basophils # (Auto) 0.0 01/07/17 13:03 Microbiology Microbiology 01/07/17 Urine Culture, Received Pending Assessment/Plan 46-year-old female, history of diabetes mellitus type 2. Schizophrenia, depression, COPD presented with fever, chills, shortness of breath, likely due to pneumonia induced sepsis. Plan / VTE VTE Prophylaxis Ordered?: Yes Plan Plan Sepsis= White count is 17.6, tachycardic. Chest x-ray showing pneumonia. Patient was started on IV Zosyn and vancomycin with pharmacy adjusting dose. Uncontrolled diabetes mellitus type 2 = blood glucose 471. No anion gap. No acetone is started Levemir 20 units every 12 hours plus sliding scale insulin. Check A1c check COPD exacerbation continue with oxygen, DuoNeb IV salmeterol 40 mg every 6 hours. Tobacco abuse. Continue with nicotine patch. Hyponatremia. Sodium 131. Continue with IV normal saline 100 mL per hour. Schizophrenia. Continue with Seroquel and Remeron. Depression. Continue with Effexor. Due to prophylaxis. Heparin subcutaneous. Cardiac diabetic diet Disposition Patient would most likely be discharged home once medically stable, within 2-3 days IVF: Initiate Diet: Continue Current Activity: Continue Current Medications: Change to IV, Replete Electrolytes IV Respiratory: Increase Oxygen Diagnostics: Repeat Labs in AM, EKG, TTE SHOSHANA TREJO MD Jan 08, 2017 07:33
[2017-01-08 07:57] LABS: ALBUMIN 2.3 GM/DL (3.2-5.2); ALBUMIN/GLOBULIN RATIO 0.55 (1.00-1.93); ALKALINE PHOSPHATASE 126 U/L (45-117); ALT/SGPT 30 U/L (12-78); ANION GAP 8 MEQ/L (8-16); AST/SGOT 11 U/L (15-37); BILIRUBIN,TOTAL < 0.1 MG/DL (0.2-1.0); BLOOD UREA NITROGEN 11 MG/DL (7-18); CALCIUM LEVEL 8.1 MG/DL (8.5-10.1); CARBON DIOXIDE LEVEL 31 MEQ/L (21-32); CHLORIDE LEVEL 98 MEQ/L (98-107); CREATININE FOR GFR 0.83 MG/DL (0.55-1.02); GLOMERULAR FILTRATION RATE > 60.0 (>58); GLUCOSE, FASTING 348 MG/DL (70-105); POTASSIUM SERUM 3.8 MEQ/L (3.5-5.1); SODIUM LEVEL 137 MEQ/L (136-145); TOTAL PROTEIN 6.5 GM/DL (6.4-8.2)
[2017-01-08] MEDS ORDERED: VANCOMYCIN HCL 1,000 MG, VIAL MATE ADAPTER 1 EACH in D5W 250 ML IV ONE ×2 (09:00→11:00)
[2017-01-08] MEDS ORDERED: VANCOMYCIN HCL 1,000 MG, VIAL MATE ADAPTER 1 EACH in D5W 250 ML IV SCH (10:00)
[2017-01-08] MEDS: HumaLOG INSULIN (NovoLOG) PER UNIT SC SCH ×3 (10:03→18:34)
[2017-01-08] MEDS: PIPERACILLIN/TAZOBACTAM SOD 3.375 GM in D5W MINI-BAG PLUS 50 ML IV SCH ×3 (10:03→19:40)
[2017-01-08] MEDS: NICOTINE 14 MG/24 HR TRANSDERMAL TD SCH (10:04)
[2017-01-08] MEDS: VENLAFAXINE **XR** 75MG CAPSULE PO SCH (10:04)
[2017-01-08] MEDS: PANTOPRAZOLE 40MG TAB (PROTONIX) PO SCH (10:05)
[2017-01-08] MEDS: LEVEMIR (INSULIN DETEMIR) 1 UNITS/0.01ML SC SCH ×2 (10:06→22:21)
--- NOTE | 2017-01-08 10:40 | PHACANCOPD ---
PHARMACY VANCOMYCIN DOSING Pt Demographics Demographics Patient Age:46 , Weight:114.000 , Gender: female Adjusted Body Weight Date: 01/08/17, Adjusted Body Weight: Kg Events Past 24 Hours Events Past 24 Hours: NO: Dialysis, Diuretic Therapy, Change in CrCl, Fever, Elevation in WBC, Pending Diagnostics, Pending Procedures, Other Vancomycin Vancomycin indication: SEPSIS Vancomycin Target Ranges: 15-20 mcg/ml Vancomycin Load Y/N: Yes Load Dose Date Time Vancomycin Load Dose: 2000MG Date: 01/08/2017 Time: 0900 Vancomycin Dose Date: 01/08/17. Current Vancomycin Dose: [1000MG IV Q8H @ 1000] Intermittent Dosing?: No Labs Labs Item Value Date Time Creatinine 1.03 MG/DL H # 01/07/17 1303 Creatinine 0.83 MG/DL 01/08/17 0651 White Blood Count 17.3 10^3/uL H 01/07/17 1239 White Blood Count 18.4 10^3/uL H 01/08/17 0651 Micro Microbiology 01/07/17 Urine Culture, Received Pending Creatinine Clearance Date:01/08/17. Creatinine Clearance: [86ML/MIN]. Pending Labs VANCO TROUGH 01/09/17 @ 0900 Assessment and Plan Maintaining Current Dose?: Yes Reason for dose change: No Dose Change Pharmacist Note Pharmacist Note Date: 01/08/17. Pharmacist note: Patient was given a 2000mg loading dose @ 0900 followed by 1000mg iv q8h for the treatment of sepsis. Vanco trough is scheduled to drawn prior to the 4th dose (01/09 @ 0900). Urine cultures are pending. Continue to monitor renal function and adjust dose as needed. KATIE MCFADDEN PHARMACY Jan 08, 2017 10:40
[2017-01-08] MEDS: VANCOMYCIN HCL 1,000 MG, VIAL MATE ADAPTER 1 EACH in D5W 250 ML IV SCH ×2 (12:25→20:39)
[2017-01-08 14:00] VITALS: BP 122/58
[2017-01-08] MEDS: methylPREDNISolone INJ 40 MG/1 ML VIAL (J2920) IV SCH (14:29)
--- NOTE | 2017-01-08 14:36 | IPNPDOC ---
Subjective Date Seen The patient was seen on 01/08/17. Subjective Chief Complaint/HPI Patient seen and examined at the bedside. States that her respiratory status is improving. Denies any acute complaints at this time. Objective Physical Examination General Exam: Positive: Alert, Cooperative, No Acute Distress ENT Exam: Positive: Atraumatic, Mucous membr. moist/pink Neck Exam: Negative: JVD Chest Exam: Positive: Diminished Heart Exam: Positive: Tachycardic, Normal S1, Normal S2, Negative: Murmurs, Rubs Abdomen Exam: Positive: Soft, Negative: Tenderness Extremity Exam: Negative: Tenderness, Swelling Psych Exam: Positive: Oriented x 3 Assessment /Plan Plan/VTE VTE Prophylaxis Ordered?: Yes Plan Acute on Chronic Hypoxic Failure 2/2 COPD exacerbation CXR with no acute findings Resp Panel pending Sputum Culture pending Cont empiric Abx, IV Steroids, Nebs, and Inhaler therapy Resp status improving overnight We will cont to monitor Nocturnal hypoxia Patient will need an outpatient work up Tobacco abuse Cessation counseling, nicotine patch Diabetes Mellitus Cont Levemir, ISS Hypothyroidism Continue Synthroid Anxiety/depression continue home meds, dosages have been adjusted GERD Cont Protonix DVT Prophylaxis Heparin SC Dispo--Anticipate d/c in the next 24-48hrs pending clinical improvement. VS, I&O, 24H, Fishbone Vital Signs/I&O Vital Signs Date Time Temp Pulse Resp B/P (MAP) Pulse Ox O2 Delivery O2 Flow Rate FiO2 01/08/17 10:50 90 Nasal Cannula 3.0 01/08/17 10:44 90 01/08/17 06:00 97.4 120 18 116/78 (91) Laboratory Data 24H LABS Laboratory Tests 2 01/07/17 17:13: Bedside Glucose (Misc Panel) 293H 01/07/17 22:31: Bedside Glucose (Misc Panel) 312H 01/07/17 22:36: Estimated Mean Plasma Glucose 194H, Hemoglobin A1c 8.4H 01/07/17 23:47: Troponin I < 0.02 01/08/17 06:51: Immature Granulocyte % (Auto) 2.1H, White Blood Count 18.4H, Red Blood Count 5.06, Hemoglobin 12.8, Hematocrit 40.3, Mean Corpuscular Volume 79.6L, Mean Corpuscular Hemoglobin 25.3L, Mean Corpuscular Hemoglobin Concent 31.8L, Red Cell Distribution Width 17.6H, Platelet Count 343, Neutrophils (%) (Auto) 87.9H , Lymphocytes (%) (Auto) 8.1L, Monocytes (%) (Auto) 1.7, Eosinophils (%) (Auto) 0.0, Basophils (%) (Auto) 0.2, Neutrophils # (Auto) 16.2H, Lymphocytes # (Auto) 1.5, Monocytes # (Auto) 0.3, Eosinophils # (Auto) 0.0, Basophils # (Auto) 0.0, Immature Granulocyte # (Auto) 0.4H, Nucleated Red Blood Cells % (auto) 0.0, Anion Gap 8, Glomerular Filtration Rate > 60.0, Blood Urea Nitrogen 11#, Creatinine 0.83, Sodium Level 137, Potassium Level 3.8, Chloride Level 98, Carbon Dioxide Level 31, Calcium Level 8.1L, Aspartate Amino Transf (AST/SGOT) 11L, Alanine Aminotransferase (ALT/SGPT) 30, Alkaline Phosphatase 126H, Total Bilirubin < 0.1#L, Total Protein 6.5, Albumin 2.3L, Magnesium Level 2.0, Troponin I < 0.02, Albumin/Globulin Ratio 0.55L 01/08/17 11:59: Bedside Glucose (Misc Panel) 378H 01/08/17 13:34: Troponin I < 0.02 CBC/BMP Laboratory Tests 01/08/17 06:51 Red Blood Count 5.06, Mean Corpuscular Volume 79.6 L, Mean Corpuscular Hemoglobin 25.3 L, Mean Corpuscular Hemoglobin Concent 31.8 L, Red Cell Distribution Width 17.6 H, Neutrophils (%) (Auto) 87.9 H, Lymphocytes (%) (Auto ) 8.1 L, Monocytes (%) (Auto) 1.7, Eosinophils (%) (Auto) 0.0, Basophils (%) ( Auto) 0.2, Neutrophils # (Auto) 16.2 H, Lymphocytes # (Auto) 1.5, Monocytes # ( Auto) 0.3, Eosinophils # (Auto) 0.0, Basophils # (Auto) 0.0, Calcium Level 8.1 L , Aspartate Amino Transf (AST/SGOT) 11 L, Alanine Aminotransferase (ALT/SGPT) 30 , Alkaline Phosphatase 126 H, Total Bilirubin < 0.1 #L, Total Protein 6.5, Albumin 2.3 L Microbiology Microbiology 01/07/17 Urine Culture, Received Pending RAMONA CHANEY MD Jan 08, 2017 14:36
[2017-01-08 22:00] VITALS: BP 119/65
[2017-01-08] MEDS: MIRTAZAPINE 15 MG TAB PO SCH (22:22)
[2017-01-08] MEDS: QUEtiapine FUMARATE 50 MG TAB PO SCH (22:22)
[2017-01-09] MEDS: NS 1,000 ML IV SCH ×2 (02:19→13:20)
[2017-01-09] MEDS: PIPERACILLIN/TAZOBACTAM SOD 3.375 GM in D5W MINI-BAG PLUS 50 ML IV SCH ×3 (02:19→14:00)
[2017-01-09] MEDS: methylPREDNISolone INJ 40 MG/1 ML VIAL (J2920) IV SCH ×2 (03:36→14:46)
[2017-01-09] MEDS: VANCOMYCIN HCL 1,000 MG, VIAL MATE ADAPTER 1 EACH in D5W 250 ML IV SCH ×2 (03:36→12:51)
[2017-01-09] MEDS: LEVOTHYROXINE 125MCG TABLET (0.125MG) PO SCH (05:07)
[2017-01-09] MEDS: HEPARIN SOD (PORCINE) 5000 UNITS/ML VIAL SC SCH ×2 (05:08→14:00)
--- NOTE | 2017-01-09 05:53 | ECGEPIP ---
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
[2017-01-09 06:00] VITALS: BP 126/63
[2017-01-09] MEDS ORDERED: PRED10TA2 PO (10:31)
[2017-01-09] MEDS ORDERED: AUGM875T28 PO (10:31)
[2017-01-09] MEDS: VENLAFAXINE **XR** 75MG CAPSULE PO SCH (10:33)
[2017-01-09] MEDS: PANTOPRAZOLE 40MG TAB (PROTONIX) PO SCH (10:33)
[2017-01-09] MEDS: HumaLOG INSULIN (NovoLOG) PER UNIT SC SCH ×3 (10:33→17:35)
[2017-01-09] MEDS: LEVEMIR (INSULIN DETEMIR) 1 UNITS/0.01ML SC SCH (10:34)
[2017-01-09] MEDS: NICOTINE 14 MG/24 HR TRANSDERMAL TD SCH (10:34)
[2017-01-09] MEDS ORDERED: VANCOMYCIN HCL 1,000 MG, VIAL MATE ADAPTER 1 EACH in D5W 250 ML IV ONE (13:00)
[2017-01-09 14:00] VITALS: BP 136/74
--- NOTE | 2017-01-09 14:46 | PHACANCOPD ---
PHARMACY VANCOMYCIN DOSING Pt Demographics Demographics Patient Age:46 , Weight:114.000 , Gender: female Adjusted Body Weight Date: 01/08/17, Adjusted Body Weight: Kg Vancomycin Vancomycin indication: SEPSIS Vancomycin Target Ranges: 15-20 mcg/ml Vancomycin Load Y/N: Yes Load Dose Date Time Vancomycin Load Dose: 2000MG Date: 01/08/2017 Time: 0900 Vancomycin Dose Date: 01/08/17. Current Vancomycin Dose: [1000MG IV Q8H @ 1000] Intermittent Dosing?: No Labs Micro Microbiology 01/07/17 Urine Culture - Final, Complete Creatinine Clearance Date:01/08/17. Creatinine Clearance: [86ML/MIN]. Pending Labs VANCO TROUGH 01/09/17 @ 0900 Assessment and Plan Maintaining Current Dose?: Yes Reason for dose change: No Dose Change Pharmacist Note Pharmacist Note 01/09/17: Trough level today resulted at 10mcg/ml. A 2g dose was scheduled to be given today at noon, followed by the continuation of his current regimen of 1g IV Q8H for the treatment of sepsis. A follow-up trough has been scheduled to be drawn tomorrow, 01/10/17, @ 1100. We will continue to monitor and make any further dose adjustments if needed. Date: 01/08/17. Pharmacist note: Patient was given a 2000mg loading dose @ 0900 followed by 1000mg iv q8h for the treatment of sepsis. Vanco trough is scheduled to drawn prior to the 4th dose (01/09 @ 0900). Urine cultures are pending. Continue to monitor renal function and adjust dose as needed. LORAINE RAUSCH PHARMACY Jan 09, 2017 14:46
[2017-01-09] MEDS ORDERED: METF500T13 PO (14:49)
[2017-01-09] MEDS ORDERED: TUBERCULIN PPD 5 UNITS/0.1 ML ID ONE (15:00)
--- NOTE | 2017-01-09 15:22 | DS.PDOC ---
Discharge Summary General Date of Admission Jan 07, 2017 at 21:20 Date of Discharge 01/09/17 Discharge Summary PROCEDURES PERFORMED DURING STAY: None. ADMITTING/DISCHARGE DIAGNOSES: 1. . COPD exacerbation 2. . Diabetes mellitus COMPLICATIONS/CHIEF COMPLAINT: Copd Exacerbation;Hyperglycemia. HISTORY OF PRESENT ILLNESS: . 46-year-old female past medical history of anxiety/depression, COPD, hypothyroidism who presented to the ER with a chief complaint of worsening shortness of breath. The patient states that she has been having a cough productive of clear sputum. In addition, the patient states that she took multiple nebulizer treatments at home but did not feel any better. She denied any complaints of fevers, chills, chest pain, palpitations, abdominal pain, or any nausea/vomiting/diarrhea. In the ER, a chest x-ray revealed no acute finding. The patient was admitted to the hospitalist service for further evaluation and management of COPD exacerbation. During hospitalization, the patient was started on IV antibiotics and IV steroids. She was also provided with [id number] nebulizer treatments. The patient's respiratory condition subsequently improved with the aforementioned treatment. Her antibiotic has been transitioned to by mouth, and she has also been started on a tapering dose of steroids. In addition, the patient was also noted to have a elevated blood glucose levels, and a hemoglobin A1c of 8.4%. This was noted to be increased compared to her previous A1c from October. We will start the patient on 500 mg of metformin twice a day. The patient has been advised about the risks, benefits, and alternative therapies available in the management of diabetes. She has verbalized the same, and notes that she will follow up with her primary care physician regarding further adjustment of her medications. At this time, the patient states that she is feeling much better and is eager to return home. I've advised the patient to follow-up with her primary care physician within 7 days. In addition, the patient has been consulted to return to the ER for any acute emergencies. DISCHARGE MEDICATIONS: Please see below. ALLERGIES: Please see below. PHYSICAL EXAMINATION ON DISCHARGE: VITAL SIGNS: Please see below. General Exam: Positive: Alert, Cooperative, No Acute Distress ENT Exam: Positive: Atraumatic, Mucous membr. moist/pink Neck Exam: Negative: JVD Chest Exam: Positive: Diminished Heart Exam: Positive: Normal Rate, Normal S1, Normal S2, Negative: Murmurs, Rubs Abdomen Exam: Positive: Soft, Negative: Tenderness Extremity Exam: Negative: Tenderness, Swelling Psych Exam: Positive: Oriented x 3 LABORATORY DATA: Please see below. IMAGING: The PA and lateral chest: Comparisons 01/06/2017. There is focal discoid atelectasis superimposed over the right hilus as an interval change. The lung murguia otherwise clear and unchanged. Cardiac size is normal. The ileana, mediastinum, bony thorax are unremarkable. Impression: Focal discoid atelectasis superimposed over the right hilus. Otherwise, negative PA and chest. PROGNOSIS: Fair ACTIVITY: As tolerated. DIET: . Carb consistent diet DISCHARGE PLAN: DISPOSITION: . Home DISCHARGE INSTRUCTIONS: 1. . Follow-up with PCP within 7 days 2. . Adhere to antibiotic, steroid regimen as prescribed. 3. . Return to the ER for any acute emergencies ITEMS TO FOLLOWUP ON ON OUTPATIENT: 1. . Patient will need to follow-up with her primary care physician with newly diagnosed diabetes mellitus 2. . Patient advised about the risks, benefits, and alternative therapies associated with diabetes mellitus and metformin DISCHARGE CONDITION: Stable. TIME SPENT ON DISCHARGE: Greater than 30 minutes. Vital Signs/I&Os Vital Signs Date Time Temp Pulse Resp B/P (MAP) Pulse Ox O2 Delivery O2 Flow Rate FiO2 01/09/17 11:29 Nasal Cannula 3.0 01/09/17 06:00 98.6 77 18 126/63 (84) 95 01/08/17 21:00 90 I&O- Last 24 Hours up to 6 AM 01/10/17 06:00 Intake Total 600 ml Balance 600 ml Laboratory Data Labs 24H Laboratory Tests 2 01/08/17 18:25: Bedside Glucose (Misc Panel) 404H 01/08/17 20:28: Bedside Glucose (Misc Panel) 341H 01/09/17 05:14: Bedside Glucose (Misc Panel) 230H 01/09/17 10:55: Vancomycin Level Trough 10.0 01/09/17 11:43: Bedside Glucose (Misc Panel) 345H FSBS Laboratory Tests Test 01/08/17 18:25 01/08/17 20:28 01/09/17 05:14 01/09/17 11:43 Range/Units Bedside Glucose (Misc Panel) 404 341 230 345 70-105 MG/DL Microbiology Microbiology 01/07/17 Urine Culture - Final, Complete Discharge Medications Scheduled Amoxicillin/Clavulanate Potas (Augmentin 875-125 mg) 1 Tab Tab, 875 MG PO BID Budesonide/Formoterol (Symbicort 160-4.5 Mcg/Act) 60 Puff/Inhaler Aers, 2 PUFF INH BID, (Reported) Clemastine Fumarate (Clemastine Fumarate) 2.68 Mg Tab, 2.68 MG PO DAILY, ( Reported) Levothyroxine Sodium (Synthroid) 125 Mcg Tab, 125 MCG PO DAILY, (Reported) Metformin Hydrochloride (Metformin HCl) 500 Mg Tab, 500 MG PO BID Mirtazapine (Mirtazapine) 15 Mg Tab, 7.5 MG PO QHS, (Reported) Omeprazole (Omeprazole) 20 Mg Cap, 40 MG PO DAILY, (Reported) Paliperidone Palmitate (Invega Sustenna) 234 Mg/1.5 Ml Inj, 234 MG IM ASDIRECTED , (Reported) TAKES ONCE A MONTH, TOOK AT END OF Prednisone (Prednisone) 10 Mg Tab, 10 MG PO TAPER Take 4 tabs daily x 3 days, then 3 tabs daily x 3 days, then 2 tabs daily x 3 days, then 1 tab daily x 3 days and stop Quetiapine Fumerate (Quetiapine Fumarate) 50 Mg Tab, 50 MG PO QHS, (Reported) Venlafaxine HCl (Venlafaxine HCl ER) 75 Mg Capcr, 150 MG PO DAILY, (Reported) Allergies Coded Allergies: No Known Drug Allergy (Verified Allergy, Unknown, 01/06/17) RAMONA CHANEY MD Jan 09, 2017 15:22
[2017-01-11] MEDS ORDERED: PPD DOCUMENTATION ENTRY MISC XX ONE (10:00)
[2017-01-29] MEDS ORDERED: REME15TA PO (14:14)
[2017-01-29] MEDS ORDERED: SERO1TAB2 PO (14:14)
[2017-01-29] MEDS ORDERED: EFFE75CA75 PO (14:14)
[2017-01-29] MEDS ORDERED: METF500T13 PO (19:21)
[2017-02-09] MEDS ORDERED: ARIP10TAB PO (12:09)
[2017-02-09] MEDS ORDERED: VENL37TA PO (12:09)
[2017-02-09] MEDS ORDERED: SULF1TAB23 PO (12:09)
[2017-02-09] MEDS ORDERED: INVE234I IM (12:09)
[2017-02-09] MEDS ORDERED: QUET1TAB9 PO (12:09)
[2017-02-09] MEDS ORDERED: NICO21PAT TD (12:09)
== END 2017-01-09 18:11 | disposition home or self-care (01) | DRG 191 ==
LOC: M ED 12:17 → M ED INP 21:20 → M MS5PR 01-08 00:45
PROVIDERS: ADMIT Internal Medicine; ATTEND Internal Medicine
DX: J44.1 Chronic obstructive pulmonary disease with (acute) exacerbation (principal); E87.1 Hypo-osmolality and hyponatremia; E11.65 Type 2 diabetes mellitus with hyperglycemia; E03.9 Hypothyroidism, unspecified; F41.9 Anxiety disorder, unspecified; F32.9 Major depressive disorder, single episode, unspecified; Z79.899 Other long term (current) drug therapy; Z79.82 Long term (current) use of aspirin; F17.200 Nicotine dependence, unspecified, uncomplicated

== ENCOUNTER 2017-01-18 05:04 | Emergency (ER) | payer MEDICARE, MEDICAID ==
[~2017-01-18 05:04] MED LIST changes: +AUGM875T28 PO; +METF500T13 PO; +OMEP20CA3 PO
[2017-01-18] MEDS ORDERED: PRED20TA PO (06:26)
[2017-01-18] MEDS ORDERED: dexameTHASONE 20 MG/5 ML VIAL (J1100) IM ONE (06:30)
[2017-01-18] MEDS: IPRATROPIUM 0.5MG/ALBUTEROL 2.5MG INH SOL UD 3ML (DUONEB)(J7620) NEB SCH ×3 (06:58→07:33)
[2017-01-18 07:57] VITALS: BP 121/80
[2017-01-29] MEDS ORDERED: EFFE75CA75 PO (14:14)
[2017-01-29] MEDS ORDERED: REME15TA PO (14:14)
[2017-01-29] MEDS ORDERED: SERO1TAB2 PO (14:14)
[2017-01-29] MEDS ORDERED: METF500T13 PO (19:21)
[2017-02-09] MEDS ORDERED: NICO21PAT TD (12:09)
[2017-02-09] MEDS ORDERED: QUET1TAB9 PO (12:09)
[2017-02-09] MEDS ORDERED: INVE234I IM (12:09)
[2017-02-09] MEDS ORDERED: ARIP10TAB PO (12:09)
[2017-02-09] MEDS ORDERED: VENL37TA PO (12:09)
[2017-02-09] MEDS ORDERED: SULF1TAB23 PO (12:09)
== END 2017-01-18 07:59 | disposition home or self-care (01) ==
LOC: M ED 05:04
DX: J45.901 Unspecified asthma with (acute) exacerbation (principal); E11.9 Type 2 diabetes mellitus without complications; K21.9 Gastro-esophageal reflux disease without esophagitis; F99 Mental disorder, not otherwise specified; F17.200 Nicotine dependence, unspecified, uncomplicated; Z79.84 Long term (current) use of oral hypoglycemic drugs; Z79.899 Other long term (current) drug therapy
CPT/HCPCS: 94640; 96372; 99283; J1100

== ENCOUNTER 2017-03-12 17:04 | Inpatient (IN) | payer MEDICARE, MEDICAID ==
[~2017-03-12] VITALS: Ht 170.2 cm; Wt 116.0 kg
[~2017-03-12 17:04] MED LIST changes: +ARIP10TAB PO; +EFFE75CA75 PO; +NICO21PAT TD; +PRED20TA PO; +REME15TA PO; +SULF1TAB23 PO; +VENL37TA PO
[2017-03-12 18:03] LABS: BASO # 0.1 10^3/uL (0.0-0.2); BASO % 0.4 % (0.0-1.0); EOS # 0.2 10^3/uL (0.0-0.50); EOS % 1.7 % (0.0-3.0); IMMATURE GRANULOCYTE % 0.8 % (0-0); LYMPH # 3.6 10^3/uL (1.5-4.5); LYMPH % 25.9 % (24.0-44.0); MEAN CORPUSCULAR HEMOGLOBIN 24.8 pg (27.0-33.0); MEAN CORPUSCULAR HGB CONC 31.4 g/dl (32.0-36.5); MEAN CORPUSCULAR VOLUME 79.1 fl (80.0-96.0); MONO # 1.1 10^3/uL (0.0-0.8); MONO % 7.6 % (0.0-5.0); NEUTROPHILS # 8.8 10^3/uL (1.8-7.7); NEUTROPHILS % 63.6 % (36.0-66.0); PLATELET COUNT, AUTOMATED 527 10^3/uL (150-450); RED CELL DISTRIBUTION WIDTH 20.3 % (11.5-14.5); WHITE BLOOD COUNT 13.9 10^3/uL (4.0-10.0)
[2017-03-12 18:23] LABS: ALBUMIN 2.9 GM/DL (3.2-5.2); ALBUMIN/GLOBULIN RATIO 0.76 (1.00-1.93); ALKALINE PHOSPHATASE 139 U/L (45-117); ALT/SGPT 22 U/L (12-78); ANION GAP 9 MEQ/L (8-16); AST/SGOT 17 U/L (7-37); BILIRUBIN,DIRECT < 0.1 MG/DL (0.0-0.2); BILIRUBIN,TOTAL 0.2 MG/DL (0.2-1.0); BLOOD UREA NITROGEN 3 MG/DL (7-18); CALCIUM LEVEL 8.9 MG/DL (8.5-10.1); CARBON DIOXIDE LEVEL 32 MEQ/L (21-32); CHLORIDE LEVEL 97 MEQ/L (98-107); CREATININE FOR GFR 0.52 MG/DL (0.55-1.02); GLOMERULAR FILTRATION RATE > 60.0 (>58); GLUCOSE, FASTING 117 MG/DL (70-105); POTASSIUM SERUM 3.8 MEQ/L (3.5-5.1); SODIUM LEVEL 138 MEQ/L (136-145); TOTAL PROTEIN 6.7 GM/DL (6.4-8.2)
[2017-03-12 18:31] LABS: METHADONE URINE NEGATIVE (NEGATIVE)
--- NOTE | 2017-03-12 18:50 | REP ---
PORTABLE CHEST: 03/12/2017. Clinical history: Drug overdose. Comparison: 12/29/2016. Findings: AP portable semi erect chest. The CP angles are excluded from this field of view. No gross effusion. Epicardial fat pad along the left heart border. Minor basilar fibrotic changes suggested as on previous studies. No dense consolidation or parenchymal mass. Heart not enlarged. No widening of the mediastinum. No edema. Aorta normal for age. Airway intact. Bones intact. No pneumothorax. Impression: 1. Epicardial fat pad at the left lateral heart border as on multiple prior studies and some minor basilar fibrotic change. No definite infiltrate, large effusion or other acute finding. PA and lateral chest may be helpful when the patient is able. Signed by Walt Bryant MD 03/12/2017 08:48 P
[2017-03-12] MEDS ORDERED: MOM 30ML SUSPENSION UDC PO PRN (23:15)
[2017-03-12] MEDS ORDERED: MAALOX 30 ML SUSP *UDC PO PRN (23:15)
[2017-03-12] MEDS ORDERED: ACETAMINOPHEN TAB 650MG DOSE (2X325MG) PO PRN (23:15)
[2017-03-12] MEDS ORDERED: CLEM2.68 PO (23:16)
[2017-03-12] MEDS ORDERED: EFFE150C PO (23:16)
[2017-03-12] MEDS ORDERED: SYNT125T PO (23:16)
[2017-03-12] MEDS ORDERED: SYMB16INH INH (23:16)
[2017-03-12] MEDS ORDERED: MIRT15TA3 PO (23:16)
[2017-03-12] MEDS ORDERED: COLA100C5 PO (23:16)
[2017-03-12] MEDS ORDERED: OMEP20CA3 PO (23:16)
[2017-03-12] MEDS ORDERED: METF500T13 PO (23:16)
[2017-03-12] MEDS ORDERED: QUET1TAB10 PO (23:16)
[2017-03-12] MEDS ORDERED: INVE234I IM (23:16)
[2017-03-13] MEDS: LEVOTHYROXINE 125MCG TABLET (0.125MG) PO SCH (06:17)
[2017-03-13 06:49] VITALS: BP 125/63
--- NOTE | 2017-03-13 07:07 | ECGEPIP ---
Stationary ECG Study [facility] - ED Test Date: 2017-03-12 Pat Name: CAITLIN CONDE Department: Room: - Gender: F Conductor/Brakeman: ANTONIETA : 1970 Requested By: MARIO Yu Order Number: [id number] Reading MD: Liudmila Razo Measurements Intervals [place] Rate: 101 P: 70 GA: 142 QRS: 92 QRSD: 98 T: 60 QT: 360 QTc: 467 Interpretive Statements SINUS TACHYCARDIA BORDERLINE RIGHT AXIS DEVIATION ABNORMAL RHYTHM ECG RIGHT VENTRICULAR CONDUCTION DELAY Electronically Signed On 03-13-2017 7:07:21 EST by Liudmila Razo
[2017-03-13] MEDS: ARIPiprazole 10 MG TAB PO SCH ×2 (10:08→20:12)
[2017-03-13] MEDS: OMEPRAZOLE 20 MG CAP PO SCH (10:08)
[2017-03-13] MEDS: SYMBICORT 160/4.5MCG INHALER 6GM INH SCH ×2 (10:08→20:12)
[2017-03-13] MEDS: VENLAFAXINE 37.5 MG TAB PO SCH (10:08)
[2017-03-13] MEDS: metFORMIN (GLUCOPHAGE) 500 MG TAB PO SCH ×2 (10:09→17:53)
[2017-03-13] MEDS: NICOTINE 21MG/24HR 1 EA TRANSDERMAL TD SCH (10:11)
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
[2017-03-13 18:00] VITALS: BP 122/63
[2017-03-13] MEDS: MIRTAZAPINE 15 MG TAB PO SCH (20:12)
[2017-03-13] MEDS: QUEtiapine FUMARATE 200 MG TAB PO SCH (20:12)
[2017-03-14] MEDS: LEVOTHYROXINE 125MCG TABLET (0.125MG) PO SCH (05:56)
[2017-03-14 06:43] VITALS: BP 131/63
[2017-03-14] MEDS: NICOTINE 21MG/24HR 1 EA TRANSDERMAL TD SCH (09:36)
[2017-03-14] MEDS: ARIPiprazole 10 MG TAB PO SCH ×2 (09:36→20:20)
[2017-03-14] MEDS: metFORMIN (GLUCOPHAGE) 500 MG TAB PO SCH ×2 (09:36→17:07)
[2017-03-14] MEDS: VENLAFAXINE 37.5 MG TAB PO SCH (09:36)
[2017-03-14] MEDS: SYMBICORT 160/4.5MCG INHALER 6GM INH SCH ×2 (09:36→20:20)
[2017-03-14] MEDS: OMEPRAZOLE 20 MG CAP PO SCH (09:38)
--- NOTE | 2017-03-14 14:57 | MHIPNPDOC ---
[facility] Progress Note Progress Note DATE OF SERVICE: 03/14/17 HISTORY: Patient states she is currently feeling OK, denies depression, denies SI intent and plan, denies AVH, reports good sleep. Patient denies medication side effects. Patient did not wish to continue conversation as she was just sleeping. VITAL SIGNS: See below. NEW TEST RESULTS: NA CURRENT MEDICATIONS: See below. MENTAL STATUS EXAMINATION: Obese female, lying down, hooked up NC O2. Behavior: guarded, mostly related Speech: taciturn, normal volume and rate, restricted tone Thought processes including: linear but in short answers Thought content: appropriate to conversation but some paucity Judgment: poor Insight: poor Orientation: grossly oriented to person and place, did not assess date Mood: OK Affect: neutral, restricted range Diagnosis 1. Unspecified psychotic disorder 2. R/O Schizoaffective disorder 3. R/O mild intellectual disability Assessment Patient shared minimal information and was not very descriptive. Unclear if patient is minimizing her symptoms. Regardless, she is calm on cooperative on the unit. Plan - Continue abilify 10 mg BID, seroquel 200 mg qhs for psychosis - Continue venlafaxine 75 mg daily, mirtazapine 15 mg qhs for mood/sleep - Continue synthroid 125 mcg daily for hypothyroidism - Continue metformin 500 mg BID, continue symbicort inhaler - PRNs: tylenol, mylanta, MOM, trazodone, nicoderm ESTIMATED LENGTH OF STAY: 5-7 DAYS. TIME SPENT COUNSELING AND COORDINATING INITIAL CARE: 25 minutes. Vital Signs Vital Signs Date Time Temp Pulse Resp B/P (MAP) Pulse Ox O2 Delivery O2 Flow Rate FiO2 03/14/17 06:43 98.2 100 16 131/63 (85) 03/13/17 11:54 Nasal Cannula 2.0 03/13/17 06:49 92 Laboratory Data 24H Labs Laboratory Tests 2 03/14/17 05:53: Bedside Glucose (Misc Panel) 148H Current Medications Current Medications Acetaminophen (Tylenol Tab) 650 mg Q6HP PRN PO HEADACHE or DISCOMFORT; Start 03/12/17 at 23:15; Stop 04/11/17 at 23:14 Al Hydrox/Mg Hydrox/Simethicone (Mylanta) 30 ml Q4HP PRN PO HEARTBURN/ INDIGESTION; Start 03/12/17 at 23:15; Stop 04/11/17 at 23:14 Aripiprazole (AbiLIFY) 10 mg BID PO Last administered on 03/14/17 09:36; Start 03/13/17 at 09:00; Stop 04/12/17 at 08:59 Budesonide/ Formoterol Fumarate (Symbicort 160/ 4.5mcg) 2 puff BID INH Last administered on 03/14/17 09:36; Start 03/13/17 at 09:00; Stop 04/12/17 at 08:59 Home Med (Med Rec Complete!) ASDIRECTED XX ; Start 03/12/17 at 23:30; Stop 03/12/17 at 23:30; Status DC Levothyroxine Sodium (Synthroid) 125 mcg DAILY@06 PO Last administered on 05:56; Start 03/13/17 at 06:00; Stop 04/12/17 at 05:59 Magnesium Hydroxide (Milk Of Magnesia) 30 ml DAILYPRN PRN PO CONSTIPATION; Start 03/12/17 at 23:15; Stop 04/11/17 at 23:14 Metformin HCl (Glucophage) 500 mg BID@0800,1800 PO Last administered on 09:36; Start 03/13/17 at 08:00; Stop 04/12/17 at 07:59 Mirtazapine (Remeron) 15 mg QHS PO Last administered on 03/13/17 20:12; Start 03/13/17 at 21:00; Stop 04/12/17 at 20:59 Nicotine (Nicoderm Cq 21mg) 1 patch DAILY TD Last administered on 03/14/17 09: 36; Start 03/13/17 at 09:00; Stop 04/12/17 at 08:59 Omeprazole (PriLOSEC) 40 mg DAILY PO Last administered on 03/14/17 09:38; Start 03/13/17 at 09:00; Stop 04/12/17 at 08:59 Quetiapine Fumarate (SEROquel) 200 mg QHS PO Last administered on 03/13/17 20: 12; Start 03/13/17 at 21:00; Stop 04/12/17 at 20:59 Venlafaxine HCl (Effexor) 75 mg DAILY PO Last administered on 12/9/17at 09:36; Start 03/13/17 at 09:00; Stop 04/12/17 at 08:59 Allergies Coded Allergies: No Known Drug Allergy (Verified Allergy, Unknown, 01/06/17) CHIQUITA RECINOS MD Mar 14, 2017 14:57
[2017-03-14 18:00] VITALS: BP 110/55
[2017-03-14] MEDS: QUEtiapine FUMARATE 200 MG TAB PO SCH (20:20)
[2017-03-14] MEDS: MIRTAZAPINE 15 MG TAB PO SCH (20:20)
[2017-03-15] MEDS: LEVOTHYROXINE 125MCG TABLET (0.125MG) PO SCH (06:11)
[2017-03-15 07:19] VITALS: BP 136/73
[2017-03-15] MEDS: OMEPRAZOLE 20 MG CAP PO SCH (08:32)
[2017-03-15] MEDS: ARIPiprazole 10 MG TAB PO SCH ×2 (08:32→21:02)
[2017-03-15] MEDS: metFORMIN (GLUCOPHAGE) 500 MG TAB PO SCH ×2 (08:32→17:09)
[2017-03-15] MEDS: SYMBICORT 160/4.5MCG INHALER 6GM INH SCH ×2 (08:32→21:02)
[2017-03-15] MEDS: NICOTINE 21MG/24HR 1 EA TRANSDERMAL TD SCH (08:32)
[2017-03-15] MEDS: VENLAFAXINE 37.5 MG TAB PO SCH (08:32)
--- NOTE | 2017-03-15 09:53 | MHIPNPDOC ---
[facility] Progress Note Progress Note DATE OF SERVICE: 03/15/17 HISTORY: Patient states that her mood is OK, denies SI intent and plan, denies AVH. Reports good sleep, denies any other issues. Patient has mostly been isolative in her room, lying on the bed without doing any activity. VITAL SIGNS: See below. NEW TEST RESULTS: NA CURRENT MEDICATIONS: See below. MENTAL STATUS EXAMINATION: Behavior: guarded, lying down, good eye contact Speech: taciturn, normal volume and rate, restricted tone Thought processes including: linear, though short answers Thought content: appropriate to conversation but some paucity Judgment: poor Insight: poor Orientation: AAOx3 Mood: OK Affect: neutral, restricted range Diagnosis 1. Unspecified psychotic disorder 2. R/O Schizoaffective disorder 3. R/O mild intellectual disability Assessment Patient shared minimal information and was not very descriptive. Unclear if patient is minimizing her symptoms, if she is unaware of her feelings, or if her feelings have large fluctuations that come and go. Plan - Continue abilify 10 mg BID, seroquel 200 mg qhs for psychosis - Continue venlafaxine 75 mg daily, mirtazapine 15 mg qhs for mood/sleep - Continue synthroid 125 mcg daily for hypothyroidism - Continue metformin 500 mg BID, continue symbicort inhaler - PRNs: tylenol, mylanta, MOM, trazodone, nicoderm ESTIMATED LENGTH OF STAY: 5-7 DAYS. TIME SPENT COUNSELING AND COORDINATING INITIAL CARE: 25 minutes. Vital Signs Vital Signs Date Time Temp Pulse Resp B/P (MAP) Pulse Ox O2 Delivery O2 Flow Rate FiO2 03/15/17 07:19 97.8 102 18 136/73 (94) 03/13/17 11:54 Nasal Cannula 2.0 03/13/17 06:49 92 Laboratory Data 24H Labs Laboratory Tests 2 03/14/17 16:41: Bedside Glucose (Misc Panel) 132H 03/15/17 05:47: Bedside Glucose (Misc Panel) 139H Current Medications Current Medications Acetaminophen (Tylenol Tab) 650 mg Q6HP PRN PO HEADACHE or DISCOMFORT; Start 03/12/17 at 23:15; Stop 04/11/17 at 23:14 Al Hydrox/Mg Hydrox/Simethicone (Mylanta) 30 ml Q4HP PRN PO HEARTBURN/ INDIGESTION; Start 03/12/17 at 23:15; Stop 04/11/17 at 23:14 Aripiprazole (AbiLIFY) 10 mg BID PO Last administered on 03/15/17 08:32; Start 03/13/17 at 09:00; Stop 04/12/17 at 08:59 Budesonide/ Formoterol Fumarate (Symbicort 160/ 4.5mcg) 2 puff BID INH Last administered on 03/15/17 08:32; Start 03/13/17 at 09:00; Stop 04/12/17 at 08:59 Home Med (Med Rec Complete!) ASDIRECTED XX ; Start 03/12/17 at 23:30; Stop 03/12/17 at 23:30; Status DC Levothyroxine Sodium (Synthroid) 125 mcg DAILY@06 PO Last administered on 03/15 06:11; Start 03/13/17 at 06:00; Stop 04/12/17 at 05:59 Magnesium Hydroxide (Milk Of Magnesia) 30 ml DAILYPRN PRN PO CONSTIPATION; Start 03/12/17 at 23:15; Stop 04/11/17 at 23:14 Metformin HCl (Glucophage) 500 mg BID@0800,1800 PO Last administered on 08:32; Start 03/13/17 at 08:00; Stop 04/12/17 at 07:59 Mirtazapine (Remeron) 15 mg QHS PO Last administered on 03/14/17 20:20; Start 03/13/17 at 21:00; Stop 04/12/17 at 20:59 Nicotine (Nicoderm Cq 21mg) 1 patch DAILY TD Last administered on 03/15/17 08 :32; Start 03/13/17 at 09:00; Stop 04/12/17 at 08:59 Omeprazole (PriLOSEC) 40 mg DAILY PO Last administered on 03/15/17 08:32; Start 03/13/17 at 09:00; Stop 04/12/17 at 08:59 Quetiapine Fumarate (SEROquel) 200 mg QHS PO Last administered on 03/14/17 20: 20; Start 03/13/17 at 21:00; Stop 04/12/17 at 20:59 Venlafaxine HCl (Effexor) 75 mg DAILY PO Last administered on 03/15/17t 08:32 ; Start 03/13/17 at 09:00; Stop 04/12/17 at 08:59 Allergies Coded Allergies: No Known Drug Allergy (Verified Allergy, Unknown, 01/06/17) CHIQUITA RECINOS MD Mar 15, 2017 09:53
--- NOTE | 2017-03-15 11:33 | HPE ---
DATE OF ADMISSION: 03/12/2017 Please refer to psychiatric history and evaluation for further details on this admission. This examination and history is intended for medical issues which may need treatment, followup or consult on this 46-year-old female. PRIMARY CARE PROVIDER: MARY Sawyer in [place], [place]. She lives in [place]. She is . She was up to two packs of cigarettes per day. She has slowly cut herself down. She states she is smoking only 30 cigarettes per day. EtOH: None. Recreational drug use: None. FAMILY HISTORY: Noncontributory. PAST MEDICAL HISTORY: 1. Anxiety. 2. Depression. 3. Bipolar disorder. 4. Psychosis. 5. Hypothyroid. 6. Gastroesophageal reflux disease (GERD). 7. Chronic obstructive pulmonary disease (COPD). 8. Ged-kudoxlj-frlrukxnc diabetes mellitus. 9. Allergic rhinitis. 10. Poor dentition. PAST SURGICAL HISTORY: 1. Tubal ligation. 2. Cholecystectomy. 3. Hysterectomy. Ten systems review is unremarkable. Patient had no complaints. LABORATORY STUDIES: WBC 13.9, hemoglobin 12.8, hematocrit 40.8. MCV 79.1, platelets 527. Sodium 138, potassium 3.8, chloride 97, CO2 32, BUN 3, creatinine 0.52. HOME MEDICATIONS: - Symbicort 160/4.5 two inhalations twice daily - Colace 100 mg by mouth daily - Synthroid 125 mcg by mouth daily - metformin 500 mg by mouth twice daily - mirtazapine 15 mg by mouth daily at bedtime - omeprazole 40 mg by mouth daily - Invega Sustenna 234 mg IM as directed - Seroquel 300 mg by mouth daily at bedtime - venlafaxine/hydrochloride 150 mg daily - clemastine fumarate 2.68 mg daily PHYSICAL EXAMINATION: 46-year-old cooperative female in no acute distress. Height 67 inches, weight 121 kg. BMI 41.8. Patient is alert and oriented times three. The patient is alert and oriented times three. Pupils equal and reactive to light. Extraocular movements intact. Cornea and sclera clear. Conjunctiva normal. No facial asymmetry. Pharynx, tongue and gums pink and moist. Tongue is midline. Neck is supple, without lymphadenopathy. No thyromegaly. No goiter. Carotids 2+ without bruit. Chest clear to auscultation without wheeze or retraction. Heart is regular. Abdomen benign. Bowel sounds positive. Genitourinary ()/Rectal: Not done. Extremities show equal strength, full range of motion. No cyanosis, clubbing or edema. Peripheral pulses equal and palpable bilaterally. Skin is warm and dry. IMPRESSION/PLAN: 1. Psychiatric plan per psychiatry. 2. History of non-insulin dependent diabetes, continue Glucophage. Consistent carbohydrate diet. Finger stick blood sugars. 3. Hypothyroidism, continue levothyroxine. 4. Chronic obstructive pulmonary disease (COPD), continue Symbicort. 5. Omeprazole for gastroesophageal reflux disease. 6. No other acute medical issues. MTDD
[2017-03-15 18:00] VITALS: BP 146/73
[2017-03-15] MEDS: MIRTAZAPINE 15 MG TAB PO SCH (21:02)
[2017-03-15] MEDS: QUEtiapine FUMARATE 200 MG TAB PO SCH (21:02)
[2017-03-16 06:00] VITALS: BP 142/63
[2017-03-16] MEDS: LEVOTHYROXINE 125MCG TABLET (0.125MG) PO SCH (06:06)
[2017-03-16] MEDS: metFORMIN (GLUCOPHAGE) 500 MG TAB PO SCH ×2 (08:57→17:25)
[2017-03-16] MEDS: VENLAFAXINE 37.5 MG TAB PO SCH (08:57)
[2017-03-16] MEDS: OMEPRAZOLE 20 MG CAP PO SCH (08:57)
[2017-03-16] MEDS: ARIPiprazole 10 MG TAB PO SCH ×2 (08:57→20:58)
[2017-03-16] MEDS: SYMBICORT 160/4.5MCG INHALER 6GM INH SCH ×2 (08:58→20:58)
[2017-03-16] MEDS: NICOTINE 21MG/24HR 1 EA TRANSDERMAL TD SCH (08:59)
--- NOTE | 2017-03-16 11:58 | MHIPNPDOC ---
[facility] Progress Note Progress Note DATE OF SERVICE: 03/16/17 HISTORY: pt states, "I don't know why I took all those pills, but I wasn't trying to kill myself." Pt reports today was the first day she had access to all her medications. Apparently, pt's daughter has been monitoring her medication, but today wanted pt to become more independent. She is unable to identify any specific stressor triggering her OD just states, "I don't know why I took the medication." Pt has a significant hx of mental health admissions, last admission 01/29/17 and d/c 02/09/17. PSA contacted pt's daughter (Rohini, Ph# ) who reports she distributes pt's medication on a weekly daily pill box. Pt allegedly contacted daughter last night and expressed concern due to not having any medication left. Daughter assured pt her medication was placed in her pill box and if there is no meds left, she was required to contact the ambulance since she obviously OD on medication. Daughter is unable to assess pt's safety nd states, "I only give her medication, I'm not her support and she doesn't have any supports." VITAL SIGNS: See below. NEW TEST RESULTS: 24H Labs Laboratory Tests 2 03/15/17 17:08: Bedside Glucose (Misc Panel) 122H CURRENT MEDICATIONS: See below. MENTAL STATUS EXAMINATION: Patient is a 46-year old female, who is alert, cooperative, dressed in hospital clothes, good eye contact, good hygiene. Speech: Is Not tangential. Normal in rate, tone and volume. Language skills are Fair. Thought processes including: [place]. Thought content: Focused on her being discharged. Abstract reasoning, and computation: Good. Description of associations: Good Description of abnormal or psychotic thoughts: Denies Si/Hi, denies A/V hallucinations, denies thought delusions Judgment: Poor Insight: Poor Orientation: Oriented to place, person and situation Recent and remote memory: Limited Attention span and concentration: Fair. Language: Limited vocabulary. Fund of knowledge: Limited Mood: Euthymic Affect: Congruent with mood DIAGNOSES: 1. Schizoaffective disorder 2. Mild-moderate intellectual disability ASSESSMENT: Patient has no insight, she said today that she finally remembered about her overdose, but she still can't remember why she did it. she says she didn't want to kill herself. she says she took her psychiatric medications, but she doesn't remember which. If she would have taken venlafaxine, her blood pressure would have been too royce or too low, but she came into the Ed with normal blood pressure. We really don't know which pills she took, how many and why. concur, with [employer] Teacher, Cynthia trotter to seek placement for her because she can't live by herself. MANAGEMENT PLAN: Will continue with hte same treament plan TIME SPENT: 20 minutes. Vital Signs Vital Signs Date Time Temp Pulse Resp B/P (MAP) Pulse Ox O2 Delivery O2 Flow Rate FiO2 03/16/17 06:00 96.9 84 20 142/63 (89) 03/13/17 11:54 Nasal Cannula 2.0 03/13/17 06:49 92 Laboratory Data 24H Labs Laboratory Tests 2 03/15/17 17:08: Bedside Glucose (Misc Panel) 122H Current Medications Current Medications Acetaminophen (Tylenol Tab) 650 mg Q6HP PRN PO HEADACHE or DISCOMFORT; Start 03/12/17 at 23:15; Stop 04/11/17 at 23:14 Al Hydrox/Mg Hydrox/Simethicone (Mylanta) 30 ml Q4HP PRN PO HEARTBURN/ INDIGESTION; Start 03/12/17 at 23:15; Stop 04/11/17 at 23:14 Aripiprazole (AbiLIFY) 10 mg BID PO Last administered on 03/16/17 08:57; Start 03/13/17 at 09:00; Stop 04/12/17 at 08:59 Budesonide/ Formoterol Fumarate (Symbicort 160/ 4.5mcg) 2 puff BID INH Last administered on 03/16/17 08:58; Start 03/13/17 at 09:00; Stop 04/12/17 at 08:59 Home Med (Med Rec Complete!) ASDIRECTED XX ; Start 03/12/17 at 23:30; Stop 03/12/17 at 23:30; Status DC Levothyroxine Sodium (Synthroid) 125 mcg DAILY@06 PO Last administered on 03/16 06:06; Start 03/13/17 at 06:00; Stop 04/12/17 at 05:59 Magnesium Hydroxide (Milk Of Magnesia) 30 ml DAILYPRN PRN PO CONSTIPATION; Start 03/12/17 at 23:15; Stop 04/11/17 at 23:14 Metformin HCl (Glucophage) 500 mg BID@0800,1800 PO Last administered on 08:57; Start 03/13/17 at 08:00; Stop 04/12/17 at 07:59 Mirtazapine (Remeron) 15 mg QHS PO Last administered on 03/15/17 21:02; Start 03/13/17 at 21:00; Stop 04/12/17 at 20:59 Nicotine (Nicoderm Cq 21mg) 1 patch DAILY TD Last administered on 03/16/17 08 :59; Start 03/13/17 at 09:00; Stop 04/12/17 at 08:59 Omeprazole (PriLOSEC) 40 mg DAILY PO Last administered on 03/16/17 08:57; Start 03/13/17 at 09:00; Stop 04/12/17 at 08:59 Quetiapine Fumarate (SEROquel) 200 mg QHS PO Last administered on 03/15/17 21 :02; Start 03/13/17 at 21:00; Stop 04/12/17 at 20:59 Venlafaxine HCl (Effexor) 75 mg DAILY PO Last administered on 03/16/17 08:57 ; Start 03/13/17 at 09:00; Stop 04/12/17 at 08:59 Allergies Coded Allergies: No Known Drug Allergy (Verified Allergy, Unknown, 01/06/17) JUANY DURAN MD Mar 16, 2017 11:58
[2017-03-16 12:46] LABS: BASO # 0.1 10^3/uL (0.0-0.2); BASO % 0.6 % (0.0-1.0); EOS # 0.2 10^3/uL (0.0-0.50); EOS % 1.7 % (0.0-3.0); IMMATURE GRANULOCYTE % 0.4 % (0-0); LYMPH # 3.1 10^3/uL (1.5-4.5); LYMPH % 25.1 % (24.0-44.0); MEAN CORPUSCULAR HEMOGLOBIN 24.2 pg (27.0-33.0); MEAN CORPUSCULAR HGB CONC 30.5 g/dl (32.0-36.5); MEAN CORPUSCULAR VOLUME 79.6 fl (80.0-96.0); MONO # 1.1 10^3/uL (0.0-0.8); MONO % 8.9 % (0.0-5.0); NEUTROPHILS # 7.9 10^3/uL (1.8-7.7); NEUTROPHILS % 63.3 % (36.0-66.0); PLATELET COUNT, AUTOMATED 457 10^3/uL (150-450); RED CELL DISTRIBUTION WIDTH 19.8 % (11.5-14.5); WHITE BLOOD COUNT 12.4 10^3/uL (4.0-10.0)
[2017-03-16 13:26] LABS: ALBUMIN 3.2 GM/DL (3.2-5.2); ALBUMIN/GLOBULIN RATIO 0.86 (1.00-1.93); ALKALINE PHOSPHATASE 112 U/L (45-117); ALT/SGPT 20 U/L (12-78); ANION GAP 9 MEQ/L (8-16); AST/SGOT 15 U/L (7-37); BILIRUBIN,TOTAL 0.2 MG/DL (0.2-1.0); BLOOD UREA NITROGEN 8 MG/DL (7-18); CALCIUM LEVEL 8.9 MG/DL (8.5-10.1); CARBON DIOXIDE LEVEL 29 MEQ/L (21-32); CHLORIDE LEVEL 97 MEQ/L (98-107); GLOMERULAR FILTRATION RATE > 60.0 (>58); GLUCOSE, FASTING 160 MG/DL (70-105); POTASSIUM SERUM 4.1 MEQ/L (3.5-5.1); SODIUM LEVEL 135 MEQ/L (136-145); TOTAL PROTEIN 6.9 GM/DL (6.4-8.2)
[2017-03-16 18:00] VITALS: BP 105/56
[2017-03-16] MEDS: QUEtiapine FUMARATE 200 MG TAB PO SCH (20:58)
[2017-03-16] MEDS: MIRTAZAPINE 15 MG TAB PO SCH (20:58)
[2017-03-17] MEDS: LEVOTHYROXINE 125MCG TABLET (0.125MG) PO SCH (06:09)
[2017-03-17 06:48] VITALS: BP 117/71
[2017-03-17] MEDS: ARIPiprazole 10 MG TAB PO SCH ×2 (08:35→20:26)
[2017-03-17] MEDS: SYMBICORT 160/4.5MCG INHALER 6GM INH SCH ×2 (08:35→20:26)
[2017-03-17] MEDS: OMEPRAZOLE 20 MG CAP PO SCH (08:35)
[2017-03-17] MEDS: metFORMIN (GLUCOPHAGE) 500 MG TAB PO SCH ×2 (08:36→17:34)
[2017-03-17] MEDS: VENLAFAXINE 37.5 MG TAB PO SCH (08:36)
[2017-03-17] MEDS: NICOTINE 21MG/24HR 1 EA TRANSDERMAL TD SCH (08:37)
--- NOTE | 2017-03-17 14:41 | MHIPNPDOC ---
[facility] Progress Note Progress Note DATE OF SERVICE: 03/17/17 HISTORY: pt states, "I don't know why I took all those pills, but I wasn't trying to kill myself." Pt reports today was the first day she had access to all her medications. Apparently, pt's daughter has been monitoring her medication, but today wanted pt to become more independent. She is unable to identify any specific stressor triggering her OD just states, "I don't know why I took the medication." Pt has a significant hx of mental health admissions, last admission 01/29/17 and d/c 02/09/17. PSA contacted pt's daughter (Rohini, Ph# ) who reports she distributes pt's medication on a weekly daily pill box. Pt allegedly contacted daughter last night and expressed concern due to not having any medication left. Daughter assured pt her medication was placed in her pill box and if there is no meds left, she was required to contact the ambulance since she obviously OD on medication. Daughter is unable to assess pt's safety nd states, "I only give her medication, I'm not her support and she doesn't have any supports." VITAL SIGNS: See below. NEW TEST RESULTS: Laboratory Data 24H Labs Laboratory Tests 2 03/17/17 06:12: Bedside Glucose (Misc Panel) 201H CURRENT MEDICATIONS: See below. MENTAL STATUS EXAMINATION: Patient is a 46-year old female, who is alert, cooperative, dressed in hospital clothes, good eye contact, good hygiene, good mood Speech: Spontaneous and fluent Language skills are good Thought processes including: [place]. Thought content: Focused on her being discharged. Abstract reasoning, and computation: Poor Description of associations: Good Description of abnormal or psychotic thoughts: Denies Si/Hi, denies A/V hallucinations, denies thought delusions Judgment: Poor Insight: Poor Orientation: Oriented to place, person and situation Recent and remote memory: Limited Attention span and concentration: Fair. Language: Limited vocabulary. Fund of knowledge: Limited Mood: Euthymic Affect: Congruent with mood DIAGNOSES: 1. Schizoaffective disorder 2. Mild-moderate intellectual disability ASSESSMENT: Patient has more energy. She is attending groups, she seems happier. She agrees on going to the family program at [facility], where they take care of patients. she denies SI/denies HI, denies A/V hallucinations, denies thought delusions. MANAGEMENT PLAN: Will continue with the same treatment plan TIME SPENT: 20 minutes. Vital Signs Vital Signs Vital Signs Vital Signs Date Time Temp Pulse Resp B/P (MAP) Pulse Ox O2 Delivery O2 Flow Rate FiO2 03/17/17 06:48 98.4 100 18 117/71 (86) 95 Room Air 03/16/17 09:00 2.0 Laboratory Data 24H Labs Laboratory Tests 2 03/17/17 06:12: Bedside Glucose (Misc Panel) 201H Current Medications Current Medications Acetaminophen (Tylenol Tab) 650 mg Q6HP PRN PO HEADACHE or DISCOMFORT; Start 03/12/17 at 23:15; Stop 04/11/17 at 23:14 Al Hydrox/Mg Hydrox/Simethicone (Mylanta) 30 ml Q4HP PRN PO HEARTBURN/ INDIGESTION; Start 03/12/17 at 23:15; Stop 04/11/17 at 23:14 Aripiprazole (AbiLIFY) 10 mg BID PO Last administered on 03/17/17 08:35; Start 03/13/17 at 09:00; Stop 04/12/17 at 08:59 Budesonide/ Formoterol Fumarate (Symbicort 160/ 4.5mcg) 2 puff BID INH Last administered on 03/17/17 08:35; Start 03/13/17 at 09:00; Stop 04/12/17 at 08:59 Home Med (Med Rec Complete!) ASDIRECTED XX ; Start 03/12/17 at 23:30; Stop 03/12/17 at 23:30; Status DC Levothyroxine Sodium (Synthroid) 125 mcg DAILY@06 PO Last administered on 03/17 06:09; Start 03/13/17 at 06:00; Stop 04/12/17 at 05:59 Magnesium Hydroxide (Milk Of Magnesia) 30 ml DAILYPRN PRN PO CONSTIPATION; Start 03/12/17 at 23:15; Stop 04/11/17 at 23:14 Metformin HCl (Glucophage) 500 mg BID@0800,1800 PO Last administered on 08:36; Start 03/13/17 at 08:00; Stop 04/12/17 at 07:59 Mirtazapine (Remeron) 15 mg QHS PO Last administered on 03/16/17 20:58; Start 03/13/17 at 21:00; Stop 04/12/17 at 20:59 Nicotine (Nicoderm Cq 21mg) 1 patch DAILY TD Last administered on 03/17/17 08 :37; Start 03/13/17 at 09:00; Stop 04/12/17 at 08:59 Omeprazole (PriLOSEC) 40 mg DAILY PO Last administered on 03/17/17 08:35; Start 03/13/17 at 09:00; Stop 04/12/17 at 08:59 Quetiapine Fumarate (SEROquel) 200 mg QHS PO Last administered on 03/16/17 20 :58; Start 03/13/17 at 21:00; Stop 04/12/17 at 20:59 Venlafaxine HCl (Effexor) 75 mg DAILY PO Last administered on 03/17/17 08:36 ; Start 03/13/17 at 09:00; Stop 04/12/17 at 08:59 Allergies Coded Allergies: No Known Drug Allergy (Verified Allergy, Unknown, 01/06/17) JUANY DURAN MD Mar 17, 2017 14:41
[2017-03-17 18:31] VITALS: BP 115/75
[2017-03-17] MEDS: QUEtiapine FUMARATE 200 MG TAB PO SCH (20:25)
[2017-03-17] MEDS: MIRTAZAPINE 15 MG TAB PO SCH (20:25)
[2017-03-18] MEDS: LEVOTHYROXINE 125MCG TABLET (0.125MG) PO SCH (06:15)
[2017-03-18 06:59] VITALS: BP 140/75
[2017-03-18] MEDS: ARIPiprazole 10 MG TAB PO SCH ×2 (08:35→20:14)
[2017-03-18] MEDS: VENLAFAXINE 37.5 MG TAB PO SCH (08:35)
[2017-03-18] MEDS: metFORMIN (GLUCOPHAGE) 500 MG TAB PO SCH ×2 (08:35→17:09)
[2017-03-18] MEDS: OMEPRAZOLE 20 MG CAP PO SCH (08:35)
[2017-03-18] MEDS: NICOTINE 21MG/24HR 1 EA TRANSDERMAL TD SCH (08:35)
[2017-03-18] MEDS: SYMBICORT 160/4.5MCG INHALER 6GM INH SCH ×2 (08:36→20:14)
--- NOTE | 2017-03-18 13:42 | MHIPNPDOC ---
[facility] Progress Note Progress Note DATE OF SERVICE: 03/18/17 HISTORY: pt states, "I don't know why I took all those pills, but I wasn't trying to kill myself." Pt reports today was the first day she had access to all her medications. Apparently, pt's daughter has been monitoring her medication, but today wanted pt to become more independent. She is unable to identify any specific stressor triggering her OD just states, "I don't know why I took the medication." Pt has a significant hx of mental health admissions, last admission 01/29/17 and d/c 02/09/17. PSA contacted pt's daughter (Rohini, Ph# ) who reports she distributes pt's medication on a weekly daily pill box. Pt allegedly contacted daughter last night and expressed concern due to not having any medication left. Daughter assured pt her medication was placed in her pill box and if there is no meds left, she was required to contact the ambulance since she obviously OD on medication. Daughter is unable to assess pt's safety nd states, "I only give her medication, I'm not her support and she doesn't have any supports." VITAL SIGNS: See below. NEW TEST RESULTS: Laboratory Data 24H Labs 03/17/17 17:02: Bedside Glucose (Misc Panel) 167H 03/18/17 06:14: Bedside Glucose (Misc Panel) 103 03/18/17 06:17: Bedside Glucose (Misc Panel) 198H CURRENT MEDICATIONS: See below. MENTAL STATUS EXAMINATION: Patient is a 46-year old female, who is alert, cooperative, dressed in hospital clothes, good eye contact, good hygiene, fair grooming Speech: Spontaneous and fluent Language skills are fair Thought processes including: Linear Thought content: Focused on going to the family program after she gets discharged tomorrow Abstract reasoning, and computation: Poor Description of associations: Good Description of abnormal or psychotic thoughts: Denies SI/HI, denies a/V hallucinations, denies thought delusions Judgment: Poor Insight: Poor Orientation: Oriented to place, person and situation Recent and remote memory: Limited Attention span and concentration: Good at this time Language: Limited in vocabulary Fund of knowledge: Limited Mood: Euthymic Affect: Congruent with mood DIAGNOSES: 1. Schizoaffective disorder 2. Mild-moderate intellectual disability ASSESSMENT:Patient was a little disappointed today when she heard the Family Program is in [facility] and not in [place] but after I explained all the benefits she would receive, she changed her mind and said she would go to the Family Program. She understands she can't be alone, she needs someone to help her out with medications, appointments, etc. MANAGEMENT PLAN: Will continue with the same treatment plan TIME SPENT: 20 minutes. Vital Signs Vital Signs Date Time Temp Pulse Resp B/P (MAP) Pulse Ox O2 Delivery O2 Flow Rate FiO2 03/18/17 11:47 Room Air 03/18/17 06:59 97.0 119 14 140/75 (96) 03/17/17 09:00 2.0 03/17/17 06:48 95 Laboratory Data 24H Labs Laboratory Tests 2 03/17/17 17:02: Bedside Glucose (Misc Panel) 167H 03/18/17 06:14: Bedside Glucose (Misc Panel) 103 03/18/17 06:17: Bedside Glucose (Misc Panel) 198H Current Medications Current Medications Acetaminophen (Tylenol Tab) 650 mg Q6HP PRN PO HEADACHE or DISCOMFORT; Start 03/12/17 at 23:15; Stop 04/11/17 at 23:14 Al Hydrox/Mg Hydrox/Simethicone (Mylanta) 30 ml Q4HP PRN PO HEARTBURN/ INDIGESTION; Start 03/12/17 at 23:15; Stop 04/11/17 at 23:14 Aripiprazole (AbiLIFY) 10 mg BID PO Last administered on 03/18/17 08:35; Start 03/13/17 at 09:00; Stop 04/12/17 at 08:59 Budesonide/ Formoterol Fumarate (Symbicort 160/ 4.5mcg) 2 puff BID INH Last administered on 03/18/17 08:36; Start 03/13/17 at 09:00; Stop 04/12/17 at 08:59 Home Med (Med Rec Complete!) ASDIRECTED XX ; Start 03/12/17 at 23:30; Stop 03/12/17 at 23:30; Status DC Levothyroxine Sodium (Synthroid) 125 mcg DAILY@06 PO Last administered on 03/18 06:15; Start 03/13/17 at 06:00; Stop 04/12/17 at 05:59 Magnesium Hydroxide (Milk Of Magnesia) 30 ml DAILYPRN PRN PO CONSTIPATION; Start 03/12/17 at 23:15; Stop 04/11/17 at 23:14 Metformin HCl (Glucophage) 500 mg BID@0800,1800 PO Last administered on 08:35; Start 03/13/17 at 08:00; Stop 04/12/17 at 07:59 Mirtazapine (Remeron) 15 mg QHS PO Last administered on 03/17/17 20:25; Start 03/13/17 at 21:00; Stop 04/12/17 at 20:59 Nicotine (Nicoderm Cq 21mg) 1 patch DAILY TD Last administered on 03/18/17 08 :35; Start 03/13/17 at 09:00; Stop 04/12/17 at 08:59 Omeprazole (PriLOSEC) 40 mg DAILY PO Last administered on 03/18/17 08:35; Start 03/13/17 at 09:00; Stop 04/12/17 at 08:59 Quetiapine Fumarate (SEROquel) 200 mg QHS PO Last administered on 03/17/17 20 :25; Start 03/13/17 at 21:00; Stop 04/12/17 at 20:59 Venlafaxine HCl (Effexor) 75 mg DAILY PO Last administered on 03/18/17 08:35 ; Start 03/13/17 at 09:00; Stop 04/12/17 at 08:59 Allergies Coded Allergies: No Known Drug Allergy (Verified Allergy, Unknown, 01/06/17) JUANY DURAN MD Mar 18, 2017 13:42
[2017-03-18 18:00] VITALS: BP 114/67
[2017-03-18] MEDS: MIRTAZAPINE 15 MG TAB PO SCH (20:14)
[2017-03-18] MEDS: QUEtiapine FUMARATE 200 MG TAB PO SCH (20:14)
[2017-03-19] MEDS: LEVOTHYROXINE 125MCG TABLET (0.125MG) PO SCH (05:48)
[2017-03-19 07:04] VITALS: BP 119/57
[2017-03-19] MEDS: VENLAFAXINE 37.5 MG TAB PO SCH (09:00)
[2017-03-19] MEDS: SYMBICORT 160/4.5MCG INHALER 6GM INH SCH (09:00)
[2017-03-19] MEDS: metFORMIN (GLUCOPHAGE) 500 MG TAB PO SCH (09:00)
[2017-03-19] MEDS: OMEPRAZOLE 20 MG CAP PO SCH (09:00)
[2017-03-19] MEDS: NICOTINE 21MG/24HR 1 EA TRANSDERMAL TD SCH (09:00)
[2017-03-19] MEDS: ARIPiprazole 10 MG TAB PO SCH (09:00)
--- NOTE | 2017-03-19 10:52 | MHIPNPDOC ---
[facility] Progress Note Progress Note DATE OF SERVICE: 03/19/17 HISTORY: pt states, "I don't know why I took all those pills, but I wasn't trying to kill myself." Pt reports today was the first day she had access to all her medications. Apparently, pt's daughter has been monitoring her medication, but today wanted pt to become more independent. She is unable to identify any specific stressor triggering her OD just states, "I don't know why I took the medication." Pt has a significant hx of mental health admissions, last admission 01/29/17 and d/c 02/09/17. PSA contacted pt's daughter (Rohini, Ph# ) who reports she distributes pt's medication on a weekly daily pill box. Pt allegedly contacted daughter last night and expressed concern due to not having any medication left. Daughter assured pt her medication was placed in her pill box and if there is no meds left, she was required to contact the ambulance since she obviously OD on medication. Daughter is unable to assess pt's safety nd states, "I only give her medication, I'm not her support and she doesn't have any supports." VITAL SIGNS: See below. NEW TEST RESULTS: Laboratory Data 24H Labs Laboratory Tests 2 03/18/17 17:08: Bedside Glucose (Misc Panel) 138H 03/19/17 05:43: Bedside Glucose (Misc Panel) 152H CURRENT MEDICATIONS: See below. MENTAL STATUS EXAMINATION: Patient is a 46-year old female, who is alert, cooperative, dressed in hospital clothes, good eye contact, good hygiene, fair grooming Speech: Normal in tone, rate and volume Language skills are good Thought processes including: Linear Thought content: Happy thoughts about having people around, having someone to talk if she goes to the Family program Abstract reasoning, and computation: Poor Description of associations: Good Description of abnormal or psychotic thoughts: Denies SI/HI, denies a/V hallucinations, denies thought delusions Judgment: Limited Insight: Limited Orientation: Oriented to place, person and situation Recent and remote memory: Limited Attention span and concentration: Good at this time Language: Limited in vocabulary Fund of knowledge: Limited Mood: Euthymic Affect: Congruent with mood DIAGNOSES: 1. Schizoaffective disorder 2. Mild-moderate intellectual disability ASSESSMENT:Ordered CBC with differential, CMP and thyroid profile before the patient leaves to the family program to make sure she's all right. MANAGEMENT PLAN: Will continue with the same treatment plan. TIME SPENT: 20 minutes. Vital Signs Vital Signs Date Time Temp Pulse Resp B/P (MAP) Pulse Ox O2 Delivery O2 Flow Rate FiO2 03/19/17 07:04 97.8 101 20 119/57 (77) 94 Nasal Cannula 2.0 Laboratory Data 24H Labs Laboratory Tests 2 03/18/17 17:08: Bedside Glucose (Misc Panel) 138H 03/19/17 05:43: Bedside Glucose (Misc Panel) 152H Current Medications Current Medications Acetaminophen (Tylenol Tab) 650 mg Q6HP PRN PO HEADACHE or DISCOMFORT; Start 03/12/17 at 23:15; Stop 04/11/17 at 23:14 Al Hydrox/Mg Hydrox/Simethicone (Mylanta) 30 ml Q4HP PRN PO HEARTBURN/ INDIGESTION; Start 03/12/17 at 23:15; Stop 04/11/17 at 23:14 Aripiprazole (AbiLIFY) 10 mg BID PO Last administered on 03/19/17 09:00; Start 03/13/17 at 09:00; Stop 04/12/17 at 08:59 Budesonide/ Formoterol Fumarate (Symbicort 160/ 4.5mcg) 2 puff BID INH Last administered on 03/19/17 09:00; Start 03/13/17 at 09:00; Stop 04/12/17 at 08:59 Home Med (Med Rec Complete!) ASDIRECTED XX ; Start 03/12/17 at 23:30; Stop 03/12/17 at 23:30; Status DC Levothyroxine Sodium (Synthroid) 125 mcg DAILY@06 PO Last administered on 03/19 05:48; Start 03/13/17 at 06:00; Stop 04/12/17 at 05:59 Magnesium Hydroxide (Milk Of Magnesia) 30 ml DAILYPRN PRN PO CONSTIPATION; Start 03/12/17 at 23:15; Stop 04/11/17 at 23:14 Metformin HCl (Glucophage) 500 mg BID@0800,1800 PO Last administered on 09:00; Start 03/13/17 at 08:00; Stop 04/12/17 at 07:59 Mirtazapine (Remeron) 15 mg QHS PO Last administered on 03/18/17 20:14; Start 03/13/17 at 21:00; Stop 04/12/17 at 20:59 Nicotine (Nicoderm Cq 21mg) 1 patch DAILY TD Last administered on 03/19/17 09 :00; Start 03/13/17 at 09:00; Stop 04/12/17 at 08:59 Omeprazole (PriLOSEC) 40 mg DAILY PO Last administered on 03/19/17 09:00; Start 03/13/17 at 09:00; Stop 04/12/17 at 08:59 Quetiapine Fumarate (SEROquel) 200 mg QHS PO Last administered on 03/18/17 20 :14; Start 03/13/17 at 21:00; Stop 04/12/17 at 20:59 Venlafaxine HCl (Effexor) 75 mg DAILY PO Last administered on 03/19/17 09:00 ; Start 03/13/17 at 09:00; Stop 04/12/17 at 08:59 Allergies Coded Allergies: No Known Drug Allergy (Verified Allergy, Unknown, 01/06/17) JUANY DURAN MD Mar 19, 2017 10:52
[2017-03-19 11:58] LABS: BASO # 0.1 10^3/uL (0.0-0.2); BASO % 0.6 % (0.0-1.0); EOS # 0.3 10^3/uL (0.0-0.50); EOS % 2.1 % (0.0-3.0); IMMATURE GRANULOCYTE % 0.3 % (0-0); LYMPH # 3.5 10^3/uL (1.5-4.5); MEAN CORPUSCULAR HEMOGLOBIN 24.3 pg (27.0-33.0); MEAN CORPUSCULAR HGB CONC 30.2 g/dl (32.0-36.5); MEAN CORPUSCULAR VOLUME 80.6 fl (80.0-96.0); MONO % 8.6 % (0.0-5.0); NEUTROPHILS # 7.2 10^3/uL (1.8-7.7); NEUTROPHILS % 59.4 % (36.0-66.0); PLATELET COUNT, AUTOMATED 462 10^3/uL (150-450); RED CELL DISTRIBUTION WIDTH 19.2 % (11.5-14.5); WHITE BLOOD COUNT 12.1 10^3/uL (4.0-10.0)
[2017-03-19 12:41] LABS: ALBUMIN/GLOBULIN RATIO 0.77 (1.00-1.93); ALKALINE PHOSPHATASE 119 U/L (45-117); ALT/SGPT 25 U/L (12-78); ANION GAP 4 MEQ/L (8-16); AST/SGOT 31 U/L (7-37); BILIRUBIN,TOTAL 0.3 MG/DL (0.2-1.0); BLOOD UREA NITROGEN 11 MG/DL (7-18); CARBON DIOXIDE LEVEL 35 MEQ/L (21-32); CHLORIDE LEVEL 98 MEQ/L (98-107); GLOMERULAR FILTRATION RATE > 60.0 (>58); GLUCOSE, FASTING 130 MG/DL (70-105); POTASSIUM SERUM 4.5 MEQ/L (3.5-5.1); SODIUM LEVEL 137 MEQ/L (136-145); T UPTAKE 37 % (30-39); THYROXINE (T4) 12.4 UG/DL (4.5-12.0); TOTAL PROTEIN 6.9 GM/DL (6.4-8.2)
[2017-03-19] MEDS ORDERED: QUET1TAB9 PO (14:31)
[2017-03-19] MEDS ORDERED: VENL37TA PO (14:31)
--- NOTE | 2017-03-23 21:06 | MHDSPDOC ---
[facility] Discharge Summary Discharge Summary DATE OF ADMISSION: Mar 12, 2017 at 23:13 DATE OF DISCHARGE: Mar 19, 2017 at 15:30 DISCHARGE DIAGNOSES: 1. Schizoaffective Disorder 2. R/O Mild-moderate Intellectual disability REASON FOR ADMISSION: " I took too many pills" History of Present Illness HISTORY OF THE PRESENT ILLNESS: pt states, "I don't know why I took all those pills, but I wasn't trying to kill myself." Pt reports today was the first day she had access to all her medications. Apparently, pt's daughter has been monitoring her medication, but today wanted pt to become more independent. She is unable to identify any specific stressor triggering her OD just states, "I don't know why I took the medication." Pt has a significant hx of mental health admissions, last admission 01/29/17 and d/c 02/09/17. PSA contacted pt's daughter (Rohini, Ph# ) who reports she distributes pt's medication on a weekly daily pill box. Pt allegedly contacted daughter last night and expressed concern due to not having any medication left. Daughter assured pt her medication was placed in her pill box and if there is no meds left, she was required to contact the ambulance since she obviously OD on medication. Daughter is unable to assess pt's safety nd states, "I only give her medication, I'm not her support and she doesn't have any supports." CONSULTANTS INVOLVED: None TREATMENT AND PROGRESS ON THE UNIT : patient had a good response to medications. In fact, this program writer never gave her, during this admission, the 150 mgs. of Venalafaxine she was taking before because I was not sure on which pills she had overdosed on. During this admission, she was on Venlafaxine 75 mgs. When she came into the hospital, she was on Seroquel 300 mgs. PO QHS but I decreased it to 200 mgs. PO QHS. She had received her Invega Sustenna injection by the end of February, so she is due for her next injection by the end of March. She was not as depressed as she was on a previous admission. At that time, she refused to get up, she didn't want to bathe, change and constantly looded as if she was responding to internal stimuli. This time, she was more alert, more cooperative, she attended groups, she got up every morning, engaged with staff and other patients.Briar Cutter thought it was better for her to live with a family that would take care of her and help her with her illness under a new program that was recently started, [facility]. She was accepted bu the program and she will go back to her house where she will be supervised by her two friends that have been helping her for years, one of them is going to cook her meals, all of this while she goes to the family that will take care of her, including taking her to her appointments. She accepted to go to the family program because she doesn't have much support with her daughters who live, very close to her. HOSPITAL COURSE: As above DISCHARGE ASSESSMENT: Patient was not in danger to self or others, she was not suicidal and not homicidal, she was not psychotic at the time of discharge MENTAL STATUS EXAMINATION ON DISCHARGE: Patient is a 46-year old female, who is alert, cooperative, dressed in hospital clothes, good eye contact, good hygiene, fair grooming Speech: Normal in tone, rate and volume Language skills are good Thought processes including: More organized, more gal oriented, linear Thought content: Positive thoughts about going to live with a family, with the family program Abstract reasoning, and computation: Poor Description of associations: Good Description of abnormal or psychotic thoughts: Denies SI/HI, denies a/V hallucinations, denies thought delusions Judgment: Improving Insight: Improving Orientation: Oriented to place, person and situation Recent and remote memory: Fair Attention span and concentration: Good at this time Language: Limited in vocabulary Fund of knowledge: Limited Mood: Euthymic Affect: Congruent with mood MEDICATIONS ON DISCHARGE: Budesonide/Formoterol (Symbicort 160-4.5 Mcg/Act) 60 Puff/Inhaler Aers, 2 PUFF INH BID, (Reported) Clemastine Fumarate (Clemastine Fumarate) 2.68 Mg Tab, 2.68 MG PO DAILY, ( Reported) Docusate Sodium (Colace) 100 Mg Cap, 100 MG PO DAILY, (Reported) Levothyroxine Sodium (Synthroid) 125 Mcg Tab, 125 MCG PO DAILY, (Reported) Metformin Hydrochloride (Metformin HCl) 500 Mg Tab, 500 MG PO BID, (Reported) Mirtazapine (Mirtazapine) 15 Mg Tab, 15 MG PO QHS, (Reported) Omeprazole (Omeprazole) 20 Mg Cap, 40 MG PO DAILY, (Reported) Paliperidone Palmitate (Invega Sustenna) 234 Mg/1.5 Ml Inj, 234 MG IM ASDIRECTED , (Reported) LAST DOSE WAS AT THE END OF Quetiapine Fumerate (Quetiapine Fumarate) 200 Mg Tab, 200 MG PO QHS for MOOD, # 30 Venlafaxine HCl (Venlafaxine HCl) 37.5 Mg Tab, 75 MG PO DAILY for DEPRESSION, # 10 PLAN/FOLLOWUP ARRANGEMENTS: Mental Health Appt 1 * [facility] * Established With This Provider Yes * Therapist BLANCA * Date Mar 20, 2017 * Time 10:00 * Address of Clinic or Practice [address] [place] [address] * Follow Up Care Education Label * Care Coordination * Care Coordination/Case Management/Supervision Mobile Integration Team * Established With This Provider Yes * Therapist Nubia * Follow Up Care Education Label * Case Management * Care Coordination/Case Management/Supervision [facility] * Established With This Provider Yes * Relocation Commissioner Sandra Peace * Follow Up Care Education Label * APS * Therapist Jimmy Ross * Follow Up Care Education Label * Mental Health Appt 2 * [facility] * Established With This Provider Yes * Therapist DR. FINLEY * Date Apr 02, 2017 * Time 11:30 Follow Up Care Education Label * Mental Health Appt 3 * [facility] * Established With This Provider Yes * Therapist KASSY * Date Mar 25, 2017 * Time 11:30 * Additional information INJECTION Follow Up Care Education Label * Medical * Medical Follow Up [facility] * Established With This Provider Yes * Therapist JOSE MCCORMCIK * Date Apr 02, 2017 * Time 13:00 * The amount of time spent in the coordination of care for this patient was approximately 30 minutes. Vital Signs/I&Os Vital Signs Date Time Temp Pulse Resp B/P (MAP) Pulse Ox O2 Delivery O2 Flow Rate FiO2 03/19/17 07:04 97.8 101 20 119/57 (77) 94 Nasal Cannula 2.0 Laboratory Data Microbiology Microbiology 03/15/17 Clostridium difficile (PCR) - Final, Complete Medications Scheduled Budesonide/Formoterol (Symbicort 160-4.5 Mcg/Act) 60 Puff/Inhaler Aers, 2 PUFF INH BID, (Reported) Clemastine Fumarate (Clemastine Fumarate) 2.68 Mg Tab, 2.68 MG PO DAILY, ( Reported) Docusate Sodium (Colace) 100 Mg Cap, 100 MG PO DAILY, (Reported) Levothyroxine Sodium (Synthroid) 125 Mcg Tab, 125 MCG PO DAILY, (Reported) Metformin Hydrochloride (Metformin HCl) 500 Mg Tab, 500 MG PO BID, (Reported) Mirtazapine (Mirtazapine) 15 Mg Tab, 15 MG PO QHS, (Reported) Omeprazole (Omeprazole) 20 Mg Cap, 40 MG PO DAILY, (Reported) Paliperidone Palmitate (Invega Sustenna) 234 Mg/1.5 Ml Inj, 234 MG IM ASDIRECTED , (Reported) LAST DOSE WAS AT THE END OF Quetiapine Fumerate (Quetiapine Fumarate) 200 Mg Tab, 200 MG PO QHS for MOOD, # 30 Venlafaxine HCl (Venlafaxine HCl) 37.5 Mg Tab, 75 MG PO DAILY for DEPRESSION, # 10 Allergies Coded Allergies: No Known Drug Allergy (Verified Allergy, Unknown, 01/06/17) JUANY DURAN MD Mar 23, 2017 21:06
== END 2017-03-19 15:30 | disposition home or self-care (01) | DRG 885 ==
LOC: M ED 17:04 → M ED INP 23:13 → M PSY 03-13 00:38
PROVIDERS: ADMIT Psychiatry & Neurology Psychiatry; ATTEND Psychiatry & Neurology Psychiatry
DX: F25.9 Schizoaffective disorder, unspecified (principal); Z68.41 Body mass index [BMI] 40.0-44.9, adult; F17.210 Nicotine dependence, cigarettes, uncomplicated; E03.9 Hypothyroidism, unspecified; F70 Mild intellectual disabilities; K21.9 Gastro-esophageal reflux disease without esophagitis; J44.9 Chronic obstructive pulmonary disease, unspecified; E11.9 Type 2 diabetes mellitus without complications; Z98.51 Tubal ligation status; Z90.49 Acquired absence of other specified parts of digestive tract; Z90.710 Acquired absence of both cervix and uterus; Z79.84 Long term (current) use of oral hypoglycemic drugs; Z79.899 Other long term (current) drug therapy; Z91.5 Personal history of self-harm

== ENCOUNTER 2017-06-12 09:01 | Day surgery (SDC) | payer MEDICARE, MEDICAID ==
[~2017-06-12 09:01] MED LIST changes: -ARIP10TAB PO; -AUGM875T28 PO; -BENZ-52 PO; -CLEM2.68 PO; -CLON1TAB; -CLON1TAB PO; -EFFE75CA75 PO; -INVE156I IM; -INVE234I IM; +KETOROLAC 60 MG/2 ML VIAL (J1885) As Ordered; -LASI40TA PO; -LEVO125T4 PO; -LEVOTAB10 PO; +LIDOCAINE 2% INJ 100 MG/5 ML SDV (FOR ANES.) As Ordered; -METF500T13 PO; +MIDAZOLAM INJ 2 MG/2 ML VIAL (J2250) As Ordered; -MIRT15TA3 PO; -NICO14PA TD; -NICO21PAT TD; -NITR50CA2 PO; -NORC1TAB4 PO; -OMEP20CA3 PO; -OMEP40CA2 PO; +ONDANSETRON 4MG/2ML VIAL (J2405) As Ordered; -PRED10TA2 PO; -PRED20TA PO; +PROPOFOL 200 MG/20 ML VIAL As Ordered; -QUET1TAB10 PO; -QUET1TAB8 PO; -QUET1TAB9 PO; -QUET5TAB PO; -REME15TA PO; -RISP-4 PO; -RISP1TAB42 PO; -RISP2TAB3 PO; -RISP3TAB3 PO; +ROCURONIUM BROMIDE 50 MG/5 ML VIAL As Ordered; -SERO1TAB2 PO; -SLEE1TAB PO; -SULF1TAB23 PO; -SYMB16INH INH; -TRAZ-136 PO; -TRAZ10TA PO; -TRAZ300T2 PO; -VENL150C43 PO; -VENL37TA PO; -VENL75CA2 PO; -VENL75CA47 PO; +dexameTHASONE 4 MG/ML 1ML VIAL (J1100) As Ordered; +fentaNYL 100 MCG/2 ML INJECTION (J3010) As Ordered
[2017-06-12] MEDS ORDERED: LIDOCAINE 1% SDV 5 ML VIAL SQ (09:15)
[2017-06-12] MEDS ORDERED: LR 1,000 ML IV ×2 (09:15→14:00)
[2017-06-12 10:18] LABS: HEMATOCRIT 39.5 % (36.0-47.0); HEMOGLOBIN 12.2 g/dl (12.0-16.0); MEAN CORPUSCULAR HEMOGLOBIN 24.7 pg (27.0-33.0); MEAN CORPUSCULAR HGB CONC 30.9 g/dl (32.0-36.5); PLATELET COUNT, AUTOMATED 347 10^3/uL (150-450); RED BLOOD COUNT 4.94 10^6/uL (4.00-5.40); RED CELL DISTRIBUTION WIDTH 17.2 % (11.5-14.5); WHITE BLOOD COUNT 11.7 10^3/uL (4.0-10.0)
[2017-06-12 10:47] LABS: BEDSIDE GLUCOSE 109 MG/DL (70-105)
[2017-06-12] MEDS ORDERED: HYDROmorphone HCL 2 MG/ML 1ML VIAL (J1170) As Ordered (11:56)
[2017-06-12] MEDS: BUPIVACAINE HCL 0.25% 30 ML VIAL As Ordered (12:02)
[2017-06-12] MEDS: ceFAZolin 2 GM/D5W 50 ML IV BAG (J0690 PER 500MG) As Ordered (12:06)
[2017-06-12 13:45] LABS: BEDSIDE GLUCOSE 125 MG/DL (70-105)
[2017-06-12] MEDS ORDERED: HYDROmorphone HCL 1 MG/ML SYRINGE (J1170) IV (14:00)
[2017-06-12] MEDS ORDERED: PERCOCET 5MG/325MG TAB PO ×2 (14:00)
[2017-06-12] MEDS ORDERED: ONDANSETRON 4MG/2ML VIAL (J2405) IV (14:00)
[2017-06-12] MEDS ORDERED: fentaNYL 100 MCG/2 ML INJECTION (J3010) IV (14:00)
[2017-06-12] MEDS ORDERED: KETOROLAC 30 MG/ML VIAL (J1885) IV (18:00)
== END 2017-06-12 16:44 | disposition home or self-care (01) ==
LOC: M SDC 09:01
DX: N81.11 Cystocele, midline (principal); E03.9 Hypothyroidism, unspecified; K21.9 Gastro-esophageal reflux disease without esophagitis; F32.9 Major depressive disorder, single episode, unspecified; F41.9 Anxiety disorder, unspecified; Z79.899 Other long term (current) drug therapy
CPT/HCPCS: 57240

== ENCOUNTER → 2019-03-15 | Outpatient (CLI) | payer MEDICARE, MEDICAID ==
[~2019-03-15] MED LIST changes: +ARIP1TAB PO; +AUGM875T28 PO; +BENZ-52 PO; +CLEM2.68 PO; +CLON1TAB8; +CLON1TAB8 PO; +COLA100C5 PO; +EFFE150C2 PO; +EFFE75CA2 PO; +INVE156I IM; +INVE234I IM; +JANU100T PO; -KETOROLAC 60 MG/2 ML VIAL (J1885) As Ordered; +LASI40TA9 PO; +LEVO125T4 PO; +LEVOTAB10 PO; -LIDOCAINE 2% INJ 100 MG/5 ML SDV (FOR ANES.) As Ordered; +METF500T13 PO; -MIDAZOLAM INJ 2 MG/2 ML VIAL (J2250) As Ordered; +MIRT15TA3 PO; +NICO14PA TD; +NICO21PAT TD; +NITR50CA34 PO; +NORC1TAB7 PO; +OMEP-172 PO; +OMEP40CA97 PO; -ONDANSETRON 4MG/2ML VIAL (J2405) As Ordered; +PRED10TA2 PO; +PRED20TA PO; -PROPOFOL 200 MG/20 ML VIAL As Ordered; +QUET1TAB10 PO; +QUET1TAB8 PO; +QUET200T2 PO; +QUET5TAB PO; +REME15TA PO; +RISP-4 PO; +RISP1TAB42 PO; +RISP2TAB3 PO; +RISP3TAB3 PO; -ROCURONIUM BROMIDE 50 MG/5 ML VIAL As Ordered; +SERO1TAB2 PO; +SLEE1TAB PO; +SULF1TAB93 PO; +SYMB16INH INH; +SYNT125T PO; +TRAZ-163 PO; +TRAZ10TA PO; +TRAZ300T2 PO; +VENL150C43 PO; +VENL37TA PO; +VENL75CA2 PO; +VENL75CA47 PO; -dexameTHASONE 4 MG/ML 1ML VIAL (J1100) As Ordered; -fentaNYL 100 MCG/2 ML INJECTION (J3010) As Ordered
--- NOTE | 2019-03-15 14:21 | PFTRPT ---
Site: [facility], [address] [place] [address], [id number] ID: [id number] Name: CAITLIN CONDE Visit Date: 03/15/2019 Second ID: [id number] Referring Doctor: Phillip Diggs MD Reviewing Doctor: Phillip Diggs MD Tyre Fitter: Zulay ACUNA, CHARLOTTE Age: 48 : 1970 Sex: Female Race: Height: 67.00 Inches Weight: 285.00 Lbs BSA: 2.35 Order IDs: [id number] Requested Test(s): <RESP-PFT.DLCO> Diagnosis: R91.8 test meet the ATS standards for acceptability and repeatability. Pt was given four puffs of albuterol for postbronchodilator. Review Status: Not Reviewed Pre-Bronch Post-Bronch Pred Actual %Pred Actual %Chng SPIROMETRY FVC (L) 3.92 2.50 63 2.48 FEV1 (L) 3.11 1.95 62 1.93 -1 FEV1/FVC (%) 80 78 97 78 FEF 25% (L/sec) 5.55 4.44 79 4.41 FEF 50% (L/sec) 3.93 2.33 59 2.09 -10 FEF 75% (L/sec) 1.45 0.65 45 0.63 -4 FEF 25-75% (L/sec) 2.95 1.73 58 1.62 -5 FEF Max (L/sec) 7.22 4.95 68 5.09 2 FIVC (L) 2.31 2.53 9 FIF 50% (L/sec) 4.30 3.34 77 3.30 -1 FIF Max (L/sec) 3.38 3.32 -1 MVV (L/min) 104 60 58 Expiratory Time (sec) 6.47 6.25 -3 Back Extrap Vol (L) 0.11 0.08 -27 Time To FEFmax (sec) 0.111 0.097 -13 LUNG VOLUMES SVC (L) 3.57 2.37 66 IC (L) 2.40 1.93 80 ERV (L) 1.17 0.45 38 TGV (L) 3.10 3.31 106 RV (Pleth) (L) 1.93 2.87 148 TLC (Pleth) (L) 5.50 5.24 95 RV/TLC (Pleth) (%) 35 55 156 DIFFUSION DLCOunc (ml/min/mmHg) 24.01 18.13 75 DLCOcor (ml/min/mmHg) 24.01 18.07 75 DL/VA (ml/min/mmHg/L) 4.37 4.33 99 VA (L) 5.50 4.17 75 BHT (sec) 10.30 IVC (L) 2.26 TLC (SB) (L) 4.32 AIRWAYS RESISTANCE Raw (cmH2O/L/s) 1.86 1.61 86 Gaw (L/s/cmH2O) 1.03 0.63 60 sRaw (cmH2O*s) 4.76 6.24 131 sGaw (1/cmH2O*s) 0.20 0.16 81 BLOOD GASES Hgb (gm/dL) 13.5
== END ==
LOC: M CARPUL 13:38
PROVIDERS: ATTEND Internal Medicine Pulmonary Disease
DX: R91.8 Other nonspecific abnormal finding of lung field (principal)

== ENCOUNTER → 2019-04-19 | Outpatient (CLI) | payer MEDICARE, MEDICAID ==
[~2019-04-19] MED LIST changes: -OMEP-172 PO; +OMEP1CAP73 PO; -TRAZ-163 PO; +TRAZ-257 PO; -TRAZ10TA PO; +TRAZ1TAB12 PO
--- NOTE | 2019-04-20 09:40 | REP ---
PET/CT: HISTORY: Lung nodule. Solitary pulmonary nodule. COMPARISONS: No recent comparison chest CT study is available. There is a comparison chest CT study from December 19, 2016. Apparently, outside chest CT showed an enlarging right upper lobe nodule. TECHNIQUE: 50 minutes following the intravenous injection of a 7.95 mCi dose of F-18 FDG, three-dimensional PET scintigraphy is acquired from the skull base to the proximal thighs. Triplanar noncontrast CT scanning is acquired through the same anatomic range for attenuation correction, and image registration with scan parameters optimized to minimize radiation exposure to the patient. PET scintigraphy and CT datasets were fused and displayed on a workstation with multiplanar and projection display capability. PET/CT FINDINGS: Head and neck soft tissues are unremarkable. Accompanying CT images demonstrate a 1.3 cm nodule in the superior segment of the right lower lobe which shows mildly hypermetabolic uptake. Maximum standard uptake value is 2.66. No other abnormal pulmonary parenchymal metabolic activity is seen. No other abnormal nodular density is appreciated on our accompanying CT. There is no hilar or mediastinal hypermetabolic josé miguel uptake. Normal mediastinal vascular uptake is seen. In the abdomen and pelvis, there is normal hepatic, splenic, gastrointestinal, and genitourinary FDG accumulation. No adrenal lesion is seen. There is a focus of hypermetabolic uptake in the right colon, cecum or ascending location, which is above the remainder the background gastrointestinal mucosal uptake. Maximum standard uptake value is 7.55. No masses discernible in the cecum or ascending colon on the accompanying CT images. This is of uncertain significance. IMPRESSION: There is mildly hypermetabolic uptake in a 1.3 cm superior segment right lower lobe pulmonary nodule. Malignancy cannot be excluded. There is no evidence to suggest metastatic uptake. There is an equivocal focus of increased uptake in the cecum. Electronically Signed by Ozzie Crawford MD 04/20/2019 06:15 P
== END ==
LOC: M PLARAD 14:28
PROVIDERS: ATTEND Internal Medicine Pulmonary Disease
DX: R91.1 Solitary pulmonary nodule (principal)
CPT/HCPCS: 78815; A9552

== ENCOUNTER → 2019-05-11 | Outpatient (CLI) | payer MEDICARE, MEDICAID ==
[~2019-05-11] MED LIST changes: +FERR325T3 PO; +GLIP2.5T PO; +LIDOCAINE 1% MDV 20ML VIAL As Ordered ONE; +QUET100T2 PO; -QUET1TAB8 PO
--- NOTE | 2019-05-11 10:51 | REP ---
PA chest x-ray: Single view post biopsy. History: Status post CT guided needle biopsy procedure right lung. Findings: There is a hazy opacity at the site of the lung biopsy itself in the right mid lung field. There is no evidence of pneumothorax or hydrothorax. Lung murguia are otherwise clear. Impression: No complication seen. Electronically Signed by Ozzie Crawford MD 05/11/2019 10:43 A
[2019-05-11 11:42] VITALS: BP 128/66
--- NOTE | 2019-05-11 19:36 | REP ---
CT-GUIDED RIGHT LOWER LOBE LUNG BIOPSY The procedure was performed under the direct supervision of Dr. Crawford. The patient has a history of A 1.9 cm nodule in the right lower lobe seen on a previous CT scan from [facility] performed on 03/08/2019. In the this was also seen as mildly hypermetabolic on a a previous PET scan dated 04/19/2019. The risks and benefits of the procedure were explained to the patient and informed consent was obtained. The right lower lobe lung nodule was localized using CT guidance. The skin was prepped and draped in a sterile fashion. 1% lidocaine was used as a local anesthetic. Using CT guidance 19/20 gauge coaxial needle biopsy system was inserted and advanced into the nodule. Five core biopsy samples were obtained and sent to lab. The patient tolerated the procedure well and there were no immediate complications. After the appropriate amount of monitored convalescence the patient was discharged from the department. Electronically Signed by NNAMDI Peterson 05/11/2019 03:58 P Electronically Signed by Ozzie Crawford MD 05/11/2019 07:28 P
== END ==
LOC: M IRPRO 09:01
PROVIDERS: ATTEND Internal Medicine Pulmonary Disease
DX: C34.31 Malignant neoplasm of lower lobe, right bronchus or lung (principal)

== ENCOUNTER → 2019-07-22 | Outpatient (CLI) | payer MEDICARE, MEDICAID ==
[~2019-07-22] MED LIST changes: -LIDOCAINE 1% MDV 20ML VIAL As Ordered ONE
--- NOTE | 2019-07-22 12:06 | REP ---
REASON FOR EXAM: History of malignancy. COMPARISON: The latest prior 03/08/2019 from an outside institution and the next latest prior 12/19/2016. The mediastinum and pulmonary ileana have not changed significantly compared to the latest prior exam. There is a prominent right paratracheal lymph node which is borderline to mildly enlarged. It has a stable appearance not only on the latest prior but from the exam of 12/19/2016. There is no evidence of hilar adenopathy. There are no pleural or pericardial effusions. The imaged upper abdomen again shows patchy low density throughout the hepatic parenchyma consistent with fatty infiltration. There has been no significant change compared to the prior exams. There is no significant change in the appearance of the imaged osseous structures. Evaluation of the lung murguia shows a 2.3 x 1.4 cm sized spiculated nodule previously 1.9 x 1.1 cm on the latest prior. This is in the superior segment of the left lower lobe. No additional abnormal nodules, masses, or opacities have developed. IMPRESSION: 1. Increasing size in the spiculated nodule in the right lower lobe as described above. 2. Other chronic changes as described above. Electronically Signed by Wander Ramos DO 07/22/2019 12:13 P
== END ==
LOC: M RAD 09:50
PROVIDERS: ATTEND Thoracic Surgery (Cardiothoracic Vascular Surgery)
DX: C34.31 Malignant neoplasm of lower lobe, right bronchus or lung (principal)

== ENCOUNTER → 2019-08-08 | Outpatient (CLI) | payer MEDICARE, MEDICAID ==
[~2019-08-08] MED LIST changes: +AMBI5TAB PO; +FERR1TAB8 PO; +GEMF600T5 PO; +INVE1.75 IM; +INVO100T PO; +LEVO175T19 PO; +METF-838 PO; +MIRT1TAB PO; +NICOINH INH; +OZEM2INJ2 SC; +REME15TA2 PO; +SERO200T PO
[2019-08-08 13:51] LABS: HEMATOCRIT 48.3 % (36.0-47.0); HEMOGLOBIN 15.8 g/dl (12.0-15.5); MEAN CORPUSCULAR HEMOGLOBIN 26.8 pg (27.0-33.0); MEAN CORPUSCULAR HGB CONC 32.7 g/dl (32.0-36.5); MEAN CORPUSCULAR VOLUME 81.9 fl (80.0-96.0); PLATELET COUNT, AUTOMATED 319 10^3/uL (150-450); WHITE BLOOD COUNT 15.4 10^3/uL (4.0-10.0)
[2019-08-08 13:59] LABS: ABG BASE EXCESS 2.6 (-2.0-2.0); ABG HCO3 26.4 MEQ/L (22.0-26.0); ABG O2 SATURATION 97.9 % (95.0-99.0); ABG PARTIAL PRESSURE CO2 38.2 mmHg (35.0-45.0); ABG PARTIAL PRESSURE O2 112.4 mmHg (75.0-100.0); ABG STANDARD HCO3 26.8 MEQ/L (22.0-26.0); ABG TOTAL CO2 27.5 MEQ/L (22.0-29.0); ABG pH (ARTERIAL) 7.457 UNITS (7.350-7.450)
[2019-08-08 14:08] LABS: INR 0.98; PARTIAL THROMBOPLASTIN TIME 25.5 SECONDS (25.0-38.4); PROTHROMBIN TIME 12.7 SECONDS (11.8-14.0)
[2019-08-08 14:16] LABS: BLOOD UREA NITROGEN 9 MG/DL (7-18); CALCIUM LEVEL 9.8 MG/DL (8.5-10.1); CARBON DIOXIDE LEVEL 28 MEQ/L (21-32); CHLORIDE LEVEL 94 MEQ/L (98-107); CREATININE FOR GFR 0.82 MG/DL (0.55-1.30); GLOMERULAR FILTRATION RATE > 60.0 (>58); GLUCOSE, FASTING 332 MG/DL (70-100); SODIUM LEVEL 133 MEQ/L (136-145)
--- NOTE | 2019-08-08 15:06 | REP ---
CHEST X-RAY: Two views. HISTORY: Right lung carcinoma. Preop. Comparison chest x-ray May 11, 2019. [place] chest CT study July 22, 2019. FINDINGS: A right perihilar lung nodule is again seen on changed from most recent prior study. The lung murguia are otherwise well inflated and clear. Pleural angles are sharp. Heart size is normal. Mediastinal contours are unchanged. Pulmonary vasculature is not increased. IMPRESSION: Right perihilar lung nodule unchanged. Otherwise no acute disease. Electronically Signed by Ozzie Crawford MD 08/08/2019 03:23 P
--- NOTE | 2019-08-08 23:51 | ECGEPIP ---
[facility] Test Date: 2019-08-08 Pat Name: CAITLIN CONDE Department: Room: - Gender: Female Mine Wirer: DANNIELLE : 1970 Requested By: Jas Swift Order Number: [id number] Reading MD: Jah Maldonado Measurements Intervals [place] Rate: 111 P: 60 AZ: 148 QRS: 109 QRSD: 109 T: 38 QT: 350 QTc: 477 Interpretive Statements SINUS TACHYCARDIA MARKED RIGHT AXIS DEVIATION INFERIOR MYOCARDIAL INFARCTION, PROBABLY OLD. PROBABLY RELATED TO THE INCOMPLETE RBBB Compared to prior tracings in the system, NO SIGNIFICANT CHANGES Electronically Signed on 08-08-2019 23:50:40 EDT by Jah Maldonado
== END ==
LOC: M ADMPAT 13:15
PROVIDERS: ATTEND Thoracic Surgery (Cardiothoracic Vascular Surgery)
DX: C34.31 Malignant neoplasm of lower lobe, right bronchus or lung (principal)

== ENCOUNTER → 2019-08-13 | Outpatient (CLI) | payer MEDICARE, MEDICAID | LOC: M LABSMTC 09:07 | PROVIDERS: ATTEND Anesthesiology | DX: Z01.818 Encounter for other preprocedural examination (principal); Z11.59 Encounter for screening for other viral diseases ==

== ENCOUNTER 2019-08-16 07:17 | Inpatient (IN) | payer MEDICARE, MEDICAID ==
[2019-08-16] VITALS (33 sets, daily range): BP systolic 84–121; BP diastolic 48–71
[~2019-08-16] VITALS: Ht 170.2 cm; Wt 127.0 kg
[~2019-08-16 07:17] MED LIST changes: -FERR1TAB8 PO; -GEMF600T5 PO; -INVE1.75 IM; -INVO100T PO; -LEVO175T19 PO; +LIDOCAINE 1% MDV 20ML VIAL SQ PRN; +LR 1,000 ML IV ONE; -METF-838 PO; -MIRT1TAB PO; +MUPIROCIN 2% OINT 22 GM TUBE TOP ONE; -NICOINH INH; -OZEM2INJ2 SC; -SERO200T PO; +ceFAZolin SOD 2 GM in IV 1 EA IV ONE
[2019-08-16] MEDS ORDERED: LIDOCAINE 2% 100MG/5ML SDV (FOR ANES.) As Ordered ONE (07:19)
[2019-08-16] MEDS ORDERED: propofoL 200 MG/20 ML VIAL As Ordered ONE (07:19)
[2019-08-16] MEDS ORDERED: ROCURONIUM BROMIDE 50 MG/5 ML VIAL As Ordered ONE ×4 (07:19→14:23)
[2019-08-16] MEDS ORDERED: fentaNYL 250 MCG/5 ML INJECTION (J3010) As Ordered ONE ×2 (07:20→11:24)
[2019-08-16] MEDS ORDERED: MIDAZOLAM INJ 2MG/2ML VIAL (J2250 PER 1MG) As Ordered ONE ×2 (07:20→07:50)
[2019-08-16] MEDS ORDERED: fentaNYL 100 MCG/2 ML INJECTION (J3010) As Ordered ONE (07:50)
[2019-08-16] MEDS ORDERED: INVO100T PO (08:14)
[2019-08-16] MEDS ORDERED: METF-838 PO (08:14)
[2019-08-16] MEDS ORDERED: GEMF600T5 PO (08:14)
[2019-08-16] MEDS ORDERED: CETACAINE SPRAY 5GM As Ordered ONE ×2 (08:16→16:06)
[2019-08-16] MEDS ORDERED: BUPIVACAINE HCL 0.25% 10ML VIAL As Ordered ONE (08:16)
[2019-08-16] MEDS ORDERED: BUPIVACAINE LIPOSOME/PF 1.3% 20ML VIAL (13.3MG/ML)(EXPAREL)(C9290 PER1MG) As Ordered ONE ×2 (08:16→14:52)
[2019-08-16] MEDS ORDERED: STERILE TALC POWDER 3GM VIAL As Ordered ONE (08:16)
[2019-08-16] MEDS ORDERED: TALCAIR POWDER BLOWER (CAN ONLY BE USED WITH 3GM TALC VIAL) XX ONE (08:18)
[2019-08-16 08:20] LABS: APPEARANCE, URINE CLOUDY (CLEAR); BACTERIA, URINE AUTO 2+ (NEGATIVE); BILIRUBIN, URINE AUTO NEGATIVE (NEGATIVE); BLOOD, URINE BLOOD 1+ (NEGATIVE); COLOR, URINE YELLOW (YELLOW); GLUCOSE, URINE (UA) AUTO 3+ mg/dL (NEGATIVE); KETONE, URINE AUTO NEGATIVE (NEGATIVE); LEUKOCYTE ESTERASE, URINE AUTO 3+ (NEGATIVE); MUCUS, URINE SMALL (NEGATIVE); NITRITE, URINE AUTO NEGATIVE (NEGATIVE); PROTEIN, URINE AUTO NEGATIVE (NEGATIVE); RBC, URINE AUTO 10 /HPF (0-3); SPECIFIC GRAVITY URINE AUTO 1.027 (1.002-1.035); SQUAMOUS EPITHELIAL CELL UR AU 3 /HPF (0-6); UROBILINOGEN, URINE AUTO 0.2 mg/dL (0.0-2.0); WBC, URINE AUTO TNTC /HPF (0-3)
[2019-08-16] MEDS ORDERED: HumaLOG INSULIN (NovoLOG) PER UNIT As Ordered ONE (08:38)
[2019-08-16] MEDS ORDERED: HumaLOG INSULIN (NovoLOG) PER UNIT SC ONE ×2 (08:45→17:30)
[2019-08-16] MEDS: fentaNYL 100 MCG/2 ML INJECTION (J3010) IV SCH ×2 (08:52→09:06)
[2019-08-16] MEDS ORDERED: MIDAZOLAM INJ 2MG/2ML VIAL (J2250 PER 1MG) IV ONE (09:00)
[2019-08-16] MEDS ORDERED: BUPIVACAINE HCL 0.25% 30ML VIAL As Ordered ONE ×2 (10:12→13:51)
[2019-08-16] MEDS ORDERED: BUPIVACAINE HCL 0.5% 10ML VIAL As Ordered ONE ×2 (10:30→14:54)
[2019-08-16] MEDS ORDERED: KETOROLAC 60 MG/2 ML VIAL As Ordered ONE (12:29)
[2019-08-16] MEDS ORDERED: dexameTHASONE 4 MG/ML 1ML VIAL (J1100 PER 1MG) As Ordered ONE (12:29)
[2019-08-16] MEDS ORDERED: ONDANSETRON 4MG/2ML VIAL As Ordered ONE (12:29)
[2019-08-16] MEDS ORDERED: METOCLOPRAMIDE INJ 10MG/2ML VIAL (J2765 PER 1) As Ordered ONE (12:30)
[2019-08-16] MEDS ORDERED: HYDROmorphone HCL 2 MG/ML 1ML VIAL (J1170) As Ordered ONE (13:18)
[2019-08-16] MEDS ORDERED: ceFAZolin 2 GM/D5W 50 ML IV BAG (J0690 PER 500MG) As Ordered ONE (13:51)
[2019-08-16] MEDS ORDERED: ONDANSETRON 4MG/2ML VIAL IV PRN ×4 (14:15→17:45)
[2019-08-16] MEDS ORDERED: NALOXONE INJ 0.4MG/1ML VIAL (J2310 PER 1MG) IV PRN (14:15)
[2019-08-16] MEDS ORDERED: METOCLOPRAMIDE INJ 10MG/2ML VIAL (J2765 PER 1) IV PRN ×2 (14:15→17:30)
[2019-08-16] MEDS ORDERED: EPIDURAL/PCA KEYS XX PRN (14:15)
[2019-08-16] MEDS ORDERED: WALLBOXKEY XX PRN (14:15)
[2019-08-16] MEDS ORDERED: ACETAMINOPHEN 1000MG 100ML IV BTL (OFIRMEV) (J0131 PER 10MG) As Ordered ONE (14:55)
[2019-08-16] MEDS ORDERED: SUGAMMADEX SODIUM 500 MG/5 ML VIAL (BRIDION) As Ordered ONE (15:00)
[2019-08-16] MEDS ORDERED: KCL 20MEQ IN D5/NS 1000ML 1,000 ML IV SCH (15:47)
[2019-08-16] MEDS ORDERED: PALIPERIDONE PALMITATE 234MG/1.5ML INJ (INVEGA)(FREE PSY INPT ONLY) IM SCH (16:00)
[2019-08-16] MEDS ORDERED: LEVALBUTEROL 1.25 MG/0.5 ML CONCENTRATE NEB NEB PRN (16:00)
[2019-08-16] MEDS ORDERED: NORCO, ANEXSIA 5/325MG TABLET (HYDROcodone/ACETAMINOPHEN) PO PRN (16:00)
[2019-08-16] MEDS ORDERED: PERCOCET 5MG/325MG TAB PO PRN ×3 (16:00→17:45)
[2019-08-16] MEDS ORDERED: BISACODYL 10 MG SUPP PR PRN (16:00)
[2019-08-16 17:27] LABS: ABG BASE EXCESS -1.9 (-2.0-2.0); ABG HCO3 26.7 MEQ/L (22.0-26.0); ABG O2 SATURATION 93.8 % (95.0-99.0); ABG PARTIAL PRESSURE O2 79.6 mmHg (75.0-100.0); ABG STANDARD HCO3 22.8 MEQ/L (22.0-26.0); ABG TOTAL CO2 28.6 MEQ/L (22.0-29.0); ABG pH (ARTERIAL) 7.255 UNITS (7.350-7.450)
[2019-08-16 17:28] LABS: BASO # 0.2 10^3/uL (0.0-0.2); BASO % 0.6 % (0.0-1.0); HEMATOCRIT 49.9 % (36.0-47.0); HEMOGLOBIN 15.6 g/dl (12.0-15.5); LYMPH % 3.2 % (24.0-44.0); MEAN CORPUSCULAR HEMOGLOBIN 26.9 pg (27.0-33.0); MEAN CORPUSCULAR HGB CONC 31.3 g/dl (32.0-36.5); MEAN CORPUSCULAR VOLUME 86.2 fl (80.0-96.0); MONO # 1.7 10^3/uL (0.0-0.8); MONO % 5.6 % (0.0-5.0); NEUTROPHILS # 26.7 10^3/uL (1.5-8.5); NEUTROPHILS % 89.5 % (36.0-66.0); PLATELET COUNT, AUTOMATED 417 10^3/uL (150-450); RED BLOOD COUNT 5.79 10^6/uL (4.00-5.40)
[2019-08-16 17:29] LABS: WHITE BLOOD COUNT 29.8 10^3/uL (4.0-10.0)
[2019-08-16] MEDS ORDERED: LR 1,000 ML IV SCH ×2 (17:30→17:45)
[2019-08-16] MEDS ORDERED: fentaNYL 100 MCG/2 ML INJECTION (J3010) IV PRN ×2 (17:30→17:45)
[2019-08-16 17:32] LABS: ABG PARTIAL PRESSURE CO2 61.6 mmHg (35.0-45.0)
[2019-08-16 17:55] LABS: CALCIUM LEVEL 9.1 MG/DL (8.5-10.1); CREATININE FOR GFR 1.42 MG/DL (0.55-1.30); GLOMERULAR FILTRATION RATE 41.9 (>58); POTASSIUM SERUM 6.1 MEQ/L (3.5-5.1)
--- NOTE | 2019-08-16 18:00 | RO ---
DATE OF PROCEDURE: 08/16/2019 PREPROCEDURE DIAGNOSIS: Right lower lobe lung cancer, biopsy proven squamous cell carcinoma. POSTPROCEDURE DIAGNOSIS: Right lower lobe lung cancer, biopsy proven squamous cell carcinoma. PROCEDURE: Right lower lobectomy, mediastinal lymphadenectomy, five-level rib block, and bronchoscopy times two at the beginning and end of the case with bronchoalveolar lavage. SURGEON: Jas Sal MD OLIVE GRADER: ANESTHESIA: FINDINGS: The bronchoscopy revealed a normal branching tracheobronchial tree. There were copious amounts of secretions which were thickened and inspissated which were removed via bronchoscopy with bronchoalveolar lavage. This was done before and after the case. Findings at thoracotomy revealed a lung without a minor fissure. The major fissure was incomplete, and there was at least a 3 cm distance between the bottom of the major fissure and the pulmonary arteries. Patient is morbidly obese and the procedure was an extremely difficult and tedious procedure. It took approximately an hour just to find a pulmonary artery, which turned out to be the basilar segmental lower lobe pulmonary artery, which was eventually followed to the main lower lobe pulmonary artery trunk later in the case. Mediastinal nodes, including subcarinal nodes were removed and looked, to my eye, anthracotic. It took nearly 4 hours to complete the case, which speaks to its difficulty. The epidural catheter was found within the pleural cavity. DESCRIPTION OF PROCEDURE: Under satisfactory general anesthesia and single- lumen tube endotracheal intubation, the bronchoscope was placed into the tracheobronchial tree with the above results. There were thick and inspissated mucus plugs, which were removed with bronchoalveolar lavage. After completing the bronchoscopy, patient was then intubated with a double-lumen tube and the position ascertained, again by bronchoscopy. Patient was then turned into the left lateral decubitus position, and a posterior-lateral thoracotomy incision was made. It had to be extended a number of times in order to increase visualization because of her extreme morbid obesity. Latissimus dosi was divided as was the serratus anterior. Chest was entered through the fifth intercostal space. Thankfully, the lung was not adherent to the chest wall; however, there was absolutely no hint of a minor fissure to direct the initial dissection for the pulmonary arteries. They could not even be palpated. I guessed where the confluence of fissures might be and started to dissect both sharply and with the electrocautery. Finally after about an hour, I did find an artery which later on turned out to be the apical basilar segmental pulmonary artery. This could be freed up, and the posterior portion of the fissure was completed by first incising the posterior mediastinal pleura and finding the takeoff of the bronchus intermedius distal to the takeoff of the right upper lobe. A clamp was placed anterior to posterior with the tract being widened by a right-angle clamp and finally stapled with an Philippi stapler. This somewhat opened up the space. Further dissection was hampered by the thickness of the pulmonary tissue which, as noted above, was about 3 cm in thickness. I did perceive another pulmonary artery, which turned out to be later on the main pulmonary lower lobe trunk. The inferior pulmonary ligament was divided up to the inferior pulmonary vein, and after a lengthy dissection the pulmonary vein was finally freed up and surrounded with a vessel loop by the use of a vascular stapler. The phrenic nerve was noted and preserved. Dividing the pulmonary ligament was even difficult given the patient's large exterior size but small interior size. The posterior lower lobe bronchus was then dissected, but because of the very adhesive tissues, I was quite reticent to go around the bronchus to locate the pulmonary artery. Therein ensued a long dissection in order to complete the anterior fissure. It was taken in small multiple bites with the Philippi stapler and with the Harmonic scalpel. I could finally decipher that the artery that I was seeing in the distance and in the depths of the field, was indeed the main pulmonary artery trunk. It was eventually surrounded with a vessel loop and divided by use of a vascular stapler through an axillary incision through which the posterior chest tube was eventually placed. Trying to ascertain where the middle lobe arteries were was quite difficult. Nonetheless, we were finally able to complete the anterior fissure which then left the bronchus. Nodes were swept off up onto the bronchus and it was divided by use of an Philippi 4.8 stapler. It was tested later in the case to 30 cm of water and found to be intact. Attention was then turned to the subcarinal nodes which were removed as a packet. The superior mediastinum was then opened and the azygos vein divided by use of a vascular stapler to access the azygos nodes. All the nodes were swept up with the Harmonic scalpel and electrocautery. After achieving adequate hemostasis and assuring ourselves that there was no lymphatic leak, the space was filled with Tisseel glue. Bronchus was tested to 30 cm of water and was found to be intact. Approximately 150 mL of fluid was in the container prior to irrigation. A rib block consisting of 0.25% Marcaine and Exparel was then instilled for five levels. During the middle of the case when dissecting the bronchus, I did notice a plastic catheter which was confirmed by anesthesia to be the epidural catheter. This was left in place to be removed by anesthesia later on. After the rib block was placed, two chest tubes were placed, two #24, one curved, one straight, posterior and anterior, respectively, and the ribs were reapproximated by use of six #1 Prolene figure-of-8 sutures. The extrathoracic muscles were closed with running #0 Vicryl suture with the subcutaneous tissue closed with running #3-0 Vicryl suture, and the skin closed with running #3-0 Monopril subcutaneous suture. Patient tolerated procedure well. Patient was then turned back to the supine position and another single-lumen endotracheal tube was placed and, again, bronchoscopy was undertaken with bronchoalveolar lavage to clear out numerous secretions and mucus plugs. Patient tolerated the procedure well and left the operating room in satisfactory position for the recovery room. GENIE
[2019-08-16] MEDS ORDERED: NS 500 ML IV ONE (18:15)
[2019-08-16 18:39] LABS: ABG BASE EXCESS -3.2 (-2.0-2.0); ABG HCO3 23.5 MEQ/L (22.0-26.0); ABG O2 SATURATION 88.9 % (95.0-99.0); ABG PARTIAL PRESSURE CO2 48.6 mmHg (35.0-45.0); ABG STANDARD HCO3 21.6 MEQ/L (22.0-26.0); ABG pH (ARTERIAL) 7.303 UNITS (7.350-7.450)
[2019-08-16] MEDS ORDERED: NS 1,000 ML IV SCH (18:45)
[2019-08-16] MEDS: ceFAZolin SOD 1 GM in D5W MINI-BAG PLUS 50 ML IV SCH (19:05)
[2019-08-16] MEDS: FENTANYL/BUPIVACAINE/NACL BAG 250 ML EPIDURAL SCH (19:30)
[2019-08-16 19:48] LABS: CALCIUM LEVEL 8.5 MG/DL (8.5-10.1); CREATININE FOR GFR 1.43 MG/DL (0.55-1.30); GLOMERULAR FILTRATION RATE 41.5 (>58); POTASSIUM SERUM 5.3 MEQ/L (3.5-5.1)
[2019-08-16] MEDS ORDERED: SERO200T PO (20:33)
[2019-08-16] MEDS ORDERED: NICOINH INH (20:33)
[2019-08-16] MEDS ORDERED: OZEM2INJ2 SC (20:33)
[2019-08-16] MEDS ORDERED: INVE1.75 IM (20:33)
[2019-08-16] MEDS ORDERED: LEVOTAB10 PO (20:33)
[2019-08-16] MEDS ORDERED: MIRT1TAB PO (20:33)
[2019-08-16] MEDS ORDERED: VENL75CA2 PO (20:33)
[2019-08-16] MEDS ORDERED: LEVO175T19 PO (20:33)
[2019-08-16] MEDS ORDERED: FERR1TAB8 PO (20:53)
[2019-08-16] MEDS: DOCUSATE SODIUM 100 MG CAP PO SCH (20:54)
[2019-08-16] MEDS: KETOROLAC 30 MG/ML 1ML VIAL IV SCH (20:58)
[2019-08-16] MEDS ORDERED: zolPIDEM TARTRATE 5 MG TAB PO SCH (21:00)
[2019-08-16] MEDS ORDERED: HumaLOG INSULIN (NovoLOG) PER UNIT SC SCH (21:00)
[2019-08-16] MEDS ORDERED: QUEtiapine FUMARATE 200 MG TAB PO SCH (21:00)
[2019-08-16] MEDS ORDERED: FERROUS SULFATE 325MG TAB PO SCH (21:00)
[2019-08-16] MEDS: zolPIDEM TARTRATE 5 MG TAB PO SCH (21:00)
[2019-08-16] MEDS ORDERED: SYMBICORT 160/4.5MCG INHALER 6GM INH SCH (21:00)
[2019-08-16] MEDS: LEVALBUTEROL 1.25 MG/0.5 ML CONCENTRATE NEB NEB SCH (21:05)
[2019-08-16] MEDS: SYMBICORT 160/4.5MCG INHALER 6GM INH SCH (21:05)
[2019-08-16] MEDS ORDERED: GLUCOSE 4GM CHEW TABLET PO PRN (22:45)
[2019-08-16] MEDS ORDERED: DEXTROSE 50% 50 ML SYRINGE IV PRN (22:45)
--- NOTE | 2019-08-16 22:51 | REP ---
CHEST, SINGLE VIEW: Single view of the chest is performed. COMPARISON: 08/08/2019 The patient is status post right lower lobectomy. There is mild elevation of the right hemidiaphragm. There are bibasilar atelectatic changes with somewhat poor ventilation. There is a very small right apical pneumothorax. There are two right chest tubes in the right lung base. Cardiomediastinal silhouette is mildly magnified. Electronically Signed by Mt Berg MD 08/17/2019 12:43 P
[2019-08-16] MEDS: QUEtiapine FUMARATE 200 MG TAB PO SCH (23:23)
[2019-08-16] MEDS: HEPARIN SOD (PORCINE) 5000UNITS/ML VIAL (J1644 PER 1000UNITS) SC SCH (23:24)
[2019-08-16] MEDS: FERROUS SULFATE 325MG TAB PO SCH (23:24)
[2019-08-17] VITALS (45 sets, daily range): BP systolic 61–121; BP diastolic 36–69
[2019-08-17] MEDS: LEVALBUTEROL 1.25 MG/0.5 ML CONCENTRATE NEB NEB SCH ×4 (01:50→19:27)
[2019-08-17] MEDS: ceFAZolin SOD 1 GM in D5W MINI-BAG PLUS 50 ML IV SCH ×3 (02:06→18:12)
[2019-08-17] MEDS: KETOROLAC 30 MG/ML 1ML VIAL IV SCH ×4 (02:15→20:00)
[2019-08-17] MEDS: zolPIDEM TARTRATE 5 MG TAB PO SCH ×2 (03:22→19:59)
[2019-08-17 04:49] LABS: BASO # 0.1 10^3/uL (0.0-0.2); BASO % 0.3 % (0.0-1.0); HEMATOCRIT 46.2 % (36.0-47.0); HEMOGLOBIN 14.6 g/dl (12.0-15.5); LYMPH # 1.2 10^3/uL (1.5-5.0); LYMPH % 5.3 % (24.0-44.0); MEAN CORPUSCULAR HEMOGLOBIN 26.8 pg (27.0-33.0); MEAN CORPUSCULAR HGB CONC 31.6 g/dl (32.0-36.5); MEAN CORPUSCULAR VOLUME 84.9 fl (80.0-96.0); MONO # 1.9 10^3/uL (0.0-0.8); NEUTROPHILS % 85.8 % (36.0-66.0); PLATELET COUNT, AUTOMATED 327 10^3/uL (150-450); RED BLOOD COUNT 5.44 10^6/uL (4.00-5.40); WHITE BLOOD COUNT 23.3 10^3/uL (4.0-10.0)
[2019-08-17] MEDS: ACETAMINOPHEN TAB 650MG DOSE (2X325MG) PO PRN ×3 (05:00→19:59)
[2019-08-17 05:42] LABS: CALCIUM LEVEL 8.2 MG/DL (8.5-10.1); CREATININE FOR GFR 1.23 MG/DL (0.55-1.30); GLOMERULAR FILTRATION RATE 49.4 (>58); POTASSIUM SERUM 4.1 MEQ/L (3.5-5.1)
[2019-08-17 05:53] LABS: ABG BASE EXCESS 0.3 (-2.0-2.0); ABG O2 SATURATION 92.7 % (95.0-99.0); ABG PARTIAL PRESSURE O2 66.4 mmHg (75.0-100.0); ABG STANDARD HCO3 24.7 MEQ/L (22.0-26.0); ABG TOTAL CO2 25.1 MEQ/L (22.0-29.0); ABG pH (ARTERIAL) 7.442 UNITS (7.350-7.450)
[2019-08-17] MEDS ORDERED: LEVOTHYROXINE 125MCG TABLET (0.125MG) PO SCH (06:00)
[2019-08-17] MEDS: LEVOTHYROXINE 100MCG TABLET (0.1MG) PO SCH (06:43)
[2019-08-17] MEDS: LEVOTHYROXINE 75MCG TABLET (0.075MG) PO SCH (06:43)
[2019-08-17] MEDS: SYMBICORT 160/4.5MCG INHALER 6GM INH SCH ×2 (07:20→19:27)
--- NOTE | 2019-08-17 08:36 | REP ---
PORTABLE CHEST X-RAY: Single view. HISTORY: Right lower lobectomy. COMPARISON STUDY: August 16, 2019. FINDINGS: An epidural catheter is seen over the upper thoracic spine. Two right pleural drainage catheters are noted in the right base. There is a tiny right apical pleural air collection which has decreased in size from yesterday's radiograph. Right hemidiaphragm is somewhat elevated unchanged. Left lung remains free of infiltrate. There is some pleural thickening along the right lateral chest wall mild in degree. Electronically Signed by Ozzie Crawford MD 08/17/2019 10:56 A
[2019-08-17] MEDS ORDERED: NALOXONE INJ 0.4MG/1ML VIAL (J2310 PER 1MG) IV STA (08:57)
[2019-08-17] MEDS: MOM 30ML SUSPENSION UDC PO SCH (09:00)
[2019-08-17] MEDS ORDERED: NALOXONE 2MG/2ML SYRINGE (J2310 PER 1MG) As Ordered ONE (09:01)
[2019-08-17] MEDS ORDERED: NALOXONE 2MG/2ML SYRINGE (J2310 PER 1MG) IV STA (09:05)
[2019-08-17] MEDS: SITagliptin 50 MG TAB (JANUVIA) PO SCH (09:06)
[2019-08-17] MEDS: HumaLOG INSULIN (NovoLOG) PER UNIT SC SCH ×2 (09:06→12:00)
[2019-08-17] MEDS: PANTOPRAZOLE 40MG TAB (PROTONIX) PO SCH (09:06)
[2019-08-17] MEDS: DOCUSATE SODIUM 100 MG CAP PO SCH ×2 (09:07→20:00)
[2019-08-17] MEDS: HEPARIN SOD (PORCINE) 5000UNITS/ML VIAL (J1644 PER 1000UNITS) SC SCH ×2 (09:07→20:00)
[2019-08-17] MEDS: FERROUS SULFATE 325MG TAB PO SCH ×3 (09:07→19:59)
[2019-08-17] MEDS: VENLAFAXINE **XR** 75MG CAPSULE PO SCH (09:07)
--- NOTE | 2019-08-17 09:56 | IPN ---
DATE OF VISIT: 08/17/2019 ATTENDING PHYSICIAN: Dr. Sal I was asked to attend Luis Hooper here in the intensive care unit. The patient has been examined and the chart reviewed and I spoke at length with the bedside nurse as well as with Dr. Sal regarding her status. She underwent lobectomy on the right yesterday for nonsmall cell lung cancer, a prolonged case. Throughout the night last night, she spiked a fever as high as 103.5. She was felt to be a little difficult to arouse this morning. Currently, she is awake, alert and interactive. She denies any significant pain. White blood cell count this morning is 23.3, it was 29.8 last night. Hemoglobin 14.6, platelet count 327,000, 85.8% segs, 0 bands. Sodium 136, potassium 4.1, chloride 101, CO2 24, BUN 23, creatinine 1.23. Blood gas done this morning on nasal cannula oxygen shows a pH of 7.442, pCO2 of 36.0, pO2 of 66.4. Chest x-ray done this morning shows lines and tubes in good position. Suboptimal inspiratory effort. There may be some vascular crowding, although it may be on the basis of body habitus. The chest tubes appear to be functioning well. Mcdaniel is functioning and the urine looks cloudy with significant amounts of debris within it. Urinalysis done yesterday does have too numerous to count white blood cells with 2+ bacteria and some yeast. On exam, she is arousable, denies discomfort. She has a chronically flat affect, but she is known to be from the outpatient setting. HEENT: Otherwise normocephalic, atraumatic. Pupils react. Neck is with reasonable mobility. Membranes are moist. Chest shows diminished expansion on the right. She has two chest tubes in place. There are some fine basilar crackles, but no other significant focal adventitious breath sounds are identified. Cardiac exam is tachycardiac with a rate in the 120s with a sinus mechanism. Peripheral pulses are palpable. No obvious edema. Abdomen obese, soft, with active bowel sounds. No convincing organomegaly or masses. Extremities show no cyanosis or clubbing. Neurologically, she has a flat affect, but is easily arousable, follows commands and is interactive. Psychiatric: Generally with a flat affect. IMPRESSION: 1. Fever. Suspect urinary source. 2. Diabetes mellitus. 3. Lung cancer status post resection. 4. Psychiatric illness. 5. Long standing tobacco abuse. RECOMMENDATIONS: At this point, she is on Ancef for postoperative prophylaxis, but we will broaden this with Cipro to cover a urinary source, especially in view of her diabetes. There is some yeast also in her urine and will cover with some Diflucan empirically as well. Glucose control is being managed by the primary service. Her pain control is reasonable. Her tachycardia I believe is on the basis of her fever. Her blood gas was quite good this morning. At this point, will proceed as outlined above. She is already on ulcer and deep vein thrombosis (DVT) prophylaxis. Given the fact that she is less than 24 hours postop, I do not believe this is a surgical source. Further recommendations will be made in the progress record as new information becomes available.
[2019-08-17] MEDS: CIPROFLOXACIN 400 MG in IV 1 EA IV SCH ×2 (10:19→20:01)
[2019-08-17] MEDS: NYSTATIN 100,000 UNITS/GM TOPICAL PWD 15 GM TOP SCH ×2 (10:20→20:01)
[2019-08-17] MEDS: FLUCONAZOLE 50MG TABLET PO SCH (10:20)
[2019-08-17] MEDS ORDERED: HumaLOG INSULIN (NovoLOG) PER UNIT SC ONE ×2 (12:00→14:00)
[2019-08-17] MEDS: LEVEMIR (INSULIN DETEMIR) 1 UNITS/0.01ML SC SCH (12:17)
[2019-08-17] MEDS ORDERED: INSULIN IV RATE CHANGE DOCUMENTATION ML/HR XX SCH (14:15)
[2019-08-17] MEDS ORDERED: INSULIN HUMAN REGULAR 100 UNITS in NS 99 ML IV SCH (15:00)
[2019-08-17] MEDS: INSULIN HUMAN REGULAR 100 UNITS in NS 99 ML IV SCH ×2 (15:15→21:00)
[2019-08-17] MEDS: INSULIN IV RATE CHANGE DOCUMENTATION ML/HR XX SCH ×6 (16:17→22:34)
[2019-08-17] MEDS: QUEtiapine FUMARATE 200 MG TAB PO SCH (20:00)
[2019-08-17 20:22] LABS: CALCIUM LEVEL 8.4 MG/DL (8.5-10.1); CREATININE FOR GFR 1.95 MG/DL (0.55-1.30); POTASSIUM SERUM 3.5 MEQ/L (3.5-5.1)
[2019-08-17] MEDS ORDERED: LIDOCAINE 1% MDV 20ML VIAL As Ordered ONE (21:38)
[2019-08-17] MEDS ORDERED: NS 500 ML IV ONE ×2 (22:00→23:45)
[2019-08-17] MEDS: MEROPENEM INJ 1 GM in IV 1 EA IV SCH (22:56)
[2019-08-17] MEDS: KCL 20MEQ in NS 1000ML 1,000 ML IV SCH (22:57)
[2019-08-17 23:07] LABS: ABG BASE EXCESS 2.5 (-2.0-2.0); ABG HCO3 29.4 MEQ/L (22.0-26.0); ABG O2 SATURATION 94.3 % (95.0-99.0); ABG PARTIAL PRESSURE CO2 55.3 mmHg (35.0-45.0); ABG PARTIAL PRESSURE O2 77.3 mmHg (75.0-100.0); ABG STANDARD HCO3 26.6 MEQ/L (22.0-26.0); ABG TOTAL CO2 31.1 MEQ/L (22.0-29.0); ABG pH (ARTERIAL) 7.343 UNITS (7.350-7.450)
[2019-08-18] VITALS (32 sets, daily range): BP systolic 90–144; BP diastolic 51–76
[2019-08-18] MEDS: ceFAZolin SOD 1 GM in D5W MINI-BAG PLUS 50 ML IV SCH (02:03)
[2019-08-18] MEDS: INSULIN IV RATE CHANGE DOCUMENTATION ML/HR XX SCH ×6 (02:09→09:21)
[2019-08-18] MEDS: LEVALBUTEROL 1.25 MG/0.5 ML CONCENTRATE NEB NEB SCH ×4 (02:21→19:11)
[2019-08-18] MEDS: KETOROLAC 30 MG/ML 1ML VIAL IV SCH ×4 (03:00→21:09)
[2019-08-18] MEDS: LEVOTHYROXINE 100MCG TABLET (0.1MG) PO SCH (05:28)
[2019-08-18] MEDS: LEVOTHYROXINE 75MCG TABLET (0.075MG) PO SCH (05:28)
[2019-08-18] MEDS: MEROPENEM INJ 1 GM in IV 1 EA IV SCH ×3 (05:28→21:10)
[2019-08-18 05:36] LABS: BASO # 0.1 10^3/uL (0.0-0.2); BASO % 0.4 % (0.0-1.0); EOS % 0.1 % (0.0-3.0); HEMATOCRIT 40.3 % (36.0-47.0); LYMPH # 3.1 10^3/uL (1.5-5.0); LYMPH % 12.1 % (24.0-44.0); MEAN CORPUSCULAR HEMOGLOBIN 27.1 pg (27.0-33.0); MEAN CORPUSCULAR HGB CONC 30.8 g/dl (32.0-36.5); MONO % 7.7 % (0.0-5.0); NEUTROPHILS # 20.1 10^3/uL (1.5-8.5); NEUTROPHILS % 78.8 % (36.0-66.0); PLATELET COUNT, AUTOMATED 276 10^3/uL (150-450); RED BLOOD COUNT 4.58 10^6/uL (4.00-5.40); WHITE BLOOD COUNT 25.5 10^3/uL (4.0-10.0)
[2019-08-18 05:52] LABS: ABG BASE EXCESS 0.9 (-2.0-2.0); ABG PARTIAL PRESSURE CO2 55.4 mmHg (35.0-45.0); ABG PARTIAL PRESSURE O2 64.5 mmHg (75.0-100.0); ABG STANDARD HCO3 25.1 MEQ/L (22.0-26.0); ABG TOTAL CO2 29.7 MEQ/L (22.0-29.0); ABG pH (ARTERIAL) 7.321 UNITS (7.350-7.450)
[2019-08-18 05:58] LABS: CALCIUM LEVEL 7.5 MG/DL (8.5-10.1); CREATININE FOR GFR 1.47 MG/DL (0.55-1.30); GLOMERULAR FILTRATION RATE 40.2 (>58); POTASSIUM SERUM 3.6 MEQ/L (3.5-5.1)
[2019-08-18 06:12] LABS: HEMOGLOBIN 12.4 g/dl (12.0-15.5)
[2019-08-18] MEDS: INSULIN HUMAN REGULAR 100 UNITS in NS 99 ML IV SCH (06:46)
[2019-08-18] MEDS: FENTANYL/BUPIVACAINE/NACL BAG 250 ML EPIDURAL SCH (06:47)
--- NOTE | 2019-08-18 06:56 | IPN ---
DATE: 08/17/2019 It is now the first postoperative day for Ms. Hooper. She had an eventful night with a fever of 103. She is responsive but quite somnolent. The epidural was replaced in the recovery room prior to being transferred to the intensive care unit (ICU). Her vital signs show the above maximum temperature (Tmax) of 103.5 and now 102.4. Heart rate is ranging between 132 and 123 in sinus tachycardia with a respiratory rate of 20-24 without the use of accessory muscles who is 90-92% saturated on 2 liters nasal cannula and blood pressure is ranging between 115/63 to 106/55. Her intake and output the past 24 hours has been recorded as 2265 in and 1490 out, for a positivity of 775 mL. She has put out 220 mL from her chest tube, and there is no air leak. Today, she has taken in 1824 mL and put out 1330 mL with only 30 mL from the chest tube. ON PHYSICAL EXAMINATION: She has scattered rhonchi and rales throughout. She is not cooperating with coughing at this point in time. Percussion note is full to the diaphragm as far as I can tell with her morbid obesity. Cardiac: Exam is without murmurs, clicks, gallops, or rubs. I cannot feel her point of maximal impulse (PMI). S1 and S2 are normal. Abdomen: Is soft, nontender. Bowel sounds are positive. There is no hepatomegaly. No costovertebral angle (CVA) tenderness that I can appreciate. Extremities: Show no pretibial edema. No calf tenderness. No differential swelling of the upper extremities. Skin: Is warm, dry, and perfused without cyanosis or mottling, including that of the nail beds and knees. Neck: Is supple. There is no jugular venous distention and no subcutaneous emphysema. Trachea is midline. Mouth: Shows her mucous membranes to be pink but dry. There is no thrus. Lips and commissures are without lesions. Eyes: Show her pupils equal and reactive to light. Extraocular motion intact. Sclerae nonicteric. Neurologic: Shows II-XII intact along with gross motor and gross sensation intact. Gait is not tested. Psychiatric: Shows her to be somnolent. Her white count today is 23.3, down from 29.8 immediately postoperatively. Hemoglobin and hematocrit are 14.6 and 46.2, respectively, with a platelet count of 327. Differential shows 85% neutrophils, 5% lymphocytes, 8% monocytes. There are no immature forms. No toxic granulations. Her chemistries today show normal electrolytes with a BUN and creatinine of 23 and 1.23, improved from her recovery room BUN and creatinine of 23 and 1.43. Glucose is 361, and her calcium is 8.2. Today, her fingerstick glucoses went up to 574, and I have started an insulin drip. Her blood gases today show a pH of 7.44, pCO2 of 36, a pO2 of 66 on the above 2 liters nasal cannula with a base excess of 0.3. Her urinalysis preoperatively showed 3+ leukocyte esterase with white cells too numerous to count. Microbiology is still pending on the urine culture. She also had yeast in her urine. Her chest x-ray today shows the lung fully expanded to the chest wall. It is done portably, as she could not walk down to x-ray today secondary to her level of consciousness. The anterior chest tube has been pulled way back, and I suspect what happened is when I placed it, her morbid obesity fat pulled the chest tube down. It still looks within the chest. The posterior chest tube looks in good position. I do not see any overt infiltrates on the portable chest x-ray. IMPRESSION: 1. Postoperative day #1 status post right lower lobectomy. Final pathology pending. Biopsy proven squamous cell carcinoma. 2. Morbid obesity. 3. Diabetes. 4. Probable urinary tract infection (UTI) manifested by fever that she had preoperatively. 5. Schizophrenia. 6. Somnolence. 7. Tobacco abuse. PLAN AND DISCUSSION: I asked Dr. Diggs of the pulmonary service to see her, as he is also her communication lecturer. While I had her on Ancef to cover her UTI, he has changed her to Cipro. He is also going to cover the yeast in her urine with Diflucan. I did give her a milligram of Narcan and she awoke, and I suspect that she is storing narcotics in her adipose tissue. Her pain is being well controlled, and the epidural I have turned down to 8. Dr. Diggs has started her on Levemir, and I will add an insulin drip and monitor her glucoses every hour. For healing purposes, it is important to get her diabetes under control. I am expecting a stormy postoperative course because of all of her pre-existing medical conditions.
[2019-08-18] MEDS: SYMBICORT 160/4.5MCG INHALER 6GM INH SCH ×2 (07:36→19:07)
--- NOTE | 2019-08-18 08:56 | REP ---
Chest x-ray: Two views. History: Right lower lobectomy. Comparison study August 17, 2019. Findings: Right subclavian line remains in place. Epidural catheter is seen along with monitoring electrodes. To right base pleural drainage catheters are again seen. There is some mild apical pleural thickening and some pleural thickening is seen laterally. Post thoracotomy volume loss is noted in the right hemithorax. Left lung remains essentially clear. Left pleural angles are sharp. Impression: Post thoracotomy partial pneumonectomy changes on the right. Central line and epidural catheter noted. Electronically Signed by Ozzie Crawford MD 08/18/2019 08:47 A
[2019-08-18] MEDS: DOCUSATE SODIUM 100 MG CAP PO SCH ×2 (09:21→21:00)
[2019-08-18] MEDS: VENLAFAXINE **XR** 75MG CAPSULE PO SCH (09:22)
[2019-08-18] MEDS: FERROUS SULFATE 325MG TAB PO SCH ×3 (09:22→21:06)
[2019-08-18] MEDS: SITagliptin 50 MG TAB (JANUVIA) PO SCH (09:22)
[2019-08-18] MEDS: FLUCONAZOLE 50MG TABLET PO SCH (09:22)
[2019-08-18] MEDS: MOM 30ML SUSPENSION UDC PO SCH (09:23)
[2019-08-18] MEDS: HEPARIN SOD (PORCINE) 5000UNITS/ML VIAL (J1644 PER 1000UNITS) SC SCH ×2 (09:23→21:07)
[2019-08-18] MEDS: PANTOPRAZOLE 40MG TAB (PROTONIX) PO SCH (09:23)
[2019-08-18] MEDS: LEVEMIR (INSULIN DETEMIR) 1 UNITS/0.01ML SC SCH (09:24)
[2019-08-18] MEDS: NICOTINE 14 MG/24 HR TRANSDERMAL TD SCH (09:25)
[2019-08-18] MEDS: NYSTATIN 100,000 UNITS/GM TOPICAL PWD 15 GM TOP SCH ×2 (09:25→21:10)
--- NOTE | 2019-08-18 09:41 | CCN ---
CRITICAL CARE PROGRESS NOTE DATE OF VISIT: 08/18/2019 I again attended Luis Hooper here in the intensive care unit. The patient has been examined and the chart reviewed. I spoke at length with Dr. Sal regarding her care, as well as her bedside nurses. Maximum temperature (Tmax) overnight 99, blood pressure 90s to the 140s, heart rate 100-120 with a sinus mechanism, respiratory rate generally in the 20s without accessory muscle use. Intake and output (I and O) midnight to midnight 4361 mL with 2005 mL out. Urine culture grew Klebsiella and yeast. Blood cultures are negative. Sensitivities of her Klebsiella have been reviewed. Her medications have been change. Chest x-ray done this morning shows lines and tubes in good position. She has some atelectasis at the right base. On examination, she is awake, alert, and appropriate. Complains of only some mild discomfort at her subclavian insertion site. HEENT: Otherwise normocephalic, atraumatic. Pupils react. Trachea is in the midline. Membranes are moist. Chest shows her right thoracostomy tubes. Left chest is clear. There are some crackles at the right base with decreased breath sound intensity at the right base. No convincing rub. Cardiac examination mildly tachycardiac, distant but regular. Peripheral pulses are palpable. No edema. Abdomen: Obese, soft, nontender with active bowel sounds. No convincing organomegaly or masses. Extremities show no cyanosis or clubbing. Neurologically, she is awake, alert, and appropriate. Psychiatric: Generally, reasonably normal mood and affect today. OTHER LABORATORIES: Show a white blood cell count 25.5, hemoglobin 12.4, platelet count 276,000, 78% segmented neutrophils, no bands. Sodium 134, potassium of 3.6, chloride 101, CO2 26, BUN 32, creatinine down to 1.47 and a high of 1.95 yesterday. Blood gas done this morning on nasal cannula oxygen shows pH 7.32, PCO2 of 55.4, pO2 of 64.5. Glucoses were high at 574 yesterday. This morning down to 135. She is on an insulin drip augmented with Levemir. This is being engineered by the primary service. The most pressing problems requiring my presence at the bedside: 1. Hypoxemia. 2. Mild hypercapnia. 3. Urinary tract infection (UTI) with sepsis. 4. Lung cancer, status post resection. 5. Underlying obstructive lung disease and tobacco abuse. 6. Underlying psychiatric illness. 7. Insulin-dependent diabetes mellitus with noncompliance preoperatively. RECOMMENDATIONS: I had a long discussion with her concerning her current status. Her antibiotics have been changed, and she is now on meropenem and Diflucan. I have stopped her Ancef. Her Cipro was stopped yesterday. My suspicion is that we can deescalate her antimicrobials, but this was changed to meropenem by her primary service; and I, therefore, will defer that to them. Her glucose control is much better. She is on an insulin drip. She should be changed over to her home regimen and special attention paid to her diet. Repeat counseling may be worthwhile while she is here, as after discussion with her, she has no real adherence to a diabetic diet in the outpatient setting. She has remained tobacco-free but would like a nicotine patch, and one was ordered for her. She had some mild hypotension last night that responded well to intravenous (IV) fluids. My suspicion is this was all secondary to intravascular depletion due to a combination of hyperglycemia, fever, and postoperative status. Her creatinine certainly is improved today. We will proceed as outlined above. We await her final pathology. Further recommendations will be made in the progress record as new information becomes available. GENIE
[2019-08-18] MEDS ORDERED: GLUCAGON INJ 1MG VIAL SC PRN ×2 (10:00→21:45)
[2019-08-18] MEDS ORDERED: IPRATROPIUM 0.5MG/ALBUTEROL 2.5MG INH SOL UD 3ML (DUONEB)(J7620) NEB PRN (10:45)
[2019-08-18] MEDS: KCL 20MEQ in NS 1000ML 1,000 ML IV SCH ×2 (11:02→23:49)
[2019-08-18] MEDS: HumaLOG INSULIN (NovoLOG) PER UNIT SC SCH ×3 (11:56→21:45)
[2019-08-18] MEDS: IPRATROPIUM 0.02% SOLN 0.5MG/2.5 ML NEB INH SCH ×2 (13:52→19:11)
--- NOTE | 2019-08-18 15:44 | IPN ---
DATE: 08/18/2019 This is now the second postoperative day for Ms. Hooper. Ms. Hooper had a difficult night last night. I was called with her being hypotensive, oliguric, and hyperglycemic with decreased level of consciousness. I came in and attended her at the bedside. Her lower extremities were cool, but not mottled, and dry. The remainder of her and her upper trunk she was diaphoretic. Her blood pressure was in the high 70s and low 80s. I was not convinced that the blood pressure cuff was reading properly secondary to her morbid obesity. I attempted to place an art-line, which not successful. I therefore placed a central line where the central venous pressure (CVP) was measured at 10. I decided to administer two boluses of the fluid, which improved her blood pressure somewhat into the high 90s and low 100s. I checked the lactic acid, which was normal, and came back at 1. Her procalcitonin is pending. We knew that preoperatively she had numerous bacteria and white cells in her urine. Those have subsequently grown Klebsiella. Because of my concern that the ciprofloxacin would not cover Escherichia (E) coli well, according to our hospital biogram, with only a 72% susceptibility, I changed her to meropenem. I had already started an insulin drip earlier in the evening. Today, she is doing a lot better. She is awake and alert. Her vital signs now show a temperature of 99-98.2, whereas her temperature last night was 102.7 and 102.4. Her heart rate is ranging between 117-110 in a sinus tachycardia with a respiratory rate now of 21-24 without the use of accessory muscles who is 95% saturated on 3 liters nasal cannula and her blood pressure is ranging between 109/69-112/75. Her intake and output for the past 24 hours has now been recorded as 4361 in and 2005 out, for a positivity of 2300 mL. She has put out 245 mL out the chest tube and has had 1760 mL out in urine. Her urine output has now picked up. Her weight today is 129.4 kg compared to 127.1 kg yesterday. On physical examination, she has bilateral expiratory wheezing with coarse rhonchi and rales. These do not clear with coughing. Her cough is however fairly ineffective. Percussion note is full to the diaphragm as far as I can tell through her morbid obesity. Cardiac exam is without murmurs, clicks, gallops, or rubs. I certainly cannot feel her point of maximal impulse (PMI). S1 and S2 are normal. Abdomen is soft, nontender. Bowel sounds are positive. I cannot feel hepatomegaly through her morbid obesity. Extremities show maybe trace pretibial edema. No calf tenderness. No differential swelling of the upper extremities. Today, she is warm, dry and perfused, and not diaphoretic. Neck is supple. There is no jugular venous distention. No subcutaneous emphysema. Trachea is midline. Mouth shows her mucous membranes to be pink and moist. Lips and commissures are without lesions. There is no thrush. Eyes shows her pupils equal and reactive to light, extraocular motion intact. Sclerae nonicteric. Neurologic shows II-XII intact along with gross motor and gross sensation intact. Gait is not tested. Psychiatric shows her to be awake and alert with a flat affect. Her white count today is 25.5, down from 29.8 the afternoon of surgery but up from 23.3 yesterday. Hemoglobin and hematocrit are 12.4 and 40.3, respectively with a platelet count of 276. Differential shows 78% neutrophils, 12% lymphocytes, 7% monocytes. There are no immature forms. No toxic granulations. Electrolytes show sodium 134 with potassium 3.6. Her creatinine has improved to 1.47 from 1.95 last night but increased from 1.23 yesterday morning. Glucose is now 135. Calcium is 7.5. She is now off her insulin drip. Her chest x-ray shows the lung fully expanded to the chest wall. We did take her down for a PA and lateral view. She has what looks like an infiltrative process in the right lower hemithorax. This could be postsurgical changes status post atelectasis from her one lung anesthesia. The lateral x-ray is almost uninterpretable from her morbid obesity. Her diaphragm does seem a bit high on the right side. IMPRESSION: 1. Postoperative day #2 status post right lower lobectomy. Final pathology pending. 2. Morbid obesity. 3. Diabetes. 4. Probable urinary tract infection. 5. Schizophrenia. 6. Somnolence. 7. Tobacco abuse. PLAN AND DISCUSSION: I am very pleased that she has made some improvement over last night. I have explained my rationale for changing her to meropenem. The microbiology now shows that the Klebsiella is sensitive almost everything. We will monitor her glucose, although I feel I do want her glucose to be very tightly controlled for healing purposes. I was concerned last night that she was becoming septic from her urinary tract infection. She certainly did not have lactic acidosis, however, she does have CO2 retention with a blood gas this morning which shows a pH of 7.32, pCO2 55, and a pO2 of 65 with a base excess of 0.9 and total CO2 of 29. She was most likely volume depleted. While the urinary tract infection can explain her septic picture, she did have diarrhea preoperatively and may be a C- difficile carrier. I therefore order a PCR. I will certainly keep her in the intensive care unit (ICU) today. GENIE
[2019-08-18] MEDS ORDERED: HumaLOG INSULIN (NovoLOG) PER UNIT SC SCH ×2 (21:00→21:45)
[2019-08-18] MEDS: zolPIDEM TARTRATE 5 MG TAB PO SCH (21:06)
[2019-08-18] MEDS: QUEtiapine FUMARATE 200 MG TAB PO SCH (21:06)
[2019-08-18] MEDS ORDERED: DEXTROSE 50% 50 ML SYRINGE IV PRN (21:45)
[2019-08-18] MEDS ORDERED: GLUCOSE 4GM CHEW TABLET PO PRN (21:45)
[2019-08-19] VITALS: BP 132/83
[2019-08-19] MEDS: LEVALBUTEROL 1.25 MG/0.5 ML CONCENTRATE NEB NEB SCH ×4 (01:41→20:00)
[2019-08-19] MEDS: IPRATROPIUM 0.02% SOLN 0.5MG/2.5 ML NEB INH SCH ×4 (01:41→20:00)
[2019-08-19] MEDS: KETOROLAC 30 MG/ML 1ML VIAL IV SCH ×4 (03:00→20:24)
[2019-08-19 04:00] VITALS: BP 125/72
[2019-08-19 04:48] LABS: BASO # 0.1 10^3/uL (0.0-0.2); BASO % 0.3 % (0.0-1.0); EOS # 0.1 10^3/uL (0.0-0.5); EOS % 0.5 % (0.0-3.0); HEMATOCRIT 37.7 % (36.0-47.0); HEMOGLOBIN 11.5 g/dl (12.0-15.5); LYMPH # 3.6 10^3/uL (1.5-5.0); LYMPH % 13.7 % (24.0-44.0); MEAN CORPUSCULAR HEMOGLOBIN 27.2 pg (27.0-33.0); MEAN CORPUSCULAR HGB CONC 30.5 g/dl (32.0-36.5); MEAN CORPUSCULAR VOLUME 89.1 fl (80.0-96.0); MONO % 7.8 % (0.0-5.0); NEUTROPHILS # 19.7 10^3/uL (1.5-8.5); PLATELET COUNT, AUTOMATED 296 10^3/uL (150-450); RED BLOOD COUNT 4.23 10^6/uL (4.00-5.40); WHITE BLOOD COUNT 25.9 10^3/uL (4.0-10.0)
[2019-08-19 05:25] LABS: BLOOD UREA NITROGEN 18 MG/DL (7-18); CALCIUM LEVEL 7.8 MG/DL (8.5-10.1); CARBON DIOXIDE LEVEL 28 MEQ/L (21-32); CHLORIDE LEVEL 101 MEQ/L (98-107); CREATININE FOR GFR 0.69 MG/DL (0.55-1.30); GLOMERULAR FILTRATION RATE > 60.0 (>58); GLUCOSE, FASTING 220 MG/DL (70-100); POTASSIUM SERUM 4.4 MEQ/L (3.5-5.1); SODIUM LEVEL 135 MEQ/L (136-145)
[2019-08-19] MEDS: LEVOTHYROXINE 100MCG TABLET (0.1MG) PO SCH (06:27)
[2019-08-19] MEDS: LEVOTHYROXINE 75MCG TABLET (0.075MG) PO SCH (06:27)
[2019-08-19] MEDS: MEROPENEM INJ 1 GM in IV 1 EA IV SCH ×3 (06:28→21:23)
[2019-08-19] MEDS ORDERED: FUROSEMIDE 20MG/2ML VIAL (J1940) IV ONE (07:00)
[2019-08-19] MEDS: SYMBICORT 160/4.5MCG INHALER 6GM INH SCH ×2 (07:47→19:32)
[2019-08-19 08:00] VITALS: BP 131/66
[2019-08-19] MEDS: HumaLOG INSULIN (NovoLOG) PER UNIT SC SCH ×4 (08:15→20:23)
[2019-08-19] MEDS: MOM 30ML SUSPENSION UDC PO SCH (09:00)
[2019-08-19] MEDS: DOCUSATE SODIUM 100 MG CAP PO SCH ×2 (09:00→20:22)
[2019-08-19] MEDS: FERROUS SULFATE 325MG TAB PO SCH ×3 (09:15→20:22)
[2019-08-19] MEDS: LOPERAMIDE 2 MG CAPLET PO PRN ×2 (09:15→13:08)
[2019-08-19] MEDS: PANTOPRAZOLE 40MG TAB (PROTONIX) PO SCH (09:16)
[2019-08-19] MEDS: SITagliptin 50 MG TAB (JANUVIA) PO SCH (09:16)
[2019-08-19] MEDS: HEPARIN SOD (PORCINE) 5000UNITS/ML VIAL (J1644 PER 1000UNITS) SC SCH ×2 (09:16→20:22)
[2019-08-19] MEDS: VENLAFAXINE **XR** 75MG CAPSULE PO SCH (09:16)
[2019-08-19] MEDS: LEVEMIR (INSULIN DETEMIR) 1 UNITS/0.01ML SC SCH (09:17)
[2019-08-19] MEDS: NICOTINE 14 MG/24 HR TRANSDERMAL TD SCH (09:17)
[2019-08-19] MEDS: NYSTATIN 100,000 UNITS/GM TOPICAL PWD 15 GM TOP SCH ×2 (09:18→20:22)
[2019-08-19] MEDS: FLUCONAZOLE 50MG TABLET PO SCH (09:19)
[2019-08-19] MEDS: FENTANYL/BUPIVACAINE/NACL BAG 250 ML EPIDURAL SCH (09:33)
--- NOTE | 2019-08-19 09:36 | CCN ---
DATE OF SERVICE: 08/18/2001 Ms. Hooper is seen in the intensive care unit (ICU). She went down earlier for a chest x-ray. She still has a chest tube in place. Dr. Sal is managing the chest tube. The patient reports that overall she feels that she is gradually improving. She denies any fevers or chills. She denies any chest pain or abdominal pain. She states her breathing has been good without any significant shortness of breath. She has been afebrile. She is being treated for a urinary tract infection that grew Klebsiella and yeast and is on meropenem and Diflucan. PHYSICAL EXAMINATION: Vitals: Temperature 98.2, pulse 115, respiratory rate 26, blood pressure is 125/72, and pulse oximetry was 98% on 5 liters. General: The patient is alert and oriented. She speaks in complete sentences. She is sitting up in chair eating breakfast. The patient has a chest tube in place on the right side. HEENT: Head is normocephalic, atraumatic. Pupils are reactive. Trachea is midline. Moist mucous membranes. Neck: Neck is supple. No cervical lymphadenopathy. Chest: The patient does have decreased breath sounds at the right base. Left side is clear. Right thoracostomy tube in place. No accessory muscle use. Heart: Tachycardiac. Regular. Heart sounds are distant. Abdomen: Obese. Positive bowel sounds. Soft. Nontender. No obvious organomegaly, but difficult to elicit due to body habitus. Extremities: No clubbing, cyanosis or edema. LABORATORY DATA: WBC 25.9, hemoglobin 11.5, hematocrit 37.7, platelets 296. Chemistry: Sodium is 135, potassium 4.4, chloride 101, carbon dioxide 28, BUN 18, creatinine 0.69, glucose 220, calcium 7.8. Chest x-ray with elevated right hemidiaphragm and postsurgical changes on the right. The patient is status post right lower lobectomy. Chest x-ray does look a little bit wet with increased pulmonary vascular markings. ASSESSMENT/PLAN: 1. Hypoxemic and hypercapnic respiratory failure. The patient is on supplemental oxygen; however, after sitting up and ambulating, her oxygen saturations are improving. There may be some hyper-atelectasis. The patient likely has underlying chronic obstructive pulmonary disease (COPD)/chronic obstructive bronchitis. Consider outpatient obstructive sleep apnea workup. 2. Tobacco use. The patient is using nicotine patches. 3. History of lung cancer. The patient is status post right lower lobectomy. She is being followed by Dr. Sal and currently has a chest tube in place. 4. Urinary tract infection with sepsis. Urine did grow out Klebsiella and yeast. The patient is currently on meropenem and Diflucan. MTDD
--- NOTE | 2019-08-19 10:14 | REP ---
REASON: Followup. COMPARISON: 08/18/2019 The right-sided thoracotomy tubes are unchanged. The cardiomediastinal silhouette is essentially unchanged. There is mild cardiomegaly suspected. There are bibasilar opacities, right greater than left, status quo. No acute patchy parenchymal opacities or acute pleural effusions have developed. There is no change in the osseous structures. IMPRESSION: No significant change. Electronically Signed by Wander Ramos DO 08/19/2019 10:58 A
--- NOTE | 2019-08-19 11:20 | IPN ---
DATE: 08/19/2019 This is now the third postoperative day for Ms. Hooper. She has made marked improvements and in fact walked down to chest x-ray today. She is now awake and alert. Her renal function is returning. Her vital signs show a Tmax of 98.5, with a heart rate that ranges between 109 and 120 in a sinus tachycardia with a respiratory rate of 21 to 26 without the use of accessory muscles who is 93% to 89% saturated on 2 liters nasal cannula. She has been bumped up to 4 liters when she has dropped to 89%. Her blood pressure is ranging between 93/53 to 125/72. Her intake and output for the past 24 hours has been recorded as 5598 in and 2160 out, for a positivity of 3438 mL. She has taken in 2480 mL in oral intake and 3100 in IV intake. She has put out 290 mL from the chest tube and there is no air leak. Her weight today is pending. On physical examination, her lungs show rales and rhonchi throughout, most of which will clear with coughing. I do hear some expiratory wheeezing, but it is much less today after having started her on ipratropium. Percussion note is full to the diaphragm as far as I can tell through her morbid obesity. Cardiac exam is without murmurs, clicks, gallops, or rubs. I cannot feel her point of maximal impulse (PMI). S1 and S2 are normal. Abdomen is soft, nontender. Bowel sounds are positive. I cannot feel any hepatomegaly through her obesity. Extremities show no pretibial edema. No calf tenderness. No differential swelling of the upper extremities. Skin is warm, dry and perfused, without cyanosis or mottling, including that of the nail beds and the knees. Neck is supple. There is no jugular venous distention. No subcutaneous emphysema. Trachea is midline. Mouth shows her mucous membranes to be pink and moist. Lips and commissures are without lesions. There is no thrush. Eyes shows her pupils equal and reactive to light, extraocular motion intact. Sclerae nonicteric. Neurologic shows II-XII intact along with gross motor and gross sensation intact. Gait is also intact. Psychiatric shows her to be awake, alert and oriented times three with a less flat affect. Her white count is still elevated at 25.9, unchanged from yesterday, with a hemoglobin and hematocrit of 11.5 and 37.7, down from 12.4 and 40.3, probably secondary to hemodilution. Platelet count is 296. Differential shows 76% neutrophils, 13% lymphocytes, 7% monocytes. There are no immature forms. No toxic granulations. Her electrolytes are essentially normal with a BUN and creatinine of 18 and 0.69. Glucose is 220 with a calcium of 7.8. I did increase her sliding scale last night. There are no blood gases on her today. Her fingerstick glucoses have ranged between 320 and 233. Her chest x-ray today also shows improvement. She still has what looks to be a lower hemithorax infiltrate. The diaphragm is higher, but could very well be secondary to her abdominal contents pushing up on the diaphragm with an obligate decrease in space from her lower lobectomy. IMPRESSION: 1. Pathology has been returned with squamous cell carcinoma, the tumor size of 1.5 cm, with all nodes negative, including the subcarinal nodes. She therefore has pathological stage [id number], which maps to stage I A2. As such, she will not need adjuvant chemotherapy. 2. Morbid obesity. 3. Diabetes. 4. Preoperative urinary tract infection. 5. Schizophrenia. 6. Somnolence, improved. 7. Tobacco abuse. 8. Renal insufficiency, resolved. PLAN AND DISCUSSION: I will discontinue her IV today and I will start to gently diurese her. I have already discussed her staging above, being Stage I A2. I will continue her on the antibiotics consisting of meropenem. I will increase her insulin scale a little bit more today to get her blood sugars a little more closely controlled.
[2019-08-19 12:00] VITALS: BP 135/89
[2019-08-19 16:00] VITALS: BP 119/74
[2019-08-19 20:00] VITALS: BP 113/68
[2019-08-19] MEDS: QUEtiapine FUMARATE 200 MG TAB PO SCH (20:22)
[2019-08-19] MEDS: diphenhydrAMINE 50MG/ML VIAL (J1200) IV PRN (21:22)
[2019-08-20] VITALS (7 sets, daily range): BP systolic 108–141; BP diastolic 59–80
[2019-08-20] MEDS: IPRATROPIUM 0.02% SOLN 0.5MG/2.5 ML NEB INH SCH ×3 (01:29→19:43)
[2019-08-20] MEDS: KETOROLAC 30 MG/ML 1ML VIAL IV SCH ×4 (03:59→20:51)
[2019-08-20 04:42] LABS: BASO # 0.1 10^3/uL (0.0-0.2); BASO % 0.4 % (0.0-1.0); EOS # 0.3 10^3/uL (0.0-0.5); EOS % 2.2 % (0.0-3.0); HEMATOCRIT 35.1 % (36.0-47.0); HEMOGLOBIN 10.8 g/dl (12.0-15.5); LYMPH # 2.8 10^3/uL (1.5-5.0); LYMPH % 17.9 % (24.0-44.0); MEAN CORPUSCULAR HEMOGLOBIN 27.1 pg (27.0-33.0); MEAN CORPUSCULAR HGB CONC 30.8 g/dl (32.0-36.5); MONO # 1.2 10^3/uL (0.0-0.8); MONO % 7.5 % (0.0-5.0); NEUTROPHILS % 70.3 % (36.0-66.0); PLATELET COUNT, AUTOMATED 276 10^3/uL (150-450); RED BLOOD COUNT 3.99 10^6/uL (4.00-5.40); WHITE BLOOD COUNT 15.6 10^3/uL (4.0-10.0)
[2019-08-20 05:06] LABS: BLOOD UREA NITROGEN 11 MG/DL (7-18); CALCIUM LEVEL 7.8 MG/DL (8.5-10.1); CARBON DIOXIDE LEVEL 29 MEQ/L (21-32); CHLORIDE LEVEL 97 MEQ/L (98-107); CREATININE FOR GFR 0.52 MG/DL (0.55-1.30); GLOMERULAR FILTRATION RATE > 60.0 (>58); GLUCOSE, FASTING 203 MG/DL (70-100); POTASSIUM SERUM 3.9 MEQ/L (3.5-5.1); SODIUM LEVEL 131 MEQ/L (136-145)
[2019-08-20] MEDS: LEVOTHYROXINE 100MCG TABLET (0.1MG) PO SCH (05:54)
[2019-08-20] MEDS: LEVOTHYROXINE 75MCG TABLET (0.075MG) PO SCH (05:54)
[2019-08-20] MEDS: MEROPENEM INJ 1 GM in IV 1 EA IV SCH ×3 (05:54→20:49)
[2019-08-20] MEDS: SYMBICORT 160/4.5MCG INHALER 6GM INH SCH ×2 (07:37→19:44)
[2019-08-20] MEDS: LEVALBUTEROL 1.25 MG/0.5 ML CONCENTRATE NEB NEB SCH ×3 (07:37→19:43)
[2019-08-20] MEDS: MOM 30ML SUSPENSION UDC PO SCH (08:46)
[2019-08-20] MEDS: DOCUSATE SODIUM 100 MG CAP PO SCH ×2 (09:00→20:51)
[2019-08-20] MEDS ORDERED: POTASSIUM CHLORIDE 10 MEQ SR TABLET PO ONE (09:00)
[2019-08-20] MEDS ORDERED: FUROSEMIDE 20 MG TAB PO ONE (09:00)
[2019-08-20] MEDS: FERROUS SULFATE 325MG TAB PO SCH ×3 (09:10→20:51)
[2019-08-20] MEDS: SITagliptin 50 MG TAB (JANUVIA) PO SCH (09:10)
[2019-08-20] MEDS: HEPARIN SOD (PORCINE) 5000UNITS/ML VIAL (J1644 PER 1000UNITS) SC SCH ×2 (09:10→20:50)
[2019-08-20] MEDS: PANTOPRAZOLE 40MG TAB (PROTONIX) PO SCH (09:11)
[2019-08-20] MEDS: FLUCONAZOLE 50MG TABLET PO SCH (09:11)
[2019-08-20] MEDS: VENLAFAXINE **XR** 75MG CAPSULE PO SCH (09:11)
[2019-08-20] MEDS: HumaLOG INSULIN (NovoLOG) PER UNIT SC SCH ×4 (09:12→20:50)
[2019-08-20] MEDS: LEVEMIR (INSULIN DETEMIR) 1 UNITS/0.01ML SC SCH (09:12)
[2019-08-20] MEDS: NICOTINE 14 MG/24 HR TRANSDERMAL TD SCH (09:14)
[2019-08-20] MEDS: NYSTATIN 100,000 UNITS/GM TOPICAL PWD 15 GM TOP SCH ×2 (09:14→20:52)
[2019-08-20] MEDS: FENTANYL/BUPIVACAINE/NACL BAG 250 ML EPIDURAL SCH (09:41)
[2019-08-20] MEDS ORDERED: FUROSEMIDE 20MG/2ML VIAL (J1940) IV ONE (12:30)
--- NOTE | 2019-08-20 14:05 | IPN ---
PULMONARY PROGRESS NOTE DATE: 08/20/2019 Ms. Hooper is seen at her bedside today. She actually slept in a chair because of shortness of breath. She has worsening hyponatremia this morning. She denies any lower extremity edema. She has no chest discomfort. She is ambulating the hallways. Oxygen requirements have decreased to 1 liter. I do have a clinical suspicion of underlying obstructive sleep apnea and explained to the patient this will need to be worked up as an outpatient when she is at her chronic stable state. She denies fever, chills. Temperature is 96.5, pulse 104, respiratory rate is 20, blood pressure is 120/69, oxygen saturation is 95% on 1 liter. GENERAL: The patient is awake, alert, conversant, appears in no acute distress. HEENT: Sclerae clear and anicteric. Pupils equal, react to light. Mucous membranes are moist without lesions. Oropharynx without erythema or exudate. NECK: Neck is supple. No tracheal deviation. There is some elevated jugular venous pulse (JVP). LYMPH NODES: No cervical supraclavicular or axillary adenopathy. CARDIAC: Distant Sinus tachycardia with regular S1,S2 without audible murmur, rub or gallop. Point of maximal impulse (PMI) is difficult to palpate due to body habitus. No significant systemic edema. PULMONARY: Clear to auscultation on the left, decreased breath sounds at the right base otherwise no rhonchi or wheeze. There is dullness to percussion at the right base. Chest wall epidural is in place. ABDOMEN: Obese, soft, nontender, nondistended. No hepatosplenomegaly. No masses or hernia. EXTREMITIES: No cyanosis, clubbing or edema. No mottling of the skin. SKIN: No rashes, jaundice or bruising. NEURO: No evidence of unilateral weakness. The patient is ambulating in the hallway. Pupils are equal, reactive to light. Laboratory evaluation shows hyperglycemia of 268, sodium is low at 131. Potassium 3.9, chloride 97, BUN is 11, creatinine is 0.52, fasting glucose was 203, calcium is 7.8. His white blood cell count is down to 15 from 25, hemoglobin is down to 10.8, platelet count is 276. Chest x-ray from this morning is pending. Yesterday's chest x-ray does not appear that there is vascular congestion. IMPRESSION: 1. Pulmonary edema likely from mean volume resuscitation due to her sepsis. Now that her sepsis appears to have resolved, will try a very low-dose diuretic therapy. I believe this is likely the cause of her hyponatremia and probable delusional anemia. 2. Hyperglycemia: Will increase Levemir. She remains on a sliding scale insulin. Will likely need followup with primary shortly after to ensure adequate coverage once the patient returns to her home diet. 3. Leukocytosis: White blood cell count decreasing. 4. Nocturnal dyspnea possibly orthopnea, although as mentioned above, I have a concern for the possibility of obstructive sleep apnea (SIRIA) which will need to be worked up at her chronic stable state.
[2019-08-20] MEDS ORDERED: SODIUM CHLORIDE 0.9% INJ 10 ML SYR IV PRN (15:30)
[2019-08-20] MEDS: SODIUM CHLORIDE 0.9% INJ 10 ML SYR IV SCH (20:50)
[2019-08-20] MEDS: QUEtiapine FUMARATE 200 MG TAB PO SCH (20:51)
[2019-08-20] MEDS: diphenhydrAMINE 50MG/ML VIAL (J1200) IV PRN (21:53)
[2019-08-20] MEDS: ACETAMINOPHEN TAB 650MG DOSE (2X325MG) PO PRN (23:53)
[2019-08-21] VITALS: BP 135/79
[2019-08-21] MEDS: LEVALBUTEROL 1.25 MG/0.5 ML CONCENTRATE NEB NEB SCH ×4 (01:34→18:00)
[2019-08-21] MEDS: IPRATROPIUM 0.02% SOLN 0.5MG/2.5 ML NEB INH SCH ×4 (01:34→18:00)
[2019-08-21] MEDS: KETOROLAC 30 MG/ML 1ML VIAL IV SCH ×3 (03:22→14:00)
[2019-08-21 04:00] VITALS: BP 133/77
[2019-08-21] MEDS: LEVOTHYROXINE 75MCG TABLET (0.075MG) PO SCH (05:49)
[2019-08-21] MEDS: LEVOTHYROXINE 100MCG TABLET (0.1MG) PO SCH (05:49)
[2019-08-21] MEDS: SODIUM CHLORIDE 0.9% INJ 10 ML SYR IV SCH ×3 (05:49→21:19)
[2019-08-21] MEDS: MEROPENEM INJ 1 GM in IV 1 EA IV SCH ×3 (05:50→21:18)
--- NOTE | 2019-08-21 06:33 | IPN ---
DATE: 08/20/2019 This is now the fourth postoperative day for Ms. Hooper. She is up and around and walked to x-ray today. Her pain is being well controlled. Her vital signs show a maximum temperature (Tmax) of 98.7, with a heart rate that ranges between 104-107 in a sinus tachycardia, respiratory rate of 19-24 without the use of accessory muscles who is 92% saturated on 3 liters nasal cannula, and whose blood pressure is ranging between 135/89-108/68. Her intake and output for the past 24 hours has been recorded as 5864 in and 3540 out, for a positivity of 2300 mL. She has taken in 4500 mL in oral intake and 1344 mL in IV. She is continually drinking water. Her urine output is 3170 mL with chest tube output being 370 mL and no air leak. On physical examination, she has coarse rhonchi throughout the entire respiratory cycle some of which will clear with coughing. Percussion note is full to the diaphragm as far as I can tell through her morbid obesity. There are some decreased breath sounds in the right lower hemithorax. Cardiac exam is without murmurs, clicks, gallops, or rubs. I cannot feel her point of maximal impulse (PMI). S1 and S2 are normal. Abdomen is soft, nontender. Bowel sounds are positive. Extremities show 1+ pretibial edema. No calf tenderness. No differential swelling of the upper extremities. Skin is warm, dry and perfused, without cyanosis or mottling, including that of the nail beds and the knees. Neck is supple. There is no jugular venous distention. No subcutaneous emphysema. Trachea is midline. Mouth shows her mucous membranes to be pink and moist. Lips and commissures are without lesions. There is no thrush. Eyes shows her pupils equal and reactive to light, extraocular motion intact. Sclerae nonicteric. Neurologic shows II-XII intact along with gross motor and gross sensation intact. Gait is intact. Psychiatric shows her to be awake, alert with a flat affect. Her sodium is 131, with a potassium of 3.9. BUN and creatinine are 11 and 0.52, respectively, with a glucose of 203 and a calcium of 7.8. Her white count is down to 15.5, with hemoglobin and hematocrit of 10.8 and 35.1, slightly down from 11.5 and 37.7 yesterday. Platelet count is 275 and stable, and differential shows 70% neutrophils, 17% lymphocytes, 7% monocytes. There are no immature forms. No toxic granulations. There are no blood gases on her today. Her chest x-ray shows the lung fully expanded to the chest wall. The diaphragm is still rather high on the right side though there does seem to be compression and there is a sharp costophrenic angle. The high diaphragm is also reflected on the lateral film. I am rather concerned about that. Although the phrenic nerve was visualized and sedulously preserved it could attract some injury. It was a very difficult procedure in a very large woman in a very confined space. She is not symptomatic at this point and time I will continue to observe that. IMPRESSION: 1. Squamous cell carcinoma [id number] or stage I A2. 2. Morbid obesity. 3. Diabetes. 4. Preoperative urinary tract infection. 5. Schizophrenia. 6. Prior tobacco abuse. 7. Renal insufficiency, resolved. PLAN AND DISCUSSION: I will diurese her again today. She is taking a lot of oral intake with regard to drinking water. At this point in time, I will not put on a fluid restriction. Her IV was discontinued yesterday and should contribute very little to her intake. If need be I will restrict her to 3000 mL a day if the chest tube output does not taper off and if her sodium continues to fall. I will continue her on the meropenem for her urinary tract infection. I will transfer her to the progressive care unit (PCU) today.
[2019-08-21 06:39] LABS: BASO # 0.1 10^3/uL (0.0-0.2); BASO % 0.6 % (0.0-1.0); EOS # 0.3 10^3/uL (0.0-0.5); EOS % 2.3 % (0.0-3.0); HEMATOCRIT 33.4 % (36.0-47.0); HEMOGLOBIN 10.5 g/dl (12.0-15.5); LYMPH # 3.3 10^3/uL (1.5-5.0); MEAN CORPUSCULAR HEMOGLOBIN 27.6 pg (27.0-33.0); MEAN CORPUSCULAR HGB CONC 31.4 g/dl (32.0-36.5); MEAN CORPUSCULAR VOLUME 87.7 fl (80.0-96.0); MONO # 1.2 10^3/uL (0.0-0.8); MONO % 8.3 % (0.0-5.0); NEUTROPHILS # 9.5 10^3/uL (1.5-8.5); NEUTROPHILS % 64.1 % (36.0-66.0); PLATELET COUNT, AUTOMATED 280 10^3/uL (150-450); RED BLOOD COUNT 3.81 10^6/uL (4.00-5.40); WHITE BLOOD COUNT 14.8 10^3/uL (4.0-10.0)
[2019-08-21 07:01] LABS: BLOOD UREA NITROGEN 11 MG/DL (7-18); CALCIUM LEVEL 8.4 MG/DL (8.5-10.1); CARBON DIOXIDE LEVEL 31 MEQ/L (21-32); CHLORIDE LEVEL 98 MEQ/L (98-107); CREATININE FOR GFR 0.52 MG/DL (0.55-1.30); GLOMERULAR FILTRATION RATE > 60.0 (>58); GLUCOSE, FASTING 177 MG/DL (70-100); POTASSIUM SERUM 3.8 MEQ/L (3.5-5.1); SODIUM LEVEL 135 MEQ/L (136-145)
[2019-08-21] MEDS: SYMBICORT 160/4.5MCG INHALER 6GM INH SCH ×2 (07:02→17:59)
[2019-08-21 07:20] VITALS: BP 136/76
[2019-08-21] MEDS: MOM 30ML SUSPENSION UDC PO SCH (07:59)
[2019-08-21] MEDS: DOCUSATE SODIUM 100 MG CAP PO SCH ×2 (07:59→21:00)
[2019-08-21] MEDS: NYSTATIN 100,000 UNITS/GM TOPICAL PWD 15 GM TOP SCH ×2 (08:09→21:20)
[2019-08-21] MEDS: FLUCONAZOLE 50MG TABLET PO SCH (08:10)
[2019-08-21] MEDS: SITagliptin 50 MG TAB (JANUVIA) PO SCH (08:10)
[2019-08-21] MEDS: VENLAFAXINE **XR** 75MG CAPSULE PO SCH (08:10)
[2019-08-21] MEDS: HEPARIN SOD (PORCINE) 5000UNITS/ML VIAL (J1644 PER 1000UNITS) SC SCH ×2 (08:10→21:17)
[2019-08-21] MEDS: PANTOPRAZOLE 40MG TAB (PROTONIX) PO SCH (08:10)
[2019-08-21] MEDS: FERROUS SULFATE 325MG TAB PO SCH ×3 (08:10→21:18)
[2019-08-21] MEDS: NICOTINE 14 MG/24 HR TRANSDERMAL TD SCH (08:11)
[2019-08-21] MEDS: HumaLOG INSULIN (NovoLOG) PER UNIT SC SCH ×4 (08:11→21:18)
[2019-08-21] MEDS: LEVEMIR (INSULIN DETEMIR) 1 UNITS/0.01ML SC SCH (08:11)
[2019-08-21] MEDS ORDERED: POTASSIUM CHLORIDE 10 MEQ SR TABLET PO ONE (09:00)
[2019-08-21] MEDS ORDERED: FUROSEMIDE 20 MG TAB PO ONE (09:00)
[2019-08-21] MEDS ORDERED: LEVEMIR (INSULIN DETEMIR) 1 UNITS/0.01ML SC SCH (09:00)
[2019-08-21] MEDS ORDERED: FUROSEMIDE 20MG/2ML VIAL (J1940) IV ONE (11:00)
--- NOTE | 2019-08-21 11:18 | IPN ---
DATE: 08/21/2019 Ms. Hooper had ambulated down to the x-ray today. She states she was a little short of breath with the mask on. She has had no chest pain. She has had no fever, chills. She denies dysuria. No headache or change in vision. Overall she states she feels well. She had a net negative output of 1.3 liters yesterday. She is still quite positive given the past 3 days prior to that being almost 9 liters positive. PHYSICAL EXAMINATION: Temperature is 97.1, pulse is 103, respiratory rate is 20, blood pressure is 136/76 with a mean arterial pressure of 96, oxygen saturations 94% on 1 liter. GENERAL: The patient is awake, alert and oriented. Affect and mood are appropriate. Nutrition and hygiene are good. She is able to speak full sentences without dyspnea. HEENT: Sclerae clear and anicteric. Pupils equal, react to light. Mucous membranes moist without lesions. Oropharynx without erythema or exudate. NECK: Supple. No tracheal deviation or mass. PULMONARY: Decreased breath sounds at the right base. There is dullness to percussion at the right base. There is increased tactile fremitus at the right base. The left is clear without rales, rhonchi or wheezes. No dullness to percussion. No dullness to percussion on the left. No accessory muscle use. Chest tube is draining only 35 mL over the past 24 hours. CARDIAC: Regular S1, S2 without audible murmur, rub or gallop and no discernible elevated jugular venous pulse (JVP). No significant lower extremity edema. ABDOMEN: Abdomen is obese, soft, nontender, nondistended. No hepatosplenomegaly. No masses or hernia. SKIN: Pale without rashes, jaundice or bruising. LABORATORY DATA: Laboratory evaluation shows a leukocytosis that is trending down to 14.8 and anemia of 10.5, which is fairly unchanged from yesterday, platelet count of 280. Sodium with some improvement since yesterday at 135, potassium 3.9, chloride 98, bicarb is up from yesterday at 31, BUN of 11, creatinine of 0.52 with a glucose of 177, which is down from yesterday. Chest x-ray shows probable right lower lobe effusion in the face of recent right lower lobectomy. Cephalization and pulmonary edema appears to be improved. There is no new mass or infiltrate. IMPRESSION: 1. Pulmonary edema: Still with some pulmonary edema. No systemic edema. Therefore, will cautiously diuresis. She diuresed quite a bit with only 20 by mouth yesterday, so will continue this. I have replaced her potassium again at a low dose. 2. Hyperglycemia: I have increased her Levemir to 35 units. Her blood sugars are almost at goal. 3. Right lower lobectomy for stage I squamous cell carcinoma. Chest tube has little output today. Will discuss with thoracic surgery as to the timing of clamping the tube and removal. Thank you for allowing me to participate in this patient's care.
--- NOTE | 2019-08-21 11:46 | IPN ---
DATE: 08/21/2019 This is now the fifth postoperative day for Ms. Hooper. Her pain is being well controlled with the epidural. It looks as though she has turned a corner and she is in the progressive care unit (PCU) and she is ambulating. Her vital signs show a maximum temperature (Tmax) of 97.5, with a heart rate that ranges between 103-113 in a sinus rhythm, with a respiratory rate of 18-20 without the use of accessory muscles, who is 93-94% saturated now on 2 liter nasal cannula, and blood pressure is ranging between 133/77-141/80. Her intake and output for the past 24 hours has been recorded as 3988 in and 5340 out, for a negativity of 1300 mL. She has put out 115 mL out the chest tube and there is no air leak. She weighs 129 kilos today compared to 129 kilos 3 days ago. On physical examination, she has equal breath sounds on either side. Percussion note is full to the diaphragm as far as I can tell through her morbid obesity. I hear no wheezes, rhonchi, or rales. Cardiac exam is without murmurs, clicks, gallops, or rubs. I cannot feel her point of maximal impulse (PMI). S1 and S2 are normal. Abdomen is soft, nontender. Bowel sounds are positive. Extremities show trace pretibial edema. No calf tenderness. No differential swelling of the upper extremities. Skin is warm, dry and perfused, without cyanosis or mottling, including that of the nail beds and the knees. Neck is supple. There is no jugular venous distention. No subcutaneous emphysema. Trachea is midline. Mouth shows her mucous membranes to be pink and moist. Lips and commissures are without lesions. There is no thrush. Eyes shows her pupils equal and reactive, extraocular motions are intact. Sclerae nonicteric. Neurologic shows II-XII intact along with gross motor and gross sensation intact. Gait is not tested. Psychiatric shows her to be awake, alert, oriented times three with appropriate mood and affect, and conversational. Her white count today is down to 14.8, with a hemoglobin and hematocrit of 10.5 and 33.4, respectively. Platelet count is 280 and her differential shows 64% neutrophils, 22% lymphocytes, and 8% monocytes. There are no immature forms. No toxic granulations. Her electrolytes are nearly normal today with a marginally low sodium of 135. BUN and creatinine are 11 and 0.52, with a glucose of 177 and a calcium of 8.4. Her chest x-ray shows her lung fully expanded to the chest wall. She still has a very high diaphragm. I did obtain a CT scan, which confirms the high diaphragm but not pleural effusion. There is however no compression or atelectasis of the remaining lung tissue. I am not sure whether this diaphragmatic finding is secondary to the lung volume loss from the lobectomy or whether she truly has a pruritic diaphragm. IMPRESSION: 1. Squamous cell carcinoma [id number] or stage I A2. 2. Morbid obesity. 3. Diabetes. 4. Preoperative urinary tract infection. 5. Schizophrenia. 6. Prior tobacco abuse. 7. Renal insufficiency, resolved. PLAN AND DISCUSSION: I will again diurese her albeit gently. I will discontinue her chest tube from suction today. If all goes well, I will consider removing her chest tube in the morning.
[2019-08-21 12:00] VITALS: BP 147/70
[2019-08-21] MEDS: FENTANYL/BUPIVACAINE/NACL BAG 250 ML EPIDURAL SCH (13:38)
[2019-08-21 16:00] VITALS: BP 128/75
[2019-08-21 20:00] VITALS: BP 144/80
[2019-08-21] MEDS: QUEtiapine FUMARATE 200 MG TAB PO SCH (21:18)
[2019-08-21] MEDS: zolPIDEM TARTRATE 5 MG TAB PO PRN (21:20)
[2019-08-22] VITALS: BP 147/74
[2019-08-22] MEDS: LEVALBUTEROL 1.25 MG/0.5 ML CONCENTRATE NEB NEB SCH ×4 (01:19→19:52)
[2019-08-22] MEDS: IPRATROPIUM 0.02% SOLN 0.5MG/2.5 ML NEB INH SCH ×4 (01:19→19:53)
[2019-08-22 04:00] VITALS: BP 132/72
[2019-08-22 05:15] LABS: HEMATOCRIT 34.7 % (36.0-47.0); HEMOGLOBIN 10.9 g/dl (12.0-15.5); MEAN CORPUSCULAR HEMOGLOBIN 27.4 pg (27.0-33.0); MEAN CORPUSCULAR HGB CONC 31.4 g/dl (32.0-36.5); MEAN CORPUSCULAR VOLUME 87.2 fl (80.0-96.0); PLATELET COUNT, AUTOMATED 320 10^3/uL (150-450); RED BLOOD COUNT 3.98 10^6/uL (4.00-5.40); WHITE BLOOD COUNT 17.3 10^3/uL (4.0-10.0)
[2019-08-22] MEDS: LEVOTHYROXINE 75MCG TABLET (0.075MG) PO SCH (05:25)
[2019-08-22] MEDS: LEVOTHYROXINE 100MCG TABLET (0.1MG) PO SCH (05:25)
[2019-08-22] MEDS: MEROPENEM INJ 1 GM in IV 1 EA IV SCH ×2 (05:25→14:23)
[2019-08-22] MEDS: SODIUM CHLORIDE 0.9% INJ 10 ML SYR IV SCH ×3 (05:26→21:41)
[2019-08-22 05:27] LABS: ANISOCYTOSIS 1+; ATYPICAL LYMPH 2 % (0-5); EOSINOPHILS 5 % (0-3); LYMPHOCYTES 23 % (16-44); MONOCYTES 7 % (0-5); MYELOCYTES 2 % (0-0); NEUTROPHILS 60 % (28-66); PLATELET ESTIMATE NORMAL (NORMAL); POLYCHROMASIA 1+
[2019-08-22 05:40] LABS: BLOOD UREA NITROGEN 9 MG/DL (7-18); CALCIUM LEVEL 8.9 MG/DL (8.5-10.1); CARBON DIOXIDE LEVEL 32 MEQ/L (21-32); CHLORIDE LEVEL 99 MEQ/L (98-107); GLOMERULAR FILTRATION RATE > 60.0 (>58); GLUCOSE, FASTING 195 MG/DL (70-100); SODIUM LEVEL 136 MEQ/L (136-145)
[2019-08-22 07:45] VITALS: BP 136/77
[2019-08-22] MEDS: NICOTINE 14 MG/24 HR TRANSDERMAL TD SCH (08:13)
[2019-08-22] MEDS: HumaLOG INSULIN (NovoLOG) PER UNIT SC SCH ×4 (08:13→21:00)
[2019-08-22] MEDS: SITagliptin 50 MG TAB (JANUVIA) PO SCH (08:13)
[2019-08-22] MEDS: DOCUSATE SODIUM 100 MG CAP PO SCH ×2 (08:13→08:17)
[2019-08-22] MEDS: VENLAFAXINE **XR** 75MG CAPSULE PO SCH (08:13)
[2019-08-22] MEDS: HEPARIN SOD (PORCINE) 5000UNITS/ML VIAL (J1644 PER 1000UNITS) SC SCH ×3 (08:14→21:40)
[2019-08-22] MEDS: FERROUS SULFATE 325MG TAB PO SCH ×3 (08:14→21:40)
[2019-08-22] MEDS: MOM 30ML SUSPENSION UDC PO SCH ×2 (08:14→08:33)
[2019-08-22] MEDS: NYSTATIN 100,000 UNITS/GM TOPICAL PWD 15 GM TOP SCH ×2 (08:14→21:41)
[2019-08-22] MEDS: PANTOPRAZOLE 40MG TAB (PROTONIX) PO SCH (08:14)
[2019-08-22] MEDS: FLUCONAZOLE 50MG TABLET PO SCH (08:14)
[2019-08-22] MEDS ORDERED: LEVEMIR (INSULIN DETEMIR) 1 UNITS/0.01ML SC SCH (09:00)
[2019-08-22] MEDS ORDERED: LEVEMIR (INSULIN DETEMIR) 1 UNITS/0.01ML SC ONE (09:30)
[2019-08-22] MEDS: SYMBICORT 160/4.5MCG INHALER 6GM INH SCH ×2 (09:31→19:52)
[2019-08-22] MEDS ORDERED: ISOVUE-370 76% 100ML VIAL As Ordered ONE (10:08)
--- NOTE | 2019-08-22 10:30 | REP ---
REASON: Followup, status post right lower lobectomy. COMPARISON: 08/19/2019 Preliminary report was given by Dr. Batista at the time the examination was performed. The tubes and line were unchanged. Postoperative changes on the right, stable. Chronic right basilar opacities, status quo. No changes in the lung murguia or cardiomediastinal silhouette. Unchanged right apical capping. No change in the osseous structures. IMPRESSION: No significant change. Electronically Signed by Wander Ramos DO 08/22/2019 11:54 A
--- NOTE | 2019-08-22 10:33 | IPN ---
DATE OF SERVICE: 08/22/2019 ATTENDING PHYSICIAN: Pablito Villa DO Ms. Hooper was seen and examined this morning during bedside rounds. She was sitting up in the chair. Does not appear in acute distress. She was eating breakfast, and she is feeling relatively well. She does endorse that when she does ambulate around the rodriges, she does get a little short of breath with exertion, which improves with rest. She does note that she has a resting heart rate that is slightly tachycardic but never as high as 133. She is currently on telemetry, and there have been no telemetry events reported overnight. There were no events reported by nursing, as well. She continues to have the epidural, chest tube, and Mcdaniel in place. PHYSICAL EXAMINATION: Vital signs: Temperature 98.0, pulse 133, respiration 18, blood pressure 136/77 (96), pulse oximetry 94% on 1 liter nasal cannula. Intake and output: Intake total 4860 mL, output total 6940 mL, balance negative 2080 mL. Chest tube output 140 mL plus since midnight 35 mL. She has had a total of three bowel movements until today. General: This is a 48-year-old female who does not appear in acute distress, sitting up in the chair, appropriately answering questions at her baseline. HEENT: Full face, atraumatic, normocephalic. Large neck girth. Her jugular venous distention (JVD) cannot be assessed. Heart: Sinus tachycardia with no audible murmurs or rubs. Lungs: Diminished breath sounds in the right lower lobe. Clear to auscultate in the left lung. Clear to auscultate in the upper lobes bilaterally. No wheezing or rhonchi is appreciated. Abdomen: Obese abdomen. Hyperactive. Nontender to touch. Genitourinary: Mcdaniel in place. Clear urine appreciated. LABORATORIES: Hematology: WBC 17.3, hemoglobin 10.9, hematocrit 34.7, platelets 320. Chemistry: Sodium 136, potassium 4.0, chloride 99, carbon dioxide 32, anion gap 5, BUN 9, creatinine 0.60, GFR greater than 60, fasting glucose 195, calcium 8.9. IMAGING: Chest x-ray was done this morning. Official report is currently pending. She continues to have blunting of the left costophrenic angle, as well as bibasilar opacities appreciated on the right base, which is consistent in the past chest x-ray, nothing new. No increased parenchymal opacities noted. No increased vascular congestion noted. MEDICATIONS: - Levemir 35 units daily - Ambien 5 mg nightly - heparin 5000 units every 12 - Imodium 2 mg as needed - meropenem day #5 currently - Januvia 100 mg daily - venlafaxine 75 mg daily - fluconazole 150 mL daily, currently day #5 - levothyroxine 175 mcg daily ASSESSMENT AND PLAN: 1. Sinus tachycardia. Her heart rate this morning was a high of 133. The patient states that she has a baseline of elevated heart rate, but she continues to be hypoxic with 1 liter on nasal cannula 94. The patient does state that she used 2 liters of nasal cannula at nighttime but not during the day. She is complaining of some exertional dyspnea with ambulation. Because of the recent surgery and she is currently day #6 and she is on subtherapeutic heparin, we recommend getting a CT angiography of the chest to rule out a pulmonary embolism (PE), as well as obtaining an electrocardiogram (EKG) and increasing heparin to 8000 units three times a day. 2. Leukocytosis. White blood cell (WBC) did increase to 17.3. She is currently on meropenem day #5. Her blood culture times one on 08/17/2019 was negative for any growth. Because she does have 1 band on the hematology differential, we do recommend repeating blood cultures times two, continuing the meropenem, obtaining a Clostridium (C) difficile for the patient has been having a frequent amount of bowel movements recently, discontinuing the Colace and the milk of magnesia, as well as the Imodium. We do recommend discontinuing the Diflucan, which we originally started because of yeast on her urine culture. She has completed 5 days of that so does not need it any further. 3. Abnormal chest x-ray. She continues to have bibasilar opacities. Right is worse than the left. When comparing to the previous chest x-rays, does not show any increase of patchy infiltrates or increased vascular congestion. She has diuresed adequately with the Lasix 20 mg by mouth yesterday, as well as 20 mg intravenous (IV). No further diuresing will be needed at this current time. Will follow with the CT angiography that she will get later today. 4. Hyperglycemia, type 2 diabetes. The patient is outpatient on a lot of diabetic medications but not including insulin. Her sugars this morning was 195. We recommend for postsurgical patients to have tight hyperglycemia control of aiming of sugars of less than 180. So, we will increase her Levemir to 40 units daily. Upon discharge, the patient will need to continue her home medication but possibly will need to followup with her primary care provider of actually adding an insulin regimen for she does state her sugars at home are greater than 400, for better glycemic control. 4. Deep venous thrombosis (DVT) prophylaxis. Will actually increase her heparin 5000 units from twice a day to three times a day. IPablito, conducted an independent exam and agree with the assessment and plan as outlined above. GENIE
--- NOTE | 2019-08-22 10:35 | REP ---
CHEST X-RAY: TWO VIEWS. REPEAT DICTATION. HISTORY: Right lower lobectomy. Comparison study, August 20, 2019. Preliminary report is provided at the time of the exam by Dr. Batista. FINDINGS: Two right chest tubes remain in place at the right base. There is volume loss in the right hemithorax as before. An epidural catheter is again seen. A right subclavian [id number] catheter is noted. Monitoring electrodes are present. There is stable pleural thickening at the right apex. Left lung remains essentially clear. There is some residual discoid atelectasis in the right lung base above the elevated right hemidiaphragm, unchanged. IMPRESSION: No new infiltrate. Two right chest tubes remain in place. Electronically Signed by Ozzie Crawford MD 08/22/2019 11:17 A
--- NOTE | 2019-08-22 11:07 | REP ---
CHEST X-RAY: TWO VIEWS. HISTORY: Right lower lobectomy. Comparison chest x-ray: August 21, 2019 FINDINGS: Two right-sided chest tubes remain in place at the base. Epidural catheter and right subclavian lines are again seen, unchanged. Monitoring electrodes are seen. Left lung remains clear. There is pleural thickening at the apex and along the lateral chest wall on the right, unchanged. No new infiltrate is seen. Electronically Signed by Ozzie Crawford MD 08/22/2019 11:18 A
[2019-08-22 11:34] VITALS: BP 149/86
--- NOTE | 2019-08-22 13:50 | REP ---
CT ANGIOGRAM CHEST: TECHNIQUE: Axial contrast-enhanced images from the thoracic inlet to the upper abdomen using 100 mL Isovue-370 intravenous contrast material with multiplanar reformations. The study is extremely limited due to motion. No gross central pulmonary embolism is seen. Thoracic aorta is normal in caliber with no dissection or aneurysm. There is mild cardiomegaly. Subcarinal lymph node measures 1.5 cm in short axis. There is mild diffuse right pleural thickening. There is a very small pneumothorax. There are two right chest tubes in place. There are mild ill-defined scattered patchy parenchymal opacities inferiorly on the right. Right hemidiaphragm is elevated. No consolidation is seen on the left. IMPRESSION: Extremely limited CT angiogram of the chest due to motion. No gross pulmonary embolism is seen centrally. Mild cardiomegaly. Mild diffuse pleural thickening on the right with a tiny amount of pleural air and two right chest tubes in place. Mild patchy parenchymal opacities inferiorly in the right lung. Elevation right hemidiaphragm. Electronically Signed by Mt Berg MD 08/22/2019 02:00 P
[2019-08-22] MEDS: ACETAMINOPHEN TAB 650MG DOSE (2X325MG) PO PRN (14:18)
--- NOTE | 2019-08-22 14:30 | IPN ---
DATE: 08/22/2019 This is now the sixth postoperative day for Ms. Hooper. Her pain is being well controlled with the epidural. Chest tube output is minimal. She is on 1 liter nasal cannula, saturating at 93-94%. Her vital signs show a maximum temperature (Tmax) of 98.0, with a heart rate that ranges between 133 and 104 in a sinus rhythm, a respiratory rate of 18-20 without the use of accessory muscles, who is 94% to 93% saturated on 1 liter nasal cannula, and whose blood pressure is ranging between 132/72 to 149/86. Her intake and output for the past 24 hours has been recorded as 4860 in and 6940 out for a negativity of 2000 mL. She has takenin 4800 mL in by mouth intake. She is continually drinking water. She has put 140 mL out the chest tube. Her weight today is 130.9 kg compared to 129 kg yesterday. On physical examination, she has bilateral rhonchi on either side, most of which clear with coughing. Percussion notes full to the diaphragm as far as I can tell through her morbid obesity. Cardiac exam is without murmurs, clicks, gallops, or rubs. I cannot feel her point of maximal impulse (PMI). S1 and S2 are normal. Abdomen is soft, nontender. Bowel sounds are positive. No hepatomegaly that I can appreciate. Extremities show 1+ pretibial edema. No calf tenderness. No differential swelling of the upper extremities. Skin is warm, dry and perfused, without cyanosis or mottling, including that of the nail beds and the knees. Neck is supple. There is no jugular venous distention. No subcutaneous emphysema. Trachea is midline. Mouth shows her mucous membranes to be pink and moist. Lips and commissures are without lesions. There is no thrush. Eyes shows her pupils equal and reactive, extraocular motions are intact. Sclerae nonicteric. Neurologic shows II-XII intact along with gross motor and gross sensation intact. Gait is not tested. Psychiatric shows her to be awake, alert, oriented times three with flat mood and affect. Her white count today has jumped to 17.3 from 14.8. Hemoglobin and hematocrit of 10.5 and 34.7, essentially unchanged from yesterday with a platelet count of 320. Differential shows 60% neutrophils, 1% bands, 23% lymphocytes, with 5 metamyelocytes. Chemistries today show electrolytes with BUN and creatinine of 9 and 0.6 with a glucose of 195 and a calcium of 8.9. There are no blood gases on her today. Her chest x-ray today shows again the high diaphragm with the lungs fully expanded to the chest wall. I see no infiltrates. Costophrenic angles are sharp. Dr. Villa ordered a CT angio as she was concerned about her heart rate and her dependence on oxygen. My evaluation of the CT angio does not show any pulmonary emboli, however, because of her morbid obesity, it is rather difficult to tell. I certainly do not see anything that stands out. She has perhaps an infiltrative process in the remaining middle lobe with air bronchograms on the CT scan. IMPRESSION: 1. Postoperative day six status post right lower lobectomy. 2. Squamous cell carcinoma [id number] or stage I A2. 3. Morbid obesity. 4. Diabetes. 5. Preoperative urinary tract infection. 6. Schizophrenia. 7. Prior tobacco abuse. 8. Renal insufficiency, resolved. 9. Elevated hemidiaphragm. PLAN AND DISCUSSION: I will discontinue her chest tube today as she is putting out very little and there is no air leak. I will also discontinue her Mcdaniel after obtaining a urine culture to make sure that her preoperative urinary tract infection has resolved. Looking at her prior admissions, she has a heart rate that is elevated constantly between 100 and 110. I am not concerned about her heart rate at this point in time. We are going to wean the epidural today and discontinue the Mcdaniel. Hopefully, we can look forward to sending her home tomorrow.
[2019-08-22 14:38] LABS: CLOSTRIDIUM DIFFICILE PCR POSITIVE (NEGATIVE)
[2019-08-22 15:58] VITALS: BP 148/88
[2019-08-22] MEDS: metroNIDAZOLE (FLAGYL) 500 MG TAB PO SCH ×2 (16:44→21:40)
[2019-08-22] MEDS: PERCOCET 5MG/325MG TAB PO PRN (19:56)
[2019-08-22 20:00] VITALS: BP 174/84
[2019-08-22] MEDS: QUEtiapine FUMARATE 200 MG TAB PO SCH (21:40)
[2019-08-22] MEDS: zolPIDEM TARTRATE 5 MG TAB PO PRN (21:41)
[2019-08-22] MEDS: FENTANYL/BUPIVACAINE/NACL BAG 250 ML EPIDURAL SCH (21:42)
[2019-08-23] VITALS: BP 138/88
[2019-08-23] MEDS: IPRATROPIUM 0.02% SOLN 0.5MG/2.5 ML NEB INH SCH ×2 (01:57→07:12)
[2019-08-23] MEDS: LEVALBUTEROL 1.25 MG/0.5 ML CONCENTRATE NEB NEB SCH ×2 (01:57→07:12)
[2019-08-23 04:00] VITALS: BP 179/96
[2019-08-23] MEDS: PERCOCET 5MG/325MG TAB PO PRN (04:33)
[2019-08-23] MEDS: LEVOTHYROXINE 75MCG TABLET (0.075MG) PO SCH (06:11)
[2019-08-23] MEDS: SODIUM CHLORIDE 0.9% INJ 10 ML SYR IV SCH (06:11)
[2019-08-23] MEDS: LEVOTHYROXINE 100MCG TABLET (0.1MG) PO SCH (06:11)
[2019-08-23] MEDS: HEPARIN SOD (PORCINE) 5000UNITS/ML VIAL (J1644 PER 1000UNITS) SC SCH (06:12)
[2019-08-23] MEDS: SYMBICORT 160/4.5MCG INHALER 6GM INH SCH (07:11)
--- NOTE | 2019-08-23 07:55 | ECGEPIP ---
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
[2019-08-23 08:00] VITALS: BP 148/78
--- NOTE | 2019-08-23 08:18 | REP ---
CHEST X-RAY: Two views. HISTORY: Right lower lobectomy. COMPARISON CHEST X-RAY: 08/22/2019 FINDINGS: Monitoring electrodes are seen. A right-sided Vpdcyl-[id number]-Cwzr catheter is again seen in place. The epidural catheters been removed. Oxygen delivery tubing is visible. The right base pleural drainage catheters have been withdrawn. There is some stable pleural thickening along the right lateral and right superior pleural surfaces. A tiny bubble of right apical pleural air is visible but this is unchanged. The left lung is free of infiltrate. Electronically Signed by Ozzie Crawford MD 08/23/2019 09:04 A
[2019-08-23] MEDS: HumaLOG INSULIN (NovoLOG) PER UNIT SC SCH (08:33)
[2019-08-23] MEDS: FERROUS SULFATE 325MG TAB PO SCH (08:34)
[2019-08-23] MEDS: PANTOPRAZOLE 40MG TAB (PROTONIX) PO SCH (08:34)
[2019-08-23] MEDS: VENLAFAXINE **XR** 75MG CAPSULE PO SCH (08:34)
[2019-08-23] MEDS: SITagliptin 50 MG TAB (JANUVIA) PO SCH (08:34)
[2019-08-23] MEDS: NYSTATIN 100,000 UNITS/GM TOPICAL PWD 15 GM TOP SCH (08:35)
[2019-08-23] MEDS: NICOTINE 14 MG/24 HR TRANSDERMAL TD SCH (08:35)
[2019-08-23 08:46] LABS: HEMOGLOBIN 11.2 g/dl (12.0-15.5); MEAN CORPUSCULAR HEMOGLOBIN 27.2 pg (27.0-33.0); MEAN CORPUSCULAR HGB CONC 31.1 g/dl (32.0-36.5); MEAN CORPUSCULAR VOLUME 87.4 fl (80.0-96.0); PLATELET COUNT, AUTOMATED 319 10^3/uL (150-450); RED BLOOD COUNT 4.12 10^6/uL (4.00-5.40); WHITE BLOOD COUNT 15.2 10^3/uL (4.0-10.0)
[2019-08-23] MEDS ORDERED: LEVEMIR (INSULIN DETEMIR) 1 UNITS/0.01ML SC SCH (09:00)
[2019-08-23 09:15] LABS: BLOOD UREA NITROGEN 7 MG/DL (7-18); CALCIUM LEVEL 8.7 MG/DL (8.5-10.1); CARBON DIOXIDE LEVEL 35 MEQ/L (21-32); CHLORIDE LEVEL 96 MEQ/L (98-107); CREATININE FOR GFR 0.56 MG/DL (0.55-1.30); GLOMERULAR FILTRATION RATE > 60.0 (>58); GLUCOSE, FASTING 254 MG/DL (70-100); POTASSIUM SERUM 4.1 MEQ/L (3.5-5.1); SODIUM LEVEL 136 MEQ/L (136-145)
[2019-08-23 09:17] LABS: LYMPHOCYTES 14 % (16-44); MONOCYTES 5 % (0-5); NEUTROPHILS 79 % (28-66); PLATELET ESTIMATE NORMAL (NORMAL)
[2019-08-23] MEDS ORDERED: PERCOCET PO (10:08)
[2019-08-23] MEDS ORDERED: VANC125C3 PO (10:08)
[2019-08-23] MEDS ORDERED: LASI40TA9 PO (10:08)
--- NOTE | 2019-08-23 11:40 | DSES ---
DATE OF ADMISSION: 08/16/2019 DATE OF DISCHARGE: 08/23/2019 DISCHARGE DIAGNOSES: 1. Squamous cell carcinoma, [id number], met stage IA2. 2. Postoperative day #7, status post right lower lobectomy. 3. Morbid obesity. 4. Diabetes. 5. Preoperative urinary tract infection. 6. Schizophrenia. 7. Prior tobacco abuse. 8. Renal insufficiency, resolved. 9. Elevated right hemidiaphragm. 10. Probable Clostridium (C) difficile carrier. 11. Postoperative sepsis secondary to preoperative urinary tract infection. HOSPITAL COURSE: The patient is a 48 -year-old white female who had biopsy-proven squamous cell carcinoma obtained via bronchoscopy. She was first found to have a lesion last June when she was in [facility] for what was termed a pneumonia. She states she was in the hospital for 2 weeks; and at that hospitalization, a right lower lobe nodule was found on x-ray which was confirmed on CT scan. She has overlying psychiatric problems of bipolar disease and psychoses, probably schizophrenia. Nonetheless, I felt that she was competent to understand the operation and consent. I did ask her to consider stereotactic body radiation therapy (SBRT) and radiation therapy secondary to the known difficulty of her operation without a major fissure and with her morbid obesity. She rejected that out of hand. Her pulmonary function test (PFT) showed an FEV1 of 1.95, which was 62% of predicted, and a diffusing capacity of 18.3, which was 75% of predicted. She has a prior history of smoking. She also had a prior history of intermittent diarrhea. At preoperative testing, she was asked to provide a urine sample, which she could not. We did obtain a urine sample the day of surgery. It showed 3+ leukocyte esterase and many white cells. Her operation was significant for technical difficulties with exposure secondary to her morbid obesity. She had an absent minor fissure and a very incomplete major fissure where there was at least 3 cm distance between the bottom of the major fissure and the pulmonary arteries. It took a particularly long time to find the pulmonary artery, approximately an hour. The phrenic nerve was identified, but taking down the pulmonary ligament was also technically very difficult. For pre- and postoperative bronchoscopy, she had numerous thick secretions of mucus plugging. Her postoperative course was notable for a fever and what looked like sepsis on postoperative day #1. She was started on antibiotics to cover a presumed urinary tract infection. It turned out that she did have a urinary tract infection with all species with her growing Klebsiella oxytoca which was sensitive to everything, including Ancef but except ampicillin. Nonetheless, she was started on Cipro on the first postoperative day prior to obtaining culture results back. This was changed to meropenem, as the hospital biogram indicates that Escherichia (E.) coli which was the presumed organism had only a 70% susceptibility. Her procalcitonin was 5.94, and her lactic acid was 2. Her white count was always high from surgery, but after the first 5 postoperative days settled in the 50,000 range. By the third postoperative day, she was up and about and ambulating. Her chest tubes were removed on the sixth postoperative day, and her epidural was weaned. Her pain control was satisfactory, both with the epidural and with the oral pain control. Because of her septic episode, she was quite positive, which was not helped by her continual water intake. She was diuresed. It was notable that her chest x-ray showed her right hemidiaphragm to be elevated, and I could not tell whether this was secondary to the obligate volume loss from her lobectomy or whether she had a paralyzed hemidiaphragm secondary to traction injury on the phrenic nerve. I did assiduously identify and avoided the phrenic nerve. My one concern was the difficulty in obtaining exposure to the inferior pulmonary ligament when taking it down during surgery. I will continue to follow her. She is being discharged today on her home medications, which include Symbicort 160/5.5 two puffs twice a day, Invokana 100 mg every day, ferrous sulfate 325 mg three times a day, gemfibrozil 600 mg twice a day, levocetirizine 5 mg by mouth nightly, Synthroid 175 mcg every day, metformin 500 mg every day, mirtazapine 7.5 mg nightly, omeprazole 20 mg every day, Invega Trinza 819 mg 2.625 IM every 3 months, Seroquel 200 mg nightly, Ozempic 1 mg subcutaneous every week, Januvia 100 mg every day, venlafaxine 75 mg every day, and Ambien 5 mg nightly. Additionally, she is being placed on Lasix 40 mg every day, Percocet 5/325 mg every 4 hours as needed pain, and vancomycin 125 mg four times a day for 10 days. When she was quite ill the first postoperative night, I did obtain a stool specimen, and it eventually tested positive for C. difficile. I suspect she was a prior carrier. She will return to see me in 1 week with a chest x-ray. Her discharge white count is 15.2 with a hemoglobin and hematocrit of 11.2 and 36.0. Platelet count is 319. Her chemistries show essentially normal electrolytes with a marginally low chloride and a marginally high total CO2 of 35 consistent with her chronic obstructive pulmonary disease (COPD) and morbid obesity with a BUN and creatinine of 7 and 0.56, a glucose of 254. It should also be noted that she had extraordinarily high glucoses above 500, and I placed her on an insulin drip during the first 48 hours of her hospitalization. edited: 08/24/2019 0944 tkf MTDD
[2019-08-23] MEDS ORDERED: VANCOMYCIN ORAL SOL 250MG/5ML ORAL SYRINGE PO SCH (12:00)
--- NOTE | 2019-08-23 20:29 | CCN ---
DATE: 08/23/2019 Ms. Hooper is seen in the progressive care unit (PCU). She is sitting up in a chair. She reports no new issues overnight. She denies fevers or chills. She states her breathing is back to baseline. Yesterday her chest tube was removed by Dr. Sal who is continuing to follow her. The patient is postop day #7 right lower lobectomy. She was tested for Clostridium difficile (C diff) yesterday and was positive. She is being monitored for tachycardia. Her heart rate is currently 107. PHYSICAL EXAM: Vital Signs: Temperature is 96.9, pulse 107, respiratory rate 20, blood pressure 148/78, pulse oximetry is 94% on one liter. General: Patient is sitting up in a chair. She speaks in complete sentences. She is alert and oriented times three. HEENT: Head is normocephalic, atraumatic. Moist mucous membranes. Neck: Supple. No cervical lymphadenopathy. No jugular venous distention (JVD). Chest: Clear to auscultation bilaterally. Diminished breath sounds on the right side, most notably at the right base. No accessory muscle use. Heart: Regular rate and rhythm. S1, S2, no murmurs. Abdomen: Obese, positive bowel sounds, soft, nontender. No obvious hepatosplenomegaly but this is difficult to assess secondary to body habitus. Extremities: No clubbing, cyanosis, or edema. Skin: Skin is warm and dry. LABORATORY: WBC 15.2, hemoglobin 11.2, hematocrit 36.0, platelets 319. Chemistry is pending currently. Clostridium difficile positive. IMAGING STUDIES: The patient had a chest x-ray today that shows the chest tube was removed. There is elevation of the right hemidiaphragm. There is cardiomegaly. There are some patchy opacities on the right. There is a right subclavian line noted. The patient had a chest CT yesterday on 08/22/2019. The radiologist read it as no pulmonary embolus (PE); however, upon Dr. Villa and my review, we feel this is a poor film that is equivocal for a definite PE of the left lower lobe, but there is nothing occlusive that would prompt treatment. There is some right pleural thickening and right patchy opacities noted. There is elevation of the right hemidiaphragm. Chest tubes are in place on the right. ASSESSMENT AND PLAN: 1. Clostridium difficile. The patient had a positive Clostridium difficile. She was initially started on metronidazole. We will discontinue the metronidazole and change her to oral vancomycin per IDSA guideline recommendations. The patient will be placed on vancomycin 125 mg by mouth every 6 hours. 2. Abnormal imaging. Patient recently underwent right lower lobe lobectomy. She did have a chest CT done yesterday due to tachycardia. The film was poor quality and was equivocal for definitive PE of the left lower lobe, but there was nothing occlusive that would prompt treatment. 3. Leukocytosis. CBC does show a downward trend of WBC today. The patient does have Clostridium difficile and is being treated with oral vancomycin. 4. Diabetes mellitus, type 2. Patient is on sliding scale insulin along with Januvia and Levemir. 5. Possible obstructive sleep apnea. Consider outpatient workup for possible obstructive sleep apnea. MTDD
--- NOTE | 2019-08-25 05:56 | RO ---
DATE OF PROCEDURE: 08/17/2019 PREPROCEDURE DIAGNOSES: Sepsis, hypertension. POSTPROCEDURE DIAGNOSIS: Sepsis, hypertension. PROCEDURE: Insertion of right subclavian central line. SURGEON: Jas Sal MD THEATRICAL PERFORMER: ANESTHESIA: DESCRIPTION OF PROCEDURE: Under satisfactory moderate sedation achieved with 2 mg of Versed, patient was prepped and draped in the usual sterile fashion. Subclavian vein was found on the first pass, and the vein was wired without difficulty. The tract was dilated, and then a triple-lumen catheter was placed without difficulty. Ports were aspirated and flushed. Catheter was secured to the chest wall with three #2-0 silk sutures. Patient tolerated procedure well, and chest x-ray is pending.
== END 2019-08-23 12:21 | disposition home or self-care (01) | DRG 163 ==
LOC: M OR 07:17 → M ICU 20:13 → M PCU 08-20 14:10
PROVIDERS: ADMIT Thoracic Surgery (Cardiothoracic Vascular Surgery); ATTEND Thoracic Surgery (Cardiothoracic Vascular Surgery)
PROC: 07B70ZX Excision of Thorax Lymphatic, Open Approach, Diagnostic (ICD-10-PCS; 2019-08-16)
PROC: 0BTF0ZZ Resection of Right Lower Lung Lobe, Open Approach (ICD-10-PCS; principal; 2019-08-16 09:00)
PROC: 02HV33Z Insertion of Infusion Device into Superior Vena Cava, Percutaneous Approach (ICD-10-PCS; 2019-08-17)
DX: C34.31 Malignant neoplasm of lower lobe, right bronchus or lung (principal); A41.9 Sepsis, unspecified organism; N39.0 Urinary tract infection, site not specified; Z68.41 Body mass index [BMI] 40.0-44.9, adult; J81.1 Chronic pulmonary edema; T81.44XA Sepsis following a procedure, initial encounter; E11.65 Type 2 diabetes mellitus with hyperglycemia; E66.01 Morbid (severe) obesity due to excess calories; F20.9 Schizophrenia, unspecified; Z87.891 Personal history of nicotine dependence; B96.1 Klebsiella pneumoniae [K. pneumoniae] as the cause of diseases classified elsewhere; Z91.19 Patient's noncompliance with other medical treatment and regimen

== ENCOUNTER → 2019-09-01 | Outpatient (CLI) | payer MEDICARE, MEDICAID ==
[~2019-09-01] MED LIST changes: +FERR1TAB8 PO; +GEMF600T5 PO; +INVE1.75 IM; +INVO100T PO; +LEVO175T19 PO; -LIDOCAINE 1% MDV 20ML VIAL SQ PRN; -LR 1,000 ML IV ONE; +METF-838 PO; +MIRT1TAB PO; -MUPIROCIN 2% OINT 22 GM TUBE TOP ONE; +NICOINH INH; +OZEM2INJ2 SC; +PERCOCET PO; +SERO200T PO; +VANC125C3 PO; -ceFAZolin SOD 2 GM in IV 1 EA IV ONE
--- NOTE | 2019-09-01 12:19 | REP ---
REASON: History of lung carcinoma. COMPARISON: Multiple, the latest 08/23/2019. Increased opacity right lower lobe. No change in the cardiomediastinal silhouette or left lung. Stable right apical capping. No change in the osseous structures. IMPRESSION: Increased right pleural effusion. Electronically Signed by Wander Ramos DO 09/01/2019 01:07 P
== END ==
LOC: M RAD 11:26
PROVIDERS: ATTEND Thoracic Surgery (Cardiothoracic Vascular Surgery)
DX: C34.31 Malignant neoplasm of lower lobe, right bronchus or lung (principal); J90 Pleural effusion, not elsewhere classified

== ENCOUNTER → 2019-09-22 | Outpatient (CLI) | payer MEDICARE, MEDICAID ==
[~2019-09-22] MED LIST changes: +MIRT-62 PO; -QUET1TAB10 PO; +QUET300T2 PO; +QUET50TA3 PO; -QUET5TAB PO; -REME15TA PO; +RISP-10 PO; +RISP-9 PO; -RISP2TAB3 PO; -RISP3TAB3 PO
--- NOTE | 2019-09-22 10:33 | REPPI ---
CHEST X-RAY: Two views. HISTORY: Malignant neoplasm right lower lobe. COMPARISON CHEST X-RAY: September 01, 2019. FINDINGS: Post thoracotomy changes and post thoracotomy volume loss noted on the right. There is a transversely oriented fracture of the right lateral 3rd rib which is a new finding. No infiltrate is seen. Left lung remains clear. No other significant bony abnormality. There are surgical clips in the right upper quadrant. IMPRESSION: Post thoracotomy partial pneumonectomy changes on the right. Interval development of a right 3rd rib fracture laterally. Otherwise no acute disease. Electronically Signed by Ozzie Crawford MD 09/22/2019 01:33 P
== END ==
LOC: M PLAIMG 09:12
PROVIDERS: ATTEND Thoracic Surgery (Cardiothoracic Vascular Surgery)
DX: C34.31 Malignant neoplasm of lower lobe, right bronchus or lung (principal); S22.31XA Fracture of one rib, right side, initial encounter for closed fracture; X58.XXXA Exposure to other specified factors, initial encounter; Y92.9 Unspecified place or not applicable

== ENCOUNTER → 2019-10-17 | Outpatient (CLI) | payer MEDICARE, MEDICAID ==
[~2019-10-17] MED LIST changes: -MIRT-62 PO; +QUET1TAB10 PO; -QUET300T2 PO; -QUET50TA3 PO; +QUET5TAB PO; +REME15TA PO; -RISP-10 PO; -RISP-9 PO; +RISP2TAB3 PO; +RISP3TAB3 PO
--- NOTE | 2019-10-17 14:29 | REP ---
CHEST, FLUORO SNIFF TEST: Real-time fluoroscopic imaging of the chest and diaphragms is performed during deep inspiration and expiration. There is severely diminished excursion of the right hemidiaphragm, which is elevated compared to the left. The left hemidiaphragm demonstrates normal motion and excursion. There is no paradoxical motion. IMPRESSION: Severely compromised motion of the right hemidiaphragm with only minimal excursion with deep inspiration and expiration. Normal left diaphragmatic motion. Fluoroscopy time 0.6 minutes. Electronically Signed by Mt Berg MD 10/18/2019 11:12 P
== END ==
LOC: M RAD 10:07
PROVIDERS: ATTEND Thoracic Surgery (Cardiothoracic Vascular Surgery)
DX: E11.9 Type 2 diabetes mellitus without complications (principal); Z79.84 Long term (current) use of oral hypoglycemic drugs; J98.6 Disorders of diaphragm

== ENCOUNTER → 2020-01-23 | Outpatient (CLI) | payer MEDICARE, MEDICAID ==
--- NOTE | 2020-01-23 10:30 | REPPI ---
INDICATION: MALIGNANT NEOPLASM OF LOWER LOBE, RIGHT BRONCHUS OR LUNGCOPD COMPARISON: Multiple examinations dating through 08/17/2019 TECHNIQUE: PA and lateral. FINDINGS: Elevation of the right hemidiaphragm is again noted and relatively stable although subtle underlying effusion as well as atelectasis cannot definitively be excluded. Visualized bilateral aerated lung murguia are clear. No left-sided effusion. No evidence for pneumothorax. Visualized portions of the mediastinum and cardiac silhouette are normal. Skeletal structures are grossly intact. IMPRESSION: 1. Chronic elevation to the right hemidiaphragm. Subtle superimposed right lower lobe process cannot definitively be excluded. 2. Remainder of the examination appears normal/stable. <Electronically signed by Lacho Batista > 01/23/20 102
== END ==
LOC: M PLAIMG 10:08
PROVIDERS: ATTEND Thoracic Surgery (Cardiothoracic Vascular Surgery)
DX: C34.31 Malignant neoplasm of lower lobe, right bronchus or lung (principal); J44.9 Chronic obstructive pulmonary disease, unspecified

== ENCOUNTER → 2020-05-16 | Outpatient (CLI) | payer MEDICARE, MEDICAID ==
[~2020-05-16] MED LIST changes: +MIRT-62 PO; -QUET1TAB10 PO; +QUET300T2 PO; +QUET50TA3 PO; -QUET5TAB PO; -REME15TA PO; +RISP-10 PO; +RISP-9 PO; -RISP2TAB3 PO; -RISP3TAB3 PO
--- NOTE | 2020-05-16 18:41 | REP ---
INDICATION: ABN FINDING OF LUNG COMPARISON: 08/22/2019 TECHNIQUE: Axial noncontrast images from the thoracic inlet to the upper abdomen with coronal and sagittal reformations. This CT examination was performed using the following dose reduction techniques: Automated exposure control, adjustment of mA and/or kv according to the patient's size, and use of iterative reconstruction technique. FINDINGS: Evidence for prior right lower lobectomy with minimal right basilar scarring and chronic elevation to the right hemidiaphragm. Old healed rib fractures are identified. No acute consolidation, significant nodule or mass lesion. Tracheobronchial tree is relatively patent. No effusion. No pneumothorax. Small mediastinal lymph nodes are nonspecific. Thoracic aorta, pulmonary vasculature, and heart/pericardium are relatively stable/normal. Thyroid gland is normal by noncontrast CT evaluation. Limited upper abdomen demonstrates normal bilateral adrenal glands and evidence for prior cholecystectomy. IMPRESSION: Postsurgical changes involving the right hemithorax as described above. No acute mediastinal or pleuroparenchymal process appreciated. <Electronically signed by Lacho Batista > 05/16/20 [id number]
== END ==
LOC: M RAD 14:32
PROVIDERS: ATTEND Internal Medicine Pulmonary Disease
DX: R91.8 Other nonspecific abnormal finding of lung field (principal)

== ENCOUNTER → 2020-09-11 | Outpatient (CLI) | payer MEDICARE, MEDICAID ==
[~2020-09-11] MED LIST changes: +BACTDSTA PO; -SULF1TAB93 PO
--- NOTE | 2020-09-11 14:48 | REPMRS ---
Patient History The patient states she has not had a clinical breast exam in over a year. Patient has history of lung cancer at age 49. No known family history of cancer. Tomosynthesis is performed. Volpara breast density is b. [facility] lifetime risk of breast cancer 8.0%. Indicated problem(s): right breast large axillary lymph nodes Right breast other indicated problem, enlarged lympn nodes seen on ct. Patient states no breast complaints. Patient states that a recent CT demonstrated enlarged lymph nodes in the right axilla Diagnostic Bilateral Mammo: September 11, 2020 - Exam #: [id number] Bilateral CC and MLO view(s) were taken. Technologist: Margaret Arias, Technologist Prior study comparison: 2019, bilateral digital mammo screening bilat, performed at [facility]. FINDINGS: There are scattered fibroglandular densities. There has been no change in the appearance of the mammogram from the prior studies. There is a mild amount of residual fibroglandular tissue which is fairly symmetric. There is no interval development of dominant mass, architectural distortion, or clustered microcalcification suggestive of malignancy. Assessment: BI-RADS/ACR category 1 mammogram. Negative Mammogram. Recommendation Routine screening mammogram in 1 year (for women over age 40). This mammogram was interpreted with the aid of an FDA-approved computer-aided dectection system. Electronically Signed By: Mt Berg MD 09/11/20 [id number]
--- NOTE | 2020-09-11 16:21 | REP ---
INDICATION: R AXILLARY LYMPHADENOPATHY/HX R LUNG CA. COMPARISON: None TECHNIQUE: Right axillary ultrasound FINDINGS: There are no cystic or solid masses. There are 2 normal-sized lymph nodes. IMPRESSION: No ultrasonographic evidence of an abnormality. There are 2 lymph nodes. They are not enlarged. One has a maximal dimension of 1.3 cm and the other has a maximal dimension of 7 mm <Electronically signed by Wander Ramos > 09/11/20 1602
== END ==
LOC: M WHC 13:41
PROVIDERS: ATTEND Nurse Practitioner Family
DX: Z08 Encounter for follow-up examination after completed treatment for malignant neoplasm (principal); Z12.31 Encounter for screening mammogram for malignant neoplasm of breast; R22.2 Localized swelling, mass and lump, trunk; C34.2 Malignant neoplasm of middle lobe, bronchus or lung
CPT/HCPCS: 76882; 77066; G0279

== ENCOUNTER → 2020-10-29 | Outpatient (CLI) | payer MEDICARE, OTHER ==
[~2020-10-29] MED LIST changes: +OMEP40CA4 PO; -OMEP40CA97 PO
--- NOTE | 2020-10-30 15:39 | REP ---
INDICATION: RESTAGING LUNG CA. COMPARISON: Comparison PET-CT study 19 April 2019. Comparison is made with recent prior chest CT study from [facility] September 02, [address] CT study from May 16, 2020.. TECHNIQUE: Sixty-eight minutes following the intravenous injection of a 8.31 mCi dose of F-18 FDG, three-dimensional PET scintigraphy is acquired from the skull base to the proximal thighs. Triplanar noncontrast CT scanning is acquired through the same anatomic range for attenuation correction, and image registration with scan parameters optimized to minimize radiation exposure to the patient. PET scintigraphy and CT datasets were fused and displayed on a workstation with multiplanar and projection display capability. FINDINGS: Head and neck soft tissues are unremarkable. No hypermetabolic josé miguel uptake. There is no abnormal hypermetabolic uptake within the chest. No hilar or mediastinal hypermetabolic josé miguel uptake. No abnormal pulmonary parenchymal uptake. In the abdomen and pelvis there is normal distribution of F 18 FDG. No abnormal hypermetabolic uptake is seen in the abdomen or pelvis. IMPRESSION: Negative PET scintigraphy. <Electronically signed by Jad Crawford > 10/30/20 [id number]
== END ==
LOC: M PLARAD 14:02
PROVIDERS: ATTEND Nurse Practitioner Family
DX: C34.2 Malignant neoplasm of middle lobe, bronchus or lung (principal); R59.9 Enlarged lymph nodes, unspecified
CPT/HCPCS: 78815; A9552

== ENCOUNTER → 2020-12-17 | Outpatient (CLI) | payer MEDICARE, OTHER ==
[~2020-12-17] MED LIST changes: +COVI100V IM; +HYDR1CAP25 PO; +METF-877 PO; +OXYB10TA23 PO; -QUET50TA3 PO; +QUET50TA4 PO; +SIMV40TA20 PO; +VASC1CAP2 PO
--- NOTE | 2020-12-17 09:43 | REP ---
INDICATION: STEATOSIS. COMPARISON: Right upper quadrant ultrasound of 04/01/2006 TECHNIQUE: Transabdominal ultrasound FINDINGS: Multiple ultrasonographic images of the liver show the hepatic parenchymal echo pattern to be diffusely increased. There is no intrahepatic or extrahepatic ductal dilatation. The common bile duct cannot be identified. The patient is status post cholecystectomy. The imaged portion of the pancreas is within normal limits. The spleen measures 13.3 x 4.4 x10.8 cm. The splenic volumetric index calculation is 632 cc. There is splenomegaly. No perisplenic abnormalities are noted. The right kidney measures 12 x 6.4 x 5.1 cm. The renal cortical echotexture is within normal limits. Corticomedullary differentiation is preserved. There is no hydronephrosis. There are no masses. The left kidney measures 10.7 x 6.1 x 5 cm. The renal cortical echotexture is within normal limits. Corticomedullary differentiation is preserved. There is no hydronephrosis. There are no masses. The abdominal aorta was not visualized. There is no evidence of free fluid. IMPRESSION: 1. There is diffuse fatty infiltration of the liver status quo. 2. There is splenomegaly. 3. The examination is limited by nonvisualization of the common bile duct. Consider MRCP if clinically relevant. <Electronically signed by Wander Ramos > 12/17/20 [id number]
== END ==
LOC: M RAD 08:54
PROVIDERS: ATTEND Internal Medicine Hematology & Oncology
DX: K76.0 Fatty (change of) liver, not elsewhere classified (principal); R16.1 Splenomegaly, not elsewhere classified

== ENCOUNTER 2021-03-22 11:12 | Emergency (ER) | payer MEDICARE, OTHER ==
[~2021-03-22] VITALS: Ht 170.2 cm; Wt 120.1 kg
[~2021-03-22 11:12] MED LIST changes: +FENO145T7; +LEVO200T4
[2021-03-22 11:13] VITALS: BP 138/71
[2021-03-22] MEDS ORDERED: DOXY-443 PO (12:15)
== END 2021-03-22 12:45 | disposition home or self-care (01) ==
LOC: M ED 11:12
DX: L72.0 Epidermal cyst (principal); E11.9 Type 2 diabetes mellitus without complications; E78.5 Hyperlipidemia, unspecified; J44.9 Chronic obstructive pulmonary disease, unspecified; K21.9 Gastro-esophageal reflux disease without esophagitis; E03.9 Hypothyroidism, unspecified; F31.9 Bipolar disorder, unspecified; F20.9 Schizophrenia, unspecified; F41.9 Anxiety disorder, unspecified; F17.200 Nicotine dependence, unspecified, uncomplicated; Z79.899 Other long term (current) drug therapy

== ENCOUNTER → 2021-05-08 | Outpatient (CLI) | payer MEDICARE, OTHER ==
[~2021-05-08] MED LIST changes: +DOXY-443 PO
== END ==
LOC: M PLAIMG 14:57
PROVIDERS: ATTEND Internal Medicine Pulmonary Disease
DX: R91.8 Other nonspecific abnormal finding of lung field (principal)

== ENCOUNTER → 2021-09-04 | Outpatient (CLI) | payer MEDICARE, MEDICAID ==
[~2021-09-04] MED LIST changes: +ALLE1TAB23 PO; +DIPH50CA PO; +GABA-1171 PO; +INVE1.31 IM; +LOPE2CAP PO; +MELA5CAP2 PO; +MYRB25TA PO; +NOXI1TAB PO; +SEMA1PEN2 SQ
== END ==
LOC: M LABSMTC 10:56
PROVIDERS: ATTEND Anesthesiology
DX: Z11.52 Encounter for screening for COVID-19 (principal); Z20.822 Contact with and (suspected) exposure to COVID-19

== ENCOUNTER 2021-09-09 11:08 | Day surgery (SDC) | payer MEDICARE, MEDICAID ==
[~2021-09-09] VITALS: Ht 170.2 cm; Wt 114.7 kg
[~2021-09-09 11:08] MED LIST changes: +LIDOCAINE 2% 100MG/5ML SDV (FOR ANES.) As Ordered ONE; +NS 1,000 ML IV ONE; +fentaNYL 100 MCG/2 ML INJECTION As Ordered ONE; +propofoL 200 MG/20 ML VIAL As Ordered ONE
[2021-09-09] MEDS ORDERED: propofoL 200 MG/20 ML VIAL As Ordered ONE (14:08)
[2021-09-09 14:40] VITALS: BP 135/73
== END 2021-09-09 14:48 | disposition home or self-care (01) ==
LOC: M OPP 11:08
PROVIDERS: ATTEND Internal Medicine Gastroenterology
DX: K29.70 Gastritis, unspecified, without bleeding (principal); K31.89 Other diseases of stomach and duodenum; K57.10 Diverticulosis of small intestine without perforation or abscess without bleeding; R93.3 Abnormal findings on diagnostic imaging of other parts of digestive tract; Z79.02 Long term (current) use of antithrombotics/antiplatelets
CPT/HCPCS: 43239; 88305; J3010

== ENCOUNTER → 2021-10-03 | Outpatient (CLI) | payer MEDICAID, MEDICARE ==
[~2021-10-03] MED LIST changes: -LIDOCAINE 2% 100MG/5ML SDV (FOR ANES.) As Ordered ONE; -NS 1,000 ML IV ONE; -fentaNYL 100 MCG/2 ML INJECTION As Ordered ONE; -propofoL 200 MG/20 ML VIAL As Ordered ONE
== END ==
LOC: M RAD 09:01
PROVIDERS: ATTEND Nurse Practitioner Family
DX: R05.3 Chronic cough (principal)

== ENCOUNTER → 2021-12-19 | Outpatient (CLI) | payer MEDICARE, OTHER | LOC: M WHC 09:41 | PROVIDERS: ATTEND Nurse Practitioner Family | DX: Z12.31 Encounter for screening mammogram for malignant neoplasm of breast (principal); R92.2 Inconclusive mammogram ==

== ENCOUNTER → 2022-01-03 | Outpatient (CLI) | payer MEDICARE | LOC: M RAD 09:29 | PROVIDERS: ATTEND Nurse Practitioner Family | DX: M25.561 Pain in right knee (principal) ==

== ENCOUNTER → 2022-01-22 | Outpatient (CLI) | payer MEDICARE ==
[~2022-01-22] MED LIST changes: +LOPI600T PO
== END ==
LOC: M WHC 10:00
PROVIDERS: ATTEND Nurse Practitioner Family
DX: R92.8 Other abnormal and inconclusive findings on diagnostic imaging of breast (principal); N63.11 Unspecified lump in the right breast, upper outer quadrant

== ENCOUNTER → 2022-06-09 | Outpatient (CLI) | payer OTHER ==
[~2022-06-09] MED LIST changes: -BENZ-52 PO; +BENZ1TAB5 PO; +FAMO40TA3
== END ==
LOC: M RAD 11:45
PROVIDERS: ATTEND Registered Nurse
DX: K42.9 Umbilical hernia without obstruction or gangrene (principal)

== ENCOUNTER → 2023-01-27 | Outpatient (CLI) | payer MEDICARE, MEDICAID ==
[~2023-01-27] MED LIST changes: +B-COTAB4; -MIRT-62 PO; +MIRT-84 PO; +MIRT-88 PO; -REME15TA2 PO
== END ==
LOC: M WHC 09:49
PROVIDERS: ATTEND Physician Assistant
DX: Z12.31 Encounter for screening mammogram for malignant neoplasm of breast (principal)

== ENCOUNTER 2023-06-04 15:06 | Emergency (ER) | payer MEDICARE, MEDICAID ==
[~2023-06-04] VITALS: Ht 170.2 cm; Wt 112.7 kg
[~2023-06-04 15:06] MED LIST changes: -ALLE1TAB23 PO; -EFFE150C2 PO; +EFFE150C3 PO; +FEXO-157 PO
[2023-06-04 16:04] LABS: BASO # 0.1 10^3/uL (0.0-0.2); BASO % 0.6 % (0.0-1.0); EOS # 0.3 10^3/uL (0.0-0.5); EOS % 2.5 % (0.0-3.0); HEMATOCRIT 46.2 % (36.0-47.0); HEMOGLOBIN 15.4 g/dl (12.0-15.5); LYMPH # 4.3 10^3/uL (1.5-5.0); LYMPH % 32.8 % (24.0-44.0); MEAN CORPUSCULAR HGB CONC 33.3 g/dl (32.0-36.5); MEAN CORPUSCULAR VOLUME 80.9 fl (80.0-96.0); MONO # 1.1 10^3/uL (0.0-0.8); MONO % 8.1 % (2.0-8.0); NEUTROPHILS # 7.2 10^3/uL (1.5-8.5); NEUTROPHILS % 55.5 % (36.0-66.0); PLATELET COUNT, AUTOMATED 364 10^3/uL (150-450); RED BLOOD COUNT 5.71 10^6/uL (4.00-5.40)
[2023-06-04] MEDS: ACETAMINOPHEN 325 MG TAB PO ONE (16:15)
[2023-06-04 16:29] LABS: LIPASE 38 U/L (12-53)
[2023-06-04 16:31] LABS: ALBUMIN 3.7 G/DL (3.2-5.2); ALKALINE PHOSPHATASE 111 U/L (46-116); ALT/SGPT 18 U/L (7.0-40); AST/SGOT 12 U/L (<34); BILIRUBIN,DIRECT < 0.1 MG/DL (<0.4); BILIRUBIN,TOTAL 0.2 MG/DL (0.3-1.2); BLOOD UREA NITROGEN 15 MG/DL (9-23); CALCIUM LEVEL 9.9 MG/DL (8.5-10.1); CARBON DIOXIDE LEVEL 29 MMOL/L (20-31); CHLORIDE LEVEL 100 MMOL/L (98-107); CREATININE FOR GFR 0.57 MG/DL (0.55-1.30); GLOMERULAR FILTRATION RATE > 60.0 (>51); GLUCOSE, FASTING 107 MG/DL (60-100); POTASSIUM SERUM 4.2 MMOL/L (3.5-5.1); SODIUM LEVEL 135 MMOL/L (136-145); TOTAL PROTEIN 7.1 G/DL (5.7-8.2)
[2023-06-04] MEDS ORDERED: ISOVUE-370 76% 100ML VIAL As Ordered ONE (16:36)
[2023-06-04 18:33] VITALS: BP 159/79; TEMP 98.2; O2SAT 99
[2023-06-05] MEDS ORDERED: CIPR7.5D2 (14:16)
== END 2023-06-04 18:34 | disposition home or self-care (01) ==
LOC: EDBD 15:06 → M ED 15:06
DX: K43.9 Ventral hernia without obstruction or gangrene (principal); E11.9 Type 2 diabetes mellitus without complications; K21.9 Gastro-esophageal reflux disease without esophagitis; E78.5 Hyperlipidemia, unspecified; F31.9 Bipolar disorder, unspecified; Z79.1 Long term (current) use of non-steroidal anti-inflammatories (NSAID); Z79.891 Long term (current) use of opiate analgesic; Z79.4 Long term (current) use of insulin; Z79.899 Other long term (current) drug therapy
CPT/HCPCS: 36415; 74177; 80048; 80076; 81001; 83690; 85025; 87086; 99284; Q9967

== ENCOUNTER → 2023-06-12 | Outpatient (CLI) | payer MEDICARE, MEDICAID ==
[~2023-06-12] MED LIST changes: -B-COTAB4; +CIPR7.5D2; -RISP-10 PO; +RISP-106 PO; -RISP-9 PO; +RISP3TAB77 PO; +VITA1TAB78
== END ==
LOC: M RAD 12:49
PROVIDERS: ATTEND Registered Nurse
DX: Z12.2 Encounter for screening for malignant neoplasm of respiratory organs (principal); F17.218 Nicotine dependence, cigarettes, with other nicotine-induced disorders; R91.1 Solitary pulmonary nodule

== ENCOUNTER → 2023-06-18 | Outpatient (CLI) | payer MEDICAID, MEDICARE | LOC: M PLAIMG 10:47 | PROVIDERS: ATTEND Physician Assistant Medical | DX: H92.12 Otorrhea, left ear (principal); H70.12 Chronic mastoiditis, left ear ==

== ENCOUNTER → 2023-08-25 | Outpatient (CLI) | payer MEDICARE, OTHER ==
[~2023-08-25] MED LIST changes: +DOXY-323 PO; -DOXY-443 PO
[2023-08-25 13:43] LABS: HEMATOCRIT 41.4 % (36.0-47.0); HEMOGLOBIN 13.7 g/dl (12.0-15.5); MEAN CORPUSCULAR HGB CONC 33.1 g/dl (32.0-36.5); MEAN CORPUSCULAR VOLUME 84.5 fl (80.0-96.0); PLATELET COUNT, AUTOMATED 351 10^3/uL (150-450); WHITE BLOOD COUNT 12.9 10^3/uL (4.0-10.0)
[2023-08-25 14:10] LABS: HEMOGLOBIN A1c 6.7 % (4.0-6.0)
[2023-08-25 14:16] LABS: ALBUMIN 4.3 G/DL (3.2-5.2); ALKALINE PHOSPHATASE 102 U/L (46-116); ALT/SGPT 19 U/L (7.0-40); AST/SGOT 14 U/L (<34); BILIRUBIN,TOTAL 0.3 MG/DL (0.3-1.2); BLOOD UREA NITROGEN 16 MG/DL (9-23); CALCIUM LEVEL 10.4 MG/DL (8.5-10.1); CARBON DIOXIDE LEVEL 29 MMOL/L (20-31); CHLORIDE LEVEL 97 MMOL/L (98-107); CREATININE FOR GFR 0.84 MG/DL (0.55-1.30); GLOMERULAR FILTRATION RATE > 60.0 (>51); GLUCOSE, FASTING 95 MG/DL (60-100); POTASSIUM SERUM 4.4 MMOL/L (3.5-5.1); SODIUM LEVEL 134 MMOL/L (136-145); TOTAL PROTEIN 7.5 G/DL (5.7-8.2)
== END ==
LOC: M LAB 13:08
PROVIDERS: ATTEND Surgery
DX: K43.2 Incisional hernia without obstruction or gangrene (principal); Z79.899 Other long term (current) drug therapy

== ENCOUNTER 2023-09-11 07:05 | Day surgery (SDC) | payer MEDICARE ==
[~2023-09-11] VITALS: Ht 170.2 cm; Wt 106.1 kg
[~2023-09-11 07:05] MED LIST changes: +B12-1CHW PO; +VITA100T28 PO
[2023-09-11] MEDS ORDERED: LR 1,000 ML IV SCH (07:20)
[2023-09-11] MEDS ORDERED: DEXTROSE 50% 50ML SYRINGE IV PRN (07:20)
[2023-09-11] MEDS ORDERED: INSULIN LISPRO (NovoLOG) PER UNIT SC PRN (07:20)
[2023-09-11] MEDS ORDERED: GLUCAGON INJ 1MG VIAL SC PRN (07:20)
[2023-09-11] MEDS ORDERED: GLUCOSE 4 GM CHEW PO PRN (07:20)
[2023-09-11] MEDS ORDERED: fentaNYL 100 MCG/2 ML INJECTION As Ordered ONE (08:24)
[2023-09-11] MEDS ORDERED: MIDAZOLAM INJ 2MG/2ML VIAL As Ordered ONE (08:24)
[2023-09-11] MEDS: BOTOX THERAPEUTIC 100 UNIT VIAL As Ordered ONE (09:15)
[2023-09-11 09:45] VITALS: BP 113/56; TEMP 97; O2SAT 95
== END 2023-09-11 10:16 | disposition home or self-care (01) ==
LOC: M SDC 07:05
PROVIDERS: ATTEND Surgery
DX: K43.2 Incisional hernia without obstruction or gangrene (principal); K56.609 Unspecified intestinal obstruction, unspecified as to partial versus complete obstruction; E66.01 Morbid (severe) obesity due to excess calories; F31.9 Bipolar disorder, unspecified; F41.9 Anxiety disorder, unspecified; F32.A Depression, unspecified; K21.9 Gastro-esophageal reflux disease without esophagitis; E11.9 Type 2 diabetes mellitus without complications; Z85.118 Personal history of other malignant neoplasm of bronchus and lung; F17.218 Nicotine dependence, cigarettes, with other nicotine-induced disorders; Z79.899 Other long term (current) drug therapy
CPT/HCPCS: 64646; J0585; J0665; J2250; J3010

== ENCOUNTER → 2023-10-09 | Outpatient (CLI) | payer MEDICARE ==
[~2023-10-09] MED LIST changes: +ASPI81TA26 PO; +FAMO40TA3 PO; +HYDR50TA70 PO; +MIRA3350 PO; +MM S100C PO; +SEMA2PEN SQ; +SYNT137T7 PO
== END ==
LOC: M RAD 13:43
PROVIDERS: ATTEND Internal Medicine Pulmonary Disease
DX: J44.9 Chronic obstructive pulmonary disease, unspecified (principal)

== ENCOUNTER 2023-12-04 06:20 | Day surgery (SDC) | payer MEDICARE ==
[~2023-12-04] VITALS: Ht 167.6 cm; Wt 104.3 kg
[~2023-12-04 06:20] MED LIST changes: +ALBU8.5H; +B-COCAP7 PO; +CENTCHW3 PO; +DULO1CAP6 PO; +FENO48TA8 PO; -FEXO-157 PO; +FEXO-63 PO; +FOLI1TAB11 PO; +QC F0.52 PO; +ROSU5TAB40 PO
[2023-12-04] MEDS ORDERED: LIDOCAINE 2% 100MG/5ML SDV (FOR ANES.) As Ordered ONE (06:52)
[2023-12-04] MEDS ORDERED: propofoL 200 MG/20 ML VIAL As Ordered ONE (06:52)
[2023-12-04] MEDS ORDERED: MIDAZOLAM INJ 2MG/2ML VIAL As Ordered ONE (06:52)
[2023-12-04] MEDS: BOTOX THERAPEUTIC 100 UNIT VIAL As Ordered ONE (08:15)
[2023-12-04] MEDS: ACETAMINOPHEN TAB 650MG DOSE (2X325MG) PO ONE (08:45)
[2023-12-04 09:19] VITALS: BP 112/68; TEMP 97.8; O2SAT 94
== END 2023-12-04 09:25 | disposition home or self-care (01) ==
LOC: M SDC 06:20
PROVIDERS: ATTEND Surgery
DX: K43.9 Ventral hernia without obstruction or gangrene (principal); L98.7 Excessive and redundant skin and subcutaneous tissue; E66.01 Morbid (severe) obesity due to excess calories; E11.9 Type 2 diabetes mellitus without complications; K76.0 Fatty (change of) liver, not elsewhere classified; J44.9 Chronic obstructive pulmonary disease, unspecified; Z85.118 Personal history of other malignant neoplasm of bronchus and lung; F17.218 Nicotine dependence, cigarettes, with other nicotine-induced disorders; E78.5 Hyperlipidemia, unspecified; Z79.51 Long term (current) use of inhaled steroids; Z79.899 Other long term (current) drug therapy; E03.9 Hypothyroidism, unspecified; K21.9 Gastro-esophageal reflux disease without esophagitis; F31.9 Bipolar disorder, unspecified; F41.9 Anxiety disorder, unspecified; F32.A Depression, unspecified; Z79.82 Long term (current) use of aspirin; Z79.84 Long term (current) use of oral hypoglycemic drugs
CPT/HCPCS: 64646; J0585; J0665; J2250

== ENCOUNTER → 2024-01-06 | Outpatient (CLI) | payer MEDICARE ==
[~2024-01-06] MED LIST changes: -ALBU8.5H; +ALBU8.5H INH; +DIPH-435 PO; -DOXY-323 PO; +DOXY-441 PO; +FAMO1TAB11 PO; +HYDR-3363 PO; +INVO300T PO; +MECL-86 PO; +MYRB50TA PO
== END ==
LOC: M PLAIMG 11:01
PROVIDERS: ATTEND Internal Medicine Pulmonary Disease
DX: R91.1 Solitary pulmonary nodule (principal)

== ENCOUNTER 2024-01-13 07:30 | Inpatient (IN) | payer MEDICARE, MEDICAID ==
[~2024-01-13] VITALS: Ht 167.6 cm; Wt 104.1 kg
[2024-01-13] VITALS (9 sets, daily range): BP systolic 92–113; BP diastolic 57–86; TEMP 97–98.1; O2SAT 91–95
[~2024-01-13 07:30] MED LIST changes: -DIPH-435 PO; -FAMO1TAB11 PO; -HYDR-3363 PO; -INVO300T PO; -MECL-86 PO; -MYRB50TA PO
[2024-01-13] MEDS: LR 1,000 ML IV SCH ×3 (08:36→17:57)
[2024-01-13] MEDS ORDERED: INVO300T PO (08:48)
[2024-01-13] MEDS ORDERED: DIPH-435 PO (08:50)
[2024-01-13] MEDS: CelecoXIB 400 MG CAP PO ONE (08:52)
[2024-01-13] MEDS ORDERED: HYDR-3363 PO (08:56)
[2024-01-13] MEDS ORDERED: METF-838 PO (08:58)
[2024-01-13] MEDS ORDERED: MYRB50TA PO (09:00)
[2024-01-13] MEDS ORDERED: MECL-86 PO (09:00)
[2024-01-13] MEDS ORDERED: FAMO1TAB11 PO (09:15)
[2024-01-13] MEDS ORDERED: HOME MED LIST COMPLETE! XX SCH (09:20)
[2024-01-13] MEDS ORDERED: LIDOCAINE 2% 100MG/5ML SDV (FOR ANES.) As Ordered ONE (09:33)
[2024-01-13] MEDS ORDERED: SUGAMMADEX SODIUM 500 MG/5 ML VIAL (BRIDION) As Ordered ONE (09:33)
[2024-01-13] MEDS ORDERED: ONDANSETRON 4MG 2ML VIAL As Ordered ONE (09:33)
[2024-01-13] MEDS ORDERED: propofoL 200 MG/20 ML VIAL As Ordered ONE (09:33)
[2024-01-13] MEDS ORDERED: ROCURONIUM BROMIDE 50MG/5ML VIAL As Ordered ONE (09:33)
[2024-01-13] MEDS ORDERED: MIDAZOLAM INJ 2MG/2ML VIAL As Ordered ONE (09:34)
[2024-01-13] MEDS ORDERED: fentaNYL 100 MCG/2 ML INJECTION As Ordered ONE (09:34)
[2024-01-13] MEDS: ceFAZolin SOD 2 GM in IV 1 EA IV ONE (10:30)
[2024-01-13] MEDS: HEPARIN SOD (PORCINE) 5000UNITS/ML 1ML VIAL/SYRINGE SQ ONE (10:40)
[2024-01-13] MEDS ORDERED: HYDROmorphone HCL 2MG/ML 1ML VIAL As Ordered ONE (11:13)
[2024-01-13] MEDS ORDERED: dexmedeTOMIDine (4MCG/ML)200MCG/50ML BTL (PRECEDEX) As Ordered ONE (11:15)
[2024-01-13] MEDS: ceFAZolin 2 GM/D5W 50 ML IV BAG As Ordered ONE (15:15)
[2024-01-13] MEDS ORDERED: KETOROLAC 60MG 2ML VIAL As Ordered ONE (15:36)
[2024-01-13] MEDS ORDERED: fentaNYL 100 MCG/2 ML INJECTION IV PRN (16:00)
[2024-01-13] MEDS ORDERED: oxyCODONE 5MG TAB PO PRN (16:00)
[2024-01-13] MEDS: LIDOCAINE 1% SDV 30ML VIAL As Ordered ONE (16:29)
[2024-01-13] MEDS: ceFAZolin 1GM VIAL As Ordered ONE (16:29)
[2024-01-13] MEDS ORDERED: ONDANSETRON 4MG 2ML VIAL IV PRN (16:30)
[2024-01-13] MEDS ORDERED: MORPHINE 4 MG/ML 1ML VIAL IV PRN (16:30)
[2024-01-13] MEDS ORDERED: PERCOCET 5MG/325MG TAB PO PRN (16:30)
[2024-01-13] MEDS ORDERED: ALBUTEROL 90 MCG/ACT 8GM HFA INHALER INH PRN (16:30)
[2024-01-13] MEDS: ONDANSETRON 4MG 2ML VIAL IV PRN (16:56)
[2024-01-13] MEDS: HYDROMORPHONE HCL 0.5 MG/ 0.5 ML SYRINGE IV PRN (16:57)
[2024-01-13] MEDS ORDERED: PILL CUTTER 1 EACH XX PRN (17:05)
[2024-01-13] MEDS: SYMBICORT 160/4.5MCG INHALER 6GM INH SCH (19:12)
[2024-01-13] MEDS: QUEtiapine FUMARATE 200 MG TAB PO SCH (22:04)
[2024-01-13] MEDS: DULoxetine 30MG CAPSULE (CYMBALTA) PO SCH (22:04)
[2024-01-13] MEDS: FENOFIBRATE 48MG TABLET (TRICOR) PO SCH (22:04)
[2024-01-13] MEDS: GABAPENTIN 100 MG CAP PO SCH (22:04)
[2024-01-13] MEDS: FOLIC ACID 1MG TAB PO SCH (22:04)
[2024-01-13] MEDS: ROSUVASTATIN 10 MG TAB (CRESTOR) PO SCH (22:04)
[2024-01-13] MEDS: DOCUSATE SODIUM 100MG CAPSULE PO SCH (22:05)
[2024-01-13] MEDS: KETOROLAC 30 MG/ML 1ML VIAL IV SCH (22:05)
[2024-01-13] MEDS: FAMOTIDINE 20 MG TAB PO SCH (22:05)
[2024-01-13] MEDS: diphenhydrAMINE 25MG CAP PO SCH (22:05)
[2024-01-14] VITALS (7 sets, daily range): BP systolic 87–107; BP diastolic 53–63; TEMP 97.3–100.1; O2SAT 90–95
[2024-01-14] MEDS: NS 1,000 ML IV ONE (03:38)
[2024-01-14] MEDS: LEVOTHYROXINE 137MCG TABLET (0.137MG) PO SCH (05:01)
[2024-01-14 05:41] LABS: BASO % 0.2 % (0.0-1.0); EOS % 0.1 % (0.0-3.0); HEMATOCRIT 42.3 % (36.0-47.0); HEMOGLOBIN 13.4 g/dl (12.0-15.5); LYMPH # 2.7 10^3/uL (1.5-5.0); LYMPH % 17.1 % (24.0-44.0); MEAN CORPUSCULAR HEMOGLOBIN 27.2 pg (27.0-33.0); MEAN CORPUSCULAR HGB CONC 31.7 g/dl (32.0-36.5); MEAN CORPUSCULAR VOLUME 85.8 fl (80.0-96.0); MONO # 2.2 10^3/uL (0.0-0.8); MONO % 13.9 % (2.0-8.0); NEUTROPHILS # 10.8 10^3/uL (1.5-8.5); NEUTROPHILS % 68.3 % (36.0-66.0); PLATELET COUNT, AUTOMATED 276 10^3/uL (150-450); RED BLOOD COUNT 4.93 10^6/uL (4.00-5.40); WHITE BLOOD COUNT 15.8 10^3/uL (4.0-10.0)
[2024-01-14 06:06] LABS: BLOOD UREA NITROGEN 16 MG/DL (9-23); CALCIUM LEVEL 8.5 MG/DL (8.5-10.1); CARBON DIOXIDE LEVEL 27 MMOL/L (20-31); CHLORIDE LEVEL 107 MMOL/L (98-107); CREATININE FOR GFR 0.69 MG/DL (0.55-1.30); GLOMERULAR FILTRATION RATE > 60.0 (>51); GLUCOSE, FASTING 128 MG/DL (60-100); POTASSIUM SERUM 4.2 MMOL/L (3.5-5.1); SODIUM LEVEL 138 MMOL/L (136-145)
[2024-01-14] MEDS: MULTIVITAMINS/MINERALS THERAP 1 TAB PO SCH (07:55)
[2024-01-14] MEDS: ASPIRIN 81MG ENTERIC TABLET PO SCH (07:55)
[2024-01-14] MEDS: VENLAFAXINE **XR** 75MG CAPSULE PO SCH (07:56)
[2024-01-14] MEDS: THIAMINE 100 MG TAB PO SCH (07:57)
[2024-01-14] MEDS: ENOXAPARIN 40MG/0.4ML SYRINGE (J1650 PER 10MG) SC SCH (07:57)
[2024-01-14] MEDS: PANTOPRAZOLE 40MG VIAL IV SCH (07:57)
[2024-01-14] MEDS: metFORMIN XR 500MG TAB *GLUCOPHAGE XR PO SCH (07:57)
[2024-01-14] MEDS: PERCOCET 5MG/325MG TAB PO PRN (08:46)
[2024-01-14] MEDS ORDERED: GLUCOSE 4 GM CHEW PO PRN (12:55)
[2024-01-14] MEDS ORDERED: DEXTROSE 50% 50ML SYRINGE IV PRN (12:55)
[2024-01-14] MEDS ORDERED: GLUCAGON INJ 1MG VIAL SC PRN (12:55)
[2024-01-14 14:46] LABS: VENOUS BASE EXCESS 0.7 (-2.0-2.0); VENOUS HCO3 27.6 MMOL/L (23.0-27.0); VENOUS O2 SATURATION 98.9 % (60.0-80.0); VENOUS PARTIAL PRESSURE CO2 53.5 mmHg (38.0-50.0); VENOUS PARTIAL PRESSURE O2 151.3 mmHg (30.0-50.0); VENOUS STANDARD HCO3 25.1 MMOL/L; VENOUS TOTAL CO2 29.2 MMOL/L (24.0-28.0)
[2024-01-14] MEDS: INSULIN LISPRO (NovoLOG) PER UNIT SC SCH ×2 (17:05→21:00)
[2024-01-14 17:33] LABS: ABG BASE EXCESS 0.2 (-2.0-2.0); ABG HCO3 24.8 MMOL/L (22.0-26.0); ABG O2 SATURATION 94.5 % (95.0-99.0); ABG PARTIAL PRESSURE CO2 40.1 mmHg (35.0-45.0); ABG PARTIAL PRESSURE O2 65.8 mmHg (75.0-100.0); ABG STANDARD HCO3 24.6 MMOL/L. (22.0-26.0); ABG pH (ARTERIAL) 7.409 UNITS (7.350-7.450)
[2024-01-14 18:12] LABS: ALBUMIN 2.6 G/DL (3.2-5.2); ALKALINE PHOSPHATASE 74 U/L (46-116); ALT/SGPT 38 U/L (7.0-40); AST/SGOT 28 U/L (<34); BILIRUBIN,DIRECT 0.2 MG/DL (<0.4); BILIRUBIN,TOTAL 0.4 MG/DL (0.3-1.2); MAGNESIUM LEVEL 1.8 MG/DL (1.8-2.4); TOTAL PROTEIN 5.3 G/DL (5.7-8.2)
[2024-01-14] MEDS: PIPERACILLIN/TAZOBACTAM SOD 3.375 GM in DEXTROSE 5% (D5W) ADV/MINI-BAG 50 ML IV SCH (18:13)
[2024-01-14] MEDS: NS 500 ML IV ONE (19:45)
[2024-01-14] MEDS: VANCOMYCIN 2,000 MG/400 ML IV BAG *LOAD IV ONE (21:59)
[2024-01-14] MEDS: DULoxetine 20MG CAP (CYMBALTA) PO SCH (22:03)
[2024-01-15 03:30] VITALS: BP 115/65; TEMP 98.1; O2SAT 91
[2024-01-15 03:45] VITALS: TEMP 100.8
[2024-01-15] MEDS: ACETAMINOPHEN 325 MG TAB PO PRN (04:03)
[2024-01-15] MEDS: VANCOMYCIN 1,000MG/200 ML IV BAG IV SCH ×2 (04:03→13:17)
[2024-01-15 04:57] VITALS: BP 119/89; TEMP 99.5; O2SAT 91
[2024-01-15 05:42] LABS: BASO # 0.1 10^3/uL (0.0-0.2); BASO % 0.3 % (0.0-1.0); EOS # 0.2 10^3/uL (0.0-0.5); HEMATOCRIT 38.9 % (36.0-47.0); HEMOGLOBIN 12.2 g/dl (12.0-15.5); LYMPH # 2.5 10^3/uL (1.5-5.0); LYMPH % 16.9 % (24.0-44.0); MEAN CORPUSCULAR HEMOGLOBIN 27.2 pg (27.0-33.0); MEAN CORPUSCULAR HGB CONC 31.4 g/dl (32.0-36.5); MEAN CORPUSCULAR VOLUME 86.8 fl (80.0-96.0); MONO # 1.8 10^3/uL (0.0-0.8); MONO % 12.1 % (2.0-8.0); NEUTROPHILS # 10.2 10^3/uL (1.5-8.5); NEUTROPHILS % 69.2 % (36.0-66.0); PLATELET COUNT, AUTOMATED 242 10^3/uL (150-450); RED BLOOD COUNT 4.48 10^6/uL (4.00-5.40); WHITE BLOOD COUNT 14.8 10^3/uL (4.0-10.0)
[2024-01-15 05:54] LABS: ALBUMIN 2.3 G/DL (3.2-5.2); ALKALINE PHOSPHATASE 77 U/L (46-116); ALT/SGPT 28 U/L (7.0-40); AST/SGOT 23 U/L (<34); BILIRUBIN,TOTAL 0.4 MG/DL (0.3-1.2); BLOOD UREA NITROGEN 13 MG/DL (9-23); CALCIUM LEVEL 8.1 MG/DL (8.5-10.1); CARBON DIOXIDE LEVEL 26 MMOL/L (20-31); CHLORIDE LEVEL 110 MMOL/L (98-107); CREATININE FOR GFR 0.68 MG/DL (0.55-1.30); GLOMERULAR FILTRATION RATE > 60.0 (>51); GLUCOSE, FASTING 134 MG/DL (60-100); POTASSIUM SERUM 3.9 MMOL/L (3.5-5.1); SODIUM LEVEL 142 MMOL/L (136-145); TOTAL PROTEIN 4.9 G/DL (5.7-8.2)
[2024-01-15] MEDS ORDERED: ISOVUE-370 76% 100ML VIAL As Ordered ONE (08:56)
[2024-01-15] MEDS: VENLAFAXINE **XR** 75MG CAPSULE PO SCH (09:07)
[2024-01-15 12:02] VITALS: BP 130/61; TEMP 99; O2SAT 95
[2024-01-15 20:55] VITALS: BP 130/61; TEMP 99; O2SAT 95
[2024-01-16 04:08] VITALS: BP 110/63; TEMP 97.9; O2SAT 96
[2024-01-16 05:30] LABS: BASO # 0.1 10^3/uL (0.0-0.2); BASO % 0.3 % (0.0-1.0); EOS # 0.5 10^3/uL (0.0-0.5); EOS % 3.2 % (0.0-3.0); HEMOGLOBIN 11.2 g/dl (12.0-15.5); LYMPH # 2.4 10^3/uL (1.5-5.0); LYMPH % 16.3 % (24.0-44.0); MEAN CORPUSCULAR HEMOGLOBIN 27.5 pg (27.0-33.0); MEAN CORPUSCULAR VOLUME 85.8 fl (80.0-96.0); MONO # 1.5 10^3/uL (0.0-0.8); MONO % 10.2 % (2.0-8.0); NEUTROPHILS # 10.1 10^3/uL (1.5-8.5); NEUTROPHILS % 69.5 % (36.0-66.0); PLATELET COUNT, AUTOMATED 241 10^3/uL (150-450); RED BLOOD COUNT 4.08 10^6/uL (4.00-5.40); WHITE BLOOD COUNT 14.5 10^3/uL (4.0-10.0)
[2024-01-16 05:59] LABS: ALBUMIN 2.1 G/DL (3.2-5.2); ALKALINE PHOSPHATASE 80 U/L (46-116); ALT/SGPT 18 U/L (7.0-40); AST/SGOT 13 U/L (<34); BILIRUBIN,TOTAL 0.3 MG/DL (0.3-1.2); BLOOD UREA NITROGEN 10 MG/DL (9-23); CALCIUM LEVEL 8.3 MG/DL (8.5-10.1); CARBON DIOXIDE LEVEL 26 MMOL/L (20-31); CHLORIDE LEVEL 109 MMOL/L (98-107); CREATININE FOR GFR 0.62 MG/DL (0.55-1.30); GLOMERULAR FILTRATION RATE > 60.0 (>51); GLUCOSE, FASTING 107 MG/DL (60-100); MAGNESIUM LEVEL 1.8 MG/DL (1.8-2.4); POTASSIUM SERUM 3.4 MMOL/L (3.5-5.1); SODIUM LEVEL 143 MMOL/L (136-145); TOTAL PROTEIN 4.9 G/DL (5.7-8.2)
[2024-01-16] MEDS: POTASSIUM CHLORIDE 10MEQ SR TABLET PO SCH (09:12)
[2024-01-16 09:19] VITALS: BP 97/40; TEMP 97.3; O2SAT 96
[2024-01-16 12:00] VITALS: BP 110/60; TEMP 97.9; O2SAT 98
[2024-01-16] MEDS: diphenhydrAMINE 50MG CAP PO SCH (20:24)
[2024-01-16] MEDS: GABAPENTIN 300 MG CAP PO SCH (20:24)
[2024-01-17] MEDS: NICOTINE 21MG/24HR 1 EA TRANSDERMAL TD PRN (09:43)
[2024-01-17 12:00] VITALS: BP 94/57; TEMP 97.5; O2SAT 96
[2024-01-17 20:15] VITALS: BP 115/65; TEMP 97.7; O2SAT 99
[2024-01-18 04:00] VITALS: BP 117/69; TEMP 97.7; O2SAT 94
[2024-01-18 06:26] LABS: HEMATOCRIT 34.7 % (36.0-47.0); HEMOGLOBIN 11.5 g/dl (12.0-15.5); MEAN CORPUSCULAR HEMOGLOBIN 28.1 pg (27.0-33.0); MEAN CORPUSCULAR HGB CONC 33.1 g/dl (32.0-36.5); MEAN CORPUSCULAR VOLUME 84.8 fl (80.0-96.0); PLATELET COUNT, AUTOMATED 329 10^3/uL (150-450); RED BLOOD COUNT 4.09 10^6/uL (4.00-5.40)
[2024-01-18] MEDS: POTASSIUM CHLORIDE 10MEQ SR TABLET PO SCH (09:49)
[2024-01-18 12:00] VITALS: BP 120/70; TEMP 97.7; O2SAT 95
[2024-01-18] MEDS ORDERED: IBUP-1022 PO (12:46)
== END 2024-01-18 14:54 | disposition home or self-care (01) | DRG 353 ==
LOC: M OR 07:37 → M MSPAV 17:42
PROVIDERS: ADMIT Surgery; ATTEND Surgery
PROC: 0KNL0ZZ Release Left Abdomen Muscle, Open Approach (ICD-10-PCS; 2024-01-13)
PROC: 0KNK0ZZ Release Right Abdomen Muscle, Open Approach (ICD-10-PCS; 2024-01-13)
PROC: 0WUF0JZ Supplement Abdominal Wall with Synthetic Substitute, Open Approach (ICD-10-PCS; principal; 2024-01-13 09:25)
DX: K43.2 Incisional hernia without obstruction or gangrene (principal); G93.41 Metabolic encephalopathy; J96.01 Acute respiratory failure with hypoxia; F05 Delirium due to known physiological condition; E03.9 Hypothyroidism, unspecified; E11.9 Type 2 diabetes mellitus without complications; E66.01 Morbid (severe) obesity due to excess calories; E78.5 Hyperlipidemia, unspecified; F41.9 Anxiety disorder, unspecified; F32.A Depression, unspecified; Z79.899 Other long term (current) drug therapy; Z79.82 Long term (current) use of aspirin; Z68.37 Body mass index [BMI] 37.0-37.9, adult; I95.9 Hypotension, unspecified

== ENCOUNTER → 2024-02-01 | Outpatient (CLI) | payer MEDICARE, MEDICAID ==
[~2024-02-01] MED LIST changes: +DIPH-435 PO; +FAMO1TAB11 PO; +HYDR-3363 PO; +IBUP-1022 PO; +INVO300T PO; +MECL-86 PO; +MYRB50TA PO
== END ==
LOC: M PLARAD 10:11
PROVIDERS: ATTEND Internal Medicine Pulmonary Disease
DX: R91.1 Solitary pulmonary nodule (principal)
CPT/HCPCS: 78815; A9552

== ENCOUNTER → 2024-03-15 | Outpatient (CLI) | payer MEDICARE ==
[~2024-03-15] MED LIST changes: +ISOVUE-370 76% 100ML VIAL As Ordered ONE; -ROSU5TAB40 PO; +ROSU5TAB49 PO
== END ==
LOC: M RAD 10:06
PROVIDERS: ATTEND Surgery
DX: K91.870 Postprocedural hematoma of a digestive system organ or structure following a digestive system procedure (principal); R93.5 Abnormal findings on diagnostic imaging of other abdominal regions, including retroperitoneum
CPT/HCPCS: 74177; Q9967

== ENCOUNTER → 2024-03-18 | Outpatient (CLI) | payer MEDICARE ==
[~2024-03-18] MED LIST changes: -ISOVUE-370 76% 100ML VIAL As Ordered ONE
== END ==
LOC: M WHC 11:55
PROVIDERS: ATTEND Physician Assistant
DX: Z12.31 Encounter for screening mammogram for malignant neoplasm of breast (principal); R92.323 Mammographic fibroglandular density, bilateral breasts

== ENCOUNTER → 2024-04-13 | Outpatient (CLI) | payer MEDICARE ==
[~2024-04-13] MED LIST changes: -CLEM2.68 PO; +CLEM2.687 PO
[2024-04-13 14:24] LABS: HEMOGLOBIN A1c 5.6 % (4.0-6.0)
[2024-04-13 14:35] LABS: CHOLESTEROL RISK RATIO 4.74 (<5); LDL CHOLESTEROL 104.4 MG/DL (<100)
[2024-04-13 14:39] LABS: THYROID STIMULATING HORMONE 1.763 uIU/ML (0.55-4.78)
== END ==
LOC: M PLALAB 10:02
PROVIDERS: ATTEND Physician Assistant
DX: E11.65 Type 2 diabetes mellitus with hyperglycemia (principal)

== ENCOUNTER → 2024-04-13 | Outpatient (CLI) | payer MEDICARE | LOC: M PLAIMG 10:00 | PROVIDERS: ATTEND Internal Medicine Pulmonary Disease | DX: R91.8 Other nonspecific abnormal finding of lung field (principal); E11.65 Type 2 diabetes mellitus with hyperglycemia ==

== ENCOUNTER → 2024-05-05 | Outpatient (CLI) | payer MEDICARE ==
[~2024-05-05] MED LIST changes: +E-Z-GAS II EFFERVESCENT PACKET (SODIUM BICARB./CITRIC ACID/SIMETHICONE) As Ordered ONE; +E-Z-HD 98% w/w 340GM SUSP BTL As Ordered ONE; +E-Z-PAQUE 96% w/w SUSP 176GM BTL As Ordered ONE
== END ==
LOC: M RAD 09:44
PROVIDERS: ATTEND Physician Assistant Medical
DX: R13.10 Dysphagia, unspecified (principal)

== ENCOUNTER → 2024-05-26 | Outpatient (CLI) | payer MEDICARE ==
[~2024-05-26] MED LIST changes: +BARIUM SULFATE 700 MG TABLET (E-Z-DISK) As Ordered ONE; -E-Z-GAS II EFFERVESCENT PACKET (SODIUM BICARB./CITRIC ACID/SIMETHICONE) As Ordered ONE; -E-Z-HD 98% w/w 340GM SUSP BTL As Ordered ONE; +VANC125C13 PO; -VANC125C3 PO; +VARIBAR NECTAR 40% w/v 240ML SUSP BTL As Ordered ONE; +VARIBAR PUDDING 40% w/v 230ML TUBE As Ordered ONE
== END ==
LOC: M RAD 10:50
PROVIDERS: ATTEND Physician Assistant Medical
DX: R13.10 Dysphagia, unspecified (principal)

== ENCOUNTER → 2024-05-30 | Outpatient (CLI) | payer MEDICARE, OTHER ==
[~2024-05-30] MED LIST changes: -BARIUM SULFATE 700 MG TABLET (E-Z-DISK) As Ordered ONE; -E-Z-PAQUE 96% w/w SUSP 176GM BTL As Ordered ONE; -VARIBAR NECTAR 40% w/v 240ML SUSP BTL As Ordered ONE; -VARIBAR PUDDING 40% w/v 230ML TUBE As Ordered ONE
[2024-05-30 12:30] LABS: PLATELET COUNT, AUTOMATED 357 10^3/uL (150-450)
[2024-05-30 12:47] LABS: INR 0.89; PARTIAL THROMBOPLASTIN TIME 28.1 SECONDS (24.8-34.2); PROTHROMBIN TIME 12.4 SECONDS (12.5-14.5)
== END ==
LOC: M LAB 11:39
PROVIDERS: ATTEND Internal Medicine Pulmonary Disease
DX: R91.1 Solitary pulmonary nodule (principal)

== ENCOUNTER 2024-06-01 07:22 | Day surgery (SDC) | payer MEDICARE ==
[~2024-06-01] VITALS: Ht 167.6 cm; Wt 107.9 kg
[2024-06-01] MEDS ORDERED: SUGAMMADEX SODIUM 500 MG/5 ML VIAL (BRIDION) As Ordered ONE (08:02)
[2024-06-01] MEDS ORDERED: MIDAZOLAM INJ 2MG/2ML VIAL As Ordered ONE (08:02)
[2024-06-01] MEDS ORDERED: fentaNYL 100 MCG/2 ML INJECTION As Ordered ONE (08:02)
[2024-06-01] MEDS ORDERED: LIDOCAINE 2% 100MG/5ML SDV (FOR ANES.) As Ordered ONE (08:02)
[2024-06-01] MEDS ORDERED: ROCURONIUM BROMIDE 50MG/5ML VIAL As Ordered ONE (08:02)
[2024-06-01] MEDS ORDERED: ONDANSETRON 4MG 2ML VIAL As Ordered ONE (08:02)
[2024-06-01] MEDS ORDERED: propofoL 200 MG/20 ML VIAL As Ordered ONE (08:02)
[2024-06-01] MEDS ORDERED: KETOROLAC 60MG 2ML VIAL As Ordered ONE (08:03)
[2024-06-01] MEDS ORDERED: NS (Normal Saline) 0.9% 1,000 ML IV SCH ×2 (08:10→10:05)
[2024-06-01] MEDS: CETACAINE SPRAY 5GM As Ordered ONE (09:09)
[2024-06-01] MEDS: EPINEPHrine 1MG/10ML SYRINGE 1.5IN As Ordered ONE (09:15)
[2024-06-01] MEDS ORDERED: PHENYLephrine 500MCG 5ML (100MCG/ML) SYRINGE As Ordered ONE (09:21)
[2024-06-01] MEDS ORDERED: PHENYLEPHRINE 10MG/ML 1ML VIAL As Ordered ONE (09:32)
[2024-06-01] MEDS ORDERED: HYDROMORPHONE HCL 0.5 MG/ 0.5 ML SYRINGE IV PRN (10:05)
[2024-06-01] MEDS ORDERED: ONDANSETRON 4MG 2ML VIAL IV PRN (10:05)
[2024-06-01] MEDS ORDERED: oxyCODONE 5MG TAB PO PRN (10:05)
[2024-06-01] MEDS ORDERED: fentaNYL 100 MCG/2 ML INJECTION IV PRN (10:05)
[2024-06-01] MEDS: IPRATROPIUM 0.5MG/ALBUTEROL 2.5MG INH SOL UD 3ML (DUONEB) NEB ONE (11:03)
[2024-06-01 11:38] VITALS: BP 135/62; TEMP 98.5; O2SAT 95
== END 2024-06-01 11:43 | disposition home or self-care (01) ==
LOC: M SDC 07:22
PROVIDERS: ATTEND Internal Medicine Pulmonary Disease
DX: J44.9 Chronic obstructive pulmonary disease, unspecified (principal); E11.9 Type 2 diabetes mellitus without complications; E78.5 Hyperlipidemia, unspecified; E03.9 Hypothyroidism, unspecified; K76.0 Fatty (change of) liver, not elsewhere classified; K21.9 Gastro-esophageal reflux disease without esophagitis; F41.9 Anxiety disorder, unspecified; F32.A Depression, unspecified; F31.9 Bipolar disorder, unspecified; F17.200 Nicotine dependence, unspecified, uncomplicated; Z79.51 Long term (current) use of inhaled steroids; Z79.84 Long term (current) use of oral hypoglycemic drugs; Z79.82 Long term (current) use of aspirin; Z79.899 Other long term (current) drug therapy
CPT/HCPCS: 31623; 31624; 31654; 71045; 76000; 88104; 88108; 88305; C1601; J0171; J1100; J1885; J2250; J2371; J2405; J3010; S2900

== ENCOUNTER 2024-07-05 08:57 | Day surgery (SDC) | payer MEDICARE ==
[~2024-07-05] VITALS: Ht 167.6 cm; Wt 109.4 kg
[~2024-07-05 08:57] MED LIST changes: +CHIA SEEDS; +GABA-1172 PO; +LIDOCAINE 2% 100MG/5ML SDV (FOR ANES.) As Ordered ONE; +PALI1TAB2 PO; +ULTR5TAB PO; +fentaNYL 100 MCG/2 ML INJECTION As Ordered ONE; +propofoL 500 MG/50 ML VIAL As Ordered ONE
[2024-07-05 10:17] VITALS: TEMP 97.1
[2024-07-05 10:34] VITALS: BP 139/70; O2SAT 94
== END 2024-07-05 10:57 | disposition home or self-care (01) ==
LOC: M OPP 08:57
PROVIDERS: ATTEND Internal Medicine Gastroenterology
DX: Z86.0100 Personal history of colon polyps, unspecified (principal); Z79.84 Long term (current) use of oral hypoglycemic drugs; Z79.85 Long-term (current) use of injectable non-insulin antidiabetic drugs; Z79.899 Other long term (current) drug therapy; Z99.81 Dependence on supplemental oxygen; J43.9 Emphysema, unspecified
CPT/HCPCS: 45378; 88305; J3010

== ENCOUNTER → 2024-10-25 | Outpatient (CLI) | payer MEDICARE ==
[~2024-10-25] MED LIST changes: -AMBI5TAB PO; -LIDOCAINE 2% 100MG/5ML SDV (FOR ANES.) As Ordered ONE; +ZOLP-532 PO; -fentaNYL 100 MCG/2 ML INJECTION As Ordered ONE; -propofoL 500 MG/50 ML VIAL As Ordered ONE
== END ==
LOC: M RAD 14:27
PROVIDERS: ATTEND Internal Medicine Pulmonary Disease
DX: R91.8 Other nonspecific abnormal finding of lung field (principal)

== ENCOUNTER → 2024-11-15 | Outpatient (CLI) | payer MEDICARE ==
[~2024-11-15] MED LIST changes: +ESTR0.1C5; +HYDR50TA70; +SENN8.6T28 PO; +[UNRECOGNIZED DRUG - REMARK] INJ
[2024-11-15 13:05] LABS: PLATELET COUNT, AUTOMATED 328 10^3/uL (150-450)
[2024-11-15 13:18] LABS: INR 0.87
== END ==
LOC: M LAB 12:38
PROVIDERS: ATTEND Internal Medicine Pulmonary Disease
DX: R91.1 Solitary pulmonary nodule (principal); Z79.01 Long term (current) use of anticoagulants

== ENCOUNTER → 2024-11-21 | Outpatient (CLI) | payer MEDICARE, MEDICAID ==
[2024-11-21 08:13] VITALS: TEMP 97.2
[2024-11-21] MEDS: LIDOCAINE 1% MDV 20 ML VIAL SC STA (09:33)
[2024-11-21 11:00] VITALS: BP 119/64; O2SAT 98
== END ==
LOC: M IRPRO 07:53
PROVIDERS: ATTEND Internal Medicine Pulmonary Disease
DX: C34.11 Malignant neoplasm of upper lobe, right bronchus or lung (principal); R91.1 Solitary pulmonary nodule

== ENCOUNTER → 2024-12-13 | Outpatient (CLI) | payer MEDICAID, MEDICARE ==
[~2024-12-13] MED LIST changes: -IBUP-1022 PO; +IBUP600T42 PO
== END ==
LOC: M PLARAD 08:12
PROVIDERS: ATTEND Internal Medicine Pulmonary Disease
DX: C34.11 Malignant neoplasm of upper lobe, right bronchus or lung (principal)
CPT/HCPCS: 78815; A9552

== ENCOUNTER → 2025-01-11 | Outpatient (CLI) | payer MEDICARE, MEDICAID ==
[~2025-01-11] MED LIST changes: -DIPH50CA PO; +DIPH50CA31 PO
== END ==
LOC: M ONCR 15:42
PROVIDERS: ATTEND General Practice
DX: C34.11 Malignant neoplasm of upper lobe, right bronchus or lung (principal); F17.210 Nicotine dependence, cigarettes, uncomplicated; Z79.82 Long term (current) use of aspirin; Z79.84 Long term (current) use of oral hypoglycemic drugs; Z79.85 Long-term (current) use of injectable non-insulin antidiabetic drugs; Z79.899 Other long term (current) drug therapy; Z80.1 Family history of malignant neoplasm of trachea, bronchus and lung; Z82.49 Family history of ischemic heart disease and other diseases of the circulatory system; Z90.2 Acquired absence of lung [part of]

== ENCOUNTER → 2025-02-03 | Outpatient (RCR) | payer MEDICARE, MEDICAID | LOC: M ONCR 01-16 13:53 | PROVIDERS: ATTEND General Practice | DX: Z51.0 Encounter for antineoplastic radiation therapy (principal); C34.11 Malignant neoplasm of upper lobe, right bronchus or lung ==

== ENCOUNTER → 2025-02-21 | Outpatient (CLI) | payer MEDICARE, MEDICAID ==
[~2025-02-21] MED LIST changes: +AZIT-12 PO; -BACTDSTA PO; +PRED50TA57 PO; +SULF-8 PO
== END ==
LOC: M ONCR 12:55
PROVIDERS: ATTEND General Practice
DX: R05.9 Cough, unspecified (principal); R09.3 Abnormal sputum